=== PATIENT | male | born 1990 | race Caucasian/White ===

== ENCOUNTER 2017-09-29 17:25 | Emergency (ER) | payer OTHER, SELFPAY ==
--- NOTE | 2017-09-29 20:11 | XR_ITS ---
XR chest 2V HISTORY: ITS.REASON: PAIN WITH BREATHING ORDERING PHYSICIAN: Padmini Mcdaniel PATIENT AGE: 27 years COMPARISON: 09/04/2011 FINDINGS: The cardiomediastinal silhouette and pulmonary vascularity are within normal limits. The lungs are clear without infiltrates, suspicious nodules, or pleural effusions. No acute bony abnormalities. IMPRESSION: Negative chest, no acute finding
[2017-09-29 20:19] VITALS: BP 121/83; PULSE 72; RESP 18; TEMP 36.9; O2SAT 99; BMI 31.5
--- NOTE | 2017-09-29 20:31 | HMH.EDUTC ---
[facility] [place] Disposition Clinical Impression: Gastroenteritis, Pain aggravated by breathing Disposition: Home, Self-Care Condition on Discharge: Good Instructions: DI for Viral Gastroenteritis -- Adult Additional Instructions: * Monitor Temp. Seek treatment if fever returns * Seems like symptoms have nearly resolved. the pain aggravated by breathing is likely due to a combination of vomiting so much and leaning over the toilet. Now that you are not doing either, should improve so if no improvement over the next 48 hours or at anytime, worse, be sure to follow up immediately * Continue to Increase fluids. Water, gatorade, powerade, juice OR pedialyte with limited formula/dairy in children. * Now that you are ready to eat, start bland. bananas, rice, applesauce, toast * Contagious until no diarrhea, vomiting, fever x 24 hours without medication * Avoid anti-diarrheals unless told otherwise. Best to let the virus run its course. Referrals: Augustus Abdi MD [Primary Care Provider] - (For new, worsening or persisting symptoms) Forms: Work/School Release Time of Disposition: 21:11 Medical Decision Making Vital Signs: 09/29/17 20:19 Temperature 98.4 F Temperature Source Oral Pulse Rate [Right Radial] 72 Respiratory Rate 18 Blood Pressure [Right Arm] 121/83 Blood Pressure Mean [Right Arm] 95 Blood Pressure Position [Right Arm] Sitting 02 Sat by Pulse Oximetry 99 Oxygen Delivery Method Room Air Orders (Tests/Meds): ORDERS Category Date Time Status Chest XR 2 view (NOT portable) [XR chest 2V] Stat Exams 09/29/17 20:11 Taken - Radiology Data #1 Image(s): Chest Image Reviewed: Yes I have reviewed radiologist's interpretation Preliminary Findings: Normal/NAD vrad - Omari Inquiry Pt receiving controlled substance: No [facility] [place] HPI - General Stated complaint: v&d, Abd Pain Time Seen by Provider: 09/29/17 20:31 Mode of Arrival: Family Vehicle Source of Information: Patient Limitations: No Limitations Description of Symptoms (Recalled from Triage Doc. by RN): PT STATES THAT HE HIS HAVING PAIN WITH BREATHING. PT STATES HE HAD A STOMACH VIRUS WITH VOMITING AND DIARRHEA THE PAST COUPLE DAYS. HEENT Symptoms (Recalled from RN notes): No Resp Symptoms (Recalled from RN notes): No Skin Symptoms (Recalled from RN notes): No MS Symptoms (Recalled from RN notes): Yes (ABDOMINAL CAVITY HURTS WITH BREATHING) Functional Status (Recalled from RN notes): NA - History of Present Illness Provider Complaint: c/o upper abdominal pain or maybe pressure really aggravated by breathing. Noticed today. N/V/D since 4am Thursday morning. Vomited approx 15 times and can't recall how much watery diarrhea. Improving now. Thinks likely viral but wondering if contributing. Last vomiting late yesterday. Stool more loose then watery today and only once. No fever since yesterday. Hx of asthma. Denies SOA or wheezing but just feels harder to take a deep breath. Like my chest is already full and when I take a deep breath, my lungs are pushing into my abdomen . Denies abdominal pain. Hasn't taken or tried anything for these specific symptoms. Uses breo and incruse for asthma and albuterol as needed. Hasn't needed extra albuterol. and children with same symptoms now since he had them. - Related Data Allergies Allergy/AdvReac Type Severity Reaction Status Date / Time amoxicillin Allergy Intermediate I-RASH Verified 09/29/17 19:14 clindamycin Allergy Unknown UNKNOWN Verified 09/29/17 19:14 - Worker's Comp Is this a Worker's Comp case?: No [facility] History I have reviewed the patient's past medical history: Yes Medical History: Reports:: Asthma, Hypertension Denies:: Cancer, Chronic Obstructive Pulmonary Disease (COPD), Diabetes Mellitus Type 1, Diabetes Mellitus Type 2, MRSA Other Surgeries: Yes: No Previous Surgery Amputation: No - *Social History Smoking Status: Never smoker Alcohol Intake: never - Psychiatric History Expre
[2017-09-29 21:14] VITALS: BP 129/88; PULSE 88; RESP 18; TEMP 37.1; O2SAT 99
== END 2017-09-29 21:16 | disposition home or self-care (01) ==
PROVIDERS: Emergency Provider Nurse Practitioner Family; Family Provider Family Medicine; PCP Family Medicine
DX: K52.9 Noninfective gastroenteritis and colitis, unspecified (principal); J45.909 Unspecified asthma, uncomplicated; I10 Essential (primary) hypertension
CPT/HCPCS: 71046; 99202

== ENCOUNTER → 2017-10-23 06:43 | Outpatient (CLI) | payer OTHER, SELFPAY | PROVIDERS: PCP Family Medicine; Visit Provider Family Medicine | DX: R00.2 Palpitations (principal) | CPT/HCPCS: 93225; 93226 ==

== ENCOUNTER 2017-10-28 21:01 | Emergency (ER) | payer OTHER, SELFPAY ==
[2017-10-28 21:18] VITALS: BP 136/66; PULSE 79; RESP 16; TEMP 36.9; O2SAT 96; BMI 30.1
--- NOTE | 2017-10-28 21:45 | HMH.EDARPALP ---
ED Disposition Clinical Impression: Palpitations Disposition: Home, Self-Care Condition on Discharge: Good Additional Instructions: call pcp in am Referrals: Augustus Abdi MD [Primary Care Provider] - - Critical Care Critical Care Time: No Attestation: On 10/28/17, the high probability of a clinically significant, sudden or life threatening deterioration of the following system(s) required my full and direct attention, intervention and personal management. The time I documented below is in addition to time spent performing reported procedures but includes the following listed in this critical care notation. Medical Decision Making - Medical Records Medical records reviewed: Yes: I reviewed the patient's medical records. - Omari Inquiry Pt receiving controlled substance: No Vital Signs: 10/28/17 21:18 Temperature 98.5 F Temperature Source Oral Pulse Rate [Left Radial] 79 Respiratory Rate 16 Blood Pressure [Right Arm] 136/66 Blood Pressure Mean [Right Arm] 89 Blood Pressure Source [Right Arm] Automatic Cuff Blood Pressure Position [Right Arm] Sitting 02 Sat by Pulse Oximetry 96 Oxygen Delivery Method Room Air - Lab Data Lab results reviewed: Yes: I reviewed the patient's lab results. Lab Results 10/28/17 21:52: WBC 5.2, RBC 5.38, Hgb 16.8, Hct 48.2, MCV 89.6, MCH 31.2, MCHC 34.8, RDW 12.5, Plt Count 179, MPV 8.6, Neut % (Auto) 68.9, Lymph % (Auto) 18.5, [place] % (Auto) 6.5, Eos % (Auto) 5.8, Baso % (Auto) 0.3, Neut # (Auto) 3.6, Lymph # (Auto) 1.0, [place] # (Auto) 0.3, Eos # (Auto) 0.3, Baso # (Auto) 0.0 10/28/17 21:52: Sodium 142, Potassium 3.6, Chloride 104, Carbon Dioxide 31, Anion Gap 10.6, BUN 10, Creatinine 1.10, Estimated Creat Clear 135, Estimated GFR 80, Est GFR ( Amer) 96, Glucose 103, Total Creatine Kinase 173, CK-MB (CK-2) 0.9, CK-MB (CK-2) Rel Index 0.5, Troponin I < 0.02, TSH 0.59, Thyroxine (T4) 10.4 Result diagrams: 10/28/17 21:52 10/28/17 21:52 Orders (Tests/Meds): ORDERS Category Date Time Status Drug Screen,Urine Stat Lab 10/28/17 22:38 Received - ECG Data Tracing #1 I reviewed this ECG and interpreted as documented below: Normal Sinus Rhythm: Yes Ischemic changes: non-specific ST-T wave changes Arrhythmia/Palpitations HPI - General Chief Complaint: Arrhythmia/Palpitations Stated Complaint: heart palpatations Time Seen by Provider: 10/28/17 21:45 Mode of Arrival: Ambulatory Source of Information: Patient, Spouse, Medical Record Limitations: No Limitations - History of Present Illness HPI narrative: this wm has episodes of inc hr w/o chest pain or syncope MD complaint: heart racing , palpitations Onset (ago): hour(s) Duration: intermittent Severity: moderate Context: occurred during rest - Related Data Home Medications Medication Instructions Recorded Confirmed Albuterol Sulfate [Albuterol HFA 1 puff IH Q4HP PRN 10/28/17 10/28/17 Inhaler] Fluticasone/Vilanterol [Breo 1 each IH DAILY 10/28/17 10/28/17 Ellipta 200-25 Mcg INH] Lisinopril/Hydrochlorothiazide 1 tab PO DAILY 10/28/17 10/28/17 [Lisinopril-Hctz 20-12.5 mg Tab] Nebivolol HCl [Bystolic] 20 mg PO DAILY 10/28/17 10/28/17 Omeprazole [Omeprazole 20mg 20 mg PO DAILY 10/28/17 10/28/17 Capsule] Umeclidinium [place] [Incruse 62.5 mcg IH DAILY 10/28/17 10/28/17 Ellipta] Allergies Allergy/AdvReac Type Severity Reaction Status Date / Time amoxicillin Allergy Verified 10/28/17 21:28 clindamycin Allergy Verified 10/28/17 21:28 [facility] History I have reviewed the patient's past medical history: Yes Medical History: Denies:: Cancer, Diabetes Mellitus Type 1, Diabetes Mellitus Type 2, MRSA Amputation: No Fractures: No - Social History Smoking Status: Current every day smoker # Packs/Day (cigarettes): 1 Alcohol Intake: current Alcohol Intake Frequency:: a few times a month - Psychiatric History Expresses thoughts of harming self/othe
--- NOTE | 2017-10-28 21:48 | ED_ITS ---
ED Disposition Clinical Impression: Palpitations Disposition: Home, Self-Care Condition on Discharge: Good Additional Instructions: call pcp in am Referrals: Augustus Abdi MD [Primary Care Provider] - - Critical Care Critical Care Time: No Attestation: On 10/28/17, the high probability of a clinically significant, sudden or life threatening deterioration of the following system(s) required my full and direct attention, intervention and personal management. The time I documented below is in addition to time spent performing reported procedures but includes the following listed in this critical care notation. Medical Decision Making - Medical Records Medical records reviewed: Yes: I reviewed the patient's medical records. - Omari Inquiry Pt receiving controlled substance: No Vital Signs: 10/28/17 21:18 Temperature 98.5 F Temperature Source Oral Pulse Rate [Left Radial] 79 Respiratory Rate 16 Blood Pressure [Right Arm] 136/66 Blood Pressure Mean [Right Arm] 89 Blood Pressure Source [Right Arm] Automatic Cuff Blood Pressure Position [Right Arm] Sitting 02 Sat by Pulse Oximetry 96 Oxygen Delivery Method Room Air - Lab Data Lab results reviewed: Yes: I reviewed the patient's lab results. Lab Results 10/28/17 21:52: WBC 5.2, RBC 5.38, Hgb 16.8, Hct 48.2, MCV 89.6, MCH 31.2, MCHC 34.8, RDW 12.5, Plt Count 179, MPV 8.6, Neut % (Auto) 68.9, Lymph % (Auto) 18.5 , [place] % (Auto) 6.5, Eos % (Auto) 5.8, Baso % (Auto) 0.3, Neut # (Auto) 3.6, Lymph # (Auto) 1.0, [place] # (Auto) 0.3, Eos # (Auto) 0.3, Baso # (Auto) 0.0 10/28/17 21:52: Sodium 142, Potassium 3.6, Chloride 104, Carbon Dioxide 31, Anion Gap 10.6, BUN 10, Creatinine 1.10, Estimated Creat Clear 135, Estimated GFR 80, Est GFR ( Amer) 96, Glucose 103, Total Creatine Kinase 173, CK- MB (CK-2) 0.9, CK-MB (CK-2) Rel Index 0.5, Troponin I < 0.02, TSH 0.59, Thyroxine (T4) 10.4 Result diagrams: 10/28/17 21:52 10/28/17 21:52 Orders (Tests/Meds): ORDERS Category Date Time Status Drug Screen,Urine Stat Lab 10/28/17 22:38 Received - ECG Data Tracing #1 I reviewed this ECG and interpreted as documented below: Normal Sinus Rhythm: Yes Ischemic changes: non-specific ST-T wave changes Arrhythmia/Palpitations HPI - General Chief Complaint: Arrhythmia/Palpitations Stated Complaint: heart palpatations Time Seen by Provider: 10/28/17 21:45 Mode of Arrival: Ambulatory Source of Information: Patient, Spouse, Medical Record Limitations: No Limitations - History of Present Illness HPI narrative: this wm has episodes of inc hr w/o chest pain or syncope MD complaint: heart racing , palpitations Onset (ago): hour(s) Duration: intermittent Severity: moderate Context: occurred during rest - Related Data Home Medications Medication Instructions Recorded Confirmed Albuterol Sulfate [Albuterol HFA 1 puff IH Q4HP PRN 10/28/17 10/28/17 Inhaler] Fluticasone/Vilanterol [Breo 1 each IH DAILY 10/28/17 10/28/17 Ellipta 200-25 Mcg INH] Lisinopril/Hydrochlorothiazide 1 tab PO DAILY 10/28/17 10/28/17 [Lisinopril-Hctz 20-12.5 mg Tab] Nebivolol HCl [Bystolic] 20 mg PO DAILY 10/28/17 10/28/17 Omeprazole [Omeprazole 20mg 20 mg PO DAILY 10/28/17 10/28/17 Capsule] Umeclidinium [place] [Incruse 62
[2017-10-28 22:03] LABS: Basophils % 0.3 % (0.1-2.0); Eosinophils # 0.3 K/mm3 (0.0-0.4); Eosinophils % 5.8 % (0.1-12.0); Hematocrit 48.2 % (42.0-52.0); Hemoglobin 16.8 g/dL (14.1-18.0); Lymphocytes % 18.5 K/mm3 (10-50); Mean Corpuscular HGB Conc 34.8 g/dL (31.8-35.4); Mean Corpuscular Hemoglobin 31.2 pg (27.0-31.2); Mean Corpuscular Volume 89.6 fl (80-94); Mean Platelet Volume 8.6 fl (7.4-10.4); Monocytes # 0.3 K/mm3 (0.1-1.0); Monocytes % 6.5 % (1.7-9.3); Neutrophils # 3.6 K/mm3 (1.8-7.8); Neutrophils % 68.9 % (37.0-80.0); Platelet Count 179 K/mm3 (142-424); Red Blood Count 5.38 M/mm3 (4.60-6.20); Red Cell Distribution Width 12.5 % (11.5-17.5); White Blood Count 5.2 K/mm3 (4.8-10.8)
[2017-10-28 22:34] LABS: Anion Gap 10.6 mEq/L (5-15); Blood Urea Nitrogen 10 mg/dL (7-18); CKMB Relative Index 0.5 U/L (0-4.0); Carbon Dioxide 31 mmol/L (21.0-32.0); Chloride 104 mmol/L (98-107); Creatine Kinase 173 U/L (39-308); Creatine Kinase MB 0.9 mg/ml (0.0-3.6); Creatinine Clearance Estimated 135 mL/min (0-300); Estimated Glomerular Filt Rate 80 ml/min (>60); GFR (African American) 96 ML/MIN (>60); Glucose 103 mg/dL (74-106); Potassium 3.6 mmoL/L (3.5-5.1); Sodium 142 mmol/L (136-145); T4 (Thyroxine) 10.4 ug/dl (4.7-13.3); Thyroid Stimulating Hormone 0.59 uIU/ml (0.358-3.740); Troponin I < 0.02 ng/ml (0.00-0.06)
--- NOTE | 2017-10-28 22:39 | PC.NURSE ---
RT paged regarding halter monitor, stated she was getting it together now.
[2017-10-28 22:54] LABS: Amphetamine/Metha Screen,Urine Negative ng/mL (<1000); Barbiturates Screen,Urine Negative ng/mL (<200); Benzodiazepines Screen,Urine Negative ng/mL (200); Cannabinoid Screen,Urine Negative ng/mL (<50); Cocaine Screen,Urine Negative ng/g (<300); Methadone Screen,Urine Negative ng/mL (<300); Opiate Screen,Urine Negative ng/mL (<300); Phencyclidine Screen,Urine Negative ng/mL (<25)
[2017-10-28 23:23] VITALS: BP 156/89; PULSE 78; RESP 16; TEMP 36.6; O2SAT 98
== END 2017-10-28 23:24 | disposition home or self-care (01) ==
PROVIDERS: Emergency Provider Emergency Medicine; PCP Family Medicine
DX: R00.2 Palpitations (principal); I10 Essential (primary) hypertension; F17.210 Nicotine dependence, cigarettes, uncomplicated; Z88.1 Allergy status to other antibiotic agents
CPT/HCPCS: 80048; 80305; 82550; 82553; 84436; 84443; 84484; 85025; 93005; 93041; 99211; 99282; 99283

== ENCOUNTER → 2018-03-15 14:09 | Outpatient (CLI) | payer OTHER, SELFPAY ==
--- NOTE | 2018-03-15 14:14 | XR_ITS ---
XR chest 2V HISTORY: ITS.REASON: SEVERE PERSISTANT ASTHMA WITH EXACERBATION ORDERING PHYSICIAN: Elise Mays MD PATIENT AGE: 28 years COMPARISON: None FINDINGS: The cardiomediastinal silhouette and pulmonary vascularity are within normal limits. The lungs are clear without infiltrates, suspicious nodules, or pleural effusions. No acute bony abnormalities. IMPRESSION: Negative chest, no acute finding
== END ==
PROVIDERS: PCP Family Medicine; Visit Provider Emergency Medicine
DX: J45.51 Severe persistent asthma with (acute) exacerbation (principal)
CPT/HCPCS: 71046

== ENCOUNTER → 2019-05-31 11:04 | Outpatient (CLI) | payer OTHER, SELFPAY | PROVIDERS: PCP Family Medicine; Visit Provider Family Medicine | DX: R00.2 Palpitations (principal) | CPT/HCPCS: 93270 ==

== ENCOUNTER → 2020-01-13 08:47 | Outpatient (CLI) | payer OTHER, SELFPAY ==
--- NOTE | 2020-01-13 08:51 | FL_ITS ---
PROCEDURE: FL UPPER GI W AIR CLINICAL INDICATION: POST PRANDIAL SXS, HIATAL HERNIA COMPARISON: No exams were available for comparison TECHNIQUE: FLUOROSCOPY TIME : 2 minutes 19 seconds FINDINGS: The esophagus, stomach, and duodenum have an unremarkable appearance except for a tiny sliding hiatal hernia. There is no GE reflux seen during the study. A spot film of the cervical esophagus while swallowing shows no abnormal anterior or posterior indentation of the barium column. No ulcer or mass evident. No mucosal abnormalities apparent. There is normal peristalsis. The duodenal C-loop is normal and the proximal small bowel appears radiographically normal.. IMPRESSION: Tiny sliding hiatal hernia otherwise unremarkable study Dictated by: Dr. Martinez Perez MD 01/13/2020 09:[address] Martinez Perez MD in [place] 01/13/2020 09:44
== END ==
PROVIDERS: PCP Family Medicine; Visit Provider Family Medicine
DX: K21.0 Gastro-esophageal reflux disease with esophagitis (principal)
CPT/HCPCS: 74246

== ENCOUNTER → 2020-06-04 07:05 | Outpatient (CLI) | payer OTHER, SELFPAY ==
[2020-06-04 12:08] LABS: Coronavirus 19 IgG Antibody Negative (Negative); Coronavirus 19 IgM Antibody Negative (Negative)
== END ==
PROVIDERS: Visit Provider Surgery
DX: Z01.818 Encounter for other preprocedural examination (principal); Z12.11 Encounter for screening for malignant neoplasm of colon
CPT/HCPCS: 36415; 86328

== ENCOUNTER 2020-06-05 06:14 | Day surgery (SDC) | payer OTHER, SELFPAY ==
[2020-05-30 14:15] VITALS: BMI 34.4
[2020-06-05 06:35] VITALS: BP 133/75; PULSE 107; RESP 18; TEMP 36.9; O2SAT 97
--- NOTE | 2020-06-05 06:48 | HMH.ANESCL ---
[facility] Anesthesia Checklist - Patient Identification Patient Identification: Arm Band, Verbal (Name & ) - Structural Data Admitted From: Home Planned Operative Procedure/s: colon Consent for Planned Operative Procedure(s) Verified: Yes Verified Documents: History and Physical - NPO Status Verified Time NPO: 00:00 - Additional verifications Patient : No Anesthesia Reactions: No Hx Blood Transfusions: No Blood Transfusion Reaction: No Cephalosporin Allergy: No Previous Colonoscopy: Yes - Cardiovascular Assessment Heart Sounds: S1 & S2 Pulse Strength: Baseline Pulse Rhythm: Regular Peripheral Edema: No - Airway Assessment C-Spine Mobility Assessed: Yes TMJ Mobility Assessed: Yes Dentition: Good Dentition - Neurological Assessment Level of Consciousness: Awake, Alert, Appropriate Hx Seizures: No Numbness or tingling in extremities: No - Anesthesia Plan Anesthesia Risk discussed: Yes Anesthesia Plan: Verified ASA Class: II Anesthesia Type: MAC [facility] History I have reviewed the patient's past medical history: Yes Medical History: Reports:: Asthma, Gastroesophageal Reflux Disease(GERD), Hypertension, Palpitations Denies:: Cancer, Chronic Obstructive Pulmonary Disease (COPD), Diabetes Mellitus Type 1, Diabetes Mellitus Type 2, Internal Pacemaker, MRSA, Seizures *Have you ever received a pneumonia vaccine?: No *Have you received a flu vaccine this season?: No Anesthesia experience/problems:: none Other Surgeries: Yes: No Previous Surgery, Colonoscopy, Other. No: Pacemaker Amputation: No Fractures: No - *Social History Last grade of school completed: Advanced degree Smoking Status: Current every day smoker Tobacco Type: cigarettes # Packs/Day (cigarettes): 1 Alcohol Intake: current Alcohol Intake Frequency:: a few times a month Substance Use Type: denies use *Occupational Status:: employed Housing: house Household Members: family *Travel in the last 8 weeks: None Family Hx:: Diabetes, Cancer, Coronary Artery Disease, Hypertension, Heart Attack
[2020-06-05 07:19] VITALS: O2SAT 97
[2020-06-05 07:50] VITALS: BP 92/50; PULSE 98; RESP 16; TEMP 36.9; O2SAT 92
--- NOTE | 2020-06-05 07:50 | P.PCN_ITS ---
- Procedure: Date: 06/05/20 Patient Date of :: 1990 Procedure Performed:: Total colonoscopy to terminal ileum with polypectomy by biopsy forceps Indications:: Patient presents for follow-up colonoscopy. He is a 30-year-old male with history of hypertension on several pressure medications who was referred by Dr. Abdi for follow-up colonoscopy and seen in the office a couple of months ago.. Of note, patient works for [employer]. At that time he was scheduled for colonoscopy but due to his work schedule was unable to proceed at that time. I had seen him about 3 years ago for some rectal bleeding and performed colonoscopy. He was actually found to have at least 2 adenomatous polyps. He does have a family history of colon cancer with his great grandfather being diagnosed with colon cancer at a very young age in his 20s. He was due for a follow-up colonoscopy at 3 years. He does state that recently he had some rectal bleeding. He had discontinued aspirin and the bleeding stopped. Performing Provider:: Benny Gil MD Referring Provider:: Ruben Abdi MD Sedation:: MAC sedation Procedure:: Patient was taken to endoscopy procedure room. He was positioned in a lateral decubitus position. Adequate intravenous sedation was achieved with anesthesia titration of propofol. Digital examination was performed. He did have some prolapsing hemorrhoids. Colonoscope was inserted via the anus. Was advanced to the cecum. Ileocecal valve and appendiceal orifice were clearly identified. Colonoscope was advanced a short distance into the terminal ileum which appeared grossly normal. Colonoscope was slowly withdrawn through the colon with careful surveillance. At the rectosigmoid region about 20 cm from the anal verge there were several likely hyperplastic appearing polyps. These were removed with cold biopsy forceps. Retroflexion within the rectum revealed some minor internal hemorrhoids. Colonoscope was withdrawn. Findings:: Several likely hyperplastic rectosigmoid polyps Hemorrhoids Recommendations:: Repeat colonoscopy 3 to 5 years pending the pathology based on prior history of adenomatous polyps and family history of colon cancer at a young age. Complications:: None immediately apparent Estimated blood obtained (mL): 2
[2020-06-05 08:00] VITALS: BP 106/74; PULSE 94; RESP 16; TEMP 36.9; O2SAT 100
[2020-06-05 08:15] VITALS: BP 140/82; PULSE 84; RESP 18; TEMP 36.9; O2SAT 100
== END 2020-06-05 08:15 | disposition home or self-care (01) ==
LOC: OUTP 06:16
PROVIDERS: PCP Family Medicine; Visit Provider Surgery
PROC: 0DJD8ZZ Inspection of Lower Intestinal Tract, Via Natural or Artificial Opening Endoscopic (ICD-10-PCS; CPT 45380; principal; 2020-06-05 07:30)
DX: Z12.11 Encounter for screening for malignant neoplasm of colon (principal); I10 Essential (primary) hypertension; Z86.010 Personal history of colon polyps; K63.5 Polyp of colon; K64.9 Unspecified hemorrhoids; J45.909 Unspecified asthma, uncomplicated; K21.9 Gastro-esophageal reflux disease without esophagitis; R00.2 Palpitations; Z79.899 Other long term (current) drug therapy; Z72.0 Tobacco use; Z80.9 Family history of malignant neoplasm, unspecified; Z83.3 Family history of diabetes mellitus
CPT/HCPCS: 45380

== ENCOUNTER 2020-07-23 16:39 | Emergency (ER) | payer OTHER, SELFPAY ==
[2020-07-23 17:41] VITALS: BP 129/75; PULSE 71; RESP 18; TEMP 36.6; O2SAT 99; BMI 34.0
[2020-07-23 17:45] VITALS: BP 129/75; PULSE 71; RESP 18; TEMP 36.6; O2SAT 99
--- NOTE | 2020-07-23 17:46 | HMH.EDUTC ---
[facility] [place] Clinical Impression: Sinusitis Qualifiers: Sinusitis location: unspecified location Chronicity: unspecified Qualified Code(s): J32.9 - Chronic sinusitis, unspecified Disposition: Home, Self-Care Condition on Discharge: Good Instructions: Sinusitis, DI for Sinusitis, Preventing the Spread of Coronavirus Discharge Instructions Additional Instructions: *Monitor Temp, Over the counter Motrin or Tylenol as directed/as needed Tylenol every 4 hours and Motrin every 6 hours (as long as your family doctor has told you that you can take it) for fever or pain. and straight to ER if unable to lower temp less than 101.0 after medication given *Warm salt water gargles may help to soothe the throat *Throat Lozenges *Warm fluids like tea with honey may help to soothe the throat *Sleep elevated *Humidifier/Vaporizer *Flonase 2 sprays in each nostril daily but be aware that it may take 2-3 days before you notice improvement Follow up IMMEDIATELY for new or worsening symptoms or no Noticeable improvement over the next 48-72 hours. 911 for difficulty breathing or swallowing You were tested for today for COVID19 your test result should be back in the next 24-48 hours, you may call to the [facility] to see if your test results are back in the next 48 hours [phone] [facility] hours are 9am-9pm You was given a handout with instructions for Self Quarantine and Self isolation for while you wait on test results and what to do if they are positive If you are positive the Health Dept will be contacting you also Prescriptions: Fluticasone Propionate [Flonase Allergy Relief NS] 1 spray NS DAILY #1 bot Transmission Status: Pending to [facility] Azithromycin [Z-Carlos 250mg Tab] 250 mg PO DIRECTED #6 tab Transmission Status: Pending to [id number] Referrals: Augustus Abdi MD [Primary Care Provider] - As needed Forms: Work/School Release Time of Disposition: 18:06 Medical Decision Making - Omari Inquiry Pt receiving controlled substance: No Omari was queried for this patient: No Vital Signs: 07/23/20 17:41 07/23/20 17:45 Temperature 97.8 F 97.8 F Temperature Source Oral Pulse Rate 71 Pulse Rate [Left] 71 Respiratory Rate 18 18 Blood Pressure 129/75 Blood Pressure [Right Arm] 129/75 Blood Pressure Mean [Right Arm] 93 Blood Pressure Source [Right Arm] Automatic Cuff Blood Pressure Position [Right Arm] Sitting 02 Sat by Pulse Oximetry 99 Oxygen Delivery Method Room Air Orders (Tests/Meds): ORDERS Category Date Time Status Covid-19 Nasal PCR Sendout Mark Stat Lab 07/23/20 17:28 Ordered [facility] [place] HPI - General Stated complaint: Cough, weakness, SOB Time Seen by Provider: 07/23/20 17:46 Mode of Arrival: Ambulatory Source of Information: Patient Limitations: No Limitations Description of Symptoms (Recalled from Triage Doc. by RN): Cough, SOB, weakness x 3 weeks Covid test HEENT Symptoms (Recalled from RN notes): No Resp Symptoms (Recalled from RN notes): Yes Skin Symptoms (Recalled from RN notes): No MS Symptoms (Recalled from RN notes): No Functional Status (Recalled from RN notes): wnl - History of Present Illness Provider Complaint: Patient states that he thinks he may have a sinus infection States that he has history of asthma and has been having drainage and pressure in his sinuses State that he is suppose to start new job and wanted to get tested for COVID also Denies SOA state sthat he has just been stopped up - Related Data Home Medications Medication Instructions Recorded Confirmed Lisinopril/Hydrochlorothiazide 1 tab PO DAILY 10/28/17 06/25/20 [Lisinopril-Hctz 20-12.5 mg Tab] omeprazole 20 mg capsule,delayed 20 mg PO ONCE 11/18/17 06/25/20 release albuterol sulfate 90 mcg/actuation 1 puff INHALATION Q6H PRN 03/11/18 06/25/20 aerosol inhaler diltiazem HCl 120 mg 120 mg PO DAILY 03/12/20 06/25/20 capsule,extended release 24 hr metoprolol succinate 100 mg
[2020-07-25 14:15] LABS: Covid-19 Nasal PCR Sendout Lex Not Detected
== END 2020-07-23 18:22 | disposition home or self-care (01) ==
PROVIDERS: Emergency Provider Nurse Practitioner; PCP Family Medicine
DX: Z20.828 Contact with and (suspected) exposure to other viral communicable diseases (principal); J32.9 Chronic sinusitis, unspecified; K21.9 Gastro-esophageal reflux disease without esophagitis; I10 Essential (primary) hypertension; Z88.1 Allergy status to other antibiotic agents
CPT/HCPCS: 99201; U0004

== ENCOUNTER → 2021-08-14 07:46 | Outpatient (CLI) | payer OTHER, SELFPAY ==
--- NOTE | 2021-08-14 07:49 | CA_ITS ---
APPROVED REPORT Legal Transcriptionist: Artemio Xie RCS, RVS Study Quality: Good Indications: HTN from age 15, Cp, Family Hx- HHD Renal Artery Doppler Origin (R) 151.2/ cm/sec Proximal (R) 140.6/ cm/sec Mid (R) 166.6/ cm/sec Distal (R) 163.9/ cm/sec Renal Aorta Ratio (R) 1.31 Segmental A. (R) / cm/sec RI: 0.71 Segmental A. Sup (R) 36.0/10.0 cm/sec Segmental A. Mid (R) 47.0/14.0 cm/sec Segmental A. Inf (R) 41.0/12.0 cm/sec Origin (L) 125.2/ cm/sec Proximal (L) 156.0/ cm/sec Mid (L) 111.7/ cm/sec Distal (L) 133.1/ cm/sec Renal Aorta Ratio (L) 1.22 Segmental A. (L) / cm/sec RI: 0.69 Segmental A. Sup (L) 28.0/9.0 cm/sec Segmental A. Mid (L) 33.0/10.0 cm/sec Segmental A. Inf (L) 25.0/8.0 cm/sec Renal Measurements Kidney Size (R) 10.4x4.1 cm Cortical Thickness (R) 1.2 cm Kidney Size (L) 10.6x4.0 cm Cortical Thickness (L) 1.1 cm Findings An attempt was made to evaluate the abdominal aorta, the right and left renal arteries and kidneys, utilizing duplex ultrasonography and color flow doppler. The proximal abdominal aorta is patent without significant stenoses or dilatations. Based on the renal/aortic ratio there is no evidence of significant stenosis in the bilateral renal arteries. Conclusion An attempt was made to evaluate the abdominal aorta, the right and left renal arteries and kidneys, utilizing duplex ultrasonography and color flow doppler. The proximal abdominal aorta is patent without significant stenoses or dilatations. Based on the renal/aortic ratio there is no evidence of significant stenosis in the bilateral renal arteries. Electronically signed by : Evert Bosch MD 08/15/2021 15:01:31
--- NOTE | 2021-08-14 07:49 | CA_ITS ---
APPROVED REPORT EXAM: Comprehensive 2D, Doppler, and color-flow Echocardiogram Incident Analyst: Prema Gongora CRT Ht: 5 ft 10 in Wt: 260lbs BSA: 2.33 BP: 116/63 mmHg Indications: Chest Pain, Shortness of Breath, Palpitations, Hypertension/HDD, Smoker, GERD 2D Dimensions LVOT 2.14 cm (M/F) 1.5-2.5 LA Volume 21.50 mL LA Volume Index 9.20 mL/m2 (M/F) 16-34 M-Mode Dimensions RVDd 2.40 cm (0.9-2.6) LA Diam 2.98 cm (1.9-4.0) LVDd 4.65 cm (3.5-5.7) Ao Diam 3.61 cm (2.0-3.7) LVDs 2.43 cm (3.5-5.7) IVSd 1.18 cm (0.6-1.1) PWd 0.61 cm (0.6-1.1) EF (Teich) 79.20% FS 47.70% EDV (Teich) 99.80 mL TAPSE 1.51 (<1.7) ESV (Teich) 20.80 mL LV Diastology E Decel Time 180.00 (160-240 msec) E/A Ratio 1.12 MED E' 8.40 (< 7 cm/sec) MED A' 6.60 cm/s E'/MED E' Ratio 9.76 (>14) LAT E' 9.30 (<10 cm/sec) LAT A' 7.00 cm/s E/LAT E' Ratio 8.82 (>14) Aortic Valve AO Peak GR. 3.90 mmHg Mitral Valve MV A Velocity 73.00 (40-130 cm/s) E/A Ratio 1.12 MV Decel. Time 180.00 (160-240 ms) Pulmonary Valve PV Peak Velocity 127.00 (50-150 cm/s) Tricuspid Valve TR P. Velocity 260.00 cm/s RAP Estimate 10.00 mmHg RVSP 37.00 mmHg Left Ventricle Technically difficult study because of the patient factors and poor acoustic windows. Left atrium is normal size, left ventricle is normal size, there is no concentric left ventricular hypertrophy, visually estimated ejection fraction 55% with no regional wall motion abnormality, diastolic parameters are within normal range. Right Ventricle Right atrium and right ventricle are normal size and contractility. Aortic Valve Aortic valve is grossly normal, there is no aortic stenosis or aortic insufficiency. Mitral Valve Mitral valve grossly normal, there is trace mitral regurgitation. Tricuspid Valve Tricuspid valve grossly normal, there is trace tricuspid regurgitation, tricuspid regurgitation jet velocity is inadequate for calculation of the right ventricular systolic pressure. Pulmonic Valve Pulmonic valve is poorly visualized. Great Vessels Aortic root is normal size. Inferior vena cava is normal size with normal inspiratory collapse. Pericardium No significant pericardial effusion noted. Conclusion 1. Normal left ventricular size, preserved left ventricular systolic function, visually estimated ejection fraction 55% with no regional wall motion abnormality, diastolic parameters are within normal range. 2. Trace mitral and tricuspid regurgitation. 3. No significant pericardial effusion noted. 4. Inferior vena cava is normal size with normal inspiratory collapse. Electronically signed by : Raphael Burr MD 08/14/2021 21:19:04
== END ==
PROVIDERS: PCP Family Medicine; Visit Provider Physician Assistant
DX: R06.00 Dyspnea, unspecified (principal); R07.89 Other chest pain; R00.2 Palpitations; I10 Essential (primary) hypertension; N18.32 Chronic kidney disease, stage 3b
CPT/HCPCS: 93306; 93976

== ENCOUNTER → 2021-08-20 16:14 | Outpatient (CLI) | payer OTHER, SELFPAY ==
[2021-08-20 17:27] LABS: Blood Urea Nitrogen 13 mg/dl (9-20); Calcium 9.8 mg/dl (8.4-10.2); Carbon Dioxide 31 mmol/L (22.0-30.0); Chloride 97 mmol/L (98-107); Estimated Glomerular Filt Rate 59 ml/min (>60); GFR (African American) 71 ML/MIN (>60); Glucose 115 mg/dl (74-100); Sodium 136 mmol/L (136-145)
== END ==
PROVIDERS: Visit Provider Nurse Practitioner Family
DX: N28.9 Disorder of kidney and ureter, unspecified (principal)
CPT/HCPCS: 36415; 80048

== ENCOUNTER → 2021-09-13 11:42 | Outpatient (CLI) | payer OTHER, SELFPAY ==
[2021-09-13 12:17] LABS: Basophils # 0.1 K/mm3 (0-0.2); Basophils % 0.8 % (0.1-2.0); Eosinophils # 0.2 K/mm3 (0.0-0.4); Eosinophils % 2.6 % (0.1-12.0); Hematocrit 48.4 % (42.0-52.0); Hemoglobin 16.5 g/dL (14.1-18.0); Lymphocytes # 0.5 K/mm3 (0.7-4.5); Lymphocytes % 7.9 % (10-50); Mean Corpuscular Hemoglobin 33.1 pg (27.0-31.2); Mean Corpuscular Volume 97.6 fl (80-94); Mean Platelet Volume 8.7 fl (7.4-10.4); Monocytes # 0.3 K/mm3 (0.1-1.0); Monocytes % 4.6 % (1.7-9.3); Neutrophils # 5.7 K/mm3 (1.8-7.8); Neutrophils % 84.1 % (37.0-80.0); Platelet Count 198 K/mm3 (142-424); Red Blood Count 4.97 M/mm3 (4.60-6.20); Red Cell Distribution Width 13.8 % (11.5-17.5); White Blood Count 6.8 K/mm3 (4.8-10.8)
[2021-09-13 12:35] LABS: Alanine Aminotransferase 62 U/L (12-78); Albumin Level 4.2 g/dl (3.5-5.0); Albumin/Globulin Ratio 1.9 (1.1-1.8); Alkaline Phosphatase 59 U/L (38-126); Anion Gap 11.8 mEq/L (5-15); Aspartate Amino Transferase 78 U/L (17-59); Bilirubin,Total 0.9 mg/dl (0.2-1.3); Blood Urea Nitrogen 20 mg/dl (9-20); Calcium 8.6 mg/dl (8.4-10.2); Carbon Dioxide 22 mmol/L (22.0-30.0); Chloride 101 mmol/L (98-107); Estimated Glomerular Filt Rate 64 ml/min (>60); GFR (African American) 77 ML/MIN (>60); Globulin 2.2 g/dL (1.3-3.2); Glucose 126 mg/dl (74-100); Potassium 3.8 mmoL/L (3.5-5.1); Sodium 131 mmol/L (136-145); Total Protein,Serum 6.4 g/dl (6.3-8.2)
[2021-09-13 13:05] LABS: Thyroid Stimulating Hormone 2.37 uIU/mL (0.465-4.68)
== END ==
PROVIDERS: PCP Family Medicine; Visit Provider Physician Assistant
DX: H53.8 Other visual disturbances (principal)
CPT/HCPCS: 36415; 80053; 84443; 85025

== ENCOUNTER → 2021-12-24 14:45 | Outpatient (CLI) | payer OTHER, SELFPAY ==
[2021-12-24 16:12] LABS: Anion Gap 11.6 mEq/L (5-15); Blood Urea Nitrogen 15 mg/dl (9-20); Calcium 9.7 mg/dl (8.4-10.2); Carbon Dioxide 30 mmol/L (22.0-30.0); Chloride 99 mmol/L (98-107); Estimated Glomerular Filt Rate 59 ml/min (>60); GFR (African American) 71 ML/MIN (>60); Glucose 117 mg/dl (74-100); Potassium 3.6 mmoL/L (3.5-5.1); Sodium 137 mmol/L (136-145)
== END ==
PROVIDERS: Visit Provider Physician Assistant
DX: I10 Essential (primary) hypertension (principal)
CPT/HCPCS: 36415; 80048

== ENCOUNTER → 2022-07-30 15:18 | Outpatient (CLI) | payer OTHER, SELFPAY ==
[2022-07-30 16:24] LABS: Basophils % 0.7 % (0.1-2.0); Eosinophils # 0.3 K/mm3 (0.0-0.4); Eosinophils % 4.2 % (0.1-12.0); Hematocrit 45.2 % (42.0-52.0); Hemoglobin 15.4 g/dL (14.1-18.0); Lymphocytes # 1.5 K/mm3 (0.7-4.5); Lymphocytes % 21.3 % (10-50); Mean Corpuscular HGB Conc 34.1 g/dL (31.8-35.4); Mean Corpuscular Volume 93.7 fl (80-94); Monocytes # 0.5 K/mm3 (0.1-1.0); Monocytes % 7.3 % (1.7-9.3); Neutrophils # 4.5 K/mm3 (1.8-7.8); Neutrophils % 66.5 % (37.0-80.0); Platelet Count 244 K/mm3 (142-424); Red Blood Count 4.82 M/mm3 (4.60-6.20); Red Cell Distribution Width 12.4 % (11.5-17.5); White Blood Count 6.8 K/mm3 (4.8-10.8)
[2022-07-30 16:30] LABS: Hemoglobin A1C 5.7 % (4.0-6.0)
[2022-07-30 16:45] LABS: Alanine Aminotransferase 60 U/L (12-78); Albumin Level 4.7 g/dl (3.5-5.0); Alkaline Phosphatase 67 U/L (38-126); Anion Gap 13.8 mEq/L (5-15); Aspartate Amino Transferase 37 U/L (17-59); Bilirubin,Indirect 0.3 mg/dL (0.0-0.9); Bilirubin,Total 0.3 mg/dl (0.2-1.3); Bilirubin,Unconjugated 0.3 mg/dL (0.0-1.1); Blood Urea Nitrogen 15 mg/dl (9-20); Calcium 10.2 mg/dl (8.4-10.2); Carbon Dioxide 27 mmol/L (22.0-30.0); Chloride 101 mmol/L (98-107); Chol/HDL Ratio 6.9 (1-3.5); Cholesterol 222 mg/dl (140-200); Estimated Glomerular Filt Rate 70 ml/min (>60); GFR (African American) 84 ML/MIN (>60); Glucose 113 mg/dl (74-100); HDL Cholesterol 32 mg/dl (40-60); Magnesium 1.9 mg/dl (1.6-2.3); Potassium 3.8 mmoL/L (3.5-5.1); Sodium 138 mmol/L (136-145); Total Protein,Serum 6.9 g/dl (6.3-8.2); Triglycerides 308 mg/dl (30-150); VLDL Cholesterol 62 mg/dL (0-40)
[2022-07-30 16:56] LABS: Direct LDL Cholesterol 142.77 mg/dL (100-129)
[2022-07-30 17:02] LABS: Free T4 (Free Thyroxine) 1.03 ng/dl (0.78-2.19)
== END ==
PROVIDERS: PCP Family Medicine; Visit Provider Nurse Practitioner
DX: R00.2 Palpitations (principal); I10 Essential (primary) hypertension; R73.9 Hyperglycemia, unspecified
CPT/HCPCS: 36415; 80048; 80061; 80076; 83036; 83735; 84439; 84443; 85025

== ENCOUNTER 2022-08-25 17:22 | Emergency (ER) | payer OTHER, SELFPAY ==
--- NOTE | 2022-08-25 18:24 | EXP.UTC ---
Discharge Plan Disposition Patient Disposition: Home, Self-Care Condition: Good Prescriptions Prescriptions: New cephalexin 500 mg capsule 500 mg PO QID Qty: 40 0RF No Action albuterol sulfate 90 mcg/actuation HFA aerosol inhaler 1 puff INHALATION Q6H PRN (Reason: allergies) diltiazem HCl 120 mg capsule,extended release 24hr 120 mg PO DAILY lisinopril 20 mg tablet 20 mg PO DAILY Label Comments: TAKE 1 TABLET BY MOUTH ONCE DAILY metolazone 2.5 mg tablet 2.5 mg PO DAILY PRN Label Comments: TAKE 1 TABLET BY MOUTH ONCE DAILY NEEDED meclizine 25 mg tablet 25 mg PO DAILY PRN citalopram 10 mg tablet 10 mg PO DAILY Label Comments: TAKE 1 TABLET BY MOUTH ONCE DAILY atorvastatin 20 mg tablet 20 mg PO DAILY Qty: 90 3RF metoprolol succinate 100 mg tablet extended release 24 hr 100 mg PO BID omeprazole 20 mg capsule,delayed release(DR/EC) 40 mg PO ONCE docusate sodium [Colace] 100 mg capsule 100 mg PO BID Qty: 60 0RF fluticasone propionate 9.9 ML spray,suspension 1 spray NS DAILY Qty: 1 0RF Rx Instructions: each nostril daily aspirin 81 MG tablet,delayed release (DR/EC) 81 mg PO DAILY Referrals Follow up/Referrals: Augustus Abdi MD [Primary Care Provider] - See instructions Activity Restrictions/Add. Instructions Additional Instructions/Restrictions: Keep the wound clean and dry. Keep a dressing on it if you are going to be getting it dirty. Watch the wound for signs of infection, such as redness, swelling, drainage, fever. etc. Take tylenol or ibuprofen for pain. Follow up with your regular doctor. Return in 10 days to have the sutures removed. GO TO THE ER FOR ANY WORSENING SYMPTOMS OR CONCERNS. Clinical Impressions Clinical Impression: Finger laceration Qualifiers: Encounter type: initial encounter Finger: little finger Damage to nail status: without damage Foreign body presence: without foreign body Laterality: left Qualified Code(s): S61.217A - Laceration without foreign body of left little finger without damage to nail, initial encounter Instructions Patient Instructions: DI for Laceration Repair -- Finger Discharge ED Provider: Garrett Villalba [facility] General Stated complaint: ao 08/25, left pinky finger laceration Time Seen by Provider: 08/25/22 18:24 History of Present Illness Provider Complaint: 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 His tetanus immunization is not up to date. Related Data Home Medications Medication Instructions Recorded Confirmed albuterol sulfate 90 mcg/actuation 1 puff inhalation Q6H PRN allergies 03/11/18 07/31/22 aerosol inhaler diltiazem HCl 120 mg 120 mg PO DAILY bp 03/12/20 07/31/22 capsule,extended release 24 hr metoprolol succinate 100 mg 100 mg PO BID High blood pressure 03/12/20 07/31/22 tablet,extended release 24 hr aspirin 81 mg tablet,delayed 81 mg PO DAILY [facility] 06/05/20 07/31/22 release omeprazole 20 mg capsule,delayed 40 mg PO ONCE GERD 08/07/21 02/11/22 release lisinopril 20 mg tablet 20 mg PO DAILY 12/30/21 07/31/22 metolazone 2.5 mg tablet 2.5 mg PO DAILY PRN 12/30/21 07/31/22 citalopram 10 mg tablet 10 mg PO DAILY 07/31/22 07/31/22 meclizine 25 mg tablet 25 mg PO DAILY PRN 07/31/22 07/31/22 Previous Rx's Medication Instructions Recorded fluticasone propionate 50 1 spray intranasal DAILY ##1 07/23/20 mcg/actuation nasal spray,suspension docusate sodium 100 mg capsule 100 mg PO BID #60 caps 07/29/21 (Colace) atorvastatin 20 mg tablet 20 mg PO DAILY #90 tabs 07/31/22 cephalexin 500 mg capsule 500 mg PO QID #40 caps 08/25/22 Allergies Allergy/AdvReac Type Severity Reaction Status Date / Time amoxicillin Allergy Intermediate I-RASH Verified 08/25/22 19:21 clindamycin Allergy Unknown UNKNOWN Verified 08/25/22 19:21 [facility]
[2022-08-25 18:40] VITALS: BP 120/81; PULSE 76; RESP 19; TEMP 37.1; O2SAT 96; BMI 34.7
[2022-08-25 19:30] VITALS: BP 120/81; PULSE 76; RESP 19; TEMP 37.1; O2SAT 96
== END 2022-08-25 19:30 | disposition home or self-care (01) ==
PROVIDERS: Emergency Provider Nurse Practitioner Family; PCP Family Medicine
DX: S61.217A Laceration without foreign body of left little finger without damage to nail, initial encounter (principal)
CPT/HCPCS: 12001; 99213; G0463

== ENCOUNTER → 2022-09-10 14:37 | Outpatient (CLI) | payer OTHER, SELFPAY | LOC: SL 14:38 | PROVIDERS: PCP Family Medicine; Visit Provider Physician Assistant | DX: G47.33 Obstructive sleep apnea (adult) (pediatric) (principal); R06.83 Snoring | CPT/HCPCS: G0399 ==

== ENCOUNTER 2022-09-29 08:01 | Emergency (ER) | payer OTHER, SELFPAY ==
[2022-09-29 08:05] VITALS: BP 131/77; PULSE 87; RESP 18; TEMP 36.5; O2SAT 99; BMI 35.2
--- NOTE | 2022-09-29 08:21 | EXP.UTC ---
Discharge Plan Disposition Patient Disposition: Home, Self-Care Condition: Good Prescriptions Prescriptions: New moxifloxacin 0.5 % drops 1 drp ophthalmic (eye) TID 7 Days Qty: 3 0RF Rx Instructions: bilateral eyes azithromycin [Zithromax Z-Carlos] 250 mg tablet See Rx Instructions .ROUTE .COMPLEX 5 Days Qty: 6 0RF Rx Instructions: For 250 mg dose pack: take 500 mg today (day 1), then 250 mg for 4 days (days 2-5) methylprednisolone [Medrol (Carlos)] 4 mg tablets,dose pack See Rx Instructions .Route .COMPLEX 6 Days Qty: 21 0RF Rx Instructions: taper pack; No Action albuterol sulfate 90 mcg/actuation HFA aerosol inhaler 1 puff INHALATION Q6H PRN (Reason: allergies) diltiazem HCl 120 mg capsule,extended release 24hr 120 mg PO DAILY lisinopril 20 mg tablet 20 mg PO DAILY Label Comments: TAKE 1 TABLET BY MOUTH ONCE DAILY metolazone 2.5 mg tablet 2.5 mg PO DAILY PRN Label Comments: TAKE 1 TABLET BY MOUTH ONCE DAILY NEEDED meclizine 25 mg tablet 25 mg PO DAILY PRN citalopram 10 mg tablet 10 mg PO DAILY Label Comments: TAKE 1 TABLET BY MOUTH ONCE DAILY atorvastatin 20 mg tablet 20 mg PO DAILY Qty: 90 3RF metoprolol succinate 100 mg tablet extended release 24 hr 100 mg PO BID omeprazole 20 mg capsule,delayed release(DR/EC) 40 mg PO ONCE docusate sodium [Colace] 100 mg capsule 100 mg PO BID Qty: 60 0RF fluticasone propionate 9.9 ML spray,suspension 1 spray NS DAILY Qty: 1 0RF Rx Instructions: each nostril daily cephalexin 500 mg capsule 500 mg PO QID Qty: 40 0RF aspirin 81 MG tablet,delayed release (DR/EC) 81 mg PO DAILY Referrals Follow up/Referrals: Augustus Abdi MD [Primary Care Provider] - See instructions Activity Restrictions/Add. Instructions Additional Instructions/Restrictions: Wash hands well before and after applying drops to eyes Use drops as directed Start oral antibiotics as prescribed Follow up with your Family Doctor if no improvement Clinical Impressions Clinical Impression: Sinusitis Stand Alone Forms Stand Alone Forms: Work/School Release Instructions Patient Instructions: Sinusitis, DI for Sinusitis, DI for Conjunctivitis Discharge ED Provider: Verna Dill [facility] [place] HPI General Stated complaint: Cough drainage ear pain Time Seen by Provider: 09/29/22 08:21 History of Present Illness Provider Complaint: Patient states that he thinks he may have a bad sinus infection state that for the last week he has been having sinus pain and pressure pressure in his ears and feels like it has moved to his eyes too States that his sinus pressure has continued to get worse and he is having drainage from his eyes so he came in Related Data Home Medications Medication Instructions Recorded Confirmed albuterol sulfate 90 mcg/actuation 1 puff inhalation Q6H PRN allergies 03/11/18 07/31/22 aerosol inhaler diltiazem HCl 120 mg 120 mg PO DAILY bp 03/12/20 07/31/22 capsule,extended release 24 hr metoprolol succinate 100 mg 100 mg PO BID High blood pressure 03/12/20 07/31/22 tablet,extended release 24 hr aspirin 81 mg tablet,delayed 81 mg PO DAILY [facility] 06/05/20 07/31/22 release omeprazole 20 mg capsule,delayed 40 mg PO ONCE GERD 08/07/21 02/11/22 release lisinopril 20 mg tablet 20 mg PO DAILY 12/30/21 07/31/22 metolazone 2.5 mg tablet 2.5 mg PO DAILY PRN 12/30/21 07/31/22 citalopram 10 mg tablet 10 mg PO DAILY 07/31/22 07/31/22 meclizine 25 mg tablet 25 mg PO DAILY PRN 07/31/22 07/31/22 Previous Rx's Medication Instructions Recorded fluticasone propionate 50 1 spray intranasal DAILY ##1 07/23/20 mcg/actuation nasal spray,suspension docusate sodium 100 mg capsule 100 mg PO BID #60 caps 07/29/21 (Colace) atorvastatin 20 mg tablet 20 mg PO DAILY #90 tabs 07/31/22 cephalexin 500 mg capsule 500 mg PO QID #40 caps 08/25/22 [facility]
[2022-09-29 08:35] VITALS: BP 131/77; PULSE 87; RESP 18; TEMP 36.5; O2SAT 99
== END 2022-09-29 08:39 | disposition home or self-care (01) ==
PROVIDERS: Emergency Provider Nurse Practitioner; PCP Family Medicine
DX: J32.9 Chronic sinusitis, unspecified (principal)
CPT/HCPCS: 99212; 99213; G0463

== ENCOUNTER 2022-12-14 10:29 | Emergency (ER) | payer OTHER, SELFPAY ==
[2022-12-14 10:29] VITALS: BP 149/87; PULSE 81; RESP 21; TEMP 37.1; O2SAT 98; BMI 35.2
--- NOTE | 2022-12-14 10:51 | XR_ITS ---
PROCEDURE INFORMATION: Exam: XR Left Foot Exam date and time: 12/14/2022 10:48 AM Age: 32 years old Clinical indication: Patient HX: Left foot pain and swelling, no injury TECHNIQUE: Imaging protocol: Radiologic exam of the left foot. Views: 3 or more views. COMPARISON: No relevant prior studies available. FINDINGS: Bones/joints: No visible fracture or dislocation. Soft tissues: Normal. IMPRESSION: No visible fracture or dislocation.
--- NOTE | 2022-12-14 11:21 | EXP.UTC ---
Discharge Plan Disposition Patient Disposition: Home, Self-Care Condition: Good Prescriptions Prescriptions: New colchicine 0.6 mg capsule 1.2 mg PO DIRECTED Qty: 3 0RF Rx Instructions: Take 2 (1.2mg) tabs now wait one hour then take 1 (0.6mg) tablet for gout attack No Action metolazone 2.5 mg tablet 2.5 mg PO DAILY PRN (Reason: bp/fluid) Label Comments: TAKE 1 TABLET BY MOUTH ONCE DAILY NEEDED citalopram 10 mg tablet 10 mg PO DAILY Label Comments: TAKE 1 TABLET BY MOUTH ONCE DAILY fluticasone furoate-vilanterol [Breo Ellipta] 200-25 mcg/dose blister with device 1 inh inhalation DAILY metoprolol succinate 100 mg tablet extended release 24 hr 100 mg PO BID omeprazole 20 mg capsule,delayed release(DR/EC) 40 mg PO ONCE albuterol sulfate 90 mcg/actuation HFA aerosol inhaler See Rx Instructions .ROUTE .COMPLEX Rx Instructions: INHALE 2 PUFFS BY MOUTH 4 TIMES DAILY NEEDED FOR WHEEZING Referrals Follow up/Referrals: Augustus Abdi MD [Primary Care Provider] - See instructions Activity Restrictions/Add. Instructions Additional Instructions/Restrictions: Take medication as directed Take 2 of the 0.6mg tablets now wait one hour then take last 0.6mg Tablet Follow up with your Family Doctor if no improvment or any worsening of symptoms Return if needed Straight to ER if any life threatening symptoms Clinical Impressions Clinical Impression: Gout attack Instructions Patient Instructions: DI for Gout, Gout Discharge ED Provider: Verna Dill [facility] [place] HPI General Stated complaint: LT foot pain w/ inflammation no known accident Mode of Arrival: Ambulatory Source of Information: Patient Limitations: No Limitations Time Seen by Provider: 12/14/22 11:21 Description of Symptoms (Recalled from Triage Doc. by RN): left foot hurts and swollen HEENT Symptoms (Recalled from RN notes): No Resp Symptoms (Recalled from RN notes): No Skin Symptoms (Recalled from RN notes): No MS Symptoms (Recalled from RN notes): Yes Functional Status (Recalled from RN notes): n/a History of Present Illness Provider Complaint: Patient states that he has been having pain and swelling in his left great toe area and hurts when he walks Denies known injury but had pain like this before when he had gout Related Data Home Medications Medication Instructions Recorded Confirmed metoprolol succinate 100 mg 100 mg PO BID High blood pressure 03/12/20 12/14/22 tablet,extended release 24 hr omeprazole 20 mg capsule,delayed 40 mg PO ONCE GERD 08/07/21 12/14/22 release metolazone 2.5 mg tablet 2.5 mg PO DAILY PRN bp/fluid 12/30/21 12/14/22 citalopram 10 mg tablet 10 mg PO DAILY Depression 07/31/22 12/14/22 fluticasone furoate 200 1 inh inhalation DAILY 09/30/22 09/30/22 mcg-vilanterol 25 mcg/dose inhalation powder (Breo Ellipta) albuterol sulfate 90 mcg/actuation See Rx Instructions .Route 12/14/22 12/14/22 aerosol inhaler .COMPLEX . Previous Rx's Medication Instructions Recorded colchicine 0.6 mg capsule 1.2 mg PO DIRECTED #3 caps 12/14/22 Allergies Allergy/AdvReac Type Severity Reaction Status Date / Time amoxicillin Allergy Intermediate I-RASH Verified 12/14/22 10:59 clindamycin Allergy Unknown UNKNOWN Verified 12/14/22 10:59 Worker's Comp Is this a Worker's Comp case?: No [facility] Disclaimer: The information contained in this section may have been updated after the patient was seen, as this information can be updated by other users. Medical History (Updated 12/14/22 @ 12:02 by Verna Dill APRN) Anxiety Asthma Chest pain CKD (chronic kidney disease) stage 3, GFR 30-59 ml/min Depression Dyspnea History of gastroesophageal reflux (GERD) HLD (hyperlipidemia) HTN (hypertension) Social History Smoking Status: Current some day smoker tobacco type: e-cigarettes second hand exposure
[2022-12-14 11:29] LABS: Uric Acid 10.1 mg/dl (3.5-8.5)
[2022-12-14 12:10] VITALS: BP 149/87; PULSE 81; RESP 21; TEMP 37.1; O2SAT 98
== END 2022-12-14 12:09 | disposition home or self-care (01) ==
PROVIDERS: Emergency Provider Nurse Practitioner; PCP Family Medicine
DX: M10.072 Idiopathic gout, left ankle and foot (principal); F17.290 Nicotine dependence, other tobacco product, uncomplicated; K21.9 Gastro-esophageal reflux disease without esophagitis; I10 Essential (primary) hypertension; E78.5 Hyperlipidemia, unspecified
CPT/HCPCS: 73630; 84550; 99212; 99214; G0463

== ENCOUNTER 2023-07-07 08:18 | Emergency (ER) | payer OTHER, SELFPAY ==
[2023-07-07 08:30] VITALS: BP 113/86; PULSE 87; RESP 18; TEMP 37.2; O2SAT 98; BMI 35.9
--- NOTE | 2023-07-07 08:51 | EXP.UTC ---
Discharge Plan Disposition Patient Disposition: Home, Self-Care Condition: Good Prescriptions Prescriptions: New dicyclomine 10 mg capsule 10 mg PO TID PRN (Reason: abdominal pain/cramping) Qty: 15 0RF No Action metolazone 2.5 mg tablet 2.5 mg PO DAILY PRN (Reason: bp/fluid) Patient Comments: TAKE 1 TABLET BY MOUTH ONCE DAILY NEEDED fluticasone furoate-vilanterol [Breo Ellipta] 200-25 mcg/dose blister with device 1 inh inhalation DAILY metoprolol succinate 100 mg tablet extended release 24 hr 100 mg PO BID omeprazole 20 mg capsule,delayed release(DR/EC) 40 mg PO ONCE albuterol sulfate 90 mcg/actuation HFA aerosol inhaler See Rx Instructions .ROUTE .COMPLEX Rx Instructions: INHALE 2 PUFFS BY MOUTH 4 TIMES DAILY NEEDED FOR WHEEZING Referrals Follow up/Referrals: Augustus Abdi MD [Primary Care Provider] - See instructions Activity Restrictions/Add. Instructions Additional Instructions/Restrictions: Take meidcation as prescribed Avoid greasy and spicy foods Eat bland and drink plenty of fluids like gatoraid to give your stomach a rest You was given outpatient order for diarrhea panel collect and bring back to out patient lab then follow up with your Family Doctor Return if needed Straight to ER if any life threatening symptoms or worsening of symptoms Clinical Impressions Clinical Impression: Abdominal cramping Stand Alone Forms Stand Alone Forms: Work/School Release Instructions Patient Instructions: Diarrhea, Dicyclomine Discharge ED Provider: Verna Dill [facility] General Stated complaint: abd pain cramping Mode of Arrival: Ambulatory Source of Information: Patient Limitations: No Limitations Time Seen by Provider: 07/07/23 08:58 Description of Symptoms (Recalled from Triage Doc. by RN): PATIENT C/O ABDOMINAL CRAMPS X 4 DAYS HEENT Symptoms (Recalled from RN notes): No Resp Symptoms (Recalled from RN notes): No Skin Symptoms (Recalled from RN notes): No MS Symptoms (Recalled from RN notes): No Functional Status (Recalled from RN notes): WNL History of Present Illness Provider Complaint: Patient states that on Thursday he was having some cramping in his stomach and over the weekend and had diarrhea on and off States that he went to work this morning and has used the bathroom about 4 times since getting up and they sent him home from work States that he isnt having any cramping or pain right now and denies N/V Related Data Home Medications Medication Instructions Recorded Confirmed metoprolol succinate 100 mg 100 mg PO BID High blood pressure 03/12/20 07/07/23 tablet,extended release 24 hr omeprazole 20 mg capsule,delayed 40 mg PO ONCE GERD 08/07/21 07/07/23 release metolazone 2.5 mg tablet 2.5 mg PO DAILY PRN bp/fluid 12/30/21 07/07/23 fluticasone furoate 200 1 inh inhalation DAILY 09/30/22 07/07/23 mcg-vilanterol 25 mcg/dose inhalation powder (Breo Ellipta) albuterol sulfate 90 mcg/actuation See Rx Instructions .Route 12/14/22 07/07/23 aerosol inhaler .COMPLEX . Previous Rx's Medication Instructions Recorded dicyclomine 10 mg capsule 10 mg PO TID PRN abdominal 07/07/23 pain/cramping #15 caps Allergies Allergy/AdvReac Type Severity Reaction Status Date / Time amoxicillin Allergy Intermediate I-RASH Verified 12/14/22 10:59 clindamycin Allergy Unknown UNKNOWN Verified 12/14/22 10:59 Worker's Comp Is this a Worker's Comp case?: No [facility] Disclaimer: The information contained in this section may have been updated after the patient was seen, as this information can be updated by other users. Medical History (Updated 07/07/23 @ 09:10 by Verna Dill APRN) Anxiety Asthma Chest pain CKD (chronic kidney disease) stage 3, GFR 30-59 ml/min Depression Dyspnea History of gastroesophageal reflux (GERD) HLD (hyperlipidemia) HTN (hypertension) Social History (Reviewed 12/14/22 @ 10:59 by Holly Parker
[2023-07-07 08:57] VITALS: BP 113/86; PULSE 87; RESP 18; TEMP 37.2; O2SAT 98
== END 2023-07-07 09:15 | disposition home or self-care (01) ==
PROVIDERS: Emergency Provider Nurse Practitioner; PCP Family Medicine
DX: R10.819 Abdominal tenderness, unspecified site (principal); R19.7 Diarrhea, unspecified; F17.290 Nicotine dependence, other tobacco product, uncomplicated; E78.5 Hyperlipidemia, unspecified; J45.909 Unspecified asthma, uncomplicated; N18.30 Chronic kidney disease, stage 3 unspecified; K21.9 Gastro-esophageal reflux disease without esophagitis; I12.9 Hypertensive chronic kidney disease with stage 1 through stage 4 chronic kidney disease, or unspecified chronic kidney disease
CPT/HCPCS: 99212; 99214; G0463

== ENCOUNTER 2023-09-02 11:50 | Outpatient (CLI) | payer OTHER, SELFPAY ==
--- NOTE | 2023-09-02 11:55 | XR_ITS ---
FINAL REPORT CLINICAL HISTORY: LEFT HIP PAIN FINDINGS: Left hip Three views were obtained. There is no acute fracture or dislocation. The joint spaces appear normal. No soft tissue abnormality is identified. IMPRESSION: No acute process. Reviewed, Interpreted and Dictated by Benny Romero III, MD Transcribed by Shruthi Patton Authenticated and [facility]
== END 2023-09-02 23:59 ==
LOC: RAD 11:51
PROVIDERS: PCP Family Medicine; Visit Provider Physician Assistant
DX: M25.552 Pain in left hip (principal)
CPT/HCPCS: 73502

== ENCOUNTER 2023-09-08 11:55 | Outpatient (CLI) | payer OTHER, SELFPAY ==
--- NOTE | 2023-09-08 12:02 | XR_ITS ---
FINAL REPORT CLINICAL HISTORY: FOOT INJURY smashed foot x 3 days ago FINDINGS: 3 views of the left foot were obtained. There is hammertoe deformity of the second through fourth digits. There is a small accessory navicular. There is no acute fracture or dislocation. The joint spaces are intact. The soft tissues are unremarkable. IMPRESSION: No acute process. Reviewed, Interpreted and Dictated by Osmin Vargas MD Transcribed by Severo Boogie Authenticated and [facility]
== END 2023-09-08 23:59 ==
LOC: RAD 11:56
PROVIDERS: PCP Nurse Practitioner Family; Visit Provider Nurse Practitioner Family
DX: M79.672 Pain in left foot (principal); S99.922A Unspecified injury of left foot, initial encounter
CPT/HCPCS: 73630

== ENCOUNTER 2023-09-15 14:06 | Outpatient (CLI) | payer OTHER, SELFPAY ==
[2023-09-15 14:59] LABS: Anion Gap 14.4 mEq/L (5-15); Blood Urea Nitrogen 16 mg/dl (9-20); Calcium 9.6 mg/dl (8.4-10.2); Carbon Dioxide 30 mmol/L (22.0-30.0); Chloride 95 mmol/L (98-107); Estimated Glomerular Filt Rate 43 ml/min (>60); GFR (African American) 53 ML/MIN (>60); Glucose 163 mg/dl (74-100); Potassium 3.4 mmoL/L (3.5-5.1); Sodium 136 mmol/L (136-145)
== END 2023-09-15 23:59 ==
PROVIDERS: PCP Family Medicine; Visit Provider Nurse Practitioner Family
DX: R06.00 Dyspnea, unspecified (principal); R07.9 Chest pain, unspecified; R00.0 Tachycardia, unspecified; I10 Essential (primary) hypertension; E78.5 Hyperlipidemia, unspecified; N18.30 Chronic kidney disease, stage 3 unspecified
CPT/HCPCS: 36415; 80048

== ENCOUNTER 2023-10-09 15:02 | Outpatient (CLI) | payer OTHER, SELFPAY ==
--- NOTE | 2023-10-09 15:04 | MR_ITS ---
FINAL REPORT CLINICAL HISTORY: Lt Hip Pain. NO INJURY OR TRAUMA COMPARISON: None FINDINGS: Multiplanar and multisequence imaging of the left hip were obtained without contrast. There are changes of avascular necrosis in the left femoral head with prominent bone marrow edema in the head and neck of the left hip. There is no subchondral collapse identified. Large [id number] images also reveal right femoral head avascular necrosis. The joint spaces preserved. The labrum is intact. No convincing labral tear is identified. Signal intensity within the muscular structure is within normal limits. Remaining soft tissues are unremarkable. A small to moderate left joint effusion is noted. 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 No subchondral collapse is identified. Small to moderate left joint effusion. Reviewed, Interpreted and Dictated by Vanessa Pérez MD Transcribed by Shalini Dowling Authenticated and . [facility]
[2023-10-19 09:04] VITALS: BMI 34.7
== END 2023-10-09 23:59 ==
LOC: RAD 15:04
PROVIDERS: PCP Psychiatry & Neurology Sleep Medicine; Visit Provider Orthopaedic Surgery
DX: M25.552 Pain in left hip (principal)
CPT/HCPCS: 73721

== ENCOUNTER 2023-10-19 07:44 | Outpatient (CLI) | payer OTHER, SELFPAY ==
--- NOTE | 2023-10-19 07:45 | CA_ITS ---
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 103.0 (50-130 cm/s) AO Peak GR. 4.20 mmHg AO Mean GR. 2.50 (<5 mmHg) AO VTI 18.5 (18-25 cm) RAFITA (VTI) 3.83 (2.5-4.5 cm2) Mitral Valve MV E Max Yasir. 85.0 (40-130 cm/s) MV A Velocity 66.0 (40-130 cm/s) E/A Ratio 1.29 MV PHT 44.0 ms Pulmonary Valve PV Peak Velocity 82.0 (50-150 cm/s) Left Ventricle The left ventricle is normal size. The left ventricular systolic function is normal. The left ventricular ejection fraction is within the normal range. There is normal left ventricular wall thickness. There is normal LV segmental wall motion. The left ventricular diastolic function is normal. LVEF is 55%. Right Ventricle The right ventricle is normal size. The right ventricular systolic function is normal. Atria The left atrium size is normal. The right atrium size is normal. There is no Doppler evidence of interatrial shunt. Aortic Valve The aortic valve opens well. There is no aortic valvular stenosis. No aortic regurgitation is present. Mitral Valve The mitral valve is normal in structure. No evidence of mitral valve stenosis. There is no mitral valve regurgitation noted. Tricuspid Valve The tricuspid valve leaflets are thin and pliable. Trace tricuspid regurgitation. There is insufficient front to estimate RVSP. Pulmonic Valve The pulmonary valve is normal in structure. Trace pulmonic regurgitation. Great Vessels The aortic root is normal in size. The ascending aorta is normal in size. IVC is normal in size and collapses >50% with inspiration. Pericardium There is no pericardial effusion. Other Information Study Quality: Fair Conclusion Normal biventricular systolic function. No significant valvular stenosis or regurgitation. Electronically signed by : Lydia Cartwright MD 10/21/2023 21:31:18
--- NOTE | 2023-10-19 08:55 | CT_ITS ---
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 A noncontrast coronary calcium scan was performed. A CT attenuation threshold of 130 Hounsfield units (HU) was used for the detection of calcium in contiguous voxels of 1 sq mm in area to be counted as individual lesions. Bolus tracking in the ascending aorta with a threshold of 180 HU was performed. Immediately afterwards, ECG synchronized cardiac CT was then performed from the cardiac base to apex using retrospective gating with ECG tube current modulation. A total of 85 mL of Isovue 370 mg/mL contrast medium was administered at 5 mL/sec followed by a saline flush using a biphasic injection protocol. A tube voltage of 120 KVp was used. The average heart rate at the time of acquisition was 62 bpm and regular. Image Reconstruction Transaxial images were reconstructed at 0.67 mm slide thickness. Data was reviewed interactively on an advanced workstation capable of 2 and 3-dimensional displays in all conventional reconstruction formats, including multiplanar reformations, maximum intensity projections, curved multiplanar reformations, and volume rendered reconstructions. When applicable, selected routine images describing the relevant coronary anatomy and pathology were saved and sent to PACS. Complications None Technical Quality Overall image quality was good. Coronary artery opacification was adequate. Total DLP (Dose-Length Product) is 1645.3 mGy-cm. The reported value represents the total of one or more individual components during the CT acquisition of this date and at this time, and as such, the same value may appear in more than one CT report depending on the interpreting/reporting physicians. COMPARISON None FINDINGS CT Coronary Calcium Scoring LMA (Left Main Artery) = 0 LAD (Left Anterior Descending) = 0 LCX (Left Coronary Circumflex) = 0 RCA (Right Coronary Artery) = 0 Total Calcium Score = 0 using the AJ-130 method. The interpretation of the calcium heart score is based on the following continuum*: 0 = no calcified plaque detected (risk of coronary artery disease is very low ??? less than 5%) 1-10 = calcium detected in extremely minimal levels (risk of coronary diseases is still low ??? less than 10%) 11-100 = mild levels of plaque detected with certainty (mild or minimal narrowing of heart arteries is likely) 101-400 = definite,at least moderate levels of plaque detected (relatively high risk of a heart attack within 3-5 years) >401-999 = extensive levels of plaque detected (high risk of heart attack, high levels of vascular disease are present, high likelihood of at least one significant coronary narrowing) *The calcium heart score quantifies the burden of coronary calcification/plaque in the coronary arteries. The calcium heart score is not able to evaluate the presence or burden of non-calcified (i.e. soft) plaque. There is no identifiable calcification in the aortic valve, mitral annulus or mitral valve, pericardium, or myocardium. Coronary CT Angiography The coronary arterial system is right dominant. Quantitative Stenosis Grading: Left Main (LM): The left main originates normally from the left sinus of Valsalva. The LM trifurcates into the left anterior descending artery, ramus intermedius, and left circumflex artery. The LM is patent with no evidence of atherosclerosis. Left Anterior Descending (LAD) and Diagonal Branches: The LAD gives off 3 diagonal branches. The LAD and its branches are patent with no evidence of atherosclerosis. There is no evidence of LAD-myocardial bridge. Ramus-intermedius (RI): The RI is patent. Left Circumflex (LCX) and Obtuse Marginals (OM): The LCX gives off 3 Obtuse Marginal (OM) branches. The LCX and its branches are patent with no evidence of atherosclerosis. Right Coronary Artery (RCA): The RCA originates normally from the right sinus of Valsalva. The RCA gives off a posterior descending artery (PDA) and posterolateral (PL) branches. The RCA and its branches are patent with no evidence of atherosclerosis. Non-Coronary Cardiac Findings: Analysis of the left ventricular (LV) structure and function was performed after 3-D reconstruction of the LV from axial images, with user-corrected automatic contouring for assessment of LV volumes and user-defined reconstruction from oblique planes for measurement of 3-D cardiac structure and function. -The left ventricle systolic function is normal (LVEF 62%). -There is no left atrial appendage filling defect. Two right pulmonary veins and two left pulmonary veins drain normally into the left atrium. -No pericardial thickening or calcification. -Central and branch pulmonary arteries in the [id number] are unremarkable. -Thoracic aorta within the visualized thoracic aortic-branches in the [id number] is unremarkable. Extracardiac Structures No significant extra-cardiac findings. Note, however, that this study is focused on the cardiac findings. IMPRESSION -No coronary calcification with an Agatston score = 0 using the AJ-130 method. -No evidence of significant flow-limiting atherosclerosis of the coronary arteries. -CAD-RADS 0. Management recommendations per ACC/AHA guidelines*, as clinically appropriate. *Recommendations: CAD RADS 0: Reassurance. Consider non-atherosclerotic causes of chest pain. CAD RADS 1: Consider non-atherosclerotic causes of chest pain. Consider preventive therapy and risk factor modification. CAD RADS 2: Consider non-atherosclerotic causes of chest pain. Consider preventive therapy and risk factor modification, particularly for patients with nonobstructive plaque in multiple segments. CAD RADS 3: Consider further functional testing. Consider symptom-guided anti-ischemic and preventive pharmacotherapy as well as risk factor modification per published guideline statements. CAD RADS 4A: Consider further functional testing or invasive coronary angiography with revascularization per published guideline statements. Consider symptom-guided anti-ischemic and preventive pharmacotherapy as well as risk factor modification per published guideline statements. CAD RADS 4B: Invasive coronary angiography recommended with revascularization per published guideline statements. Consider symptom-guided anti-ischemic and preventive pharmacotherapy as well as risk factor modification per published guideline statements. CAD RADS 5: Consider invasive angiography and/or viability assessment with revascularization per published guideline statements. Consider symptom-guided anti-ischemic and preventive pharmacotherapy as well as risk factor modification per published guideline statements. CRITICAL RESULT None COMMUNICATION Per this written report The coronary and cardiac findings of this CCTA were reviewed, reported, and signed by Adin Cartwright MD (Firepot Operator And Tender) Conclusion Electronically signed by : Lydia Cartwright MD 10/21/2023 15:41:12
[2023-10-19] MEDS: IVABRADINE HCL 7.5MG TABLET *IVABRADINE+METOPROLOL REGIMINE 15 MG PO (09:18)
[2023-10-19] MEDS: METOPROLOL TARTRATE 50MG TABLET *IVABRADINE+METOPROLOL REGIMINE 75 MG PO (09:19)
[2023-10-19 09:29] VITALS: BMI 34.7
[2023-10-19 09:52] LABS: POC Glucose,Bedside 114 (70-110)
[2023-10-19 10:02] LABS: Anion Gap 10.7 mEq/L (5-15); Blood Urea Nitrogen 7 mg/dl (9-20); Calcium 9.1 mg/dl (8.4-10.2); Carbon Dioxide 29 mmol/L (22.0-30.0); Chloride 102 mmol/L (98-107); Creatinine Clearance Estimated 147 mL/min (50-200); Estimated Glomerular Filt Rate 77 ml/min (>60); GFR (African American) 93 ML/MIN (>60); Glucose 116 mg/dl (74-100); Potassium 3.7 mmoL/L (3.5-5.1); Sodium 138 mmol/L (136-145)
[2023-10-19] MEDS: METOPROLOL TARTRATE 25MG TABLET *IVABRADINE+METOPROLOL REGIMINE 25 MG PO (10:15)
[2023-10-19] MEDS: METOPROLOL TARTRATE 50MG TABLET *IVABRADINE+METOPROLOL REGIMINE 50 MG PO (10:16)
[2023-10-19 11:06] VITALS: BP 155/93; PULSE 65; RESP 16; O2SAT 98
[2023-10-19] MEDS: NITROGLYCERIN 0.4MG SL TABLET 0.800000000000000044 MG SL (11:06)
[2023-10-19 11:10] VITALS: BP 134/90; PULSE 69; RESP 16; O2SAT 98
[2023-10-19] MEDS: METOPROLOL TARTRATE 5MG/5ML VIAL *IVABRADINE+METOPROLOL REGIMINE 5 MG IV (11:10)
[2023-10-19 11:14] VITALS: BP 105/73
[2023-10-19 11:17] VITALS: BP 97/51
[2023-10-19 11:27] VITALS: BP 126/71; PULSE 72; RESP 16; O2SAT 99
[2023-10-19 12:07] VITALS: BP 132/77; PULSE 68; RESP 16; O2SAT 99
[2023-10-19] MEDS: 0.9 % SODIUM CHLORIDE 50 ML VIAL IV (12:53)
[2023-10-19] MEDS: IOPAMIDOL-370 (76%);100ML BOTTLE 85 ML IV (12:53)
== END 2023-10-19 12:07 | disposition home or self-care (01) ==
PROVIDERS: PCP Family Medicine; Visit Provider Nurse Practitioner Family
DX: R06.00 Dyspnea, unspecified (principal); R07.9 Chest pain, unspecified; R00.0 Tachycardia, unspecified; I10 Essential (primary) hypertension; E78.5 Hyperlipidemia, unspecified; N18.30 Chronic kidney disease, stage 3 unspecified; Z79.899 Other long term (current) drug therapy
CPT/HCPCS: 75571; 75574; 80048; 82962; 93306; Q9967

== ENCOUNTER 2024-01-26 20:20 | Emergency (ER) | payer OTHER, SELFPAY ==
[2024-01-26 20:22] VITALS: BP 157/87; PULSE 108; RESP 24; TEMP 37.5; O2SAT 97; BMI 34.8
[2024-01-26 20:38] VITALS: BP 139/86; PULSE 118; RESP 20; TEMP 37.6; O2SAT 96
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
[2024-01-26 20:45] LABS: Basophils # 0.1 K/mm3 (0-0.2); Basophils % 0.6 % (0.1-2.0); Eosinophils # 0.1 K/mm3 (0.0-0.4); Hematocrit 37.6 % (42.0-52.0); Hemoglobin 12.8 g/dL (14.1-18.0); Lymphocytes # 0.8 K/mm3 (0.7-4.5); Lymphocytes % 10.4 % (10-50); Mean Corpuscular HGB Conc 34.1 g/dL (31.8-35.4); Mean Corpuscular Hemoglobin 31.1 pg (27.0-31.2); Mean Corpuscular Volume 91.2 fl (80-94); Mean Platelet Volume 9.4 fl (7.4-10.4); Monocytes # 0.6 K/mm3 (0.1-1.0); Monocytes % 7.1 % (1.7-9.3); Neutrophils # 6.3 K/mm3 (1.8-7.8); Neutrophils % 80.8 % (37.0-80.0); Platelet Count 166 K/mm3 (142-424); Red Blood Count 4.12 M/mm3 (4.60-6.20); Red Cell Distribution Width 13.4 % (11.5-17.5); White Blood Count 7.7 K/mm3 (4.8-10.8)
[2024-01-26] MEDS: HYDROMORPHONE 2MG/ML SYRINGE 1 MG IV (20:45)
[2024-01-26] MEDS: KETOROLAC 30MG/ML VIAL 30 MG IV (20:45)
[2024-01-26] MEDS: LACTATED RINGERS 1000ML 1,000 ML 999 ML IV (20:46)
[2024-01-26 20:48] LABS: Chloride 96 mmol/L (98-107); Sodium 133 mmol/L (136-145)
[2024-01-26 20:49] LABS: Potassium 3.2 mmoL/L (3.5-5.1)
[2024-01-26 20:51] LABS: Alanine Aminotransferase 49 U/L (12-78); Albumin Level 3.9 g/dl (3.5-5.0); Albumin/Globulin Ratio 1.8 (1.1-1.8); Alkaline Phosphatase 67 U/L (38-126); Anion Gap 11.2 mEq/L (5-15); Aspartate Amino Transferase 59 U/L (17-59); Bilirubin,Total 0.8 mg/dl (0.2-1.3); Blood Urea Nitrogen 12 mg/dl (9-20); Calcium 8.8 mg/dl (8.4-10.2); Carbon Dioxide 29 mmol/L (22.0-30.0); Creatinine Clearance Estimated 162 mL/min (50-200); Estimated Glomerular Filt Rate 86 ml/min (>60); GFR (African American) 103 ML/MIN (>60); Globulin 2.2 g/dL (1.3-3.2); Glucose 163 mg/dl (74-100); Total Protein,Serum 6.1 g/dl (6.3-8.2)
[2024-01-26 21:16] VITALS: BP 124/78; PULSE 102; RESP 18; TEMP 37.5; O2SAT 96
--- NOTE | 2024-01-26 21:37 | PC.NURSE ---
Pt's temp is now 98.6 (Axillary). Informed MD Crystal
[2024-01-26 21:42] VITALS: BP 127/74; PULSE 106; RESP 20; TEMP 37; O2SAT 96
[2024-01-26] MEDS: POTASSIUM CHLORIDE 20MEQ TAB 40 MEQ PO (21:43)
== END 2024-01-26 21:46 | disposition home or self-care (01) ==
PROVIDERS: Emergency Provider Emergency Medicine; PCP Family Medicine
DX: E87.6 Hypokalemia (principal); R50.9 Fever, unspecified; G89.18 Other acute postprocedural pain; E87.1 Hypo-osmolality and hyponatremia; K21.9 Gastro-esophageal reflux disease without esophagitis; E78.5 Hyperlipidemia, unspecified; I12.9 Hypertensive chronic kidney disease with stage 1 through stage 4 chronic kidney disease, or unspecified chronic kidney disease; N18.30 Chronic kidney disease, stage 3 unspecified; Z96.642 Presence of left artificial hip joint
CPT/HCPCS: 80053; 85025; 87040; 96361; 96374; 96375; 99285; J1170; J1885; J7120

== ENCOUNTER 2024-02-08 18:07 | Emergency (ER) | payer OTHER, SELFPAY ==
[2024-02-08 18:15] VITALS: BP 137/83; PULSE 88; RESP 18; TEMP 36.8; O2SAT 96; BMI 34.8
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
[2024-02-08 18:32] VITALS: BP 137/83; PULSE 88; RESP 18; TEMP 36.8; O2SAT 96
== END 2024-02-08 18:32 | disposition home or self-care (01) ==
PROVIDERS: Emergency Provider Nurse Practitioner Family; PCP Family Medicine
DX: H66.91 Otitis media, unspecified, right ear (principal); R05.9 Cough, unspecified; R09.81 Nasal congestion
CPT/HCPCS: 99212; 99214; G0463

== ENCOUNTER 2024-03-15 12:01 | Outpatient (POV) | payer OTHER, SELFPAY | END 2024-03-15 23:59 | disposition home or self-care (01) | LOC: SC 12:01 | PROVIDERS: PCP Family Medicine; Visit Provider Dermatology | DX: Z00.00 Encounter for general adult medical examination without abnormal findings (principal) ==

== ENCOUNTER 2024-03-18 10:00 | Outpatient (RCR) | payer OTHER, SELFPAY | END 2024-06-22 09:07 | disposition home or self-care (01) | LOC: PT 10:00 | PROVIDERS: Visit Provider Orthopaedic Surgery Adult Reconstructive Orthopaedic Surgery | DX: M16.12 Unilateral primary osteoarthritis, left hip (principal) | CPT/HCPCS: 97010; 97014; 97110; 97163; 97164; 97530; G0283 ==

== ENCOUNTER 2024-05-11 08:51 | Emergency (ER) | payer OTHER, SELFPAY ==
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
[2024-05-11 09:04] VITALS: BP 149/100; PULSE 98; RESP 20; TEMP 36.9; O2SAT 98; BMI 35.9
[2024-05-11 10:00] VITALS: BP 149/100; PULSE 98; RESP 20; TEMP 36.9
== END 2024-05-11 10:00 | disposition home or self-care (01) ==
PROVIDERS: Emergency Provider Nurse Practitioner Family; PCP Family Medicine
DX: R10.9 Unspecified abdominal pain (principal); R19.7 Diarrhea, unspecified; R25.2 Cramp and spasm
CPT/HCPCS: 99212; 99214; G0463

== ENCOUNTER 2024-05-24 14:30 | Outpatient (POV) | payer OTHER, SELFPAY | END 2024-05-24 23:59 | disposition home or self-care (01) | LOC: SC 05-25 06:42 | PROVIDERS: Visit Provider Dermatology | DX: Z00.00 Encounter for general adult medical examination without abnormal findings (principal) ==

== ENCOUNTER 2024-07-02 11:25 | Emergency (ER) | payer OTHER, SELFPAY ==
[2024-07-02 11:26] VITALS: BP 141/87; PULSE 97; RESP 22; TEMP 36.8; O2SAT 95; BMI 35.4
--- NOTE | 2024-07-02 11:38 | XR_ITS ---
PROCEDURE INFORMATION: Exam: XR Chest Exam date and time: 07/02/2024 12:20 PM Age: 34 years old Clinical indication: Shortness of breath TECHNIQUE: Imaging protocol: Radiologic exam of the chest. Views: 2 views. COMPARISON: No relevant prior studies available. FINDINGS: Lungs: Unremarkable. No consolidation. Pleural spaces: Unremarkable. No pleural effusion. No pneumothorax. Heart/Mediastinum: Unremarkable. No cardiomegaly. Bones/joints: Unremarkable. IMPRESSION: No acute findings.
[2024-07-02] MEDS: predniSONE 20MG TAB 50 MG PO (12:03)
[2024-07-02] MEDS: IPRATROPIUM/ALBUTEROL 3 ML NEB 9 ML IH (12:03)
[2024-07-02 12:15] VITALS: BP 125/69; PULSE 94; O2SAT 97
[2024-07-02 13:00] VITALS: BP 129/81; PULSE 90; RESP 18; O2SAT 96
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
[2024-07-02 13:15] VITALS: BP 129/81; PULSE 90; O2SAT 94
[2024-07-02 13:43] VITALS: BP 122/78; PULSE 88; RESP 16; TEMP 36.7; O2SAT 96
== END 2024-07-02 13:43 | disposition home or self-care (01) ==
PROVIDERS: Emergency Provider Student in an Organized Health Care Education/Training Program; PCP Family Medicine
DX: J45.21 Mild intermittent asthma with (acute) exacerbation (principal); R06.02 Shortness of breath; R06.00 Dyspnea, unspecified
CPT/HCPCS: 71046; 99284; J7620

== ENCOUNTER 2024-07-04 10:00 | Outpatient (RCR) | payer OTHER, SELFPAY | END 2024-07-04 23:59 | disposition home or self-care (01) | LOC: PT 10:00 | PROVIDERS: PCP Family Medicine; Visit Provider Nurse Practitioner Family | DX: M16.11 Unilateral primary osteoarthritis, right hip (principal); Z98.890 Other specified postprocedural states | CPT/HCPCS: 97110; 97163 ==

== ENCOUNTER 2024-07-07 13:57 | Outpatient (CLI) | payer OTHER, SELFPAY ==
--- NOTE | 2024-07-07 14:02 | XR_ITS ---
FINAL REPORT TECHNIQUE: Chest PA & Lateral CLINICAL HISTORY: bronchitis COMPARISON: 09/29/2017 FINDINGS: 2 views of the chest were performed. The heart size is normal. The mediastinum is within normal limits. There is no acute cardiopulmonary process. There are no pleural effusions. There is no pneumothorax. The bony thorax appears intact. IMPRESSION: No acute cardiopulmonary process. Reviewed, Interpreted and Dictated by Osmin Vargas MD Transcribed by Niharika Pain[employer] Authenticated and [facility]
[2024-07-07 14:10] LABS: Adenovirus,PCR Not Detected (NotDetected); Bordetella Pertussis Not Detected (NotDetected); Chlamydophila Pneumoniae, PCR Not Detected (NotDetected); Coronavirus 19, PCR Not Detected (NotDetected); Coronavirus 229E Not Detected (NotDetected); Coronavirus NL63 Not Detected (NotDetected); Coronavirus OC43 Not Detected (NotDetected); Coronovirus HKU1,PCR Not Detected (NotDetected); Human Metapneumovirus Not Detected (NotDetected); Influenza A, PCR Not Detected (NotDetected); Influenza AH1, 2009 Not Detected (NotDetected); Influenza AH1, PCR Not Detected (NotDetected); Influenza AH3,PCR Not Detected (NotDetected); Influenza B, PCR Not Detected (NotDetected); Mycoplasma Pneumoniae, PCR Not Detected (NotDetected); Parainfluenza 1, PCR Not Detected (NotDetected); Parainfluenza 2, PCR Not Detected (NotDetected); Parainfluenza 3, PCR Not Detected (NotDetected); Parainfluenza 4, PCR Not Detected (NotDetected); Respiratory Syncytial Virus Not Detected (NotDetected); Rhinovirus/Enterovirus Not Detected (NotDetected)
== END 2024-07-07 23:59 | disposition home or self-care (01) ==
LOC: RAD 13:59
PROVIDERS: PCP Family Medicine; Visit Provider Physician Assistant
DX: J40 Bronchitis, not specified as acute or chronic (principal)
CPT/HCPCS: 71046; 87633

== ENCOUNTER 2025-02-21 23:22 | Emergency (ER) | payer OTHER, SELFPAY ==
--- OUTSIDE RECORDS SUMMARY | 2025-01-26 12:30 | XMS_ITS ---
[facility] [address] [place] [id number] Care Team Providers Care Press Service Reader Name Role Phone Jocelyne Abdi Primary Care Provider Tomasa De Leon Unavailable [phone] Kori Bowers Unavailable [phone] Allergies Allergen (clinical drug ingredient) Drug/Non Drug [...] W/U Status Risk Notes Problem Anxiety depression (900636574) Anxiety with depression (F41.8) Active confirmed Vital Signs Weight 248.4 lbs 01/26/2025 Blood pressure systolic 140 mm Hg 01/27/20 25 Blood pressure diastolic 80 mm Hg 025 Heart Rate 88 /min 01/26/2025 Height 69.50 in 01/26/2025 BMI 36.15 kg/m2 01/26/2025 Encounters Encounter Location Date Provider Diagnosis [facility] [address] [facility] [address], [place] [id number] 01/26/2025 Kori Robinson Anxiety with depress ion [...] Appt Details Follow Up: 3 Weeks, Reason: Provider Name:Jocelyne Quezada er, 02/27/2025 10:45:00 AM, [address], [address], [place], [place], [id number], Progress Notes * SHYANN FINKDOB: [birth year] (34 yo M)Acc No.[id number]:01/26/2025 Progress Notes Patient: SHYANN JOHN Provider: ROSE Lam :1990 A ge:34 Y S ex:Male Date:01/26/2025 Address:[address] [place] [address] [place], [id number] Pcp:Jocelyne Abdi Subjective: * Chief Complaints: * [...] 06/03-, Sinus infection, Bronchitis, Middle Ear Infection- [facility] 09/04/2018, Sinus Infection- [facility] 10/2018, Palpitations- [facility] 04/2019. * Family History: F ather: [...] * Images: Billing Information: * Visit Code: 25316 Office Visit, Est Pt., Level 3. * Procedure Codes: * Electronic signature of ROSE Hare on 02/21/2025 at 11:59 PM EDT Sign off status: Pending * Provider: ROSE Lam Date: 0 01/26/2025 Generated for Ryan zacarias/Gilbert/eTransmitting on: 0 02/21/2025 11:59 PM EDT History and Physical Notes * [...]
--- OUTSIDE RECORDS SUMMARY | 2025-02-03 00:04 | XMS_ITS | Encounter Summary ---
Author Organization [facility] Address [address] [place] [address] Care Team Providers Care Electronic Imager Name Role Phone Moris Abdi MD Primary Care Provider [phone] Reason for Visit * Reason Comments Psychiatric Evaluation Encounter Details Date Type Department Care Team (Latest Contact Info) Description 02/03/2025 12:04 AM EDT - 02/03/2025 4:00 PM EDT Hospital Encounter [facility] [address] [place] [address] Benny Bhakta DO [address] [place] [address] Acute stress reaction (Primary Dx); [...] drink first t annie in the morning (EYE-CLINICAL COUNSELOR) to steady your nerves or to get [...] PM EDT You are being discharge from [facility]. Please return here or nearest emergency room with any worsening of symptoms. May also utilize #[phone]. Avoid mind altering substances. Continue Cymbalta and keep previously scheduled appointment with [facility] [place]. documented in this encounter Medications at Time [...] Moris Abdi MD [address] [facility] / [place] [address] Chief Concern, Brief History of Present Illness, [...] at risk for suicide because of his advent beliefs and his three children. He is [...] they the primary team?: Yes [1] AVS ([place]izen [place] Snapshot) - Printed 02/03/2025 Outpatient Follow-Up No [...] Garcia RN - 02/03/2025 3:33 PM EDT [id number] Anxiety Reaction Anxiety is the feeling we [...] check online or at your local library [employer]. You'll find many books and audiobooks on [...] of suicide or self-harm, call or text 723right away. This is the [facility] Suicide & Crisis Lifeline. You will be connected to a trained counselor you can talk to. There's also an online chat option. You can also call [employer] at 800-273-talk ([phone]). The [employer] is free and available 09/03. When to contact your doctor Contact your doctor right away if: ? You have symptoms that don't improve or get worse. These include feelings of hopelessness or overwhelming sadness. ? You have a severe headache not eased by rest and mild pain medicine. Last Reviewed Date: 2024 00:00:00 ?? [id number] The [employer]. All rights reserved. This information is not [...] night two of his friends who are fire extinguisher repairer came to their home and brought him to [facility] due to his behaviors. Maritza reported that she had booked a flight for Ruthie this morningat 6 a.m. to attend a treatment program in [place]. Maritza reported that they will be speaking to Ruthie's friend Demetrio about next steps for Ruthie and she will call the SAE back. SAE Suarez later spoke with Carter Fink ([phone]). Carter reported that they had spoken to Demetrio and were trying to get Ruthie into a alf treatment program. Carter reported that they will [...] disease Possible not confirmed Depression Diabetes mellitus ([facility]) Hypertension SONAM (obstructive sleep apnea) Osteoarthritis Palpitations [...] old male coming to this facility from [facility]. Patient states that he recently experienced [...] for a legal 72 hour hold in [place]. In order to fully explore the differential [...] psychiatric services, the patient was transferred to [facility] for further psychiatric evaluation and observation. [...] Reactive Non Reactive 02/03/2025 1:28 AM EDT [facility] Comment:Screening for HIV 1 & 2 antibodies, and P24 antigen is NONREACTIVE. No confirmatory testing is required. Blood Venous blood specimen / Unknown Venipuncture / Unknown 02/03/2025 12:37 AM EDT 02/03/2025 12:40 AM EDT [facility] OUTSOLE SPLICER LAB BLOOD ORDERABLES Fin al Result Performing Organization Address City/[facility] Co de Phone Number HEALTHCARE LAB [address] [place] [address] * Hepatitis C Antibody - ED (02/03/2025 12:37 AM EDT) Hepatitis C Antibody Negative Negative 02/03/2025 1:23 AM EDT [facility]ALTH[facility]ARE [facility] Blood Venous blood specimen / Unknown Venipuncture / Unknown 02/03/2025 12:37 AM EDT 02/03/2025 12:40 AM EDT [facility] OUTSOLE SPLICER LAB BLOOD ORDERABLES Fin al Result Performing Organization Address [facility] de Phone Number HEALTHCARE LAB [address] [place] [address] * (ABNORMAL) Ethyl Alcohol Plasma (02/03/2025 12:37 AM EDT) Ethanol Plasma 221(H) <10 mg/dL 02/03/2025 1:02 AM EDT [facility] Blood Venous blood specimen / Unknown Venipuncture / Unknown 02/03/2025 12:37 AM EDT 02/03/2025 12:40 AM EDT Narrative HEALTHCARE LAB - 02/03/2025 1:02 AM EDT Enzymatic Assay: Performed on Dayna Placido. [facility] OUTSOLE SPLICER LAB BLOOD ORDERABLES Fin al Result Performing Organization Address City/[facility] Co de Phone Number HEALTHCARE LAB [address] [place] [address] * Free T4, Plasma (02/03/2025 12:37 AM EDT) Free T4, Plasma 1.2 0.8 - 1.7 ng/dL 02/03/2025 1:08 AM EDT [facility]ALTH[facility]ARE [facility] Blood Venous blood specimen / Unknown Venipuncture / Unknown 02/03/2025 12:37 AM EDT 02/03/2025 12:40 AM EDT [facility] BLOOD ORDERABLES Fin al Result Performing Organization Address [facility] Co de Phone Number [facility] [address] [place] [address] * Thyroid Stimulating Hormone, Plasma (02/03/2025 12:37 AM EDT) Thyroid Stimulating Hormone, Plasma 1.69 0.40 - 4.20 uIU/mL 02/03/2025 1:08 AM EDT [facility] Blood Venous blood specimen / Unknown Venipuncture / Unknown 02/03/2025 12:37 AM EDT 02/03/2025 12:40 AM EDT [facility] BLOOD ORDERABLES Fin al Result Performing Organization Address [facility] Phone Number [facility] [address] [place] [address] * (ABNORMAL) CMP (02/03/2025 12:37 AM EDT) Glucose, Plasma 95 74 - 99 mg/dL 02/03/2025 1:08 AM EDT [facility] BUN, Plasma 6(L) 7 - 21 mg/dL 02/03/2025 1:08 AM EDT [facility] Creatinine, Plasma 0.92 0.70 - 1.20 mg/dL 02/03/2025 1:08 AM EDT [facility] BUN/Creatinine Ratio 7 02/03/2025 1:08 AM EDT HEALTHCARE LAB Sodium, Plasma 142 136 - 145 mmol/L 02/03/2025 1:08 AM EDT [facility] Potassium, Plasma 4.0 3.6 - 4.9 mmol/L 02/03/2025 1:08 AM EDT [facility] Chloride, Plasma 102 97 - 107 mmol/L 02/03/2025 1:08 AM EDT [facility] CO2, Plasma 21(L) 22 - 29 mmol/L 02/03/2025 1:08 AM EDT [facility] Anion Gap 19(H) 6 - 16 mmol/L 02/03/2025 1:08 AM EDT [facility] Total Calcium, Plasma 9.4 8.9 - 10.2 mg/dL 02/03/2025 1:08 AM EDT [facility] Total Protein 7.1 6.3 - 7.9 g/dL 02/03/2025 1:08 AM EDT [facility] Albumin, Plasma 5.0 3.5 - 5.2 g/dL 02/03/2025 1:08 AM EDT [facility] AST, Plasma 34 10 - 50 U/L 02/03/2025 1:08 AM EDT [facility] ALT, Plasma 45 10 - 50 U/L 02/03/2025 1:08 AM EDT [facility] Alkaline Phosphatase, Plasma 87 40 - 115 U/L 02/03/2025 1:08 AM EDT [facility] Total Bilirubin, Plasma 0.3 0.2 - 1.1 mg/dL 02/03/2025 1:08 AM EDT [facility] eGFRcr 111.2 mL/min/1.7 3m*2 02/03/2025 1:08 AM EDT [facility] Comment:Reported eGFRcr in m L/min/1.73m2 is based the CKD-EPI 2020 equation that does not use a race coefficient. Blood Venous blood specimen / Unknown Venipuncture / Unknown 02/03/2025 12:37 AM EDT 02/03/2025 12:40 AM EDT Maribell Maynard APRN LAB BLOOD ORDERABLES Fin al Result [facility] [address] [place] [address] * CBC w/diff (02/03/2025 12:37 AM EDT) WBC Count 5.20 3.70 - 10.30 10*3/uL LAB HEMATOLOGY METHOD 02/03/2025 12:43 AM EDT [facility] RBC Count 5.34 4.60 - 6.10 10*6/uL LAB HEMATOLOGY METHOD 02/03/2025 12:43 AM EDT [facility] HGB 14.9 13.7 - 17.5 g/dL LAB HEMATOLOGY METHOD 02/03/2025 12:43 AM EDT [facility] HCT 42.5 40.0 - 51.0 % LAB HEMATOLOGY METHOD 02/03/2025 12:43 AM EDT [facility] Platelet Count 208 155 - 369 10*3/uL LAB HEMATOLOGY METHOD 02/03/2025 12:43 AM EDT [facility] MCV 80 79 - 98 fL LAB HEMATOLOGY METHOD 02/03/2025 12:43 AM EDT [facility] MCH 27.9 26.0 - 32.0 pg LAB HEMATOLOGY METHOD 02/03/2025 12:43 AM EDT [facility] MCHC 35.1 30.7 - 35.5 g/dL LAB HEMATOLOGY METHOD 02/03/2025 12:43 AM EDT [facility] RDW 14.4 11.5 - 14.5 % LAB HEMATOLOGY METHOD 02/03/2025 12:43 AM EDT [facility] MPV 9.3 8.8 - 12.5 fL LAB HEMATOLOGY METHOD 02/03/2025 12:43 AM EDT [facility] nRBC 0.0 <=0.0 per 100 WBCs LAB HEMATOLOGY METHOD 02/03/2025 12:43 AM EDT [facility] Differential Type Automated LAB HEMATOLOGY METHOD 02/03/2025 12:43 AM EDT [facility] Neutrophils % 61 % LAB HEMATOLOGY METHOD 02/03/2025 12:43 AM EDT [facility] Lymphocytes % 25 % LAB HEMATOLOGY METHOD 02/03/2025 12:43 AM EDT [facility] Monocytes % 8 % LAB HEMATOLOGY METHOD 02/03/2025 12:43 AM EDT HEALTHCARE LAB Eosinophils % 4 % LAB HEMATOLOGY METHOD 02/03/2025 12:43 AM EDT [facility] Basophils % 1 % LAB HEMATOLOGY METHOD 02/03/2025 12:43 AM EDT [facility] Immature Granulocytes % 1 % LAB HEMATOLOGY METHOD 02/03/2025 12:43 AM EDT HEALTHCARE LAB Neutrophils Absolute 3.25 1.60 - 6.10 10*3/uL LAB HEMATOLOGY METHOD 02/03/2025 12:43 AM EDT [facility]ALTH[facility]ARE LAB Lymphocytes Absolute 1.30 1.20 - 3.90 10*3/uL LAB HEMATOLOGY METHOD 02/03/2025 12:43 AM EDT [facility] Monocytes Absolute 0.39 0.30 - 0.90 [...] BLOOD ORDERABLES Fin al Result [facility] [address] [place] [address] documented in this encounter Visit Diagnoses Diagnosis [...] documented as of this encounter Care Teams Electronic Imager Relationship Specialty Start Date End Date Moris Abdi MD [address] [place] [address] PCP - General 12/28/20 documented as of this encounter
--- OUTSIDE RECORDS SUMMARY | 2025-02-09 07:15 | XMS_ITS ---
Author Organization [facility] Address [address] [facility] [address] [place] [id number] Care Team Providers Care Insurance Billing Clerk Name Role Phone Jocelyne Abdi Primary Care Provider Tomasa De Leon Unavailable [phone] Kori Bowers Unavailable [phone] Allergies Allergen (clinical drug ingredient) Drug/Non Drug Allergy documented on EMR Reaction Allergy Type Onset Date Status Amoxicillin Unknown Drug Allergy Activ e clindamycin Clindamycin Unknown Drug Allergy Act naseem REASON FOR VISIT depression Medications Medication SIG (Take, Route, Frequency, Duration) Notes Start Date End Date Status Acetaminophen 325 MG 1 capsule as needed Orally every 6 hrs Not-Taking hydrOXYzine HCl 25 MG 1 tab Orally 4 lon es a day, prn; Duration: 30 days 01/26/2025 Active Aspirin 81 81 MG 1 tablet Orally Once a day; Duration: 30 day(s) Not-Taking Breo Ellipta 100-25 MCG/ACT inhale 1 puff by mouth once daily Inhalation Once a day; Duration: 90 days Active CPAP machine and supplies - as directed 6 to 16 as directed 09/08/2024 Active Esomeprazole Magnesium 40 MG 1 cap(s) orally once a day, OTC Active Lisinopril 20 MG 1 tablet Orally Once a day Active Blood Glucose System Carlos - as directed 11/24/2023 Active dilTIAZem HCl ER Beads 120 MG 1 capsule Orally Once a day Active Carvedilol 25 MG 1 tablet with food Orally Twice a day Active Atorvastatin Calcium 10 MG 1 tablet Oral ly Once a day; Duration: 30 day(s) 09/10/2023 Active PARoxetine HCl 40 MG 1 tablet in the morning Orally Once a day Not-Taking Multivitamin - 1 tab(s) orally once a day prn Active DULoxetine HCl 30 MG 2 cap Orally Once a day 01/26/2025 Active ARIPiprazole 5 MG 1 tablet Orally Once a day; Duration: 30 day(s) Not-Taking metOLazone 2.5 MG TAKE 1 TABLET BY CHRISTY TH ONCE DAILY NEEDED Not-Taking hydrOXYzine HCl 25 MG 1/2 - 1 tab Orally 4 times a day as needed Not-Taking metFORMIN HCl ER 500 MG 1 tablet with ev ening meal Orally Once a day; Duration: 30 day(s) 09/10/2023 Not-Taking Ondansetron HCl 4 MG 1 tablet Orally thr ee times a day as needed 07/28/2024 Not-Taking PARoxetine HCl 40 MG 1 tablet in the morning Orally Once a day; Duration: 30 day(s) 09/08/2024 Not-Taking Gabapentin 300 MG 1 capsule Orally Thr ee times a day Not-Taking traMADol HCl 50 MG 2 tablet as needed Orally every 6 hrs Not-Taking Problems Problem Type SNOMED Code ICD Code Onset Dates Problem Status W/U Status Risk Notes Problem Alcohol abuse (12804900) Alcohol abuse (F10.10) Active confirmed Problem Anxiety (85828648) Anxiety (F41.9) Active confirmed Problem Panic attacks (F41.0) Active confirmed Vital Signs Weight 238.8 lbs 02/09/2025 Blood pressure systolic 160 mm Hg 02/10/20 25 Blood pressure diastolic 92 mm Hg 025 Heart Rate 104 /min 02/09/2025 Height 69.50 in 02/09/2025 BMI 34.76 kg/m2 02/09/2025 Encounters Encounter Location Date Provider Diagnosis [facility] [address] [facility] [address] [place], [place] [phone] 02/09/2025 Kori Bowers Alcohol abuse F10.10 ; Depression with anxiety F41.8 ; Panic attacks F41.0 and Essential (primary) hypertension I10 Assessments Encounter Date Diagnosis (ICD Code) Assessment Notes Treatment Notes Treatment Clinical Notes Section Notes 02/09/2025 Alcohol abuse (ICD-10 - F10.10) Patient is going to check into rehab facilities 02/09/2025 Depression with anxiety (ICD-10 - F41.8) 02/09/2025 Panic attacks (ICD-10 - F41.0) Discussed the case with Dr. Lawson. He is going to send the patient a week's worth of oxazepam and he will f/u with Dr. Abdi next week. 02/09/2025 Essential (primary) hypertension (ICD-10 - I10) Will monitor BP at home. Plan Of Treatment Medication Medication Name Sig Start Date Stop Date Notes DULoxetine HCl 30 MG 2 cap Orally Once a day 01/26/2025 Treatment Notes Assessment Notes Alcohol abuse Patient is going to check into rehab facilities Panic attacks Discussed the case w nikki Lawson. He is going to send the patient a week's worth of oxazepam and he will f/u with Dr. Abdi next week. Essential (primary) hypertension Will mo nitor BP at home. Next Appt Details Follow Up: 1 Week, Reason: Provider Name:Jocelyne Quezada , 02/27/2025 10:45:00 AM, [address] [facility] [address] [facility], [address] , [place], [place], [phone], Progress Notes * SHYANN FINKDOB: 9 (34 yo M)Acc No.[id number]:02/09/2025 Progress Notes Patient: SHYANN JOHN Provider: ROSE Lam :1990 A ge:34 Y S ex:Male Date:02/09/2025 Address:[address] [place] [address] [id number] Pcp:Jocelyne Abdi Subjective: * Chief Complaints: * 1 . Depression. * HPI: P sychology: The patient is here today for a check-up on Depression. Pt states his depression is worse and he is having severe panic attacks. Pt states he was [facility] about [facility]. His left him and he is drinking again and using kratom. He is trying to wean off of the kratom. He is agreeable to go to rehab but has to get some things in order first and would like to have something to take for the withdrawal and anxiety. He denies any suicidal ideation. * ROS: D ERMATOLOGY: no R yury. [...] 06/03-, Sinus infection, Bronchitis, Middle Ear Infection- [facility] 09/04/2018, Sinus Infection- [facility] 10/2018, Palpitations- [facility] 04/2019. * Family History: F ather: [...] directed 6 to 16 as directed , Taking DULoxetine HCl 30 MG Capsule Delayed Release Particles 1 capsule Orally Once a day , Taking hydrOXYzine HCl 25 MG Tablet 1 tab Orally 4 times a day, prn , Not-Taking Acetaminophen 325 MG Capsule 1 [...] moxicillin, Clindamycin. Objective: * Vitals: W t: 238.8, Temp: 98.6, BP: 160/92, HR: 104, Nurse: KARUNA, Ht: 69.50, BMI:34.76. * Examination: G eneral Examination: General Appearance: S haky, sweating. H EENT: u nremarkable. O ral cavity: n o lesions, mucosa moist and WNL, no erythema. N jocelyn: s upple, no lymphadenopathy. C hest: n ormal shape and expansion. H eart: R SR. L ungs: c lear to auscultation. A bdomen: b owel sounds present, soft and nontender. N eurologic Exam: I ntact, gait normal. S kin: n ormal, no rash. P eripheral pulses:?normal (2+) bilaterally. E xtremities: n o leg edema. P sychology: Grooming : a dequate. E ye contact : d ecreased.?Mood : d epressed. Assessment: * Assessment: 1. A lcohol abuse - F10.10 (Primary) 2 . D epression with anxiety - F41.8? 3. P anic attacks - F41.0 4 . E ssential (primary) hypertension - I10 Plan: * Treatment: 2. D epression with anxiety Increase DULoxetine HCl Capsule Delayed Release Particles, 30 MG, 2 cap, Orally, Once a day. ? 3. P anic attacks Notes: Discussed the case with Dr. Lawson. He is going to send the patient a week's worth of oxazepam and he will f/u with Dr. Abdi next week. 4. E ssential (primary) hypertension Notes: Will monitor BP at home. * Follow Up: 1 Week * Images: Billing Information: * Visit Code: 49368 Office Visit, Est Pt., Level 4. * Procedure Codes: * Electronic signature of ROSE Hare on 02/21/2025 at 11:59 PM EDT Sign off status: Pending * Provider: ROSE Lam Date: 0 02/09/2025 Generated for Macrii ng/Gilbert/eTransmitting on: 0 02/21/2025 11:59 PM EDT History and Physical Notes * Examination Category Sub-Category Detail Notes Category Not es General Examination HEENT: unremarkable Heart: RSR Lungs: clear to auscultatio n Abdomen: bowel sounds present , soft and nontender Extremities: no leg edema General Appearance: Shaky, sweating Skin: normal, no rash Neurologic Exam: Intact, gait normal Neck: supple, no lymphaden opathy Oral cavity: no lesions, mucosa m oist and WNL, no erythema Peripheral pulses: normal (2+) bilatera lly Chest: normal shape and exp ansion Psychology Grooming : adequate Eye contact : decreased Mood : depressed
--- OUTSIDE RECORDS SUMMARY | 2025-02-16 11:30 | XMS_ITS ---
Author Organization [facility] Address [address] [facility] 36 [facility] [address] [place] [phone] Care Team Providers Care Faculty Criminal Justice Name Role Phone Jocelyne Abdi Primary Care Provider Tomasa De Leon Unavailable [phone] Kori Boewrs Unavailable [phone] REASON FOR VISIT 3 weeks Encounters Encounter Location Date Provider Diagnosis [facility] [address] [facility] [address] [place] [phone] 02/16/2025 Kori Bowers Plan Of Treatment Next Appt Details Provider Name:Jocelyne Quezada er, 02/27/2025 10:45:00 AM, [address] [facility] [address] [facility], [address], [place], [phone], Progress Notes * SHYANN FINKDOB: [birth year] (34 yo M)Acc No.[id number]:02/16/2025 Progress Notes Patient: SHYANN JOHN Provider: ROSE Lam :1990 A ge:34 Y S ex:Male Date:02/16/2025 Address:[id number] Pcp:Jocelyne Abdi Subjective: * Chief Complaints: * 1 . 3 weeks. * Medical History: Objective: * Vitals: Assessment: Plan: * Treatment: * Images: Billing Information: * Visit Code: * Procedure Codes: * Electronic signature of ROSE Hare on 02/21/2025 at 11:59 PM EDT Sign off status: Pending * Provider: ROSE Lam Date: 0 02/16/2025 Generated for Ryan zacarias/Gilbert/Lara on: 0 02/21/2025 11:59 PM EDT
--- NOTE | 2025-02-21 23:20 | ECG_ITS ---
APPROVED REPORT Exam: Resting ECG HR:106 bpm ECG Measurements Heart Rate 106 AXES AZ 186 P 81 QRSd 104 QRS 40 QT 349 T 64 QTc 411 Conclusion SINUS TACHYCARDIA ABNORMAL RHYTHM ECG No STEMI Electronically signed by : KARTIK ACEVEDO, 02/22/2025 06:27:47
[2025-02-21 23:28] VITALS: BP 161/92; PULSE 94; RESP 12; TEMP 37; O2SAT 94; BMI 34.0
[2025-02-21 23:45] LABS: Hematocrit 45.1 % (42.0-52.0); Hemoglobin 15.5 g/dL (14.1-18.0); Immature Granulocytes % 0.3 %; Mean Corpuscular HGB Conc 34.4 g/dL (31.8-35.4); Mean Corpuscular Hemoglobin 28.3 pg (27.0-31.2); Mean Corpuscular Volume 82.4 fl (80-94); Nucleated Red Blood Cells % 0 %; Platelet Count 125 K/mm3 (142-424); Red Blood Count 5.47 M/mm3 (4.60-6.20); Red Cell Distribution Width-SD 43.8 fL; White Blood Count 3.5 K/mm3 (4.8-10.8)
[2025-02-21] MEDS: LACTATED RINGERS 1000ML 1,000 ML 999 ML IV (23:45)
[2025-02-21] MEDS: ASPIRIN 81MG CHEWABLE TABLET 324 MG PO (23:45)
[2025-02-21] MEDS: MORPHINE 4MG/ML SYRINGE 4 MG IV (23:46)
[2025-02-21] MEDS: BELLADONNA ALKALOIDS 60 ML ML PO (23:46)
[2025-02-21] MEDS: ONDANSETRON 4MG/2ML VIAL 4 MG IV (23:46)
[2025-02-21 23:54] LABS: Alanine Aminotransferase 95 U/L (12-78); Albumin Level 5.4 g/dl (3.5-5.0); Albumin/Globulin Ratio 2.5 (1.1-1.8); Alkaline Phosphatase 87 U/L (38-126); Anion Gap 27.4 mEq/L (5-15); Aspartate Amino Transferase 95 U/L (17-59); Bilirubin,Total 0.8 mg/dl (0.2-1.3); Blood Urea Nitrogen 13 mg/dl (9-20); Calcium 9.5 mg/dl (8.4-10.2); Carbon Dioxide 22 mmol/L (22.0-30.0); Chloride 96 mmol/L (98-107); Creatinine Clearance Estimated 174 mL/min (50-200); Creatinine,Serum 0.90 mg/dl (0.66-1.25); Estimated Glomerular Filt Rate 96 ml/min (>60); GFR (African American) 116 ML/MIN (>60); Globulin 2.2 g/dL (1.3-3.2); Glucose 180 mg/dl (74-100); INR 1.00 (0.9-1.1); Potassium 3.4 mmoL/L (3.5-5.1); Prothrombin Time 11.1 seconds (10.1-12.5); Sodium 142 mmol/L (136-145); Total Protein,Serum 7.6 g/dl (6.3-8.2)
--- OUTSIDE RECORDS SUMMARY | 2025-02-21 23:59 | XMS_ITS | Patient Health Record ---
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 Name Role Phone Jocelyne Abdi Primary Care Provider Tomasa De Leon Unavailable [phone] Won Lawson Unavailable [phone] Gato Persaud Unavailable [phone] Kori Bowers Unavailable [phone] Allergies Allergen (clinical drug ingredient) Drug/Non Drug Allergy documented on EMR Reaction Allergy Type Onset Date Status amoxicillin Amoxicillin Unknown Drug Allergy Act naseem clindamycin Clindamycin Unknown Drug Allergy Act naseem Results Component Value Reference Range Notes CBC Fingerstick (in house) Reviewed date:07/28/2024 10:16:56 AM Interpretation: Performing Lab: Notes/Report: wbc 5.4 3.5 - 10 lym 17.5 15 - 50 mid 4.1 2 - 15 gran 78.4 35 - 80 rbc 4.94 3.5 - 5.5 hgb 14.3 11.5 - 16.5 hct 41.9 35 - 55 mcv 84.7 75 - 100 mch 29.0 25 - 35 mchc 34.2 31 - 38 plat 100 100 - 400 H-COVIDPANEL Reviewed date:07/08/2024 04:26:54 PM Interpretation:Negative Performing Lab: Notes/Report: Is patient a resident in a congregate care setting? No Date of Symptom onset Is patient currently in ICU? No Is patient currently hospitalized? No Is patient an [facility] employee? N Is the patient employed in healthcare? No Does the patient have COVID symptoms? Yes Is this the 1st COVID test for the patient? No No ADENOQIA Not Detected NotDetected CORONAHKU1 Not Detected NotDetected DIAATBEU55 Not Detected NotDetected NYDWI387G Not Detected NotDetected CDTVRMK07 Not Detected NotDetected METAPNEUMO Not Detected NotDetected RHINOENTER Not Detected NotDetected INFLUAPCR Not Detected NotDetected FLUAH1 Not Detected NotDetected [id number] Not Detected NotDetected INFLUAH3 Not Detected NotDetected INFLUB Not Detected NotDetected PARAINFLU1 Not Detected NotDetected PARAINFLU2 Not Detected NotDetected PARAINFLU3 Not Detected NotDetected PARAINFLU 4 Not Detected NotDetected RSVPCR Not Detected NotDetected COVIDHMH Not Detected NotDetected Effective 04/09/21, Positive covid results will no longer be called to the ordering physician. Infection control and the physician?s office will continue to report positive covid results to the local Health Department as required. This assay is for in vitro diagnostic use under FDA Emergency Use Authorization only. Negative results do not preclude infection with SARS CoV 2 virus and should not be the sole basis of a patient treatment/management or public health decision. Follow up testing should be performed according to the current CDC recommendations. BORDPERT Not Detected NotDetected CHLAMYDPNEUM Not Detected NotDetected MYCOPLASM Not Detected NotDetected CXR Reviewed date:07/08/2024 04:26:28 PM Interpretation:nothing acute Performing Lab: Notes/Report: nothing acute CBC Fingerstick (in house) Reviewed date:07/07/2024 03:01:23 PM Interpretation: Performing Lab: Notes/Report: wbc 8.8 3.5 - 10 lym 10.3 15 - 50 mid 2.6 2 - 15 gran 87.1 35 - 80 rbc 4.94 3.5 - 5.5 hgb 14.2 11.5 - 16.5 hct 43.0 35 - 55 mcv 87.0 75 - 100 mch 28.8 25 - 35 mchc 33.1 31 - 38 plat 203 100 - 400 CBC Fingerstick (in house) Reviewed date:09/08/2024 01:29:07 PM Interpretation: Performing Lab: Notes/Report: wbc 5.4 3.5 - 10 lym 18.5 15 - 50 mid 4.7 2 - 15 gran 76.8 35 - 80 rbc 5.00 3.5 - 5.5 hgb 13.9 11.5 - 16.5 hct 41.0 35 - 55 mcv 82.0 75 - 100 mch 27.8 25 - 35 mchc 33.8 31 - 38 plat 162 100 - 400 Glycohemoglobin A1c (in hous e) Reviewed date:09/09/2024 12:08:31 PM Interpretation:5.4% Normal Performing Lab: Notes/Report: 5.4% Normal glycohemoglobin 5.4% 5 - 6.5 % P-Vitamin B12 Reviewed date:09/09/2024 12:08:31 PM Interpretation:Normal Performing Lab: Notes/Report: CLIA: [id number] Tino Fletcher MD, Concept Artist [address] [place] [address] , [address], [place] [address] Test performed by [facility] Vitamin B12 149 497-9185 pg/mL P-Comprehensive Metabolic Pa darryl (CMP) Reviewed date:09/09/2024 12:08:31 PM Interpretation:gluc 120 Performing Lab: Notes/Report: Test performed by [facility] [address] [place] [address] , [address], [place] [address] Tino Fletcher MD, Concept Artist CLIA: [id number] Sodium 142 135-145 mmol/L Potassium 4.3 3.5-5.3 mmol/L Chloride 106 97-108 mmol/L CO2 26 22-32 mmol/L Glucose 120 65-99 mg/dL BUN 7 6-20 mg/dL Creatinine 0.91 0.70-1.30 mg/dL Calcium 9.1 8.6-10.4 mg/dL eGFR by Creatinine 112 >59 mL/min/1.73m2 Protein 6.2 6.0-8.3 g/dL Albumin 4.3 3.5-5.3 g/dL Alkaline Phosphatase 104 40-129 IU/L ALT (SGPT) 19 <5-55 IU/L AST (SGOT) 16 <5-46 IU/L Bilirubin, Total 0.2 <0.2-1.2 mg/dL A/G Ratio 2.3 1.1-2.5 P-TSH reflex to FT4 Reviewed date:09/09/2024 12:08:31 PM Interpretation:Normal Performing Lab: Notes/Report: Test performed by [facility] [address] [place] [address] , [address], [place] [address] Tino Fletcher MD, Concept Artist CLIA: [id number] TSH reflex to FT4 0.81 0.43-5.25 mU/L P-Vitamin D 25-Hydroxy Reviewed date:09/09/2024 12:08:31 PM Interpretation:11.1 Performing Lab: Notes/Report: Test performed by [facility] [address] [place] [address] , [address], [place] [address] Tino Fletcher MD, Concept Artist CLIA: [id number] Vitamin D 25-Hydroxy 11.1 30.0-100.0 ng/mL Interpretation of Vitamin D 25 OH: < 20 ng/mL - Deficiency 20 - 29 ng/mL - Insufficiency 30 - 100 ng/mL - Sufficiency > 100 ng/mL - Super-therapeutic- toxicity may occur above this level. Clinical correlation required. CBC Fingerstick (in house) Reviewed date:06/30/2024 02:41:20 PM Interpretation: Performing Lab: Notes/Report: wbc 4.0 3.5 - 10 lym 12.9 15 - 50 mid 16.2 2 - 15 gran 70.9 35 - 80 rbc 4.35 3.5 - 5.5 hgb 13.0 11.5 - 16.5 hct 38.3 35 - 55 mcv 88.0 75 - 100 mch 29.9 25 - 35 mchc 33.9 31 - 38 plat 196 100 - 400 Medications Medication SIG (Take, Route, Frequency, Duration) Notes Start Date End Date Status Atorvastatin Calcium 10 MG 1 tablet Oral ly Once a day; Duration: 30 day(s) 09/10/2023 Active Acetaminophen 325 MG 1 capsule as needed Orally every 6 hrs Not-Taking hydrOXYzine HCl 25 MG 1 tab Orally 4 lon es a day, prn; Duration: 30 days 01/26/2025 Active PARoxetine HCl 40 MG 1 tablet in the morning Orally Once a day Not-Taking Esomeprazole Magnesium 40 MG 1 cap(s) orally once a day, OTC Active Gabapentin 300 MG 1 capsule Orally Thr ee times a day Not-Taking Multivitamin - 1 tab(s) orally once a day prn Active Aspirin 81 81 MG 1 tablet Orally Once a day; Duration: 30 day(s) Not-Taking DULoxetine HCl 30 MG 2 cap Orally Once a day 01/26/2025 Active Lisinopril 20 MG 1 tablet Orally Once a day Active metOLazone 2.5 MG TAKE 1 TABLET BY CHRISTY TH ONCE DAILY NEEDED Not-Taking Oxazepam 15 MG 1 cap Orally Three times a day 02/09/2025 Active Blood Glucose System Carlos - as directed 11/24/2023 Active traMADol HCl 50 MG 2 tablet as needed Orally every 6 hrs Not-Taking dilTIAZem HCl ER Beads 120 MG 1 capsule Orally Once a day Active hydrOXYzine HCl 25 MG 1/2 - 1 tab Orally 4 times a day as needed Not-Taking Carvedilol 25 MG 1 tablet with food Orally Twice a day Active metFORMIN HCl ER 500 MG 1 tablet with ev ening meal Orally Once a day; Duration: 30 day(s) 09/10/2023 Not-Taking Breo Ellipta 100-25 MCG/ACT inhale 1 puff by mouth once daily Inhalation Once a day; Duration: 90 days Active Ondansetron HCl 4 MG 1 tablet Orally thr ee times a day as needed 07/28/2024 Not-Taking ARIPiprazole 5 MG 1 tablet Orally Once a day; Duration: 30 day(s) Not-Taking CPAP machine and supplies - as directed 6 to 16 as directed 09/08/2024 Active PARoxetine HCl 40 MG 1 tablet in the morning Orally Once a day; Duration: 30 day(s) 09/08/2024 Not-Taking Immunizations Vaccine Route Administration Date Status Comme nts xGardasil IM Intramuscular 08/31/2012 Administered xGardasil IM Intramuscular 11/03/2012 Administered xGardasil IM Intramuscular 07/26/2013 Administered xFluzone (6mos and older)-trivalent Unknown 06/02/2021 Administered Tetanus Tdap-Adacel (over 7yrs) IM Intramuscular 05/07/2011 Administered Tetanus Tdap-Adacel (over 7yrs) IM Intramuscular 08/29/2022 Administered Menactra IM Intramuscular 10/31/2010 Administered HEPB VACC PED/ADOL DOSE IM Unknown 10/19/2000 Administe red HEPB VACC PED/ADOL DOSE IM Unknown 11/19/2000 Administe red HEPB VACC PED/ADOL DOSE IM Unknown 03/17/2001 Administe red HEPB VACC PED/ADOL DOSE IM Unknown 03/17/2001 Administe red Fluzone Quad (6months&older) IM Intramuscular 10/22/2019 Administered Fluzone PF Quad (6-35 months) Unknown 06/24/2022 Administered DT, 7 YEARS OR OLDER Unknown 10/19/2000 Administered COVID 19 Moderna Unknown 08/13/2020 Administered COVID 19 Moderna Unknown 08/17/2020 Administered COVID 19 Moderna Unknown 09/14/2020 Administered COVID 19 Moderna Unknown 09/17/2020 Administered COVID 19 Moderna Unknown 06/22/2021 Administered Problems Problem Type SNOMED Code ICD Code Onset Dates Problem Status W/U Status Risk Notes Problem Essential hypertension (07339126) Essential (primary) hypertension (I10) Active confirmed Problem Tachycardia (9757800) Tachycardia (R00.0) Active confirmed Problem Hypertension (50595914) HTN (hypertension) (I10) Active confirmed Problem Vitamin D deficiency (50735326) Vitamin D deficiency (E55.9) Active confirmed Problem Anxiety (85868764) Anxiety (F41.9) Active confi rmed Problem Hyperlipidaemia (51189901) Hyperlipemia (E78.5) Active confirmed Problem Obstructive sleep apnea (50945579) Obstructive sleep apnea (G47.33) Active confirmed Problem Hiatal hernia (52006772) Hiatal hernia (K44.9) Active confirmed Problem Mixed anxiety and depressive disorder (950602049) Depression with anxiety (F41.8) Active confirmed Problem Rectal bleeding (04227575) Rectal bleeding (K62.5) Active confirmed Problem Exacerbation of asthma (781706136) Asthma exacerbation (J45.901) Active confirmed Problem Alcohol abuse (93973282) Alcohol abuse (F10.10) Active confirmed Problem Mixed hyperlipidemia (093717069) Mixed hyperlipidemia (E78.2) Active confirmed Problem Dysthymia (81955220) Dysthymic disorder (F34.1) Active confirmed Problem Anxiety disorder (764771559) Anxiety disorder, unspecified (F41.9) Active confirmed Problem Acute severe exacerbation of moderate persistent asthma (disorder) (456606980) Moderate persistent asthma with status asthmaticus (J45.42) Active confirmed Problem Second degree hemorrhoids (466978775) Second degree hemorrhoids (K64.1) Active confirmed Problem Genital warts (176329312) Genital warts (A63.0) Active confirmed Problem Uncomplicated moderate persistent asthma (908302597) Moderate persistent asthma without complication (J45.40) Active confirmed Problem Gastroesophageal reflux disease with esophagitis (681086782) Gastroesophageal reflux disease with esophagitis (K21.0) Active confirmed Problem Panic disorder (859680651) Panic attacks (F41.0) Active confirmed Problem Obese class II (064401750273031) BMI 36.0-36.9,adult (Z68.36) Active confirmed Problem Exacerbation of moderate persistent asthma (disorder) (475364505) Moderate persistent asthma with acute exacerbation (J45.41) Active confirmed Problem Anogenital warts (182836891) Condyloma acuminata (A63.0) Active confirmed Problem Avascular necrosis (16844363) Avascular necrosis (M87.00) Active confirmed Problem Alcoholism (9495252) Alcoholism (F10.20) Active confirmed Problem Hypersomnia (80118925) Hypersomnia (G47.10) Active confirmed Problem Tobacco user (153478799) Cigarette nicotine dependence without complication (F17.210) Active confirmed Problem Excessive daytime sleepiness - normal night sleep (123420881) Daytime sleepiness (R40.0) Active confirmed Problem Panic attack (452366494) Panic attack (F41.0) Active confirmed Problem Anxiety depression (843228867) Anxiety with depression (F41.8) Active confirmed Problem Allergic rhinitis (44434943) Chronic non-seasonal allergic rhinitis, unspecified trigger (J30.89) Active confirmed Problem Exacerbation of asthma (510551741) Exacerbation of asthma, unspecified asthma severity, unspecified whether persistent (J45.901) Active confirmed Problem Exacerbation of moderate persistent asthma (disorder) (721947387) Moderate persistent asthma with exacerbation (J45.41) Active confirmed Problem Allergic rhinitis (87576180) Non-seasonal allergic rhinitis, unspecified trigger (J30.89) Active confirmed Problem Asthma without status asthmaticus (10268574) Moderate asthma, unspecified whether complicated, unspecified whether persistent (J45.909) Active confirmed Problem Thromboangiitis obliterans (72867254) Buergers disease (I73.1) Active confirmed Problem Severe major depression, single episode, without psychotic features (66334798) Current severe episode of major depressive disorder without psychotic features, unspecified whether recurrent (F32.2) Active confirmed Problem Depressed bipolar I disorder (10623651) Bipolar affective disorder, current episode depressed, current episode severity unspecified (F31.30) Active confirmed Vital Signs Heart Rate 104 /min 02/09/2025 Blood pressure diastolic 92 mm Hg 02/09/2025 Height 69.50 in 02/09/2025 Blood pressure systolic 160 mm Hg 02/09/2025 Weight 238.8 lbs 02/09/2025 BMI 34.76 kg/m2 02/09/2025 Encounters Encounter Location Date Provider Diagnosis [facility] [address] [facility] [address] [place] [id number] 06/30/2024 R Dean Lawson Acute bronchitis J20 .9 and Moderate persistent asthma without complication J45.40 [facility] [address] [place] [id number] 07/07/2024 Koriav Bowers Exacerbation of asth ma, unspecified asthma severity, unspecified whether persistent J45.901 and Bronchitis J40 [facility] [address] [place] [id number] 07/21/2024 R Dean Lawson Essential (primary) hypertension I10 [facility] [address] [place], [place] [id number] 07/28/2024 Gato [place] Nausea and vomiting, unspecified vomiting type R11.2 [facility] [address] [place], [place] [id number] 09/08/2024 Kori Robinson Essential (primary) hypertension I10 ; Obstructive sleep apnea G47.33 ; Moderate persistent asthma without complication J45.40 ; Gastroesophageal reflux disease with esophagitis K21.0 ; Impaired fasting glucose R73.01 ; Depression with anxiety F41.8 and Other fatigue R53.83 [facility] [address] [place], [place] [id number] 01/26/2025 Koriav Bowers Anxiety with depress ion F41.8 [facility] [address] [place], [place] [id number] 02/09/2025 Kori Bowers Alcohol abuse F10.10 ; Depression with anxiety F41.8 ; Panic attacks F41.0 and Essential (primary) hypertension I10 [facility] [address] [place], [place] [id number] 02/15/2025 Kori Bowers [facility] [address] [place], [place] [id number] 07/15/2024 Jocelyne Abdi [facility] [address] [place], [place] [id number] 08/26/2024 Jocelyne Abdi Moderate persistent asthma without complication J45.40 [facility] [address] [place], [place] [id number] 09/09/2024 Kori Bowers [facility] [address] [place], [place] [id number] 02/09/2025 Won Lawson [facility] [address] [facility] [address] [place], [place] [id number] 02/21/2025 Jocelyne Abdi Moderate persistent asthma without complication J45.40 Assessments Encounter Date Diagnosis (ICD Code) Assessment Notes Treatment Notes Treatment Clinical Notes Section Notes 06/30/2024 Acute bronchitis (ICD-10 - J20.9) 06/30/2024 Moderate persistent asthma without complication (ICD-10 - J45.40) 07/07/2024 Bronchitis (ICD-10 - J40) Has had 2 rounds of antibiotics with no improvement. Will get a CXR and respiratory panel. 07/07/2024 Exacerbation of asthma, unspecified asthma severity, unspecified whether persistent (ICD-10 - J45.901) Will hold his Breo and start a sample of trelegy. Will start on a prednisone taper. Will continue nebs at home. 07/21/2024 Essential (primary) hypertension (ICD-10 - I10) Continue to monitor blood pressure at home. If he has consistently elevated readings, may need to adjust his medication dosage. 07/28/2024 Nausea and vomiting, unspecified vomiting type (ICD-10 - R11.2) clear liquids and advance as tolerated 08/26/2024 Moderate persistent asthma without complication (ICD-10 - J45.40) 02/09/2025 Depression with anxiety (ICD-10 - F41.8) 02/09/2025 Alcohol abuse (ICD-10 - F10.10) Patient is going to check into rehab facilities 02/21/2025 Moderate persistent asthma without complication (ICD-10 - J45.40) 01/26/2025 Anxiety with depression (ICD-10 - F41.8) He states he never tried duloxetine. Will start on this. He is currently seeing a psychologist and is going to call to see if he can see a psychiatrist as well and possibly get genetic testing. 09/08/2024 Essential (primary) hypertension (ICD-10 - I10) 09/08/2024 Obstructive sleep apnea (ICD-10 - G47.33) Patient had a sleep study in 2022 indicating moderate sleep apnea. He is not sleeping well and needs a CPAP machine and supplies. Will fax order and note to [facility]. 09/08/2024 Moderate persistent asthma without complication (ICD-10 - J45.40) 02/09/2025 Panic attacks (ICD-10 - F41.0) Discussed the case with Dr. Lawson. He is going to send the patient a week's worth of oxazepam and he will f/u with Dr. Abdi next week. 02/09/2025 Essential (primary) hypertension (ICD-10 - I10) Will monitor BP at home. 09/08/2024 Gastroesophageal reflux disease with esophagitis (ICD-10 - K21.0) 09/08/2024 Impaired fasting glucose (ICD-10 - R73.01) 09/08/2024 Depression with anxiety (ICD-10 - F41.8) 09/08/2024 Other fatigue (ICD-10 - R53.83) Plan Of Treatment Next Appt Details Provider Name:Jocelyne beckford, 02/27/2025 10:45:00 AM, [address], [place], [place], [id number], Insurance Providers Payer Name Payer Address Payer Phone Subscriber Number Group Number Insured Name Patient Relationship to Insured Coverage Start Date Coverage End Date [facility] [address] [address] [place] [address] [id number] SHYANN FINK Self - patient is the insured Medications Administered Medication Instructions Date of Administration Dosage Notes Dexamethasone 09/29/2023 1 mL Medical (General) History Medical History History ICD Code Hypertension Asthma Anxiety Surgical History Surgery Date(Month/Year) bilateral hip replacements Hospitalization History Reason Date(Month/Year) Palpitations- [facility] 04/2019 Sinus Infection- [facility] 10/2018 Sinus infection, Bronchitis, Middle Ear Infection- [facility] 09/04/2018 Pneumonia 06/03- Asthma 1997
--- OUTSIDE RECORDS SUMMARY | 2025-02-22 | XMS_ITS | Clinical Summary ---
Author Organization [facility] Address [address] [place] [address] Phone [email or web address] Care Team Providers Care Accountant Manager Name Role Phone Bakari Abdi MD Primary Care Provider [phone] Allergies Active Allergy Reactions Criticality Noted Date Comments Amoxicillin Rash,Hives High 06/05/2021 Happened as a child Clindamycin Shortness of breath High 06/05/2021 Fruit Extracts Anaphylaxis High 01/15/2024 Any uncooked fruit or vegetable cause angioedema; can eat if cooked Vegetable Extract Anaphylaxis High 01/15/2024 Any uncooked fruit or vegetables causes angioedema; can eat if cooked Medications albuterol HFA 108 (90 Base) MCG/ACT inhaler 05/16/2021 Act naseem dilTIAZem CD (CARDIZEM CD) 120 MG 24 hr capsule 05/25/2021 Active lisinopril (ZESTRIL) 10 MG tablet Take 1 tablet (10 mg total) by mouth 1 (one) time each day. 90 tablet 06/05/2021 Active ARIPiprazole (ABILIFY) 5 MG tablet 5 mg 1 (one) time each day. Active atorvastatin (LIPITOR) 10 MG tablet Take 10 mg by mouth 1 (one) time each day. Active carvedilol (COREG) 25 MG tablet Take 25 mg by mouth in the morning and 25 mg in the evening. Take with meals. Active Dilt-XR 120 MG 24 hr capsule Take 120 mg by mouth 1 (one) time each day. Active Breo Ellipta 100-25 MCG/ACT aerosol powder INHALE 1 PUFF BY MOUTH EVERY DAY Active omeprazole (PriLOSEC) [address] capsule Take 40 mg by mouth once daily as needed. Active PARoxetine (PAXIL) 40 MG tablet Take 40 mg by mouth 1 (one) time each day in the morning. 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 02/09/2024 Tachycardia 02/09/2024 Arthritis of left hip 01/25/2024 Avascular necrosis of bones of both hips 024 Primary hypertension 06/05/2021 Immunizations Immunization Administration Dates Next Due Influenza, (Afluria Fluarix Flulaval Fluzone) quad, PF (CVX-150) 06/24/2022 Family History Medical History Relation Name Comments Coronary artery disease Father Diabetes Father Hypertension Father Hypertension Mother Relation Name Status Comments Father Mother Social History Tobacco Use Types Packs/Day Years Used Date Smoking Tobacco: Former Cigarettes Q uit: 08/17/2018 Smokeless Tobacco: Never Alcohol Use Standard Drinks/Week Comments Yes 18 (1 standard drink = 0.6 oz pu re alcohol) Intimate Partner Violence Answer Date R ecorded Insults You Not on file 05/05/2021 Threatens You Not on file 05/05/2021 Screams at You Not on file 05/05/2021 Physically Hurt Not on file 05/05/2021 Intimate Partner Violence Score Not on file 05/05/2021 Alcohol Use Answer Date Recorded Alcohol Use Status Yes 10/12/2024 Depression Answer Date Recorded PHQ Total Score 15 10/12/2024 Stress Answer Date Recorded Stress in your Life Not on file 06/22/2024 Dealing with Stress 3 06/22/2024 Sex and Gender Information Value Date Recorded Sex Assigned at Not on file Legal Sex Male 2:43 PM CDT Gender Identity Not on file Sexual Orientation Not on file Last Filed Vital Signs Vital Sign Reading Time Taken Comments Blood Pressure 118/68 10/12/2024 11:27 AM EST Pulse 83 10/12/2024 11:27 AM EST Temperature 36.7 C (98.1 F) 10/12/2024 11:27 AM EST Respiratory Rate 16 06/18/2021 1:02 PM EDT Oxygen Saturation 96% 10/12/2024 11:27 AM EST Inhaled Oxygen Concentration - - Weight 116 kg (256 lb 9.6 oz) 10/12/2024 11:27 A M EST Height 177.8 cm (5' 10 ) 10/12/2024 11:27 AM EST Body Mass Index 36.82 10/12/2024 11:27 AM EST Plan of Treatment Health Maintenance Due Date Last Done Comments Dental Cleaning/Exam 1989 HIV Screening 1989 Hepatitis C Screening 1989 Diabetic Comprehensive Foot Exam 1999 Diabetic Kidney Health Eval (eGFR & Alb/CR ratio urine) 1999 Diabetic Retinal Eye Exam 1999 Tetanus Diphtheria and Pertussis Immunization (2 - Tdap) 10/20/2000 10/19/2000 Annual Preventive Exam 2007 Hep B Infection Screening - Triple Screen 2007 Pneumococcal: Ped (0 to 5 Yr s) and At-Risk Member (6 to 64 Yrs) (1 of 2 - PCV) 2008 Covid-19 Immunization ( season) 2024 06/22/2021, 09/14/2020, 08/13/2020 Hemoglobin A1C Testing 01/09/2025 , 06/06/2024, 06/05/2021 Influenza Immunization (#1) 2025 11/0 03/2022, 06/02/2021 Hepatitis B Immunization Completed 001, 11/19/2000, 10/19/2000 HIB Immunization Aged Out No longer e ligible based on patient's age to complete this topic HPV Immunization Aged Out No longer e ligible based on patient's age to complete this topic Hepatitis A Immunization Aged Out No longer eligible based on patient's age to complete this topic Polio Immunization Aged Out No longer eligible based on patient's age to complete this topic Varicella Immunization Aged Out No lo nger eligible based on patient's age to complete this topic Procedures Procedure Name Priority Date/Time Associated Diagnosis Comments HEMOGLOBIN A1C Routine 10/12/2024 11:49 AM EST Other fatigue Excessive daytime sleepiness from Last 3 Months or Most Recently Relevant to Health Maintenance Results * (ABNORMAL) Hgb A1C Hemoglobin Glycosylated (79183) (10/12/2024 11:49 AM EST) Hemoglobin A1C 5.9(H) 4.8 - 5.6 % 01 Comment: Prediabetes: 5.7 - 6.4 Diabetes: >6.4 Glycemic control for adults with diabetes: <7.0 Blood (Blood, Venous) 10/12/2024 11:49 AM EST 10/12/2024 1:00 AM EST Comment:Blood, Venou Narrative [facility] - 10/13/2024 8:07 AM EST Performed at: 01 - [facility] [address] [id number] Police Magistrate: Vitor Nevarez PhD, Phone: [phone] us Cody Rodriguez MD LAB BLOOD ORDERABLES Final Resul t [facility] - [address] [place] [address] from Last 3 Months or Most Recently Relevant to Health Maintenance Insurance [employer] NO [employer] NB Care Teams Accountant Manager Relationship Specialty [place] [address] [place] [address] [address] [place] [address] PCP - General 10/12/24
--- OUTSIDE RECORDS SUMMARY | 2025-02-22 | XMS_ITS | Encounter Summary ---
Author Organization [facility] Address [address] [place] [address] Care Team Providers Care Pari Mutuel Clerk Name Role Phone Moris Abdi MD Primary Care Provider [phone] Reason for Visit * Reason Comments Med Refill Encounter Details Date Type Department Care Team ([facility] st Contact Info) Description 12/17/2023 Refill Medical Office Building [facility] [address], [address] [place] [address] Yadira Schulte PA [address] [place] [address] Avascular necrosis of bones of both hips (CMS/HCC); Chronic hip pain, bilateral Social History Tobacco Use Types Packs/Day Years Used Date Smoking Tobacco: Never Smokeless Tobacco: Never Alcohol Use Standard Drinks/Week Comments Yes 0 (1 standard drink = 0.6 oz pur e alcohol) 6-10 beers daily Sex and Gender Information Value Date Recorded Sex Assigned at Male 02/02/2025 11:48 PM EDT Legal Sex Male 8:17 PM EDT Gender Identity Not on file Sexual Orientation Not on file documented as of this encounter Miscellaneous Notes * Telephone Encounter - Marilyn Mercer RN - 12/17/2023 8:36 AM EDT Not appropriate. Patient was prescribed meloxicam so he should not be taking diclofenac documented in this encounter Plan of Treatment Not on file documented as of this encounter Visit Diagnoses Diagnosis Avascular necrosis of bones of both hips (CMS/HCC) Chronic hip pain, bilateral documented in this encounter Additional Health Concerns Assessment Noted Time A fall risk assessment has been complete d for the patient 12/10/2023 8:11 AM EDT A Body Mass Index follow-up plan has been documented for the patient 12/10/2023 8:39 AM EDT documented as of this encounter Care Teams Pari Mutuel Clerk Relationship Specialty Start Date End Date Moris Abdi MD [address] [place] [address] PCP - General 12/28/20 documented as of this encounter
--- OUTSIDE RECORDS SUMMARY | 2025-02-22 | XMS_ITS | Clinical Summary ---
Author Organization [facility] Address [address] [place] [address] Care Team Providers Care Esol Instructor Name Role Phone Moris Abdi MD Primary Care Provider [phone] Allergies Active Allergy Reactions Criticality Noted Date Comments Amoxicillin Hives,Rash High 06/05/2021 Happened as a child Clindamycin Shortness of breath High 06/05/2021 Fruit Extracts Anaphylaxis High 01/15/2024 Any uncooked fruit or vegetable cause angioedema; can eat if cooked Vegetable Extract Anaphylaxis High 01/15/2024 Any uncooked fruit or vegetables causes angioedema; can eat if cooked Medications ARIPiprazole (Abilify) 5 MG tablet Take 1 tablet (5 mg) by mouth every night. Active albuterol (2.5 MG/3ML) 0.083% nebulizer solution Take 3 mL (2.5 mg) by nebulization if needed for shortness of breath. 07/29/20 23 Active albuterol 108 (90 Base) MCG/ACT inhaler Inhale 2 puffs if needed for shortness of breath. 08/22/19 24 Active atorvastatin (Lipitor) 10 MG tablet Take 1 tablet (10 mg) by mouth 1 (one) time each day. Active carvedilol (Coreg) 25 MG tablet Take 1 tablet (25 mg) by mouth 2 (two) times a day with meals. 10/28/19 24 Active Dilt-XR 120 MG 24 hr capsule Take 1 capsule (120 mg) by mouth 1 (one) time each day. 10/26/19 24 Active Breo Ellipta 100-25 MCG/ACT aerosol powder Inhale 1 puff 1 (one) time each day. 10/22/19 24 Active metOLazone (Zaroxolyn) 2.5 MG tablet Take 1 tablet (2.5 mg) by mouth 1 (one) time each day if needed. 05/15/20 23 Active lisinopril 20 MG tablet Take 1 tablet (20 mg) by mouth 1 (one) time each day. 11/23/19 24 Active omeprazole (PriLOSEC) [address] capsule Take 1 capsule (40 mg) by mouth 1 (one) time each day. Do not crush or chew. Active gabapentin (Neurontin) 100 MG capsule Take 1 capsule (100 mg) by mouth 3 (three) times a day. If this medication makes you drowsy you may take it only at bedtime 30 capsule 06/13/20 24 Active Additional Information Patient not taking.Reported on 06/28/2024 acetaminophen (Tylenol Extra Strength) 500 MG tablet Take 2 tablets (1,000 mg) by mouth every 8 (eight) hours. 100 tablet 06/13/20 Active Additional Information Patient not taking.Reported on 06/28/2024 methocarbamol (Robaxin) 500 MG tablet Take 1 tablet (500 mg) by mouth 3 (three) times a day if needed for muscle spasms. 30 tablet 06/13/20 24 Active gabapentin (Neurontin) 300 MG capsule Take 1 capsule (300 mg) by mouth 3 (three) times a day. 42 capsule 06/17/20 24 Active traMADol (Ultram) 50 MG tablet Take 1 tablet (50 mg) by mouth every 8 (eight) hours if needed for moderate pain. 30 tablet 06/20/20 24 Active Additional Information Patient not taking.Reported on 06/28/2024 oxyCODONE (Roxicodone) 5 MG immediate release tablet Take 1 tablet (5 mg) by mouth every 8 (eight) hours if needed for severe pain. 20 tablet 06/20/20 24 Active Additional Information Patient not taking.Reported on 06/28/2024 PARoxetine (Paxil) 40 MG tablet Take 1 tablet (40 mg) by mouth 1 (one) time each day in the morning. 025 Discontinu ed(Per Patient Report) Active Problems Problem Noted Date Diagnosed Date Acute stress reaction 02/03/2025 Alcoholic intoxication without complication 01/16 Substance abuse 02/03/2025 Arthritis of right hip 06/13/2024 Abdominal cramping 02/09/2024 Acute hypokalemia 02/09/2024 Gout attack 02/09/2024 Acute right otitis media 02/09/2024 Allergic eye reaction 02/09/2024 Avascular necrosis of bone 02/09/2024 Avascular necrosis of left femoral head 02/09/20 Bronchitis 02/09/2024 Chest pain 02/09/2024 CKD (chronic kidney disease) stage 3, GFR 30-59 ml/min 02/09/2024 Diabetes 02/09/2024 Hyperglycemia 02/09/2024 Gastroenteritis 02/09/2024 Dyspnea 02/09/2024 Finger laceration 02/09/2024 High cholesterol 02/09/2024 HLD (hyperlipidemia) 02/09/2024 Kidney function abnormal 02/09/2024 Pain aggravated by breathing 02/09/2024 Otitis media 02/09/2024 Left hip impingement syndrome 02/09/2024 Nightmares associated with c hronic post-traumatic stress disorder 02/09/2024 Palpitations 02/09/2024 Post-operative pain 02/09/2024 Posttraumatic stress disorder 02/09/2024 High blood pressure 02/09/2024 Sinusitis 02/09/2024 Maxillary sinusitis 02/09/2024 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 [address] [place] [address] Benny Bhakta DO Acute stress reaction (Primary Dx); Dissociative stupor; Other depression; Alcoholic intoxication without complication (CMS/HCC); Elevated blood pressure reading with diagnosis of hypertension; Substance abuse Discharge Disposition: Home or Self Care 02/03/2025 Travel 11/29/2024 12:40 PM EDT Office Visit Medical [facility] [address], [address] [place] [address] King Qureshi MD S/P total right hip arthroplasty (Primary Dx); S/P total left hip arthroplasty 11/29/2024 12:00 PM EDT - 11/29/2024 11:59 PM EDT Hospital Encounter Medical Office Building Rad[facility] [place] [address] S/P total right hip arthroplasty; S/P total left hip arthroplasty Discharge Disposition: Home or Self Care 11/29/2024 Travel 11/28/2024 Travel from Last 3 Months Family History Medical History Relation Name Comments Cancer Father Elijah Diabetes Father Elijah Anesthesia problems Neg Hx Malig Hyperthermia Neg Hx Relation Name Status Comments Father Elijah Social History Tobacco Use Types Packs/Day Years Used Date Smoking Tobacco: Every Day Cigarettes 1 16.4 Started: 2007; Last attempted to quit: 01/16/2024 Smokeless Tobacco: Never Tobacco Cessation:Ready to Q uit: Not Asked Alcohol Use Standard Drinks/Week Comments Yes 30 [...] drink first t annie in the morning (EYE-COMPLIANCE REPRESENTATIVE) to steady your nerves or to get [...] Mass Index 35.15 02/03/2025 4:01 AM EDT Plan of Treatment Health Maintenance Due Date Last Done Comments [facility]-Infant/Child/Adol SDOH Screenings 1989 Diabetes: Dental Exam 1999 [facility]-Varicella Vaccines (1 of 2 - 13+ 2-dose series) 2002 [facility]- SDOH Screenings 2007 [facility]-Adult SDOH Screenings 2007 [facility]-Pneumococcal Vaccine: Pediatrics (0 to 5 Years) and At-Risk Patients (6 to 49 Years) (1 of 2 - PCV) 2008 [id number] Vaccine ( season) 2024 06/22/2021, 09/14/2020, 08/13/2020 [facility]-Diabetes: Hemoglobin A1C 04/11/2025 10/12/2024, 06/06/2024, 01/15/2024 [facility]-Influenza Vaccine (#1) 2025 06/24/2022, [facility]-Depression Screening 02/03/2026 02/03/2025, 01/16 [facility]-DTaP,Tdap,and Td Vaccines (4 - Td or Tdap) 08/29/2032 08/29/2022, 05/07/2011, 10/19/2000 [facility]-Zoster Vaccines (1 of 2) 2039 [facility]-Hepatitis B Vaccines Completed 001, 11/19/2000, 10/19/2000 HPV Vaccines Completed 07/26/2013, 10/16, 08/31/2012 [facility]-Obesity Intervention Completed 025, 06/28/2024, 03/10/2024, Additional history exists [facility]-HIV Screening Completed 02/03/2025 [facility]-Hepatitis C Screening Completed 02/03/2025 [facility]-HIB Vaccines Aged Out No longer e ligible based on patient's age to complete this topic [facility]-Hepatitis A Vaccines Aged Out No longer eligible based on patient's age to complete this topic [facility]IPV Vaccines Aged Out No longer e ligible based on patient's age to complete this topic [facility]-Rotavirus Vaccines Aged Out No lo nger eligible based on patient's age to complete this topic Goals Goal Patient Goal Type Associated Problems Recent Progress Patient-Stated? Author Autogenera purvis Goal Care Plan Autogenerated Problem No King Qureshi MD Automarianna purvis Goal Care Plan Autogenerated Problem No [employer]ih[employer] Implanted Type Area Belt Sander Device Identifier Shelf Expiration Date Model / Serial / Lot Chg Shell R3 3 Hole Acet 52mm - [id number] Implanted:Qty: 1 on 06/13/2024 by King Qureshi MD at [facility] Hip Right: Hip [employer]-[id number] 01/22/2034 [id number] / / [id number] Chg Head Oxinium Fem 07/30 28m - [id number] Implanted:Qty: 1 on 06/13/2024 by King Qureshi MD at [facility] Hip Right: Hip [employer]-[id number] 09/03/2030 [id number] / / [id number] Liner Or3o Dual Mbility 40 52 - [id number] Implanted:Qty: 1 on 06/13/2024 by King Qureshi MD at [facility] Liner Right: Hip [employer]-[id number] 12/25/2033 [id number] / / [id number] Liner Or3o Dual Mbility Xlpe 40 - [id number] Implanted:Qty: 1 on 06/13/2024 by King Qureshi MD at [facility] Liner Right: Hip [employer]-[id number] 03/14/2034 [id number] / / [id number] Chg Screw Ref Spher Head 25mm - [id number] Implanted:Qty: 1 on 06/13/2024 by King Qureshi MD at [facility] Screw Right: Hip [employer]-[id number] 01/04/2034 [id number] / / [id number] Chg Screw Ref Spher Head 35mm - [id number] Implanted:Qty: 1 on 06/13/2024 by King Qureshi MD at [facility] Screw Right: Hip [employer]-[id number] 01/22/2034 [id number] / / [id number] Polarstem Cementless Lat Tiha - [id number] Implanted:Qty: 1 on 06/13/2024 by King Qureshi MD at [facility] Stem Right: Hip [employer]-[id number] 07/02/2029 [id number] / / [id number] Chg Shell R3 3 Hole Acet 52mm - [id number] Implanted:Qty: 1 on 01/25/2024 by King Qureshi MD at [facility] Left: Hip [employer]-[id number] 09/16/2033 [id number] / / [id number] Chg Screw Ref Spher Head 25mm - [id number] Implanted:Qty: 1 on 01/25/2024 by King Qureshi MD at [facility] Left: Hip [employer]-[id number] 10/27/2033 [id number] / / [id number] Liner Or3o Dual Mbility 40 52 - [id number] Implanted:Qty: 1 on 01/25/2024 by King Qureshi MD at [facility] Left: Hip [employer]-[id number] 09/21/2033 [id number] / / [id number] Chg Screw Ref Spher Head 35mm - [id number] Implanted:Qty: 1 on 01/25/2024 by King Qureshi MD at [facility] Left: Hip [employer]-[id number] 09/28/2033 [id number] / / [id number] Liner Or3o Dual Mbility Xlpe 28/40 - [id number] Implanted:Qty: 1 on 01/25/2024 by King Qureshi MD at [facility] Left: Hip [employer]-[id number] 10/19/2033 [id number] / / [id number] Polarstem Cementless Tiha 2 - [id number] Implanted:Qty: 1 on 01/25/2024 by King Qureshi MD at [facility] Left: Hip [employer]-[id number] 01/06/2030 [id number] / / [id number] Chg Head Oxinium Fem 07/30 28m - [id number] Implanted:Qty: 1 on 01/25/2024 by King Qureshi MD at [facility] Left: Hip [employer]-[id number] 09/19/2033 [id number] / / [id number] Procedures Procedure Name Priority Date/Time Associated Diagnosis Comments ED HIV 1/2 ANTIBODY/ANTIGEN SCREEN WITH REFLEX TO HIV I/II DIFFERENTIATION STAT 02/03/2025 12:37 AM EDT ED PROTOCOL HIV 1/2 ANTIBODY/ANTIGEN SCREEN W/REFLEX TO HIV 1/2 ANTIBODY DIFFERENTIATION STAT 02/03/2025 12:37 AM EDT HEPATITIS C ANTIBODY - ED W/REFLEX TO HCV QUANT PCR STAT 02/03/2025 12:37 AM EDT ETHYL ALCOHOL PLASMA STAT 02/03/2025 12:37 AM EDT FREE T4, PLASMA STAT 02/03/2025 12:37 AM EDT TSH STAT 02/03/2025 12:37 AM EDT COMPREHENSIVE METABOLIC PANEL, PLASMA STAT 02/03/2025 12:37 AM EDT CBC WITH AUTO DIFFERENTIAL STAT 02/03/2025 12:37 AM EDT XR HIPS BILATERAL 2 VIEWS Routine 11/29/2024 12:17 PM EDT S/P total right hip arthroplasty S/P total left hip arthroplasty HEMOGLOBIN A1C Routine 06/06/2024 10:13 AM EDT Avascular necrosis of bone (CMS/HCC) Hip pain, right from Last 3 Months or Most Recently Relevant to Health Maintenance Results * ED HIV 1/2 Antibody/Antigen Screen w/Reflex to HIV 1/2 Differentiation (02/03/2025 12:37 AM EDT) Pathologist [facility] HIV 1 & 2 Antibody/Antigen Screen Non Reactive Non Reactive 02/03/2025 1:28 AM EDT [facility] Comment:Screening for HIV 1 & 2 antibodies, and P24 antigen is NONREACTIVE. No confirmatory testing is required. Blood Venous blood specimen / Unknown Venipuncture / Unknown 02/03/2025 12:37 AM EDT 02/03/2025 12:40 AM EDT [facility] BLOOD ORDERABLES Fin al Result Performing Organization Address City/[facility] de Phone Number HEALTHCARE LAB [address] [place] [address] * (ABNORMAL) Ethyl Alcohol Plasma (02/03/2025 12:37 AM EDT) [facility] [address] Ethanol Plasma 221(H) <10 mg/dL 02/03/2025 1:02 AM EDT [facility]ARE [facility] Blood Venous blood specimen / Unknown Venipuncture / Unknown 02/03/2025 12:37 AM EDT 02/03/2025 12:40 AM EDT Narrative HEALTHCARE LAB - 02/03/2025 1:02 AM EDT Enzymatic Assay: Performed on Dayna Placido. [facility] BLOOD ORDERABLES Fin al Result Performing Organization Address City/[facility] Co de Phone Number [facility] [address] [place] [address] * Hepatitis C Antibody - ED (02/03/2025 12:37 AM EDT) [facility] [address] Hepatitis C Antibody Negative Negative 02/03/2025 1:23 AM EDT [facility] Blood Venous blood specimen / Unknown Venipuncture / Unknown 02/03/2025 12:37 AM EDT 02/03/2025 12:40 AM EDT Rico Morales IT PROFESSIONAL LAB BLOOD ORDERABLES Fin al Result [facility] [address] [place] [address] * CBC w/diff (02/03/2025 12:37 AM EDT) [facility] [address] WBC Count 5.20 3.70 - 10.30 10*3/uL LAB HEMATOLOGY METHOD 02/03/2025 12:43 AM EDT [facility] RBC Count 5.34 4.60 - 6.10 10*6/uL LAB HEMATOLOGY METHOD 02/03/2025 12:43 AM EDT [facility] HGB 14.9 13.7 - 17.5 g/dL LAB HEMATOLOGY METHOD 02/03/2025 12:43 AM EDT [facility] HCT 42.5 40.0 - 51.0 % LAB HEMATOLOGY METHOD 02/03/2025 12:43 AM EDT [facility] Platelet Count 208 155 - 369 10*3/uL LAB HEMATOLOGY METHOD 02/03/2025 12:43 AM EDT [facility] MCV 80 79 - 98 fL LAB HEMATOLOGY METHOD 02/03/2025 12:43 AM EDT [facility] MCH 27.9 26.0 - 32.0 pg LAB HEMATOLOGY METHOD 02/03/2025 12:43 AM EDT [facility] MCHC 35.1 30.7 - 35.5 g/dL LAB HEMATOLOGY METHOD 02/03/2025 12:43 AM EDT [facility] RDW 14.4 11.5 - 14.5 % LAB HEMATOLOGY METHOD 02/03/2025 12:43 AM EDT [facility] MPV 9.3 8.8 - 12.5 fL LAB HEMATOLOGY METHOD 02/03/2025 12:43 AM EDT [facility] nRBC 0.0 <=0.0 per 100 WBCs LAB HEMATOLOGY METHOD 02/03/2025 12:43 AM EDT [facility] Differential Type Automated LAB HEMATOLOGY METHOD 02/03/2025 12:43 AM EDT [facility] Neutrophils % 61 % LAB HEMATOLOGY METHOD 02/03/2025 12:43 AM EDT [facility] Lymphocytes % 25 % LAB HEMATOLOGY METHOD 02/03/2025 12:43 AM EDT [facility] Monocytes % 8 % LAB HEMATOLOGY METHOD 02/03/2025 12:43 AM EDT [facility] Eosinophils % 4 % LAB HEMATOLOGY METHOD 02/03/2025 12:43 AM EDT [facility] Basophils % 1 % LAB HEMATOLOGY METHOD 02/03/2025 12:43 AM EDT [facility] Immature Granulocytes % 1 % LAB HEMATOLOGY METHOD 02/03/2025 12:43 AM EDT [facility] Neutrophils Absolute 3.25 1.60 - 6.10 10*3/uL LAB HEMATOLOGY METHOD 02/03/2025 12:43 AM EDT [facility] Lymphocytes Absolute 1.30 1.20 - 3.90 10*3/uL LAB HEMATOLOGY METHOD 02/03/2025 12:43 AM EDT [facility] Monocytes Absolute 0.39 0.30 - 0.90 10*3/uL LAB HEMATOLOGY METHOD 02/03/2025 12:43 AM EDT [facility] Eosinophils Absolute 0.20 0.00 - 0.50 10*3/uL LAB HEMATOLOGY METHOD 02/03/2025 12:43 AM EDT [facility]ALTH[facility]ARE [facility] Basophils Absolute 0.03 0.00 - 0.10 10*3/uL LAB HEMATOLOGY METHOD 02/03/2025 12:43 AM EDT [facility] Immature Granulocytes Absolute 0.03 0.00 - 0.06 10*3/uL LAB HEMATOLOGY METHOD 02/03/2025 12:43 AM EDT [facility] Blood Venous blood specimen / Unknown Venipuncture / Unknown 02/03/2025 12:37 AM EDT 02/03/2025 12:40 AM EDT Narrative [facility] - 02/03/2025 12:43 AM EDT Therapeutic decision making should be based on absolute values, rather than percentages. us Rico Morales IT PROFESSIONAL LAB BLOOD ORDERABLES Fin al Result [facility] [address] [place] [address] * Thyroid Stimulating Hormone, Plasma (02/03/2025 12:37 AM EDT) Thyroid Stimulating Hormone, Plasma 1.69 0.40 - 4.20 uIU/mL 02/03/2025 1:08 AM EDT [facility] Blood Venous blood specimen / Unknown Venipuncture / Unknown 02/03/2025 12:37 AM EDT 02/03/2025 12:40 AM EDT [facility] Fin al Result Performing Organization Address City/[facility] de Phone Number [facility] [address] [place] [address] * Free T4, Plasma (02/03/2025 12:37 AM EDT) Pathologist [facility] Free T4, Plasma 1.2 0.8 - 1.7 ng/dL 02/03/2025 1:08 AM EDT [facility] Blood Venous blood specimen / Unknown Venipuncture / Unknown 02/03/2025 12:37 AM EDT 02/03/2025 12:40 AM EDT [facility] LAB BLOOD ORDERABLES Fin al Result Performing Organization Address City/[facility] de Phone Number [facility] [address] [place] [address] * (ABNORMAL) CMP (02/03/2025 12:37 AM EDT) Glucose, Plasma 95 74 - 99 mg/dL 02/03/2025 1:08 AM EDT [facility] BUN, Plasma 6(L) 7 - 21 mg/dL 02/03/2025 1:08 AM EDT [facility] Creatinine, Plasma 0.92 0.70 - 1.20 mg/dL 02/03/2025 1:08 AM EDT [facility] BUN/Creatinine Ratio 7 02/03/2025 1:08 AM EDT [facility] Sodium, Plasma 142 136 - 145 mmol/L 02/03/2025 1:08 AM EDT [facility] Potassium, Plasma 4.0 3.6 - 4.9 mmol/L 02/03/2025 1:08 AM EDT [facility] Chloride, Plasma 102 97 - 107 mmol/L 02/03/2025 1:08 AM EDT [facility] CO2, Plasma 21(L) 22 - 29 mmol/L 02/03/2025 1:08 AM EDT [facility] Anion Gap 19(H) 6 - 16 mmol/L 02/03/2025 1:08 AM EDT [facility] Total Calcium, Plasma 9.4 8.9 - 10.2 mg/dL 02/03/2025 1:08 AM EDT [facility] Total Protein 7.1 6.3 - 7.9 g/dL 02/03/2025 1:08 AM EDT [facility] Albumin, Plasma 5.0 3.5 - 5.2 g/dL 02/03/2025 1:08 AM EDT [facility] AST, Plasma 34 10 - 50 U/L 02/03/2025 1:08 AM EDT [facility] ALT, Plasma 45 10 - 50 U/L 02/03/2025 1:08 AM EDT [facility] Alkaline Phosphatase, Plasma 87 40 - 115 U/L 02/03/2025 1:08 AM EDT [facility] Total Bilirubin, Plasma 0.3 0.2 - 1.1 mg/dL 02/03/2025 1:08 AM EDT [facility] eGFRcr 111.2 mL/min/1.7 3m*2 02/03/2025 1:08 AM EDT [facility] Comment:Reported eGFRcr in m L/min/1.73m2 is based the CKD-EPI 2020 equation that does not use a race coefficient. Blood Venous blood specimen / Unknown Venipuncture / Unknown 02/03/2025 12:37 AM EDT 02/03/2025 12:40 AM EDT Rico Morales IT PROFESSIONAL LAB BLOOD ORDERABLES Fin al Result [facility] [address] [place] [address] * New Patient with Hx of Hip Arthroplasty: XR Hip (AP Pelvis Standing with Ger Marker / Cross-Table Lateral Supine) (11/29/2024 12:17 PM EDT) Anatomical Region Laterality Modality Hip, Pelvis Bilateral Digital Radiogra phy Impressions 11/29/2024 1:01 PM EDT Bilateral noncemented total hip arthroplasty without complication. CRITICAL RESULT: No. COMMUNICATION: Per this written report. Drafted by Cl St MD on 11/29/2024 12:56 PM Final report signed by Cl St MD on 11/29/2024 1:01 PM Narrative 11/29/2024 1:01 PM EDT CLINICAL INDICATION: hip pain TECHNIQUE: XR HIPS BILATERAL 2 VIEWS COMPARISON: June 13, 2024 FINDINGS: 3 views of the hips including AP view of the pelvis show bilateral noncemented total hip arthroplasty without complication. Pubic symphysis and sacroiliac joints are normal. Procedure Note Cl St MD - 11/29/2024 CLINICAL INDICATION: hip pain TECHNIQUE: XR HIPS BILATERAL 2 VIEWS COMPARISON: June 13, 2024 FINDINGS: 3 views of the hips including AP view of the pelvis show bilateralnoncemented total hip arthroplasty without complication. Pubic symphysisand sacroiliac joints are normal. IMPRESSION: Bilateral noncemented total hip arthroplasty without complication. CRITICAL RESULT: No. COMMUNICATION: Per this written report. Drafted by Cl St MD on 11/29/2024 12:56 PM Final report signed by Cl St MD on 11/29/2024 1:01 PM King Qureshi MD IMG XR PROCEDURES Final Resu lt * (ABNORMAL) Hemoglobin A1c (06/06/2024 10:13 AM EDT) Hemoglobin A1c 6.6(H) <5.7 % 06/06/2024 1:54 PM EDT [facility] Blood Venous blood specimen / Unknown Venipuncture / Unknown 06/06/2024 10:13 AM EDT 06/06/2024 10:13 AM EDT Narrative [facility] - 06/06/2024 1:54 PM EDT HA1C Interpretive Data: Diagnosis of Diabetes: Diabetic > or = 6.5% Pre-diabetic 5.7 to 6.4% Non-diabetic < or = 5.6% Glycemic Targets for Type I and Type II Diabetics: Non- Adults <7.0% Adults <6.0% Children and Adolescents <7.5% Source: [place] [employer]. Standards of medical care in diabetes,2017. Diabetes Care.2017:40 (suppl 1):S1-S135. HbA1c assay performed by an ion-exchange chromatography method that is certified traceable to the DCCT. us King Qureshi MD LAB BLOOD ORDERABLES Final R esult [facility] [address] [place] [address] from Last 3 Months or Most Recently Relevant to Health Maintenance Additional Health Concerns Active Problems Noted Date Diagnosed Date Autogenerated Problem 11/17/2024 Autogenerated Problem 12/30/2024 Insurance [facility] Advance Directives * Full Code (Latest Code Status on File) Date Activated Date Inactivated Comments 06/13/2024 9:17 AM 06/13/2024 8:18 PM Question Answer Comments Patient has decision-making capacity? Yes * Full Code Date Activated Date Inactivated Comments 01/25/2024 8:43 AM 01/25/2024 7:29 PM Question Answer Comments Patient has decision-making capacity? Yes Care Teams Esol Instructor Relationship Specialty Start Date End Date Moris Abdi MD [address] [place] [address] PCP - General 12/28/20
--- OUTSIDE RECORDS SUMMARY | 2025-02-22 | XMS_ITS | Encounter Summary ---
Author Organization Healthcare Address [address] [place] [address] Care Team Providers Care Admissions Evaluator Name Role Phone Moris Abdi MD Primary Care Provider [phone] Encounter Details Date Type Department Care Team (Latest Contact Info) Description 02/03/2025 Travel Social History Tobacco Use Types Packs/Day Years [...] drink first t annie in the morning (EYE-ENROLLMENT COORDINATOR) to steady your nerves or to get rid of a hangover? 0 02/03/2025 CAGE Questionnaire Score 0 025 Sex and Gender Information Value Date Recorded Sex Assigned at Male 02/02/2025 11:48 PM EDT Legal Sex Male 8:17 PM EDT Gender Identity Not on file Sexual Orientation Not on file documented as of this encounter Functional Status * Over the past 2 weeks, how often have you been bothered by any of the following problems? Question Answer Date of Assessment Author Patient Health Questionnaire -2 Score 6 02/03/2025 4:02 AM Jacques Hanson RN * Calculated C-SSRS Risk Score (Lifetime/Recent) Answer Date of Assessment Author No Risk Indicated 02/03/2025 12:24 AM Kaia Lema RN * If you checked off any problems on this questionnaire, Question Answer Date of Assessment Author How difficult have these problems made it for you to do your work, take care of things at home, or get along with other people? Extremely difficult 02/03/2025 4:02 AM Ignacio Hanson RN * Over the past 2 weeks, [...] usual. Not at all 02/03/2025 4:02 AM EDT Ignacio Vasquez RN Thoughts that you would be better off or hurting yourself in some way Not at all 02/03/2025 4:02 AM EDT Ignacio Vasquez RN Patient Health Questionnaire-9 Score 17 02/03/2025 4:02 AM EDT Ignacio Vasquez RN * Question Answer Date of Assessment Author 1. Wish to be (Past 1 Month) No 025 12:24 AM EDT Kaia Griffin RN 2. Non-Specific Active Suici pradip Thoughts (Past 1 Month) No 02/03/2025 12:24 AM GLENNT Isabela Griffin RN 6. Suicidal Behavior (Lifetime) No 12:24 AM EDT Kaia Griffin RN documented as of this encounter Plan of Treatment Not on file documented as of this encounter Goals Goal Patient Goal Type Associated Problems Recent Progress Patient-Stated? Author Autogenera purvis Goal Care Plan Autogenerated Problem No King Qureshi MD Autogenera yaniv Goal Care Plan Autogenerated Problem No Niharika Landry documented as of this encounter Visit Diagnoses Not on filedocumented in this encounter Additional Health Concerns Active [...] documented as of this encounter Care Teams Admissions Evaluator Relationship Specialty Start Date End Date Moris Abdi MD [address] [place] [id number] PCP - General 12/28/20 documented as of this encounter
[2025-02-22 00:06] LABS: NT Pro Brain Natriuretic Pep. < 20 pg/mL (0-125); Troponin I < 0.01 ng/ml (0.00-0.034)
[2025-02-22 00:17] VITALS: BP 146/95; PULSE 100; RESP 16; TEMP 37; O2SAT 94
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
[2025-02-22 00:55] LABS: Hepatitis C Ab Qual. W/ RFX NEGATIVE (Negative)
== END 2025-02-22 00:24 | disposition left against medical advice (07) ==
PROVIDERS: Emergency Provider Emergency Medicine
DX: R07.9 Chest pain, unspecified (principal); R06.02 Shortness of breath; R00.0 Tachycardia, unspecified; I10 Essential (primary) hypertension; F17.290 Nicotine dependence, other tobacco product, uncomplicated
CPT/HCPCS: 80053; 83880; 84484; 85025; 85610; 86803; 87389; 93005; 96361; 96374; 96375; 99285; J2270; J2405; J7120

== ENCOUNTER 2025-02-22 21:24 | Inpatient (IN) | payer OTHER, SELFPAY ==
--- OUTSIDE RECORDS SUMMARY | 2025-01-26 12:30 | XMS_ITS ---
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 Name Role Phone Jocelyne Abdi Primary Care Provider Tomasa De Leon Unavailable [phone] Kori Bowers Unavailable [phone] Allergies Allergen (clinical drug ingredient) Drug/Non Drug Allergy documented on EMR Reaction Allergy Type Onset Date Status amoxicillin Amoxicillin Unknown Drug Allergy Act naseem clindamycin Clindamycin Unknown Drug Allergy Act naseem REASON FOR VISIT anxiety Medications Medication SIG (Take, Route, Frequency, Duration) Notes Start Date End Date Status PARoxetine HCl 40 MG 1 tablet in the morning Orally Once a day Not-Taking Breo Ellipta 100-25 MCG/ACT inhale 1 puff by mouth once daily Inhalation Once a day; Duration: 90 days Active ARIPiprazole 5 MG 1 tablet Orally Once a day; Duration: 30 day(s) Not-Taking CPAP machine and supplies - as directed 6 to 16 as directed 09/08/2024 Active PARoxetine HCl 40 MG 1 tablet in the morning Orally Once a day; Duration: 30 day(s) 09/08/2024 Not-Taking Blood Glucose System Carlos - as directed 11/24/2023 Active Lisinopril 20 MG 1 tablet Orally Once a day Active Ondansetron HCl 4 MG 1 tablet Orally thr ee times a day as needed 07/28/2024 Not-Taking Carvedilol 25 MG 1 tablet with food Orally Twice a day Active dilTIAZem HCl ER Beads 120 MG 1 capsule Orally Once a day Active hydrOXYzine HCl 25 MG 1/2 - 1 tab Orally 4 times a day as needed Not-Taking Multivitamin - 1 tab(s) orally once a day prn Active Esomeprazole Magnesium 40 MG 1 cap(s) orally once a day, OTC Active metFORMIN HCl ER 500 MG 1 tablet with ev ening meal Orally Once a day; Duration: 30 day(s) 09/10/2023 Not-Taking Atorvastatin Calcium 10 MG 1 tablet Oral ly Once a day; Duration: 30 day(s) 09/10/2023 Active Acetaminophen 325 MG 1 capsule as needed Orally every 6 hrs Not-Taking traMADol HCl 50 MG 2 tablet as needed Orally every 6 hrs Not-Taking metOLazone 2.5 MG TAKE 1 TABLET BY CHRISTY TH ONCE DAILY NEEDED Not-Taking Aspirin 81 81 MG 1 tablet Orally Once a day; Duration: 30 day(s) Not-Taking Gabapentin 300 MG 1 capsule Orally Thr ee times a day Not-Taking DULoxetine HCl 30 MG 1 capsule Orally On ce a day; Duration: 30 days 01/26/2025 Active hydrOXYzine HCl 25 MG 1 tab Orally 4 lon es a day, prn; Duration: 30 days 01/26/2025 Active Problems Problem Type SNOMED Code ICD Code Onset Dates Problem Status W/U Status Risk Notes Problem Anxiety depression ([id number]) Anxiety with depression (F41.8) Active confirmed Vital Signs Blood pressure systolic 140 mm Hg 01/27/20 25 Blood pressure diastolic 80 mm Hg 025 Heart Rate 88 /min 01/26/2025 Height 69.50 in 01/26/2025 Weight 248.4 lbs 01/26/2025 BMI 36.15 kg/m2 01/26/2025 Encounters Encounter Location Date Provider Diagnosis [facility] [address] [facility] [address], [place] [id number] 01/26/2025 Kori Robinson Anxiety with depress ion F41.8 Assessments Encounter Date Diagnosis (ICD Code) Assessment Notes Treatment Notes Treatment Clinical Notes Section Notes 01/26/2025 Anxiety with depression (ICD-10 - F41.8) He states he never tried duloxetine. Will start on this. He is currently seeing a psychologist and is going to call to see if he can see a psychiatrist as well and possibly get genetic testing. Plan Of Treatment Medication Medication Name Sig Start Date Stop Date Notes DULoxetine HCl 30 MG 1 capsule Orally On ce a day; Duration: 30 days 01/26/2025 hydrOXYzine HCl 25 MG 1 tab Orally 4 lon es a day, prn; Duration: 30 days 01/26/2025 Treatment Notes Assessment Notes Anxiety with depression He states he nev er tried duloxetine. Will start on this. He is currently seeing a psychologist and is going to call to see if he can see a psychiatrist as well and possibly get genetic testing. Next Appt Details Follow Up: 3 Weeks, Reason: Progress Notes * SHYANN FINKDOB: 9 (34 yo M)Acc No.[id number]:01/26/2025 Progress Notes Patient: SHYANN JOHN Provider: ROSE Lam :1990 A ge:34 Y S ex:Male Date:01/26/2025 Address:[address] [place] [address], [id number] Pcp:Jocelyne Abdi Subjective: * Chief Complaints: * 1 . Anxiety. * HPI: P sychology: 34 year old male presents with c/o Anxiety P t presents today to discuss starting medication for depression and anxiety. Pt sts that his anxiety has gotten really bad. He feels depressed and feels that he may have some PTSD as well. Pt c/o having feelings of paranoia as well. He stopped all of his medication because it was not working.. * ROS: D ERMATOLOGY: no R yury. n o H karina. G ASTROENTEROLOGY: no N ausea. n o V omiting. n o D iarrhea.? U ROLOGY: no D ifficulty urinating. n o B lood in urine. * Medical History: H ypertension, Asthma, Anxiety. * Surgical History: b ilateral hip replacements . * Hospitalization/Major Diagno stic Procedure: A sthma 1996, Pneumonia 06/03-, Sinus infection, Bronchitis, Middle Ear Infection- [facility] 09/04/2018, Sinus Infection- [facility] 10/2018, Palpitations- [facility] 04/2019. * Family History: F ather: alive 65 yrs, DM. M other: alive 68 yrs. P aternal Grand Father: , black lung. P aternal Grand Mother: , DM. M aternal Grand Father: alive. M aternal Grand Mother: alive. * Social History: C URRENT TOBACCO USE S moking Status: Patient does smoke, packs per day: 1, number of cigarettes per day: 20, Since age of: 18, Smoking preference: cigarettes. C affeine: yes, frequency:daily. Exercise: yes. Home smoke detector use: yes. Marital Status: Single. New since last visit: none. Past smoking status: no, Smoking status: Does not smoke. Occup. exposure: none. Recreational drug use: no. Alcohol: no. Travel ouside [place]: no. * Medications: T aking Atorvastatin Calcium 10 MG Tablet 1 tablet Orally Once a day , Taking Multivitamin - Tablet 1 tab(s) orally once a day prn , Taking Esomeprazole Magnesium 40 MG Capsule Delayed Release 1 cap(s) orally once a day, OTC , Taking Blood Glucose System Carlos - Kit as directed , Taking Lisinopril 20 MG Tablet 1 tablet Orally Once a day , Taking Carvedilol 25 MG Tablet 1 tablet with food Orally Twice a day , Taking dilTIAZem HCl ER Beads 120 MG Capsule Extended Release 24 Hour 1 capsule Orally Once a day , Taking Breo Ellipta 100-25 MCG/ACT Aerosol Powder Breath Activated inhale 1 puff by mouth once daily Inhalation Once a day , Taking CPAP machine and supplies - - as directed 6 to 16 as directed , Not-Taking Acetaminophen 325 MG Capsule 1 capsule as needed Orally every 6 hrs , Not-Taking Aspirin 81 81 MG Tablet Delayed Release 1 tablet Orally Once a day , Not-Taking Gabapentin 300 MG Capsule 1 capsule Orally Three times a day , Not-Taking traMADol HCl 50 MG Tablet 2 tablet as needed Orally every 6 hrs , Not-Taking metOLazone 2.5 MG Tablet TAKE 1 TABLET BY MOUTH ONCE DAILY NEEDED , Not-Taking metFORMIN HCl ER 500 MG Tablet Extended Release 24 Hour 1 tablet with evening meal Orally Once a day , Not-Taking hydrOXYzine HCl 25 MG Tablet 1/2 - 1 tab Orally 4 times a day as needed , Not-Taking Ondansetron HCl 4 MG Tablet 1 tablet Orally three times a day as needed , Not-Taking PARoxetine HCl 40 MG Tablet 1 tablet in the morning Orally Once a day , Not-Taking ARIPiprazole 5 MG Tablet 1 tablet Orally Once a day , Not-Taking PARoxetine HCl 40 MG Tablet 1 tablet in the morning Orally Once a day , Medication List reviewed and reconciled with the patient * Allergies: A moxicillin, Clindamycin. Objective: * Vitals: W t: 248.4, Temp: 98.4, BP: 140/80, HR: 88, Nurse: MARIA GUADALUPE, Ht: 69.50, BMI:36.15. * Examination: P sychology: General Appearance: N AD. G rooming : a dequate.?Eye contact : n ormal. M ood : p leasant. H eart: R SR. L ungs: c lear to auscultation. N eurologic Exam: I ntact, gait normal. Assessment: * Assessment: 1. A nxiety with depression - F41.8 (Primary) Plan: * Treatment: * Follow Up: 3 Weeks * Images: Billing Information: * Visit Code: 45279 Office Visit, Est Pt., Level 3. * Procedure Codes: * Electronic signature of ROSE Hare on 02/23/2025 at 12:33 PM EDT Sign off status: Pending * Provider: ROSE Lam Date: 0 01/26/2025 Generated for Ryan zacarias/Gilbert/Lara on: 0 02/23/2025 12:33 PM EDT History and Physical Notes * HPI (History of Present Illness) Category Sub-Category Detail Notes Category Not es Psychology Anxiety Pt presents toda y to discuss starting medication for depression and anxiety. Pt sts that his anxiety has gotten really bad. He feels depressed and feels that he may have some PTSD as well. Pt c/o having feelings of paranoia as well. He stopped all of his medication because it was not working. Examination Category Sub-Category Detail Notes Category Not es Psychology Heart: RSR Lungs: clear to auscultatio n General Appearance: NAD Neurologic Exam: Intact, gait normal Grooming : adequate Eye contact : normal Mood : pleasant
--- OUTSIDE RECORDS SUMMARY | 2025-01-26 12:30 | XMS_ITS ---
Author Organization [facility] Address [address] [place] [phone] Care Team Providers Care Framing Mill Supervisor Name Role Phone Jocelyne Abdi Primary Care Provider Tomasa De Leon Unavailable [phone] Kori Bowers Unavailable [phone] Allergies Allergen (clinical drug ingredient) Drug/Non Drug [...] Status W/U Status Risk Notes Problem Anxiety with depression (F41.8) Active confirmed Vital Signs Weight 248.4 lbs 01/26/2025 Blood pressure systolic 140 mm Hg 01/27/20 25 Blood pressure diastolic 80 mm Hg 025 Heart Rate 88 /min 01/26/2025 Height 69.50 in 01/26/2025 BMI 36.15 kg/m2 01/26/2025 Encounters Encounter Location Date Provider Diagnosis [facility] [address], [place] [id number] 01/26/2025 Kori Robinson Anxiety with depress ion [...] * SHYANN FINKDOB: [birth year] (34 yo M)Acc No.[id number]:01/26/2025 Progress Notes Patient: SHYANN JOHN Provider: ROSE Lam :1990 A ge:34 Y S ex:Male Date:01/26/2025 Address:[facility] [place], [id number] Pcp:Jocelyne Abdi Subjective: * Chief Complaints: * [...] 06/03-, Sinus infection, Bronchitis, Middle Ear Infection- [facility] 09/04/2018, Sinus Infection- [facility] 10/2018, Palpitations- [facility] 04/2019. * Family History: F ather: alive [...] * Images: Billing Information: * Visit Code: 05368 Office Visit, Est Pt., Level 3. * Procedure Codes: * Electronic signature of ROSE Hare on 02/22/2025 at 09:33 PM EDT Sign off status: Pending * Provider: ROSE Lam Date: 0 01/26/2025 Generated for Ryan zacarias/[place]/eTransmitting on: 0 02/22/2025 09:33 PM EDT History and Physical Notes * [...]
--- OUTSIDE RECORDS SUMMARY | 2025-02-03 00:04 | XMS_ITS | Encounter Summary ---
Author Organization [facility] Address [address] [place] [address] Care Team Providers Care [employer] Name Role Phone Moris Abdi MD Primary Care Provider [phone] Reason for Visit * Reason Comments Psychiatric Evaluation Encounter Details Date Type Department Care Team (Latest Contact Info) Description 02/03/2025 12:04 AM EDT - 02/03/2025 4:00 PM EDT Hospital Encounter [facility] [address] [place] [address] Benny Bhakta DO [address] [place] [address] Acute stress reaction (Primary Dx); Dissociative stupor; Other depression; Alcoholic intoxication without complication (CMS/HCC); Elevated blood pressure reading with diagnosis of hypertension; Substance abuse Discharge Disposition: Home or Self Care Social History Tobacco Use Types Packs/Day Years Used Date Smoking Tobacco: Every Day Cigarettes 1 16.4 Started: 2007; Last attempted to quit: 01/16/2024 Smokeless Tobacco: Never Alcohol Use Standard Drinks/Week Comments Yes 30 (1 standard drink = 0.6 oz pu re alcohol) PHQ-2 Answer Date Recorded Patient Health Questionnaire-2 Score 6 02/03/2025 PHQ-9 Answer Date Recorded Patient Health Questionnaire-9 Score 17 02/03/2025 CAGE ASSESSMENT Answer Date Recorded Cage unable to access Not on file 02/03/2025 Maximum number of drinks you had on a given occasion in the last month? 1 drink 02/03/2025 How many alcoholic Beverages do you typically drink in a week? 0 - 7 per week 02/03/2025 Have you ever felt you should CUT down on your d rinking? 0 02/03/2025 Have you been ANNOYED by peo ple criticizing your drinking? 0 02/03/2025 Have you felt GUILTY about your drinking? 0 02/03/2025 Have you had a drink first t annie in the morning ([employer]) to steady your nerves or to get rid of a hangover? 0 02/03/2025 CAGE Questionnaire Score 0 025 Sex and Gender Information Value Date Recorded Sex Assigned at Male 02/02/2025 11:48 PM EDT Legal Sex Male 8:17 PM EDT Gender Identity Not on file Sexual Orientation Not on file documented as of this encounter Last Filed Vital Signs Vital Sign Reading Time Taken Comments Blood Pressure 142/87 02/03/2025 3:59 AM EDT Pulse 85 02/03/2025 3:59 AM EDT Temperature 36.8 C (98.3 F) 02/03/2025 3:59 AM EDT Respiratory Rate 16 02/03/2025 12:01 AM EDT Oxygen Saturation 94% 02/03/2025 3:59 AM EDT Inhaled Oxygen Concentration - - Weight 111 kg (245 lb) 02/03/2025 4:01 AM EDT Height 177.8 cm (5' 10 ) 02/03/2025 4:01 AM EDT Body Mass Index 35.15 02/03/2025 4:01 AM EDT documented in this encounter Functional Status * Over the past 2 weeks, how often have you been bothered by any of the following problems? Question Answer Date of Assessment Author Patient Health Questionnaire -2 Score 6 02/03/2025 4:02 AM EDT Jacques Vasquez RN * Calculated C-SSRS Risk Score (Lifetime/Recent) Answer Date of Assessment Author No Risk Indicated 02/03/2025 12:24 AM EDT Kaia Griffin RN * If you checked off any problems on this questionnaire, Question Answer Date of Assessment Author How difficult have these problems made it for you to do your work, take care of things at home, or get along with other people? Extremely difficult 02/03/2025 4:02 AM EDT Ignacio Vasquez RN * Over the past 2 weeks, how often have you been bothered by any of the following problems? Question Answer Date of Assessment Author Little interest or pleasure in doing things Nearly every day 02/03/2025 4:02 AM Ignacio Hanson RN Feeling down, depressed, or hopeless Nearly every day 02/03/2025 4:02 AM Ignacio Hanson RN Trouble falling or staying asleep, or sleeping too much Not at all 02/03/2025 4:02 AM Ignacio Hanson RN Feeling tired or having little energy Nearly every day 02/03/2025 4:02 AM Ignacio Hanson RN Poor appetite or overeating Nearly every day 02/03/2025 4:02 AM Ignacio Hanson RN Feeling bad about yourself - or that you are a failure or have let yourself or your family down Nearly every day 02/03/2025 4:02 AM Ignacio Hanson RN Trouble concentrating on things, such as reading the newspaper or watching television More than half the days 02/03/2025 4:02 AM Ignacio Hanson RN Moving or speaking so slowly that other people could have noticed? Or the opposite - being so fidgety or restless that you have been moving around a lot more than usual. Not at all 02/03/2025 4:02 AM Ignacio Hanson RN Thoughts that you would be better off or hurting yourself in some way Not at all 02/03/2025 4:02 AM Ignacio Hanson RN Patient Health Questionnaire-9 Score 17 02/03/2025 4:02 AM Ignacio Hanson RN * Question Answer Date of Assessment Author 1. Wish to be (Past 1 Month) No 12:24 AM Kaia Lema RN 2. Non-Specific Active Suici pradip Thoughts (Past 1 Month) No 02/03/2025 12:24 AM Isabela Lema RN 6. Suicidal Behavior (Lifetime) No 12:24 AM Kaia Lema RN documented as of this encounter Discharge Instructions * Discharge Instructions* Melinda Briceno APRN - 02/03/2025 3:32 PM EDT You are being discharge from [facility]. Please return here or nearest emergency room with any worsening of symptoms. May also utilize #[phone]. Avoid mind altering substances. Continue Cymbalta and keep previously scheduled appointment with [facility]. documented in this encounter Medications at Time of Discharge acetaminophen (Tylenol Extra Strength) 500 MG tablet Take 2 tablets (1,000 mg) by mouth every 8 (eight) hours. 100 tablet 06/13/2024 albuterol (2.5 MG/3ML) 0.083% nebulizer solution Take 3 mL (2.5 mg) by nebulization if needed for shortness of breath. 07/29/2023 albuterol 108 (90 Base) MCG/ACT inhaler Inhale 2 puffs if needed for shortness of breath. 08/22/2023 ARIPiprazole (Abilify) 5 MG tablet Take 1 tablet (5 mg) by mouth every night. atorvastatin (Lipitor) 10 MG tablet Take 1 tablet (10 mg) by mouth 1 (one) time each day. Breo Ellipta 100-25 MCG/ACT aerosol powder Inhale 1 puff 1 (one) time each day. 10/22/2023 carvedilol (Coreg) 25 MG tablet Take 1 tablet (25 mg) by mouth 2 (two) times a day with meals. 10/28/2023 Dilt-XR 120 MG 24 hr capsule Take 1 capsule (120 mg) by mouth 1 (one) time each day. 10/26/2023 gabapentin (Neurontin) 100 MG capsule Take 1 capsule (100 mg) by mouth 3 (three) times a day. If this medication makes you drowsy you may take it only at bedtime 30 capsule 06/13/2024 gabapentin (Neurontin) 300 MG capsule Take 1 capsule (300 mg) by mouth 3 (three) times a day. 42 capsule 06/17/2024 lisinopril 20 MG tablet Take 1 tablet (20 mg) by mouth 1 (one) time each day. 11/23/2023 methocarbamol (Robaxin) 500 MG tablet Take 1 tablet (500 mg) by mouth 3 (three) times a day if needed for muscle spasms. 30 tablet 06/13/2024 metOLazone (Zaroxolyn) 2.5 MG tablet Take 1 tablet (2.5 mg) by mouth 1 (one) time each day if needed. 05/15/2023 omeprazole (PriLOSEC) [address] capsule Take 1 capsule (40 mg) by mouth 1 (one) time each day. Do not crush or chew. oxyCODONE (Roxicodone) 5 MG immediate release tablet Take 1 tablet (5 mg) by mouth every 8 (eight) hours if needed for severe pain. 20 tablet 06/20/2024 traMADol (Ultram) 50 MG tablet Take 1 tablet (50 mg) by mouth every 8 (eight) hours if needed for moderate pain. 30 tablet 06/20/2024 documented as of this encounter Miscellaneous Notes * Discharge Summary - Melinda Briceno APRN - 02/03/2025 4:00 PM EDT Images from the original note were not included. [facility] Psych Discharge Summary Hospitalization Admit Date/Time: 02/03/2025 12:04 AM Admitting Attending: Discharge Date: 02/03/25 Discharge Attending Physician: Benny Bhakta DO PCP name and Address: Moris Abdi MD [address] [facility] / [place] [address] Chief Concern, Brief History of Present Illness, and Hospital Course Ruthie Fink is a 34 y.o. male presenting from the emergency department with depression. Patient states his just asked for a divorce and it totally blind sided him. He states it was out of theblue and he did not expect it. He denies SI/HI/AVH, self harm attempts, and previous suicide attempts. He says just big sad is all. He does endorse kratom use for a couple of months now and states it was the worst thing he ever started taking but it is so easy to get since you just get it from the gas station. He does endorse drinking alcohol since his kicked him out 3 days ago. He probably had his last drink of beer around 10p before his friends brought him in to the ED. He does feel like he has been sleeping more recently and his appetite has decreased significantly in the last few days. Slept well overnight. Upon waking was asking to be discharged. Spoke with family who had hoped he would be willing to go to inpatient rehab for alcohol use and kratom use. He stated he does not want to go to inpatient and that he is absolutely not at risk for suicide because of his pentecostalism beliefs and his three children. He is established with [facility] and states he plans on keeping his previously scheduled appointment. Does not need refill of cymbalta. Parents agree to pick him up. Spoke with Dr. Bhakta who is in agreement with discharge plan. Discharge Diagnosis Final diagnoses: [F44.2] Dissociative stupor [F32.89] Other depression [F10.920] Alcoholic intoxication without complication (CMS/HCC) [I10] Elevated blood pressure reading with diagnosis of hypertension [F43.0] Acute stress reaction [F19.10] Substance abuse Discharge Instructions You are being discharge from [facility]. Please return here or nearest emergency room with any worsening of symptoms. May also utilize #[phone]. Avoid mind altering substances. Continue Cymbalta and keep previously scheduled appointment with [facility]. Disposition Discharge Provider Care Team: BRANDAN Odonnell [[id number]] Are they the primary team?: Yes [1] AVS (Bulgarian Snapshot) - Printed 02/03/2025 Outpatient Follow-Up No future appointments. Test Results At Discharge Pending: none Recent Results (from the past 24 hours) CBC w/diff Collection Time: 02/03/25 12:37 AM Result Value Ref Range WBC Count 5.20 3.70 - 10.30 10*3/uL RBC Count 5.34 4.60 - 6.10 10*6/uL HGB 14.9 13.7 - 17.5 g/dL HCT 42.5 40.0 - 51.0 % Platelet Count 208 155 - 369 10*3/uL MCV 80 79 - 98 fL MCH 27.9 26.0 - 32.0 pg MCHC 35.1 30.7 - 35.5 g/dL RDW 14.4 11.5 - 14.5 % MPV 9.3 8.8 - 12.5 fL nRBC 0.0 <=0.0 per 100 WBCs Differential Type Automated Neutrophils % 61 % Lymphocytes % 25 % Monocytes % 8 % Eosinophils % 4 % Basophils % 1 % Immature Granulocytes % 1 % Neutrophils Absolute 3.25 1.60 - 6.10 10*3/uL Lymphocytes Absolute 1.30 1.20 - 3.90 10*3/uL Monocytes Absolute 0.39 0.30 - 0.90 10*3/uL Eosinophils Absolute 0.20 0.00 - 0.50 10*3/uL Basophils Absolute 0.03 0.00 - 0.10 10*3/uL Immature Granulocytes Absolute 0.03 0.00 - 0.06 10*3/uL CMP Collection Time: 02/03/25 12:37 AM Result Value Ref Range Glucose, Plasma 95 74 - 99 mg/dL BUN, Plasma 6 (L) 7 - 21 mg/dL Creatinine, Plasma 0.92 0.70 - 1.20 mg/dL BUN/Creatinine Ratio 7 Sodium, Plasma 142 136 - 145 mmol/L Potassium, Plasma 4.0 3.6 - 4.9 mmol/L Chloride, Plasma 102 97 - 107 mmol/L CO2, Plasma 21 (L) 22 - 29 mmol/L Anion Gap 19 (H) 6 - 16 mmol/L Total Calcium, Plasma 9.4 8.9 - 10.2 mg/dL Total Protein 7.1 6.3 - 7.9 g/dL Albumin, Plasma 5.0 3.5 - 5.2 g/dL AST, Plasma 34 10 - 50 U/L ALT, Plasma 45 10 - 50 U/L Alkaline Phosphatase, Plasma 87 40 - 115 U/L Total Bilirubin, Plasma 0.3 0.2 - 1.1 mg/dL eGFRcr 111.2 mL/min/1.73m*2 Thyroid Stimulating Hormone, Plasma Collection Time: 02/03/25 12:37 AM Result Value Ref Range Thyroid Stimulating Hormone, Plasma 1.69 0.40 - 4.20 uIU/mL Free T4, Plasma Collection Time: 02/03/25 12:37 AM Result Value Ref Range Free T4, Plasma 1.2 0.8 - 1.7 ng/dL Ethyl Alcohol Plasma Collection Time: 02/03/25 12:37 AM Result Value Ref Range Ethanol Plasma 221 (H) <10 mg/dL Hepatitis C Antibody - ED Collection Time: 02/03/25 12:37 AM Result Value Ref Range Hepatitis C Antibody Negative Negative ED HIV 1/2 Antibody/Antigen Screen w/Reflex to HIV 1/2 Differentiation Collection Time: 02/03/25 12:37 AM Result Value Ref Range HIV 1 & 2 Antibody/Antigen Screen Non Reactive Non Reactive Pertinent Mental Status At Time of Discharge: A & O x 4. Linear and goal directed. Denies SI/HI. Calculated C-SSRS Risk Score (Lifetime/Recent): No Risk Indicated Discharge Disposition/Condition Disposition: Home Condition: Stable (s/sx potential problems absent or manageable) I spent >30 minutes of patient care and instruction time in preparation for this discharge. Cosigned by Benny Bhakta DO at 02/03/2025 6:15 PM EDT Associated attestation - Benny Bhakta DO - 02/03/2025 6:15 PM EDT The patient was seen only by Advanced Practice Provider (TANI), and care was reviewed with me. * Lyle Garcia RN - 02/03/2025 3:33 PM EDT [id number] Anxiety Reaction Anxiety is the feeling we all get when we think something bad might happen. It is a normal responseto stress. It most often causes only a mild reaction. But it can interfere with daily life when anxiety is more severe. In some cases, you may not know what you?re anxious about. Anxiety seems to have both mental and physical triggers. You may have stress from home and family. Or work and social relationships. Anxiety tends to run in families. This may mean it?s linked to genes. During an anxiety reaction, you may feel: ? Helpless. ? Nervous. ? Depressed. ? Grouchy. Your body may show signs of anxiety in many ways. You may have: ? Dry mouth. ? Shakiness. ? Dizziness. ? Weakness. ? Trouble breathing. ? Fast breathing. ? Chest pressure. ? Sweating. ? Headache. ? Nausea. ? Diarrhea. ? Tiredness. ? Inability to sleep. ? Sexual problems. Home care Try to find those things that set off anxiety in your life. They may not be obvious. They may include: ? Daily hassles of life. This can include traffic jams, missed appointments, or car troubles. ? Major life changes. This means both good changes. This includes a new baby or job promotion. Thiscan also mean tough life changes, such as loss of a job or loss of a loved one. ? Overload. This means feeling that you have too many responsibilities and you can't take care of all of them. ? Feeling helpless. You may feel you don?t have any control or choices. You may feel that your problems can't be solved. Notice how your body reacts to stress. This will help you take action before the stress sets off anxiety. Make changes to reduce the sources of your stress when you can. But stress in life often can't be prevented. It is important to learn how to manage stress to reduce anxiety. There are many proven methods that will reduce your anxiety. These include: ? Exercise. ? Good nutrition. ? Getting enough sleep. ? Relaxation methods. ? Breathing exercises. ? Visualization. ? Biofeedback. ? Meditation. ? Counseling. ? Medicine. For more information about this, talk with your doctor. Or check online or at your local library [employer]. You'll find many books and audiobooks on this subject. Follow-up care Call your doctor if you feel your anxiety is not getting better with self-help. Or make an appointment with a counselor. You may need short-term counseling or medicine to help you manage anxiety. Call 911 Call 911 if: ? You have trouble breathing. ? You feel confused. ? You feel drowsy or have trouble waking up. ? You faint. ? You have a rapid heart rate. ? You have a seizure. ? You have new chest pain that becomes more severe, lasts longer, or spreads into your shoulder, arm, neck, jaw, or back. If you are in a crisis or have thoughts of suicide or self-harm, call or text 044right away. This is the Replaced by [facility] Suicide & Crisis Lifeline. You will be connected to a trained counselor you can talk to. There's also an online chat option. You can also call [employer] at 800-273-talk ([phone]). The [employer] is free and available 09/03. When to contact your doctor Contact your doctor right away if: ? You have symptoms that don't improve or get worse. These include feelings of hopelessness or overwhelming sadness. ? You have a severe headache not eased by rest and mild pain medicine. Last Reviewed Date: 2024 00:00:00 ?? 3589-4248 [employer]. All rights reserved. This information is not intended as a substitute for professional medical care. Always follow your healthcare professional's instructions. * Clinician Note - Daniela Siri Won - 02/03/2025 2:49 PM EDT SAE Suarez spoke with Maritza Fink, Ruthie's mother. Maritza reported that Ruthie suffers from depression and PTSD, and that he sees a psychologist in [facility], [place]. Maritza reported that Ruthie is an alcoholic and was sober for ten months but recently relapsed. Maritza reported that Ruthie has been using kratom for 2-3 months. Maritza reported that Ruthie's left him on Thursday and since then he has been living in their basement drinking alcohol and doing kratom. Maritza reported that Ruthie has been saying that nothing matters and that he doesn't just want his kids he wants his whole family.Maritza reported that last night two of his friends who are cabinet abrasive sandblaster came to their home and brought him to [facility] due to his behaviors. Maritza reported that she had booked a flight for Ruthie this morningat 6 a.m. to attend a treatment program in [place]. Maritza reported that they will be speaking to Ruthie's friend Demetrio about next steps for Ruthie and she will call the SAE back. SEA Suarez later spoke with Carter Fink ([phone]). Carter reported that they had spoken to Demetrio and were trying to get Ruthie into a [facility] treatment program. Carter reported that they will be picking him up and he will be living at their home for the moment. Carter reported that there are weapons in the home (guns) and that Ruthie has a gun but that it has been taken away and they are all locked in a safe. Carter reported that he would be picking Ruthie up upon discharge. * ED Provider Notes - Mirlande Medina PA - 02/03/2025 4:31 AM EDT [facility] Psych Initial Eval Chief Concern & History Of Present Illness Ruthie Fink is a 34 y.o. male presenting from the emergency department with depression. Patient states his just asked for a divorce and it totally blind sided him. He states it was out of theblue and he did not expect it. He denies SI/HI/AVH, self harm attempts, and previous suicide attempts. He says just big sad is all. He does endorse kratom use for a couple of months now and states it was the worst thing he ever started taking but it is so easy to get since you just get it from the gas station. He does endorse drinking alcohol since his kicked him out 3 days ago. He probably had his last drink of beer around 10p before his friends brought him in to the ED. He does feel like he has been sleeping more recently and his appetite has decreased significantly in the last few days. DASA Score:: 1 Calculated C-SSRS Risk Score (Lifetime/Recent): No Risk Indicated Past Medical and Surgical History not significant other than Past Medical History[1] Allergies Amoxicillin, Clindamycin, Fruit extracts, and Vegetable extract Medications Current Medications[2] Review of Systems Constitutional: Negative for chills and fever. HENT: Negative for ear pain and sore throat. Eyes: Negative for pain and visual disturbance. Respiratory: Negative for cough and shortness of breath. Cardiovascular: Negative for chest pain and palpitations. Gastrointestinal: Negative for abdominal pain and vomiting. Genitourinary: Negative for dysuria and hematuria. Musculoskeletal: Negative for arthralgias and back pain. Skin: Negative for color change and rash. Neurological: Negative for seizures and syncope. All other systems reviewed and are negative. Psych Review of Symptoms: ADHD: Patient denied any symptoms. Anxiety: Patient denied any symptoms. Developmental and Sensory Concerns: Patient denied any symptoms. Depressive Symptoms: Depressed mood, feelings of worthlessness, withdrawal/isolation, hopelessness and low self esteem. Disruptive and Conduct Symptoms: Patient denied any symptoms. Eating / Feeding Concerns: Patient denied any symptoms. Elimination Symptoms: Patient denied any symptoms. Manic Symptoms: Patient denied any symptoms. Obsessive-Compulsive Symptoms: Patient denied any symptoms. Psychotic Symptoms: Patient denied any symptoms. Trauma Related Symptoms: Patient denied any symptoms. Sleep Concerns: Patient denied any symptoms. Pertinent Physical Exam findings: Physical Exam Vitals and nursing note reviewed. Constitutional: General: He is not in acute distress. Appearance: He is well-developed. HENT: Head: Normocephalic and atraumatic. Eyes: Conjunctiva/sclera: Conjunctivae normal. Cardiovascular: Rate and Rhythm: Normal rate and regular rhythm. Heart sounds: No murmur heard. Pulmonary: Effort: Pulmonary effort is normal. No respiratory distress. Breath sounds: Normal breath sounds. Abdominal: Palpations: Abdomen is soft. Tenderness: There is no abdominal tenderness. Musculoskeletal: General: No swelling. Cervical back: Neck supple. Skin: General: Skin is warm and dry. Capillary Refill: Capillary refill takes less than 2 seconds. Neurological: Mental Status: He is alert and oriented to person, place, and time. Psychiatric: Attention and Perception: Attention normal. He does not perceive auditory or visual hallucinations. Mood and Affect: Mood is depressed. Speech: Speech normal. Behavior: Behavior normal. Behavior is cooperative. Thought Content: Thought content normal. Thought content is not paranoid or delusional. Thought content does not include homicidal or suicidal ideation. Thought content does not include suicidal plan. Cognition and Memory: Cognition and memory normal. Judgment: Judgment normal. First Recorded Vitals ED Triage Vitals [02/03/25 0001] Temp Heart Rate Resp BP 36.8 ??C (98.3 ??F) 80 16 (!) 147/92 SpO2 Temp src Heart Rate Source Patient Position 93 % -- -- -- BP Location FiO2 (%) -- -- Labs Recent Results (from the past 24 hours) CBC w/diff Collection Time: 02/03/25 12:37 AM Result Value Ref Range WBC Count 5.20 3.70 - 10.30 10*3/uL RBC Count 5.34 4.60 - 6.10 10*6/uL HGB 14.9 13.7 - 17.5 g/dL HCT 42.5 40.0 - 51.0 % Platelet Count 208 155 - 369 10*3/uL MCV 80 79 - 98 fL MCH 27.9 26.0 - 32.0 pg MCHC 35.1 30.7 - 35.5 g/dL RDW 14.4 11.5 - 14.5 % MPV 9.3 8.8 - 12.5 fL nRBC 0.0 <=0.0 per 100 WBCs Differential Type Automated Neutrophils % 61 % Lymphocytes % 25 % Monocytes % 8 % Eosinophils % 4 % Basophils % 1 % Immature Granulocytes % 1 % Neutrophils Absolute 3.25 1.60 - 6.10 10*3/uL Lymphocytes Absolute 1.30 1.20 - 3.90 10*3/uL Monocytes Absolute 0.39 0.30 - 0.90 10*3/uL Eosinophils Absolute 0.20 0.00 - 0.50 10*3/uL Basophils Absolute 0.03 0.00 - 0.10 10*3/uL Immature Granulocytes Absolute 0.03 0.00 - 0.06 10*3/uL CMP Collection Time: 02/03/25 12:37 AM Result Value Ref Range Glucose, Plasma 95 74 - 99 mg/dL BUN, Plasma 6 (L) 7 - 21 mg/dL Creatinine, Plasma 0.92 0.70 - 1.20 mg/dL BUN/Creatinine Ratio 7 Sodium, Plasma 142 136 - 145 mmol/L Potassium, Plasma 4.0 3.6 - 4.9 mmol/L Chloride, Plasma 102 97 - 107 mmol/L CO2, Plasma 21 (L) 22 - 29 mmol/L Anion Gap 19 (H) 6 - 16 mmol/L Total Calcium, Plasma 9.4 8.9 - 10.2 mg/dL Total Protein 7.1 6.3 - 7.9 g/dL Albumin, Plasma 5.0 3.5 - 5.2 g/dL AST, Plasma 34 10 - 50 U/L ALT, Plasma 45 10 - 50 U/L Alkaline Phosphatase, Plasma 87 40 - 115 U/L Total Bilirubin, Plasma 0.3 0.2 - 1.1 mg/dL eGFRcr 111.2 mL/min/1.73m*2 Thyroid Stimulating Hormone, Plasma Collection Time: 02/03/25 12:37 AM Result Value Ref Range Thyroid Stimulating Hormone, Plasma 1.69 0.40 - 4.20 uIU/mL Free T4, Plasma Collection Time: 02/03/25 12:37 AM Result Value Ref Range Free T4, Plasma 1.2 0.8 - 1.7 ng/dL Ethyl Alcohol Plasma Collection Time: 02/03/25 12:37 AM Result Value Ref Range Ethanol Plasma 221 (H) <10 mg/dL Hepatitis C Antibody - ED Collection Time: 02/03/25 12:37 AM Result Value Ref Range Hepatitis C Antibody Negative Negative ED HIV 1/2 Antibody/Antigen Screen w/Reflex to HIV 1/2 Differentiation Collection Time: 02/03/25 12:37 AM Result Value Ref Range HIV 1 & 2 Antibody/Antigen Screen Non Reactive Non Reactive PSYCH Hx: Diagnoses: Depression Trauma hx: No Physical: No Sexual: No Emotional: No MENTAL STATUS EXAM: Mental Status Evaluation: Appearance: age appropriate Behavior: normal Speech: normal pitch and normal volume Mood: depressed and sad Affect: mood-congruent Thought Process: normal Thought Content: Delusions: No Hallucinations: No Homicidal: No Obsessions: No Suicidal: No Plan/Implementation related to SI: NA Sensorium: person, place, and time/date Cognition: grossly intact Insight: age appropriate Judgment: age appropriate Problem based Plan and Disposition: Admit to [facility] and observe in a safe and supportive environment. Place on suicide precautions due to patient endorsing suicidal thoughts earlier in the evening. Lab work collected in ED and patient was medically cleared before presenting to [facility]. Restart home medications including Duloxetine. Patient was given Lisinopril and carvedilol in ED prior to presenting to [facility]. Initiate Vistaril PRN. Refer to for collateral and safe disposition. Patient gives permission to speak to his parents and their numbers are in his phone. Patient states he sees a therapist with his most recent therapy appointment being earlier today. The next appointment is next week. Most likely diagnosis at this time is acute stress reaction. #Acute stress reaction -Continue Duloxetine 30mg PO daily -Patient was recently started on duloxetine a few days ago and is unable to tell if it is helping or not. Will continue while on the milieu. Patient encouraged to continue working with PCP for medication management. #Alcohol intoxication -Placed on CIWA protocol #Substance abuse -Placed on COWS protocol due to Kratom use. -Recommend abstinence from all substances with the potential for addiction. Counseled patient on the negative impact that these substances may have on mood. Recommend revaluation within 8 hours. [1] Past Medical History: Diagnosis Date Anxiety Asthma Chronic kidney disease Possible not confirmed Depression Diabetes mellitus ([facility]) Hypertension SONAM (obstructive sleep apnea) Osteoarthritis Palpitations Seasonal allergies [2] Current Facility-Administered Medications Medication Dose Route Frequency Provider Last Rate Last Admin hydrOXYzine pamoate (Vistaril) capsule 50 mg 50 mg Oral Once Mirlande Medina PA Current Outpatient Medications Medication Sig Dispense Refill acetaminophen (Tylenol Extra Strength) 500 MG tablet Take 2 tablets (1,000 mg) by mouth every 8 (eight) hours. (Patient not taking: Reported on 06/28/2024) 100 tablet 0 albuterol (2.5 MG/3ML) 0.083% nebulizer solution Take 3 mL (2.5 mg) by nebulization if needed for shortness of breath. albuterol 108 (90 Base) MCG/ACT inhaler Inhale 2 puffs if needed for shortness of breath. ARIPiprazole (Abilify) 5 MG tablet Take 1 tablet (5 mg) by mouth every night. atorvastatin (Lipitor) 10 MG tablet Take 1 tablet (10 mg) by mouth 1 (one) time each day. Breo Ellipta 100-25 MCG/ACT aerosol powder Inhale 1 puff 1 (one) time each day. carvedilol (Coreg) 25 MG tablet Take 1 tablet (25 mg) by mouth 2 (two) times a day with meals. Dilt-XR 120 MG 24 hr capsule Take 1 capsule (120 mg) by mouth 1 (one) time each day. gabapentin (Neurontin) 100 MG capsule Take 1 capsule (100 mg) by mouth 3 (three) times a day. If this medication makes you drowsy you may take it only at bedtime (Patient not taking: Reported on 06/28/2024) 30 capsule 0 gabapentin (Neurontin) 300 MG capsule Take 1 capsule (300 mg) by mouth 3 (three) times a day. 42 capsule 0 lisinopril 20 MG tablet Take 1 tablet (20 mg) by mouth 1 (one) time each day. methocarbamol (Robaxin) 500 MG tablet Take 1 tablet (500 mg) by mouth 3 (three) times a day if needed for muscle spasms. 30 tablet 0 metOLazone (Zaroxolyn) 2.5 MG tablet Take 1 tablet (2.5 mg) by mouth 1 (one) time each day if needed. omeprazole (PriLOSEC) [address] capsule Take 1 capsule (40 mg) by mouth 1 (one) time each day. Do not crush or chew. oxyCODONE (Roxicodone) 5 MG immediate release tablet Take 1 tablet (5 mg) by mouth every 8 (eight) hours if needed for severe pain. (Patient not taking: Reported on 06/28/2024) 20 tablet 0 PARoxetine (Paxil) 40 MG tablet Take 1 tablet (40 mg) by mouth 1 (one) time each day in the morning. traMADol (Ultram) 50 MG tablet Take 1 tablet (50 mg) by mouth every 8 (eight) hours if needed for moderate pain. (Patient not taking: Reported on 06/28/2024) 30 tablet 0 Mirlande Medina PA 02/03/25 0631 * ED Notes - Jina Garay RN - 02/03/2025 4:27 AM EDT Patient refused all lab orders. Education was provided. Jina Garay RN 02/03/25 0428 * ED Notes - Ignacio Vasquez RN - 02/03/2025 4:05 AM EDT Patient is a 34 year old male coming to this facility from [facility]. Patient states that he recently experienced his leaving him. Since then he has been feeling depressed and hopeless about life. Patient reports that he endorsed suicidal ideation earlier bu not currently. No homicidal ideations were reported. He will be admitted to the unit for further evaluation. Ignacio Vasquez RN 02/03/25 0430 * ED Provider Notes - Maribell Maynard APRN - 02/02/2025 11:44 PM EDT Images from the original note were not included. - HPI Chief Complaint Patient presents with Psychiatric Evaluation This is a 34-year-old obese male patient, with known medical history as documented below,presenting to this emergency department by way of his friends for evaluation. The patient indicatesthat he and his are currently , and that he was notified today that she would like toget a divorce. Over the past couple of weeks he has been self-medicating with alcohol. He denies any recreational drug use. After the realization that his wants a divorce, he reports becoming detached and feels like heis not present. He further indicates that he feels as if he does not want to be here anymore but adamantly denies any suicidal ideations or plans for such. He reports that 2 of his friends, who are(off-duty) local law enforcement officers, brought him in as they were worried about his mental state. Patient History Past Medical History[1] Surgical History[2] Family History[3] Social History[4] Allergies: Allergies[5] Physical Exam ED Triage Vitals [02/03/25 0001] Temp Heart Rate Resp BP 36.8 ??C (98.3 ??F) 80 16 (!) 147/92 SpO2 Temp src Heart Rate Source Patient Position 93 % -- -- -- BP Location FiO2 (%) -- -- Physical Exam Vitals and nursing note reviewed. Constitutional: Appearance: Normal appearance. He is obese. He is not ill-appearing or toxic-appearing. HENT: Head: Normocephalic and atraumatic. Right Ear: External ear normal. Left Ear: External ear normal. Nose: Nose normal. Mouth/Throat: Mouth: Mucous membranes are moist. Pharynx: Oropharynx is clear. Eyes: Extraocular Movements: Extraocular movements intact. Cardiovascular: Rate and Rhythm: Normal rate and regular rhythm. Pulses: Normal pulses. Radial pulses are 2+ on the right side and 2+ on the left side. Heart sounds: Normal heart sounds. Pulmonary: Effort: Pulmonary effort is normal. Breath sounds: Normal breath sounds. Abdominal: Palpations: Abdomen is soft. Musculoskeletal: General: Normal range of motion. Skin: General: Skin is warm and dry. Neurological: General: No focal deficit present. Mental Status: He is alert and oriented to person, place, and time. GCS: GCS eye subscore is 4. GCS verbal subscore is 5. GCS motor subscore is 6. Sensory: Sensation is intact. Motor: Motor function is intact. Coordination: Coordination is intact. Psychiatric: Attention and Perception: He is inattentive. Mood and Affect: Affect is flat and tearful. Speech: Speech is delayed. Behavior: Behavior is slowed. Thought Content: Thought content is not paranoid. Thought content does not include homicidal or suicidal ideation. Cognition and Memory: Cognition normal. Judgment: Judgment normal. No data recorded ED Course & MDM This patient was seen and evaluated in this ED in conjunction with Dr. Casas. - Differential Diagnosis: Can include, but is not limited to organic psychosis, alcohol induced psychosis/depression, exacerbation of depression, anxiety reaction, thyroid disorder. The patient's overall exam is benign for physical issues. He does have a flat affect and reports a generalized this associated state. He appears to have some insight until all of this. He denies having any overt suicidal thoughts or plans. He is not homicidal and is not experiencing any hallucinations at present. He does not currently meet criteria for a legal 72 hour hold in [place]. In order to fully explore the differential diagnosis the following treatments and tests were ordered: Complete laboratory workup as above was ordered reviewed by me. No urgent or actionable items were noted. His alcohol level was noted to be elevated at 221. UA and UDS were pending at the time of this dictation. As his blood pressure was noted to be mildly elevated, we did medicate him with his known home medications. Given the patient's recent exacerbation of his depressive symptoms, we did recommend evaluation at the [facility] unit. The patient was amenable to this. I had an interactive discussion with the staff at the [facility] unit. We discussed all the above information. They were amenable to seeing the patient. We will arrange ground transfer for this patient. 34 y.o. male presents to ED with complaint of increased depressive symptoms. It should be noted that the chronic conditions includes depression and AUD, which currently is not at goal therapy. This complicates the clinical picture because it Comorbidities: may be exacerbating symptoms, increases the amount and complexity of data to be reviewed, complicates the clinical workup, and increases the risk for morbidity All Other Orders Ordered Status Ordering Provider 02/03/25 0027 CBC w/diff STAT Final result MARIBELL MAYNARD 02/03/25 0027 CMP STAT Final result MARIBELL MAYNARD 02/03/25 002 Thyroid Stimulating Hormone, Plasma STAT Final result MARIBELL MAYNARD P 02/03/25 0027 Free T4, Plasma STAT Final result MARIBELL MAYNARD P 02/03/25 002 Ethyl Alcohol Plasma STAT Final result MARIBELL MAYNARD P 02/03/25 002 Urinalysis with reflex microscopic AND reflex culture (IF UTI SUSPECTED) STAT Acknowledged MARIBELL MAYNARD P 02/03/25 002 Drug abuse screen STAT Acknowledged MARIBELL MAYNARD P 02/03/25 002 Hepatitis C Antibody - ED Once Final result MARIBELL MAYNARD P 02/03/25 002 ED Protocol - HIV 1/2 Antibody/Antigen Screen Once Final result MARIBELL MAYNARD P 02/03/25 002 Urinalysis with reflex microscopic (Culture NOT Included) PROCEDURE ONCE Ordered MARIBELL MAYNARD P 02/03/25 002 Urine Norton Panel PROCEDURE ONCE Ordered SCARLET MAYNARDREY P 02/03/2526 ED HIV 1/2 Antibody/Antigen Screen w/Reflex to HIV 1/2 Differentiation PROCEDURE ONCE Final result MARIBELL MAYNARD P Assessment: Clinical Impressions as of 02/03/25 0309 Dissociative stupor Other depression Alcoholic intoxication without complication (CMS/HCC) Elevated blood pressure reading with diagnosis of hypertension Social Determinates of Health Risks (including Economic Stability, Education and level of understanding, Healthcare access and quality and concerning social factors): Acute or chronic drug and alcohol use, Social factors impacting patient's psychosocial well-being, and Poor social support Ultimately, this patient was transported to the [facility] unit for further care. ([facility]) The primary encounter diagnosis was Dissociative stupor. Diagnoses of Other depression, Alcoholic intoxication without complication (CMS/HCC), and Elevated blood pressure reading with diagnosis of hypertension were also pertinent to this visit.. ) Due to the diagnoses listed and the need for psychiatric services, the patient was transferred to [facility] for further psychiatric evaluation and observation. ED Prescriptions None Disposition Observation Provider Care Team: BRANDAN Odonnell [[id number]] Are they the primary team?: Yes [1] - [1] Past Medical History: Diagnosis Date Anxiety Asthma Chronic kidney disease Possible not confirmed Depression Diabetes mellitus (CMS/HCC) Hypertension SONAM (obstructive sleep apnea) Osteoarthritis Palpitations Seasonal allergies [2] Past Surgical History: Procedure Laterality Date HIP ARTHROPLASTY Left WISDOM TOOTH EXTRACTION [3] Family History Problem Relation Name Age of Onset Cancer Father Elijah Diabetes Father Elijah Anesthesia problems Neg Hx Malig Hyperthermia Neg Hx [4] Tobacco Use Smoking status: Every Day Current packs/day: 0.00 Average packs/day: 1 pack/day for 16.4 years (16.4 ttl pk-yrs) Types: Cigarettes Start date: 2007 Last attempt to quit: 01/16/2024 Years since quittin.0 Smokeless tobacco: Never Vaping Use Vaping status: Every Day Substances: Flavoring Devices: Refillable tank Substance Use Topics Alcohol use: Yes Alcohol/week: 30.0 standard drinks of alcohol Types: 30 Cans of beer per week Drug use: Never [5] Allergies Allergen Reactions Amoxicillin Hives and Rash Happened as a child Clindamycin Shortness of breath Fruit Extracts Anaphylaxis Any uncooked fruit or vegetable cause angioedema; can eat if cooked Vegetable Extract Anaphylaxis Any uncooked fruit or vegetables causes angioedema; can eat if cooked Maribell Maynard APRN 02/03/25 0309 Cosigned by Aureliano Casas MD at 02/03/2025 3:36 AM EDT Associated attestation - Aureliano Casas MD - 02/03/2025 3:36 AM EDT The patient was seen only by Advanced Practice Provider (TANI), and care was reviewed with me. * ED Triage Notes - Kaia Griffin RN - 02/02/2025 11:44 PM EDT Reports that his left him and has nothing left . When asked about SI pt states I don't know . Reports having 12 beers tonight. Pt is asked again about SI and states I'm not going to kill myself . documented in this encounter Plan of Treatment Not on file documented as of this encounter Goals Goal Patient Goal Type Associated Problems Recent Progress Patient-Stated? Author Autogenera purvis Goal Care Plan Autogenerated Problem No King Qureshi MD Automarianna purvis Goal Care Plan Autogenerated Problem No Niharika Landry documented as of this encounter Procedures Procedure Name Priority Date/Time Associated Diagnosis Comments ED HIV 1/2 ANTIBODY/ANTIGEN SCREEN WITH REFLEX TO HIV I/II DIFFERENTIATION STAT 02/03/2025 12:37 AM EDT ED PROTOCOL HIV 1/2 ANTIBODY/ANTIGEN SCREEN W/REFLEX TO HIV 1/2 ANTIBODY DIFFERENTIATION STAT 02/03/2025 12:37 AM EDT ETHYL ALCOHOL PLASMA STAT 02/03/2025 12:37 AM EDT HEPATITIS C ANTIBODY - ED W/REFLEX TO HCV QUANT PCR STAT 02/03/2025 12:37 AM EDT CBC WITH AUTO DIFFERENTIAL STAT 02/03/2025 12:37 AM EDT TSH STAT 02/03/2025 12:37 AM EDT FREE T4, PLASMA STAT 02/03/2025 12:37 AM EDT COMPREHENSIVE METABOLIC PANEL, PLASMA STAT 02/03/2025 12:37 AM EDT documented in this encounter Results * ED HIV 1/2 Antibody/Antigen Screen w/Reflex to HIV 1/2 Differentiation (02/03/2025 12:37 AM EDT) HIV 1 & 2 Antibody/Antigen Screen Non Reactive Non Reactive 02/03/2025 1:28 AM EDT [facility] Comment:Screening for HIV 1 & 2 antibodies, and P24 antigen is NONREACTIVE. No confirmatory testing is required. Blood Venous blood specimen / Unknown Venipuncture / Unknown 02/03/2025 12:37 AM EDT 02/03/2025 12:40 AM EDT [facility] BLOOD ORDERABLES Fin al Result Performing Organization Address City/[facility] Co de Phone Number [facility]ARE [facility] [address] [place] [address] * Hepatitis C Antibody - ED (02/03/2025 12:37 AM EDT) Hepatitis C Antibody Negative Negative 02/03/2025 1:23 AM EDT [facility] Blood Venous blood specimen / Unknown Venipuncture / Unknown 02/03/2025 12:37 AM EDT 02/03/2025 12:40 AM EDT [facility] BLOOD ORDERABLES Fin al Result Performing Organization Address [facility] de Phone Number [facility]ARE [facility] [address] [place] [address] * (ABNORMAL) Ethyl Alcohol Plasma (02/03/2025 12:37 AM EDT) Ethanol Plasma 221(H) <10 mg/dL 02/03/2025 1:02 AM EDT [facility] Blood Venous blood specimen / Unknown Venipuncture / Unknown 02/03/2025 12:37 AM EDT 02/03/2025 12:40 AM EDT Narrative HEALTHCARE LAB - 02/03/2025 1:02 AM EDT Enzymatic Assay: Performed on [employer]. [facility] BLOOD ORDERABLES Fin al Result Performing Organization Address City/[facility] Co de Phone Number [facility] [address] [place] [address] * Free T4, Plasma (02/03/2025 12:37 AM EDT) Free T4, Plasma 1.2 0.8 - 1.7 ng/dL 02/03/2025 1:08 AM EDT [facility] Blood Venous blood specimen / Unknown Venipuncture / Unknown 02/03/2025 12:37 AM EDT 02/03/2025 12:40 AM EDT [facility] B[facility] Fin al Result Performing Organization Address [facility] Co de Phone Number [facility] [address] [place] [address] * Thyroid Stimulating Hormone, Plasma (02/03/2025 12:37 AM EDT) Thyroid Stimulating Hormone, Plasma 1.69 0.40 - 4.20 uIU/mL 02/03/2025 1:08 AM EDT [facility] Blood Venous blood specimen / Unknown Venipuncture / Unknown 02/03/2025 12:37 AM EDT 02/03/2025 12:40 [facility] Fin al Result Performing Organization Address [facility] Phone Number [facility] [address] [place] [address] * (ABNORMAL) CMP (02/03/2025 12:37 AM EDT) Glucose, Plasma 95 74 - 99 mg/dL 02/03/2025 1:08 AM EDT [facility] BUN, Plasma 6(L) 7 - 21 mg/dL 02/03/2025 1:08 AM EDT [facility] Creatinine, Plasma 0.92 0.70 - 1.20 mg/dL 02/03/2025 1:08 AM EDT [facility] BUN/Creatinine Ratio 7 02/03/2025 1:08 AM EDT [facility] Sodium, Plasma 142 136 - 145 mmol/L 02/03/2025 1:08 AM EDT [facility] Potassium, Plasma 4.0 3.6 - 4.9 mmol/L 02/03/2025 1:08 AM EDT [facility] Chloride, Plasma 102 97 - 107 mmol/L 02/03/2025 1:08 AM EDT [facility] CO2, Plasma 21(L) 22 - 29 mmol/L 02/03/2025 1:08 AM EDT [facility] Anion Gap 19(H) 6 - 16 mmol/L 02/03/2025 1:08 AM EDT [facility] Total Calcium, Plasma 9.4 8.9 - 10.2 mg/dL 02/03/2025 1:08 AM EDT [facility] Total Protein 7.1 6.3 - 7.9 g/dL 02/03/2025 1:08 AM EDT [facility] Albumin, Plasma 5.0 3.5 - 5.2 g/dL 02/03/2025 1:08 AM EDT [facility] AST, Plasma 34 10 - 50 U/L 02/03/2025 1:08 AM EDT [facility] ALT, Plasma 45 10 - 50 U/L 02/03/2025 1:08 AM EDT [facility] Alkaline Phosphatase, Plasma 87 40 - 115 U/L 02/03/2025 1:08 AM EDT [facility] Total Bilirubin, Plasma 0.3 0.2 - 1.1 mg/dL 02/03/2025 1:08 AM EDT [facility] eGFRcr 111.2 mL/min/1.7 3m*2 02/03/2025 1:08 AM EDT [facility] Comment:Reported eGFRcr in m L/min/1.73m2 is based the CKD-EPI 2020 equation that does not use a race coefficient. Blood Venous blood specimen / Unknown Venipuncture / Unknown 02/03/2025 12:37 AM EDT 02/03/2025 12:40 AM EDT Maribell Maynard APRN LAB BLOOD ORDERABLES Fin al Result [facility] [address] [place] [address] * CBC w/diff (02/03/2025 12:37 AM EDT) WBC Count 5.20 3.70 - 10.30 10*3/uL LAB HEMATOLOGY METHOD 02/03/2025 12:43 AM EDT [facility] RBC Count 5.34 4.60 - 6.10 10*6/uL LAB HEMATOLOGY METHOD 02/03/2025 12:43 AM EDT [facility] HGB 14.9 13.7 - 17.5 g/dL LAB HEMATOLOGY METHOD 02/03/2025 12:43 AM EDT [facility] HCT 42.5 40.0 - 51.0 % LAB HEMATOLOGY METHOD 02/03/2025 12:43 AM EDT [facility] Platelet Count 208 155 - 369 10*3/uL LAB HEMATOLOGY METHOD 02/03/2025 12:43 AM EDT [facility] MCV 80 79 - 98 fL LAB HEMATOLOGY METHOD 02/03/2025 12:43 AM EDT [facility] MCH 27.9 26.0 - 32.0 pg LAB HEMATOLOGY METHOD 02/03/2025 12:43 AM EDT [facility] MCHC 35.1 30.7 - 35.5 g/dL LAB HEMATOLOGY METHOD 02/03/2025 12:43 AM EDT [facility] RDW 14.4 11.5 - 14.5 % LAB HEMATOLOGY METHOD 02/03/2025 12:43 AM EDT [facility] MPV 9.3 8.8 - 12.5 fL LAB HEMATOLOGY METHOD 02/03/2025 12:43 AM EDT [facility] nRBC 0.0 <=0.0 per 100 WBCs LAB HEMATOLOGY METHOD 02/03/2025 12:43 AM EDT [facility] Differential Type Automated LAB HEMATOLOGY METHOD 02/03/2025 12:43 AM EDT [facility] Neutrophils % 61 % LAB HEMATOLOGY METHOD 02/03/2025 12:43 AM EDT [facility] Lymphocytes % 25 % LAB HEMATOLOGY METHOD 02/03/2025 12:43 AM EDT [facility] Monocytes % 8 % LAB HEMATOLOGY METHOD 02/03/2025 12:43 AM EDT [facility] Eosinophils % 4 % LAB HEMATOLOGY METHOD 02/03/2025 12:43 AM EDT [facility] Basophils % 1 % LAB HEMATOLOGY METHOD 02/03/2025 12:43 AM EDT [facility] Immature Granulocytes % 1 % LAB HEMATOLOGY METHOD 02/03/2025 12:43 AM EDT [facility] Neutrophils Absolute 3.25 1.60 - 6.10 10*3/uL LAB HEMATOLOGY METHOD 02/03/2025 12:43 AM EDT [facility] Lymphocytes Absolute 1.30 1.20 - 3.90 10*3/uL LAB HEMATOLOGY METHOD 02/03/2025 12:43 AM EDT [facility] Monocytes Absolute 0.39 0.30 - 0.90 10*3/uL LAB HEMATOLOGY METHOD 02/03/2025 12:43 AM EDT [facility] Eosinophils Absolute 0.20 0.00 - 0.50 10*3/uL LAB HEMATOLOGY METHOD 02/03/2025 12:43 AM EDT [facility] Basophils Absolute 0.03 0.00 - 0.10 10*3/uL LAB HEMATOLOGY METHOD 02/03/2025 12:43 AM EDT [facility] Immature Granulocytes Absolute 0.03 0.00 - 0.06 10*3/uL LAB HEMATOLOGY METHOD 02/03/2025 12:43 AM EDT [facility] Blood Venous blood specimen / Unknown Venipuncture / Unknown 02/03/2025 12:37 AM EDT 02/03/2025 12:40 AM EDT Narrative [facility]ALTH[facility]ARE [facility] - 02/03/2025 12:43 AM EDT Therapeutic decision making should be based on absolute values, rather than percentages. Maribell Maynard APRN LAB BLOOD ORDERABLES Fin al Result [facility] [address] [place] [address] documented in this encounter Visit Diagnoses Diagnosis Acute stress reaction- Primary Unspecified acute reaction to stress Dissociative stupor Dissociative disorder or reaction, unspecified Other depression Alcoholic intoxication without complication (CMS/HCC) Elevated blood pressure reading with diagnosis of hypertension Acute stress reaction Unspecified acute reaction to stress Substance abuse Other, mixed, or unspecified nondependent drug abuse, unspecified Alcoholic intoxication without complication (CMS/HCC) Substance abuse Other, mixed, or unspecified nondependent drug abuse, unspecified documented in this encounter Administered Medications Inactive Administered Medications - up to 3 most recent administrations Medication Order MAR Action Action Date Dose Rate Site carvedilol (Coreg) tablet 25 mg 25 mg, Oral, Once, 1 dose, On Thu02/03/25 at 0240, STAT Given 02/03/2025 2:46 AM EDT 25 mg DULoxetine (Cymbalta) DR capsule 30 mg 30 mg, Oral, Daily, First dose on Thu02/03/25 at 0900, Until Discontinued, Routine Given 02/03/2025 8:14 AM EDT 30 mg hydrOXYzine pamoate (Vistaril) capsule 50 mg 50 mg, Oral, Once, 1 dose, On Thu02/03/25 at 0430, STAT Given 02/03/2025 4:39 AM EDT 50 mg hydrOXYzine pamoate (Vistaril) capsule 50 mg 50 mg, Oral, Once, 1 dose, On Thu02/03/25 at 1430, STAT Given 02/03/2025 2:21 PM EDT 50 mg lisinopril tablet 20 mg 20 mg, Oral, Once, 1 dose, On Thu02/03/25 at 0240, STAT Given 02/03/2025 2:46 AM EDT 20 mg nicotine (Nicoderm CQ) 21 MG/24HR patch 1 patch 1 patch, Transdermal, Daily, First dose on Thu02/03/25 at 1400, Until Discontinued, Routine documented in this encounter Active and Recently Administered Medications Times are shown in EDT. Scheduled Medication Order 02/01/2025 02/02/2025 02/03/2025 carvedilol (Coreg) tablet 25 mg (COMPLETED) 25 mg, Oral, Once, 1 dose, On Thu02/03/25 at 0240, STAT 0246 (Given - Provid er: Kaia Griffin RN) DULoxetine (Cymbalta) DR capsule 30 mg 30 mg, Oral, Daily, First dose on Thu02/03/25 at 0900, Until Discontinued, Routine 0814 (Given - Provid er: Lyle Merritt RN) hydrOXYzine pamoate (Vistaril) capsule 50 mg (COMPLETED) 50 mg, Oral, Once, 1 dose, On Thu02/03/25 at 0430, STAT 0439 (Given - Provid er: Bijal Page RN) hydrOXYzine pamoate (Vistaril) capsule 50 mg (COMPLETED) 50 mg, Oral, Once, 1 dose, On Thu02/03/25 at 1430, STAT 1421 (Given - Provid er: Krystyna Hill RN) lisinopril tablet 20 mg (COMPLETED) 20 mg, Oral, Once, 1 dose, On Thu02/03/25 at 0240, STAT 0246 (Given - Provid er: Kaia Griffin RN) nicotine (Nicoderm CQ) 21 MG/24HR patch 1 patch 1 patch, Transdermal, Daily, First dose on Thu02/03/25 at 1400, Until Discontinued, Routine 1400 (Canceled Entry - Provider: Automatic Discharge Provider - Comment: Automatically canceled at discontinue of medication order) documented in this encounter Additional Health Concerns Active Problems Noted Date Diagnosed Date Autogenerated Problem 11/17/2024 Autogenerated Problem 12/30/2024 Assessment Noted Time PHQ-9 Depression Total Score: 17 025 4:02 AM EDT A fall risk assessment has been complete d for the patient 11/29/2024 12:42 PM EDT A Body Mass Index follow-up plan has been documented for the patient 11/29/2024 1:02 PM EDT documented as of this encounter Care Teams Motorcycle Police Relationship Specialty Start Date End Date Moris Abdi MD [address] [place] [id number] PCP - General 12/28/20 documented as of this encounter
--- OUTSIDE RECORDS SUMMARY | 2025-02-03 00:04 | XMS_ITS | Encounter Summary ---
Author Organization [facility] Address [address] 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 Please return here or nearest emergency room with any worsening of symptoms. May also utilize #[phone]. Avoid mind altering substances. Continue Cymbalta and keep previously scheduled appointment with [facility] [place] [facility]. documented in this encounter Medications at Time [...] Moris Abdi MD [address] [facility] / [place] [address] Chief Concern, Brief History of Present Illness, [...] at risk for suicide because of his denominational beliefs and his three children. He is [...] they the primary team?: Yes [1] AVS (Bhutanese Snapshot) - Printed 02/03/2025 Outpatient Follow-Up No [...] Garcia RN - 02/03/2025 3:33 PM EDT [id number] Anxiety Reaction Anxiety is the feeling we [...] check online or at your local library [place]. You'll find many books and audiobooks on [...] of suicide or self-harm, call or text 982right away. This is the [facility] Crisis Lifeline. You will be connected to a trained counselor you can talk to. There's also an online chat option. You can also call [employer] at 800-273-talk ([phone]). The [employer] is free and available 09/03. When to contact your doctor Contact your doctor right away if: ? You have symptoms that don't improve or get worse. These include feelings of hopelessness or overwhelming sadness. ? You have a severe headache not eased by rest and mild pain medicine. Last Reviewed Date: 2024 00:00:00 ?? [id number] The Alerts. All rights reserved. This information is not intended as a substitute for professional medical care. Always follow your healthcare professional's instructions. * Clinician Note - Daniela Siri Won - 02/03/2025 2:49 PM EDT SAE Suarez spoke with Maritza Fink, Ruthie's mother. Maritza reported that Ruthie suffers from depression and PTSD, and that he sees a psychologist in [facility]. Maritza reported that Ruthie is an alcoholic [...] night two of his friends who are customer engagement specialist came to their home and brought him to [facility] due to his behaviors. Maritza reported that she had booked a flight for Ruthie this morningat 6 a.m. to attend a treatment program in [place]. Maritza reported that they will be speaking to Ruthie's friend Demetrio about next steps for Ruthie and she will call the SAE back. SAE Suarez later spoke with Carter Fink ([phone]). Carter reported that they had spoken to Demetrio and were trying to get Ruthie into a halfway treatment program. Carter reported that they will [...] disease Possible not confirmed Depression Diabetes mellitus ([facility]) Hypertension SONAM (obstructive sleep apnea) Osteoarthritis Palpitations [...] old male coming to this facility from [facility]. Patient states that he recently experienced his [...] for a legal 72 hour hold in [place]. In order to fully explore the differential [...] psychiatric services, the patient was transferred to [facility] for further psychiatric evaluation and observation. ED [...] Reactive Non Reactive 02/03/2025 1:28 AM EDT [facility] Comment:Screening for HIV 1 & 2 antibodies, and P24 antigen is NONREACTIVE. No confirmatory testing is required. Blood Venous blood specimen / Unknown Venipuncture / Unknown 02/03/2025 12:37 AM EDT 02/03/2025 12:40 AM EDT [facility] DATA WAREHOUSE MANAGER LAB BLOOD ORDERABLES Fin al Result Performing Organization Address City/[facility] Co de Phone Number [facility] [address] [place] [address] * Hepatitis C Antibody - ED (02/03/2025 12:37 AM EDT) Hepatitis C Antibody Negative Negative 02/03/2025 1:23 AM EDT [facility] Blood Venous blood specimen / Unknown Venipuncture / Unknown 02/03/2025 12:37 AM EDT 02/03/2025 12:40 AM EDT [facility]nard DATA WAREHOUSE MANAGER LAB BLOOD ORDERABLES Fin al Result Performing Organization Address [facility] de Phone Number [facility]ARE [facility] [address] [place] [address] * (ABNORMAL) Ethyl Alcohol Plasma (02/03/2025 12:37 AM EDT) Ethanol Plasma 221(H) <10 mg/dL 02/03/2025 1:02 AM EDT [facility] Blood Venous blood specimen / Unknown Venipuncture / Unknown 02/03/2025 12:37 AM EDT 02/03/2025 12:40 AM EDT Narrative [facility]ARE [facility] - 02/03/2025 1:02 AM EDT Enzymatic Assay: Performed on Dayna Placido. [facility]nard DATA WAREHOUSE MANAGER LAB BLOOD ORDERABLES Fin al Result Performing Organization Address City/[facility] Co de Phone Number [facility] [address] [place] [address] * Free T4, Plasma (02/03/2025 12:37 AM EDT) Free T4, Plasma 1.2 0.8 - 1.7 ng/dL 02/03/2025 1:08 AM EDT [facility] Blood Venous blood specimen / Unknown Venipuncture / Unknown 02/03/2025 12:37 AM EDT 02/03/2025 12:40 AM EDT [facility]LOOD ORDERABLES Fin al Result Performing Organization Address [facility] Co de Phone Number [facility] [address] [place] [address] * Thyroid Stimulating Hormone, Plasma (02/03/2025 12:37 AM EDT) Thyroid Stimulating Hormone, Plasma 1.69 0.40 - 4.20 uIU/mL 02/03/2025 1:08 AM EDT [facility] Blood Venous blood specimen / Unknown Venipuncture / Unknown 02/03/2025 12:37 AM EDT 02/03/2025 12:40 [facility] Fin al Result Performing Organization Address [facility] Phone Number [facility] [address] [place] [address] * (ABNORMAL) CMP (02/03/2025 12:37 AM EDT) Glucose, Plasma 95 74 - 99 mg/dL 02/03/2025 1:08 AM EDT [facility] BUN, Plasma 6(L) 7 - 21 mg/dL 02/03/2025 1:08 AM EDT [facility] Creatinine, Plasma 0.92 0.70 - 1.20 mg/dL 02/03/2025 1:08 AM EDT [facility] BUN/Creatinine Ratio 7 02/03/2025 1:08 AM EDT [facility] Sodium, Plasma 142 136 - 145 mmol/L 02/03/2025 1:08 AM EDT [facility] Potassium, Plasma 4.0 3.6 - 4.9 mmol/L 02/03/2025 1:08 AM EDT [facility] Chloride, Plasma 102 97 - 107 mmol/L 02/03/2025 1:08 AM EDT [facility] CO2, Plasma 21(L) 22 - 29 mmol/L 02/03/2025 1:08 AM EDT [facility] Anion Gap 19(H) 6 - 16 mmol/L 02/03/2025 1:08 AM EDT [facility] Total Calcium, Plasma 9.4 8.9 - 10.2 mg/dL 02/03/2025 1:08 AM EDT [facility] Total Protein 7.1 6.3 - 7.9 g/dL 02/03/2025 1:08 AM EDT [facility] Albumin, Plasma 5.0 3.5 - 5.2 g/dL 02/03/2025 1:08 AM EDT [facility] AST, Plasma 34 10 - 50 U/L 02/03/2025 1:08 AM EDT [facility] ALT, Plasma 45 10 - 50 U/L 02/03/2025 1:08 AM EDT [facility] Alkaline Phosphatase, Plasma 87 40 - 115 U/L 02/03/2025 1:08 AM EDT [facility] Total Bilirubin, Plasma 0.3 0.2 - 1.1 mg/dL 02/03/2025 1:08 AM EDT [facility] eGFRcr 111.2 mL/min/1.7 3m*2 02/03/2025 1:08 AM EDT [facility] Comment:Reported eGFRcr in m L/min/1.73m2 is based the CKD-EPI 2020 equation that does not use a race coefficient. Blood Venous blood specimen / Unknown Venipuncture / Unknown 02/03/2025 12:37 AM EDT 02/03/2025 12:40 AM EDT Maribell Maynard APRN LAB BLOOD ORDERABLES Fin al Result [facility] [address] [place] [address] * CBC w/diff (02/03/2025 12:37 AM EDT) WBC Count 5.20 3.70 - 10.30 10*3/uL LAB HEMATOLOGY METHOD 02/03/2025 12:43 AM EDT [facility] RBC Count 5.34 4.60 - 6.10 10*6/uL LAB HEMATOLOGY METHOD 02/03/2025 12:43 AM EDT [facility] HGB 14.9 13.7 - 17.5 g/dL LAB HEMATOLOGY METHOD 02/03/2025 12:43 AM EDT [facility] HCT 42.5 40.0 - 51.0 % LAB HEMATOLOGY METHOD 02/03/2025 12:43 AM EDT [facility] Platelet Count 208 155 - 369 10*3/uL LAB HEMATOLOGY METHOD 02/03/2025 12:43 AM EDT [facility] MCV 80 79 - 98 fL LAB HEMATOLOGY METHOD 02/03/2025 12:43 AM EDT [facility] MCH 27.9 26.0 - 32.0 pg LAB HEMATOLOGY METHOD 02/03/2025 12:43 AM EDT [facility] MCHC 35.1 30.7 - 35.5 g/dL LAB HEMATOLOGY METHOD 02/03/2025 12:43 AM EDT [facility] RDW 14.4 11.5 - 14.5 % LAB HEMATOLOGY METHOD 02/03/2025 12:43 AM EDT [facility] MPV 9.3 8.8 - 12.5 fL LAB HEMATOLOGY METHOD 02/03/2025 12:43 AM EDT [facility] nRBC 0.0 <=0.0 per 100 WBCs LAB HEMATOLOGY METHOD 02/03/2025 12:43 AM EDT [facility] Differential Type Automated LAB HEMATOLOGY METHOD 02/03/2025 12:43 AM EDT [facility] Neutrophils % 61 % LAB HEMATOLOGY METHOD 02/03/2025 12:43 AM EDT [facility] Lymphocytes % 25 % LAB HEMATOLOGY METHOD 02/03/2025 12:43 AM EDT [facility] Monocytes % 8 % LAB HEMATOLOGY METHOD 02/03/2025 12:43 AM EDT [facility] Eosinophils % 4 % LAB HEMATOLOGY METHOD 02/03/2025 12:43 AM EDT [facility] Basophils % 1 % LAB HEMATOLOGY METHOD 02/03/2025 12:43 AM EDT [facility] Immature Granulocytes % 1 % LAB HEMATOLOGY METHOD 02/03/2025 12:43 AM EDT [facility] Neutrophils Absolute 3.25 1.60 - 6.10 10*3/uL LAB HEMATOLOGY METHOD 02/03/2025 12:43 AM EDT [facility] Lymphocytes Absolute 1.30 1.20 - 3.90 10*3/uL LAB HEMATOLOGY METHOD 02/03/2025 12:43 AM EDT [facility] Monocytes Absolute 0.39 0.30 - 0.90 [...] BLOOD ORDERABLES Fin al Result [facility] [address] [place] [address] documented in this encounter Visit Diagnoses Diagnosis [...] documented as of this encounter Care Teams Project Manager Relationship Specialty Start Date End Date Moris Abdi MD [address] [place] [phone] PCP - General 12/28/20 documented as of this encounter
--- OUTSIDE RECORDS SUMMARY | 2025-02-09 07:15 | XMS_ITS ---
Author Organization [facility] Address [address] [place] [id number] Care Team Providers Care Weed Science Research Technician Name Role Phone Jocelyne Abdi Primary Care Provider Tomasa De Leon Unavailable [phone] Kori Bowers Unavailable [phone] Allergies Allergen (clinical drug ingredient) Drug/Non Drug [...] W/U Status Risk Notes Problem Alcohol abuse (23231959) Alcohol abuse (F10.10) Active confirmed Problem Anxiety (84859231) Anxiety (F41.9) Active confirmed Problem Panic disorder (930936363) Panic attacks (F41.0) Active confirmed Vital Signs Blood pressure systolic 160 mm Hg 02/10/20 25 Blood pressure diastolic 92 mm Hg 025 Heart Rate 104 /min 02/09/2025 Height 69.50 in 02/09/2025 Weight 238.8 lbs 02/09/2025 BMI 34.76 kg/m2 02/09/2025 Encounters Encounter Location Date Provider Diagnosis [facility] [address] [facility] [address] [place], [place] [id number] 02/09/2025 Kori Bowers Alcohol abuse F10.10 ; [...] facilities Panic attacks Discussed the case w ith Dr. Lawson. He is going to send the patient a week's worth of oxazepam and he will f/u with Dr. Abdi next week. Essential (primary) hypertension Will mo nitor BP at home. Next Appt Details Follow Up: 1 Week, Reason: Progress Notes * SHYANN FINKDOB: [birth year] (34 yo M)Acc No.[id number]:02/09/2025 Progress Notes Patient: SHYANN JOHN Provider: ROSE Lam :1990 A ge:34 Y S ex:Male Date:02/09/2025 Address:[address] [place] [address] [place], [id number] Pcp:Jocelyne Abdi Subjective: * Chief Complaints: * [...] 06/03-, Sinus infection, [facility], Sinus Infection- [facility] 10/2018, Palpitations- [facility] 04/2019. * Family History: F ather: [...] * Images: Billing Information: * Visit Code: 03106 Office Visit, Est Pt., Level 4. * Procedure Codes: * Electronic signature of ROSE Hare on 02/23/2025 at 12:33 PM EDT Sign off status: Pending * Provider: ROSE Lam Date: 0 02/09/2025 Generated for Marcii ng/Faxing/eTransmitting on: 0 02/23/2025 12:33 PM EDT History [...]
--- OUTSIDE RECORDS SUMMARY | 2025-02-09 07:15 | XMS_ITS ---
Author Organization [facility] Address [address] [place] [phone] Care Team Providers Care Collar Feller Name Role Phone Jocelyne Abdi Primary Care Provider Tomasa De Leon Unavailable [phone] Kori Bowers Unavailable [phone] Allergies Allergen (clinical drug ingredient) Drug/Non Drug [...] W/U Status Risk Notes Problem Alcohol abuse (04600874) Alcohol abuse (F10.10) Active confirmed Problem Anxiety (13274683) Anxiety (F41.9) Active confirmed Problem Panic disorder (336341173) Panic attacks (F41.0) Active confirmed Vital Signs Weight 238.8 lbs 02/09/2025 Blood pressure systolic 160 mm Hg 02/10/20 25 Blood pressure diastolic 92 mm Hg 025 Heart Rate 104 /min 02/09/2025 Height 69.50 in 02/09/2025 BMI 34.76 kg/m2 02/09/2025 Encounters Encounter Location Date Provider Diagnosis [facility] [address] [facility] [address] [place], [place] [phone] 02/09/2025 Kori Bowers Alcohol abuse F10.10 ; [...] * SHYANN FINKDOB: [birth year] (34 yo M)Acc No.[id number]:02/09/2025 Progress Notes Patient: SHYANN JOHN Provider: ROSE Lam :1990 A ge:34 Y S ex:Male Date:02/09/2025 Address:[address] [place] [address] [place], [id number] Pcp:Jocelyne Abdi Subjective: * Chief Complaints: * [...] Ear Infection- [facility] 09/04/2018, Sinus Infection- [facility] 10/2018, Palpitations- [facility] 04/2019. * Family History: F ather: [...] * Images: Billing Information: * Visit Code: 92329 Office Visit, Est Pt., Level 4. * Procedure Codes: * Electronic signature of ROSE Hare on 02/22/2025 at 09:33 PM EDT Sign off status: Pending * Provider: ROSE Lam Date: 0 02/09/2025 Generated for Marcii ng/Fakelseyg/eTransmitting on: 0 02/22/2025 09:33 PM EDT History [...]
--- OUTSIDE RECORDS SUMMARY | 2025-02-16 11:30 | XMS_ITS ---
Author Organization [facility] Address [address] [facility] 36 [facility] [address] [place] [phone] Care Team Providers Care Delivery Recruiter Name Role Phone Jocelyne Abdi Primary Care Provider [phone] Tomasa De Leon Unavailable [phone] Kori Bowers Unavailable [phone] REASON FOR VISIT 3 weeks Encounters Encounter Location Date Provider Diagnosis [facility] [address] [facility] [address] [place] [phone] 02/16/2025 Kori Bowers Plan Of Treatment No Information Progress Notes * SHYANN FINKDOB: [birth year] (34 yo M)Acc No.[id number]:02/16/2025 Progress Notes Patient: SHYANN JOHN Provider: ROSE Lam :1990 A ge:34 Y S ex:Male Date:02/16/2025 Address:[id number] Pcp:Jocelyne Abdi Subjective: * Chief Complaints: * 1 . 3 weeks. * Medical History: Objective: * Vitals: Assessment: Plan: * Treatment: * Images: Billing Information: * Visit Code: * Procedure Codes: * Electronic signature of ROSE Hare on 02/23/2025 at 12:34 PM EDT Sign off status: Pending * Provider: ROSE Lam Date: 0 02/16/2025 Generated for Printi ng/Faxing/eTransmitting on: 0 02/23/2025 12:34 PM EDT
--- OUTSIDE RECORDS SUMMARY | 2025-02-16 11:30 | XMS_ITS ---
Author Organization [facility] Address [address] [facility] [address] [place] [id number] Care Team Providers Care Wall Crane Operator Name Role Phone Jocelyne Abdi Primary Care Provider [phone] Tomasa De Leon Unavailable [phone] Kori Bowers Unavailable [phone] REASON FOR VISIT 3 weeks Encounters Encounter Location Date Provider Diagnosis [facility] [address] [facility] [address] [place] [phone] 02/16/2025 Kori Bowers Plan Of Treatment No Information Progress Notes * SHYANN FINKDOB: [birth year] (34 yo M)Acc No.[id number]:02/16/2025 Progress Notes Patient: SHYANN JOHN Provider: ROSE [...] 02/16/2025 Generated for Printi ng/Faxing/eTransmitting on: 0 02/22/2025 09:33 PM EDT
[2025-02-22] VITALS (7 sets, daily range): BP systolic 153–185; BP diastolic 89–106; PULSE 72–87; RESP 12–21; TEMP 36.4; O2SAT 92–100; BMI 34.0
--- NOTE | 2025-02-22 21:23 | ECG_ITS ---
APPROVED REPORT Exam: Resting ECG HR:84 bpm ECG Measurements Heart Rate 84 AXES OR 181 P 57 QRSd 92 QRS 11 QT 372 T 53 QTc 413 Conclusion SINUS RHYTHM NORMAL ECG UNCONFIRMED REPORT Normal sinus rhythm. No ST elevations or depressions Electronically signed by : ELA KUMAR, 02/22/2025 22:45:59
--- NOTE | 2025-02-22 21:25 | XR_ITS ---
PROCEDURE INFORMATION: Exam: XR Chest Exam date and time: 02/22/2025 9:33 PM Age: 34 years old Clinical indication: Pain; On breathing; Additional info: Chest pain TECHNIQUE: Imaging protocol: Radiologic exam of the chest. Views: 1 view. COMPARISON: CR XR CHEST 2V 07/07/2024 2:03 PM FINDINGS: Lungs: Unremarkable. No consolidation. Pleural spaces: Unremarkable. No pleural effusion. No pneumothorax. Heart/Mediastinum: Unremarkable. No cardiomegaly. Bones/joints: Unremarkable. IMPRESSION: No acute findings.
--- OUTSIDE RECORDS SUMMARY | 2025-02-22 21:33 | XMS_ITS | Patient Health Record ---
Author Organization [facility] Address [address] [facility] [address] [place] [id number] Care Team Providers Care Electric Organ Assembler Name Role Phone Jocelyne Abdi Primary Care Provider [phone] Tomasa De Leon Unavailable [phone] Won Lawson Unavailable [phone] Gato Persaud Unavailable [phone] Kori Bowers Unavailable [phone] Allergies Allergen (clinical drug ingredient) Drug/Non Drug Allergy documented on EMR Reaction Allergy Type Onset Date Status amoxicillin Amoxicillin Unknown Drug Allergy Act naseem clindamycin Clindamycin Unknown Drug Allergy Act naseem Results Component Value Reference Range Notes CBC Fingerstick (in house) Reviewed date:09/08/2024 01:29:07 [...] - 38 plat 162 100 - 400 CXR Reviewed date:07/08/2024 04:26:28 PM Interpretation:nothing acute [...] - 38 plat 203 100 - 400 Glycohemoglobin A1c (in hous e) Reviewed date:09/09/2024 12:08:31 PM Interpretation:5.4% Normal Performing Lab: Notes/Report: 5.4% Normal glycohemoglobin 5.4% 5 - 6.5 % P-Vitamin B12 Reviewed date:09/09/2024 12:08:31 PM Interpretation:Normal Performing Lab: Notes/Report: Test performed by [facility] [address] [place] [address] , [address], [place] [address] Tino Fletcher MD, Parts Department Manager CLIA: [id number] Vitamin B12 100 219-6487 pg/mL P-Comprehensive Metabolic Pa darryl (CMP) Reviewed date:09/09/2024 12:08:31 PM Interpretation:gluc 120 Performing Lab: Notes/Report: Test performed by [facility] [address] [place] [address] , [address], [place] [address] Tino Fletcher MD, Parts Department Manager CLIA: [id number] Sodium 142 135-145 mmol/L Potassium 4.3 3.5-5.3 [...] Interpretation:Normal Performing Lab: Notes/Report: Test performed by [facility] [address] [place] [address] , [address], [place] [address] Tino Fletcher MD, Parts Department Manager CLIA: [id number] TSH reflex to FT4 0.81 0.43-5.25 mU/L P-Vitamin D 25-Hydroxy Reviewed date:09/09/2024 12:08:31 PM Interpretation:11.1 Performing Lab: Notes/Report: Test performed by [facility] [address] [place] [address] , [address], [place] [address] Tino Fletcher MD, Parts Department Manager CLIA: [id number] Vitamin D 25-Hydroxy 11.1 30.0-100.0 ng/mL Interpretation of Vitamin D 25 [place]: < 20 ng/mL - Deficiency 20 - 29 ng/mL - Insufficiency 30 - 100 ng/mL - Sufficiency > 100 ng/mL - Super-therapeutic- toxicity may occur above this level. Clinical correlation required. H-COVIDPANEL Reviewed date:07/08/2024 04:26:54 PM Interpretation:Negative Performing Lab: Notes/Report: No Is this the 1st COVID test for the patient? No Does the patient have COVID symptoms? Yes Is the patient employed in healthcare? No Is patient an [facility] employee? N Is patient currently hospitalized? No Is patient currently in ICU? No Date of Symptom onset Is patient a resident in a congregate care setting? No ADENOQIA Not Detected NotDetected CORONAHKU1 Not Detected NotDetected [id number] Not Detected NotDetected [id number] Not Detected NotDetected AQSDRKY14 Not Detected NotDetected METAPNEUMO Not Detected NotDetected RHINOENTER Not Detected NotDetected INFLUAPCR Not Detected NotDetected FLUAH1 Not Detected NotDetected [id number] Not Detected NotDetected INFLUAH3 Not Detected NotDetected [...] Not Detected NotDetected MYCOPLASM Not Detected NotDetected CBC Fingerstick (in house) Reviewed date:06/30/2024 02:41:20 [...] - 38 plat 196 100 - 400 CBC Fingerstick (in house) Reviewed date:07/28/2024 10:16:56 [...] - 38 plat 100 100 - 400 Medications Medication SIG (Take, [...] Vaccine Route Administration Date Status Comme nts COVID 19 Moderna Unknown 08/13/2020 Administered COVID 19 Moderna Unknown 08/17/2020 Administered COVID 19 Moderna Unknown 09/14/2020 Administered COVID 19 Moderna Unknown 09/17/2020 Administered COVID 19 Moderna Unknown 06/22/2021 Administered DT, 7 YEARS OR OLDER Unknown 10/19/2000 Administered Fluzone PF Quad (6-35 months) Unknown 06/24/2022 Administered Fluzone Quad (6months&older) IM Intramuscular 10/22/2019 Administered HEPB VACC PED/ADOL DOSE IM Unknown 10/19/2000 Administe red HEPB VACC PED/ADOL DOSE IM Unknown 11/19/2000 Administe red HEPB VACC PED/ADOL DOSE IM Unknown 03/17/2001 Administe red HEPB VACC PED/ADOL DOSE IM Unknown 03/17/2001 Administe red Menactra IM Intramuscular 10/31/2010 Administered Tetanus Tdap-Adacel (over 7yrs) IM Intramuscular 05/07/2011 Administered Tetanus Tdap-Adacel (over 7yrs) IM Intramuscular 08/29/2022 Administered xFluzone (6mos and older)-trivalent Unknown 06/02/2021 Administered xGardasil IM Intramuscular 08/31/2012 Administered xGardasil IM Intramuscular 11/03/2012 Administered xGardasil IM Intramuscular 07/26/2013 Administered Problems Problem Type SNOMED Code ICD Code Onset Dates Problem Status W/U Status Risk Notes Problem Essential hypertension (57518470) Essential (primary) hypertension (I10) Active confirmed Problem Tachycardia (6660104) Tachycardia (R00.0) Active confirmed Problem Hypertension (52919633) HTN (hypertension) (I10) Active confirmed Problem Vitamin D deficiency (29260686) Vitamin D deficiency (E55.9) Active confirmed Problem Anxiety (69565635) Anxiety (F41.9) Active confi rmed Problem Hyperlipidaemia (71218884) Hyperlipemia (E78.5) Active confirmed Problem Obstructive sleep apnea (32406968) Obstructive sleep apnea (G47.33) Active confirmed Problem Hiatal hernia (73968028) Hiatal hernia (K44.9) Active confirmed Problem Mixed anxiety and depressive disorder (331680653) Depression with anxiety (F41.8) Active confirmed Problem Rectal bleeding (23040140) Rectal bleeding (K62.5) Active confirmed Problem Exacerbation of asthma (298156103) Asthma exacerbation (J45.901) Active confirmed Problem Alcohol abuse (60979614) Alcohol abuse (F10.10) Active confirmed Problem Mixed hyperlipidemia (642264378) Mixed hyperlipidemia (E78.2) Active confirmed Problem Dysthymia (49330754) Dysthymic disorder (F34.1) Active confirmed Problem Anxiety disorder (097784988) Anxiety disorder, unspecified (F41.9) Active confirmed Problem Acute severe exacerbation of moderate persistent asthma (disorder) (059704506) Moderate persistent asthma with status asthmaticus (J45.42) Active confirmed Problem Second degree hemorrhoids (605614912) Second degree hemorrhoids (K64.1) Active confirmed Problem Genital warts (653537799) Genital warts (A63.0) Active confirmed Problem Uncomplicated moderate persistent asthma (694389721) Moderate persistent asthma without complication (J45.40) Active confirmed Problem Gastroesophageal reflux disease with esophagitis (691475264) Gastroesophageal reflux disease with esophagitis (K21.0) Active confirmed Problem Panic disorder (107816259) Panic attacks (F41.0) Active confirmed Problem Obese class II (361386872991000) BMI 36.0-36.9,adult (Z68.36) Active confirmed Problem Exacerbation of moderate persistent asthma (disorder) (840263562) Moderate persistent asthma with acute exacerbation (J45.41) Active confirmed Problem Anogenital warts (963842789) Condyloma acuminata (A63.0) Active confirmed Problem Avascular necrosis (21919373) Avascular necrosis (M87.00) Active confirmed Problem Alcoholism (9048293) Alcoholism (F10.20) Active confirmed Problem Hypersomnia (84847082) Hypersomnia (G47.10) Active confirmed Problem Tobacco user (509361536) Cigarette nicotine dependence without complication (F17.210) Active confirmed Problem Excessive daytime sleepiness - normal night sleep (759921788) Daytime sleepiness (R40.0) Active confirmed Problem Panic attack (015607251) Panic attack (F41.0) Active confirmed Problem Anxiety depression (416572325) Anxiety with depression (F41.8) Active confirmed Problem Allergic rhinitis (67736480) Chronic non-seasonal allergic rhinitis, unspecified trigger (J30.89) Active confirmed Problem Exacerbation of asthma (424699831) Exacerbation of asthma, unspecified asthma severity, unspecified whether persistent (J45.901) Active confirmed Problem Exacerbation of moderate persistent asthma (disorder) (798569896) Moderate persistent asthma with exacerbation (J45.41) Active confirmed Problem Allergic rhinitis (23288999) Non-seasonal allergic rhinitis, unspecified trigger (J30.89) Active confirmed Problem Asthma without status asthmaticus (42306302) Moderate asthma, unspecified whether complicated, unspecified whether persistent (J45.909) Active confirmed Problem 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) Buergers disease (I73.1) Active confirmed Problem Severe major depression, single episode, without psychotic features (98042067) Current severe episode of major depressive disorder without psychotic features, unspecified whether recurrent (F32.2) Active confirmed Problem Depressed bipolar I disorder (30145353) Bipolar affective disorder, current episode depressed, current episode severity unspecified (F31.30) Active confirmed Vital Signs Heart Rate 104 /min 02/09/2025 Blood pressure diastolic 92 mm Hg 02/09/2025 Height 69.50 in 02/09/2025 Blood pressure systolic 160 mm Hg 02/09/2025 Weight 238.8 lbs 02/09/2025 BMI 34.76 kg/m2 02/09/2025 Encounters Encounter Location Date Provider Diagnosis [facility] [address] [facility] [address] [place] [id number] 06/30/2024 R Dean Lawson Acute bronchitis J20 .9 and Moderate persistent asthma without complication J45.40 [facility] [address] [place] [id number] 07/07/2024 Koriav Bowers Exacerbation of asth ma, unspecified asthma severity, unspecified whether persistent J45.901 and Bronchitis J40 [facility] [address] [place] [id number] 07/21/2024 R Dean Lawson Essential (primary) hypertension I10 [facility] [address] [place], [place] [id number] 07/28/2024 [place] Nausea and vomiting, unspecified vomiting type R11.2 [facility] [address] [place], [place] [id number] 09/08/2024 Kori Robinson Essential (primary) hypertension I10 ; Obstructive sleep apnea G47.33 ; Moderate persistent asthma without complication J45.40 ; Gastroesophageal reflux disease with esophagitis K21.0 ; Impaired fasting glucose R73.01 ; Depression with anxiety F41.8 and Other fatigue R53.83 [facility] [address] [place], [place] [id number] 01/26/2025 Koriav Bowers Anxiety with depress ion F41.8 [facility] [address] [place], [place] [id number] 02/09/2025 Kori Bowers Alcohol abuse F10.10 ; Depression with anxiety F41.8 ; Panic attacks F41.0 and Essential (primary) hypertension I10 [facility] [address] [place], [place] [id number] 02/15/2025 Kori Bowers [facility] [address] [place], [place] [id number] 07/15/2024 Jocelyne Abdi [facility] [address] [place], [place] [id number] 08/26/2024 Jocelyne Abdi Moderate persistent asthma without complication J45.40 [facility] [address] [place], [place] [id number] 09/09/2024 Kori Bowers [facility] [address] [place], [place] [id number] 02/09/2025 Won Lawson [facility] [address] [facility] [address] [place], [place] [id number] 02/21/2025 Jocelyne Abdi Moderate persistent asthma without complication J45.40 [facility] [address] [facility] [address] [place], [place] [id number] 02/22/2025 Jocelyne Abdi Assessments Encounter Date Diagnosis (ICD Code) Assessment [...] R11.2) clear liquids and advance as tolerated 09/08/2024 Essential (primary) hypertension (ICD-10 - I10) 09/08/2024 Obstructive sleep apnea (ICD-10 - G47.33) Patient had a sleep study in 2022 indicating moderate sleep apnea. He is not sleeping well and needs a CPAP machine and supplies. Will fax order and note to [facility]. 01/26/2025 Anxiety with depression (ICD-10 - F41.8) He states he never tried duloxetine. Will start on this. He is currently seeing a psychologist and is going to call to see if he can see a psychiatrist as well and possibly get genetic testing. 02/21/2025 Moderate persistent asthma without complication (ICD-10 - J45.40) 02/09/2025 Depression with anxiety (ICD-10 - F41.8) 02/09/2025 Alcohol abuse (ICD-10 - F10.10) Patient is going to check into rehab facilities 08/26/2024 Moderate persistent asthma without complication (ICD-10 - J45.40) 02/09/2025 Panic attacks (ICD-10 - F41.0) Discussed the case with Dr. Lawson. He is going to send the patient a week's worth of oxazepam and he will f/u with Dr. Abdi next week. 09/08/2024 Moderate persistent asthma without complication (ICD-10 - J45.40) 09/08/2024 Gastroesophageal reflux disease with esophagitis (ICD-10 - K21.0) 02/09/2025 Essential (primary) hypertension (ICD-10 - I10) Will monitor BP at home. 09/08/2024 Impaired fasting glucose (ICD-10 - R73.01) 09/08/2024 Depression with anxiety (ICD-10 - F41.8) 09/08/2024 Other fatigue (ICD-10 - R53.83) Plan Of Treatment No Information Insurance Providers Payer Name Payer Address Payer Phone Subscriber Number Group Number Insured Name Patient Relationship to Insured Coverage Start Date Coverage End Date [facility] [address] [address] [place] [phone] [id number] SHYANN FINK Self - patient is the insured Medications Administered Medication Instructions Date of Administration Dosage Notes Dexamethasone 09/29/2023 1 mL Medical (General) History Medical History History ICD Code Hypertension Asthma Anxiety Surgical History Surgery Date(Month/Year) bilateral hip replacements Hospitalization History Reason Date(Month/Year) Palpitations- [facility] 04/2019 Sinus Infection- [facility] 10/2018 Sinus infection, Bronchitis, Middle Ear Infection- [facility] 09/04/2018 Pneumonia 06/03- Asthma 1997
--- OUTSIDE RECORDS SUMMARY | 2025-02-22 21:34 | XMS_ITS | Encounter Summary ---
Author Organization [facility] Address [address] [place] [address] Care Team Providers Care Hybrid Corn Breeder Name Role Phone Moris Abdi MD Primary Care Provider [phone] Reason for Visit * Reason Comments Med Refill Encounter Details Date Type Department Care Team ([facility] st Contact Info) Description 12/17/2023 Refill Medical Office Building [facility] [address] [facility], [address] [place] [address] Yadira Schulte PA [address] [place] [address] Avascular necrosis of bones of [...] documented as of this encounter Care Teams Hybrid Corn Breeder Relationship Specialty Start Date End Date Moris Abdi MD [address] [place] [id number] PCP - General 12/28/20 documented as of this encounter
--- OUTSIDE RECORDS SUMMARY | 2025-02-22 21:34 | XMS_ITS | Clinical Summary ---
Author Organization [facility] Address [address] [place] [address] Phone [email or web address] Care Team Providers Care Skein Washer Name Role Phone Bakari Abdi MD Primary Care Provider [phone] Allergies Active Allergy Reactions Criticality Noted Date [...] Results * (ABNORMAL) Hgb A1C Hemoglobin Glycosylated (91888) (10/12/2024 11:49 AM EST) Hemoglobin A1C 5.9(H) 4.8 - 5.6 % 01 Comment: Prediabetes: 5.7 - 6.4 Diabetes: >6.4 Glycemic control for adults with diabetes: <7.0 Blood (Blood, Venous) 10/12/2024 11:49 AM EST 10/12/2024 1:00 AM EST Comment:Blood, Venou Narrative [facility] - 10/13/2024 8:07 AM EST Performed at: 01 - [facility] [address] [id number] Flexo Folder Gluer Operator: Vitor Nevarez PhD, Phone: [phone] us Cody Rodriguez MD LAB BLOOD ORDERABLES Final Resul t [facility] - [address] [place] [address] from Last 3 Months or Most Recently Relevant to Health Maintenance Insurance [employer] NO COPAY NB Care Teams Skein Washer Relationship Specialty [place] [address] [place] [address] [address] [place] [address] PCP - General 10/12/24
--- OUTSIDE RECORDS SUMMARY | 2025-02-22 21:34 | XMS_ITS | Encounter Summary ---
Author Organization [facility] Address [address] [place] [address] Care Team Providers Care Middle School Art Teacher Name Role Phone Moris Abdi MD Primary Care Provider [phone] Encounter Details Date Type Department Care Team [...] drink first t annie in the morning (EYE-COMPLAINT EVALUATION OFFICER) to steady your nerves or to get [...] at all 02/03/2025 4:02 AM EDT Ignacio Vasqeuz RN Thoughts that you would be better [...] documented as of this encounter Care Teams Middle School Art Teacher Relationship Specialty Start Date End Date Moris Abdi MD [address] [place] [id number] PCP - General 12/28/20 documented as of this encounter
--- OUTSIDE RECORDS SUMMARY | 2025-02-22 21:34 | XMS_ITS | Clinical Summary ---
Author Organization [facility] Address [address] [place] [address] Care Team Providers Care Position Clerk Name Role Phone Moris Abdi MD Primary Care Provider [phone] Allergies Active Allergy Reactions Criticality Noted Date [...] - 02/03/2025 4:00 PM EDT Hospital Encounter [facility] [address] [place] [address] Benny Bhakta DO Acute stress reaction (Primary Dx); Dissociative stupor; Other depression; Alcoholic intoxication without complication (CMS/HCC); Elevated blood pressure reading with diagnosis of hypertension; Substance abuse Discharge Disposition: Home or Self Care 02/03/2025 Travel 11/29/2024 12:40 PM EDT Office Visit Medical Office Building [facility] [address], [address] [place] [address] King Qureshi MD S/P total right hip arthroplasty (Primary Dx); S/P total left hip arthroplasty 11/29/2024 12:00 PM EDT - 11/29/2024 11:59 PM EDT Hospital Encounter Medical Office Building Radiology [facility] [place] [address] S/P total right hip arthroplasty; [...] drink first 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 Hip Right: Hip [employer]-[id number] 01/22/2034 [id number] / / [id number] Chg Head Oxinium Fem 07/30 28m - [id number] Implanted:Qty: 1 on 06/13/2024 by King Qureshi MD at [facility] Hip Right: Hip [employer]-[id number] 09/03/2030 [id number] / / [id number] Liner Or3o Dual Mbility 40 52 - [id number] Implanted:Qty: 1 on 06/13/2024 by King Qureshi MD at [facility] Liner Right: Hip [employer]-[id number] 12/25/2033 [id number] / / [id number] Liner Or3o Dual Mbility Xlpe 40 - [id number] Implanted:Qty: 1 on 06/13/2024 by King Qureshi MD at [facility] Liner Right: Hip [employer]-[id number] 03/14/2034 [id number] / / [id number] Chg Screw Ref Spher Head 25mm - [id number] Implanted:Qty: 1 on 06/13/2024 by King Qureshi MD at [facility] Screw Right: Hip [employer]-[id number] 01/04/2034 [id number] / / [id number] Chg Screw Ref Spher Head 35mm - [id number] Implanted:Qty: 1 on 06/13/2024 by King Qureshi MD at [facility] Screw Right: Hip [employer]-[id number] 01/22/2034 [id number] / / [id number] Polarstem Cementless Lat Tiha - [id number] Implanted:Qty: 1 on 06/13/2024 by King Qureshi MD at [facility] Stem Right: Hip [employer]-[id number] 07/02/2029 [id number] / / [id number] Chg Shell R3 3 Hole Acet 52mm - [id number] Implanted:Qty: 1 on 01/25/2024 by King Qureshi MD at [facility] Left: Hip [employer]-[id number] 09/16/2033 [id number] / / [id number] Chg Screw Ref Spher Head 25mm - [id number] Implanted:Qty: 1 on 01/25/2024 by King Qureshi MD at [facility] Left: Hip [employer]-[id number] 10/27/2033 [id number] / / [id number] Liner Or3o Dual Mbility 40 52 - [id number] Implanted:Qty: 1 on 01/25/2024 by King Quresih MD at [facility] Left: Hip [employer]-[id number] 09/21/2033 [id number] / / [id number] Chg Screw Ref Spher Head 35mm - [id number] Implanted:Qty: 1 on 01/25/2024 by King Qureshi MD at [facility] Left: Hip [employer]-[id number] 09/28/2033 [id number] / / [id number] Liner Or3o Dual Mbility Xlpe 28/40 - [id number] Implanted:Qty: 1 on 01/25/2024 by King Qureshi MD at [facility] Left: Hip [employer]-[id number] 10/19/2033 [id number] / / [id number] Polarstem Cementless Tiha 2 - [id number] Implanted:Qty: 1 on 01/25/2024 by King Qureshi MD at [facility] Left: Hip [employer]-[id number] 01/06/2030 [id number] / / [id number] Chg Head Oxinium Fem 07/30 28m - [id number] Implanted:Qty: 1 on 01/25/2024 by King Qureshi MD at [facility] Left: Hip [employer]-[id number] 09/19/2033 [id number] / / [id number] Procedures Procedure Name Priority Date/Time Associated Diagnosis [...] 1/2 Differentiation (02/03/2025 12:37 AM EDT) Pathologist [facility] HIV 1 & 2 Antibody/Antigen Screen Non Reactive Non Reactive 02/03/2025 1:28 AM EDT [facility] Comment:Screening for HIV 1 & 2 antibodies, and P24 antigen is NONREACTIVE. No confirmatory testing is required. Blood Venous blood specimen / Unknown Venipuncture / Unknown 02/03/2025 12:37 AM EDT 02/03/2025 12:[address] [facility] BLOOD ORDERABLES Fin al Result Performing Organization Address City/[facility] de Phone Number HEALTHCARE LAB [address] [place] [address] * (ABNORMAL) Ethyl Alcohol Plasma (02/03/2025 12:37 AM EDT) [facility] Ethanol Plasma 221(H) <10 mg/dL 02/03/2025 1:02 AM EDT [facility] Blood Venous blood specimen / Unknown Venipuncture / Unknown 02/03/2025 12:37 AM EDT 02/03/2025 12:40 AM EDT Narrative HEALTHCARE LAB - 02/03/2025 1:02 AM EDT Enzymatic Assay: Performed on Dayna Placido. [facility] BLOOD ORDERABLES Fin al Result Performing Organization Address City/[facility] Co de Phone Number [facility] [address] [place] [address] * Hepatitis C Antibody - ED (02/03/2025 12:37 AM EDT) [facility] Hepatitis C Antibody Negative Negative 02/03/2025 1:23 AM EDT [facility] Blood Venous blood specimen / Unknown Venipuncture / Unknown 02/03/2025 12:37 AM EDT 02/03/2025 12:40 AM EDT Rico Morales MOLDED PARTS INSPECTOR LAB BLOOD ORDERABLES Fin al Result [facility] [address] [place] [address] * CBC w/diff (02/03/2025 12:37 AM EDT) [facility] WBC Count 5.20 3.70 - 10.30 10*3/uL LAB HEMATOLOGY METHOD 02/03/2025 12:43 AM EDT [facility] RBC Count 5.34 4.60 - 6.10 10*6/uL LAB HEMATOLOGY METHOD 02/03/2025 12:43 AM EDT [facility] HGB 14.9 13.7 - 17.5 g/dL LAB HEMATOLOGY METHOD 02/03/2025 12:43 AM EDT [facility] HCT 42.5 40.0 - 51.0 % LAB HEMATOLOGY METHOD 02/03/2025 12:43 AM EDT [facility] Platelet Count 208 155 - 369 10*3/uL LAB HEMATOLOGY METHOD 02/03/2025 12:43 AM EDT [facility] MCV 80 79 - 98 fL LAB HEMATOLOGY METHOD 02/03/2025 12:43 AM EDT [facility] MCH 27.9 26.0 - 32.0 pg LAB HEMATOLOGY METHOD 02/03/2025 12:43 AM EDT [facility] MCHC 35.1 30.7 - 35.5 g/dL LAB HEMATOLOGY METHOD 02/03/2025 12:43 AM EDT [facility] RDW 14.4 11.5 - 14.5 % LAB HEMATOLOGY METHOD 02/03/2025 12:43 AM EDT [facility] MPV 9.3 8.8 - 12.5 fL LAB HEMATOLOGY METHOD 02/03/2025 12:43 AM EDT [facility] nRBC 0.0 <=0.0 per 100 WBCs LAB HEMATOLOGY METHOD 02/03/2025 12:43 AM EDT [facility] Differential Type Automated LAB [...] LAB HEMATOLOGY METHOD 02/03/2025 12:43 AM EDT [facility] Immature Granulocytes % 1 % LAB HEMATOLOGY METHOD 02/03/2025 12:43 AM EDT [facility] Neutrophils Absolute 3.25 1.60 - 6.10 10*3/uL LAB HEMATOLOGY METHOD 02/03/2025 12:43 AM EDT [facility] Lymphocytes Absolute 1.30 1.20 - 3.90 10*3/uL LAB HEMATOLOGY METHOD 02/03/2025 12:43 AM EDT [facility] Monocytes Absolute 0.39 0.30 - 0.90 10*3/uL LAB HEMATOLOGY METHOD 02/03/2025 12:43 AM EDT [facility] Eosinophils Absolute 0.20 0.00 - 0.50 10*3/uL LAB HEMATOLOGY METHOD 02/03/2025 12:43 AM EDT [facility] Basophils Absolute 0.03 0.00 - 0.10 10*3/uL LAB HEMATOLOGY METHOD 02/03/2025 12:43 AM EDT [facility] Immature Granulocytes Absolute 0.03 0.00 - 0.06 10*3/uL LAB HEMATOLOGY METHOD 02/03/2025 12:43 AM EDT [facility] Blood Venous blood specimen / Unknown Venipuncture / Unknown 02/03/2025 12:37 AM EDT 02/03/2025 12:40 AM EDT Narrative [facility] - 02/03/2025 12:43 AM EDT Therapeutic decision making should be based on absolute values, rather than percentages. us Rico Morales MOLDED PARTS INSPECTOR LAB BLOOD ORDERABLES Fin al Result [facility] [address] [place] [address] * Thyroid Stimulating Hormone, Plasma (02/03/2025 12:37 AM EDT) Thyroid Stimulating Hormone, Plasma 1.69 0.40 - 4.20 uIU/mL 02/03/2025 1:08 AM EDT [facility] Blood Venous blood specimen / Unknown Venipuncture / Unknown 02/03/2025 12:37 AM EDT 02/03/2025 12:[facility] Fin al Result Performing Organization Address City/[facility] de Phone Number [facility] [address] [place] [address] * Free T4, Plasma (02/03/2025 12:37 AM EDT) Pathologist [facility] Free T4, Plasma 1.2 0.8 - 1.7 ng/dL 02/03/2025 1:08 AM EDT [facility] Blood Venous blood specimen / Unknown Venipuncture / Unknown 02/03/2025 12:37 AM EDT 02/03/2025 12:40 AM EDT [facility] LAB BLOOD ORDERABLES Fin al Result Performing Organization Address City/[facility] de Phone Number [facility] [address] [place] [address] * (ABNORMAL) CMP (02/03/2025 12:37 AM EDT) Glucose, Plasma 95 74 - 99 mg/dL 02/03/2025 1:08 AM EDT [facility] BUN, Plasma 6(L) 7 - 21 mg/dL 02/03/2025 1:08 AM EDT [facility] Creatinine, Plasma 0.92 0.70 - 1.20 mg/dL 02/03/2025 1:08 AM EDT [facility] BUN/Creatinine Ratio 7 02/03/2025 1:08 AM EDT [facility] Sodium, Plasma 142 136 - 145 mmol/L 02/03/2025 1:08 AM EDT [facility] Potassium, Plasma 4.0 3.6 - 4.9 mmol/L 02/03/2025 1:08 AM EDT [facility] Chloride, Plasma 102 97 - 107 mmol/L 02/03/2025 1:08 AM EDT [facility] CO2, Plasma 21(L) 22 - 29 mmol/L 02/03/2025 1:08 AM EDT [facility] Anion Gap 19(H) 6 - 16 mmol/L 02/03/2025 1:08 AM EDT [facility] Total Calcium, Plasma 9.4 8.9 - 10.2 mg/dL 02/03/2025 1:08 AM EDT [facility] Total Protein 7.1 6.3 - 7.9 g/dL 02/03/2025 1:08 AM EDT [facility] Albumin, Plasma 5.0 3.5 - 5.2 g/dL 02/03/2025 1:08 AM EDT [facility] AST, Plasma 34 10 - 50 U/L 02/03/2025 1:08 AM EDT [facility] ALT, Plasma 45 10 - 50 U/L 02/03/2025 1:08 AM EDT [facility] Alkaline Phosphatase, Plasma 87 40 - 115 U/L 02/03/2025 1:08 AM EDT [facility] Total Bilirubin, Plasma 0.3 0.2 - 1.1 mg/dL 02/03/2025 1:08 AM EDT [facility] eGFRcr 111.2 mL/min/1.7 3m*2 02/03/2025 1:08 AM EDT [facility] Comment:Reported eGFRcr in m L/min/1.73m2 is based the CKD-EPI 2020 equation that does not use a race coefficient. Blood Venous blood specimen / Unknown Venipuncture / Unknown 02/03/2025 12:37 AM EDT 02/03/2025 12:40 AM EDT Rico Morales MOLDED PARTS INSPECTOR LAB BLOOD ORDERABLES Fin al Result [facility] [address] [place] [address] * New Patient with Hx of Hip [...] 6.6(H) <5.7 % 06/06/2024 1:[address] [facility] Blood Venous blood specimen / Unknown Venipuncture / Unknown 06/06/2024 10:13 AM EDT 06/06/2024 10:[address] [facility] - 06/06/2024 1:54 PM EDT HA1C Interpretive Data: Diagnosis of Diabetes: Diabetic > or = 6.5% Pre-diabetic 5.7 to 6.4% Non-diabetic < or = 5.6% Glycemic Targets for Type I and Type II Diabetics: Non- Adults <7.0% Adults <6.0% Children and Adolescents <7.5% Source: [place] [employer]. Standards of medical care in diabetes,2017. Diabetes Care.2017:40 (suppl 1):S1-S135. HbA1c assay performed by an ion-exchange chromatography method that is certified traceable to the DCCT. us King Qureshi MD LAB BLOOD ORDERABLES Final R esult [facility] [address] [place] [address] from Last 3 Months or Most Recently Relevant to Health Maintenance Additional Health Concerns Active Problems Noted Date Diagnosed Date Autogenerated Problem 11/17/2024 Autogenerated Problem 12/30/2024 Insurance [facility] Advance Directives * Full Code (Latest Code Status on File) Date Activated Date Inactivated Comments 06/13/2024 9:17 AM 06/13/2024 8:18 PM Question Answer Comments Patient has decision-making capacity? Yes * Full Code Date Activated Date Inactivated Comments 01/25/2024 8:43 AM 01/25/2024 7:29 PM Question Answer Comments Patient has decision-making capacity? Yes Care Teams Position Clerk Relationship Specialty Start Date End Date Moris Abdi MD [address] [place]ier[place] [address] PCP - General 12/28/20
[2025-02-22] MEDS: LACTATED RINGERS 1000ML 1,000 ML 999 ML IV (21:36)
[2025-02-22] MEDS: ONDANSETRON 4MG/2ML VIAL 4 MG IV (21:36)
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
[2025-02-22] MEDS: BELLADONNA ALKALOIDS 60 ML ML PO (21:43)
[2025-02-22 21:44] LABS: Hematocrit 44.0 % (42.0-52.0); Hemoglobin 15.7 g/dL (14.1-18.0); Immature Granulocytes % 0.2 %; Mean Corpuscular HGB Conc 35.7 g/dL (31.8-35.4); Mean Corpuscular Hemoglobin 29.2 pg (27.0-31.2); Mean Corpuscular Volume 81.8 fl (80-94); Nucleated Red Blood Cells % 0 %; Platelet Count 130 K/mm3 (142-424); Red Blood Count 5.38 M/mm3 (4.60-6.20); Red Cell Distribution Width-SD 42.6 fL; White Blood Count 4.9 K/mm3 (4.8-10.8)
[2025-02-22 22:04] LABS: Lipase 290 U/L (23-300)
[2025-02-22 22:06] LABS: Alanine Aminotransferase 102 U/L (12-78); Albumin Level 5.3 g/dl (3.5-5.0); Albumin/Globulin Ratio 2.0 (1.1-1.8); Alkaline Phosphatase 87 U/L (38-126); Anion Gap 20.7 mEq/L (5-15); Aspartate Amino Transferase 90 U/L (17-59); Bilirubin,Total 1.1 mg/dl (0.2-1.3); Blood Urea Nitrogen 10 mg/dl (9-20); Calcium 10.1 mg/dl (8.4-10.2); Carbon Dioxide 30 mmol/L (22.0-30.0); Chloride 92 mmol/L (98-107); Creatinine Clearance Estimated 174 mL/min (50-200); Creatinine,Serum 0.90 mg/dl (0.66-1.25); Estimated Glomerular Filt Rate 96 ml/min (>60); GFR (African American) 116 ML/MIN (>60); Globulin 2.6 g/dL (1.3-3.2); Glucose 157 mg/dl (74-100); Magnesium 1.9 mg/dl (1.6-2.3); Potassium 3.7 mmoL/L (3.5-5.1); Sodium 139 mmol/L (136-145); Total Protein,Serum 7.9 g/dl (6.3-8.2)
[2025-02-22 22:07] LABS: Total Cells Counted 100
[2025-02-22 22:11] LABS: RBC Morphology Normal
[2025-02-22 22:17] LABS: NT Pro Brain Natriuretic Pep. 93.8 pg/mL (0-125)
[2025-02-22 22:19] LABS: Troponin I < 0.01 ng/ml (0.00-0.034)
[2025-02-22 23:11] LABS: VBG HCO3 26.9 mmol/L (23-30); VBG PCO2 45.9 mmol/L (35-51); VBG PH 7.39 mmol/L (7.31-7.41); VBG PO2 42.5 mmol/L (28-40)
[2025-02-22 23:13] LABS: Lactate Venous 2.1 mmol/L (0.4-2.0)
[2025-02-22 23:20] LABS: Acetone, Serum (Rapid) None Detected (None Detect)
[2025-02-22] MEDS: ASPIRIN 81MG CHEWABLE TABLET 324 MG PO (23:46)
[2025-02-22] MEDS: NITROGLYCERIN 0.4MG SL TABLET 0.4 MG SL (23:47)
[2025-02-22 23:48] LABS: Microscopic, Urine URINE MICROSCOPIC (MICROSCOPIC)
[2025-02-22 23:49] LABS: Color,Urine YELLOW (Yellow); Glucose,Urine (UA) Negative (Negative); Ketones,Urine 1+ (Negative); Leukocyte Esterase,Urine Negative (Negative); PH,Urine 7.5 (5.0-8.5); Protein,Urine 1+ (Negative); Specific Gravity, Urine 1.020 (1.005-1.030); Urobilinogen,Urine 1.0 EU/dl (0.2)
[2025-02-22 23:58] LABS: Bilirubin,Urine Negative (Negative)
[2025-02-23] VITALS (11 sets, daily range): BP systolic 139–157; BP diastolic 84–100; PULSE 61–80; RESP 12–17; TEMP 36.6–37; O2SAT 92–97; BMI 33.9; BMI 34.2
[2025-02-23 00:05] LABS: Amorphous Sediment,Urine 4+ /lpf; Bacteria,Urine 1+ /lpf; Squamous Epithelial Cell,Urine Occasional #/hpf (0-5); WBC,Urine Occasional #/hpf (0-3)
[2025-02-23 00:35] LABS: Troponin I < 0.01 ng/ml (0.00-0.034)
--- NOTE | 2025-02-23 01:03 | PC.NURSE ---
Report called to JOVON Reeves
--- NOTE | 2025-02-23 01:35 | PC.NURSE ---
pt arrived to floor from ED via wheelchair at 0128.
[2025-02-23] MEDS: LACTATED RINGERS 1000ML 1,000 ML 10 ML IV (01:43)
--- NOTE | 2025-02-23 02:40 | PC.NURSE ---
Addendum entered by Lala Jose RN 02/23/25 05:10: Since the administration of Ativan, the patient remains resting in bed with eyes closed, respirations are even and unlabored, and no apparent distress is noted. Call light within reach. Original Note: At around 02:30, the patient complained of feeling very anxious, stating that he feels as though perspiration and muscle tremor symptoms are starting to begin. Patient stated that prior to this hospitalization, these findings have been happening to him at home. A standing order for a one time dose of Ativan 1 mg PO was present in the OCT. Ativan was given to the patient at 02:35 for onset of anxiety and concern for early withdrawal findings. Patient remains alert and oriented x4. Hallucinations, headaches, irritability, and nausea symptoms were all denied at this time.
[2025-02-23 03:12] LABS: Reflex Lactic Add Lactic Reflex
[2025-02-23 03:45] LABS: Lactic Acid Follow Up (RFLX 1) 1.2 mmol/L (0.7-2.1)
[2025-02-23 03:59] LABS: Troponin I < 0.01 ng/ml (0.00-0.034)
--- NOTE | 2025-02-23 04:55 | PC.NURSE ---
Ice water passed, trash and linens emptied, bedside table cleaned.
--- NOTE | 2025-02-23 08:07 | HMH.PHAINT1 ---
Pharmacy Intervention Comments: HOME MEDICATION LIST VERIFIED USING LIST FROM OUTPATIENT PHARMACY AND PT INTERVIEW
[2025-02-23 08:13] LABS: Troponin I < 0.01 ng/ml (0.00-0.034)
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
[2025-02-23 09:40] LABS: Hematocrit 41.4 % (42.0-52.0); Hemoglobin 14.5 g/dL (14.1-18.0); Immature Granulocytes % 0 %; Mean Corpuscular HGB Conc 35.0 g/dL (31.8-35.4); Mean Corpuscular Hemoglobin 29.2 pg (27.0-31.2); Mean Corpuscular Volume 83.5 fl (80-94); Nucleated Red Blood Cells % 0 %; Platelet Count 89 K/mm3 (142-424); Red Blood Count 4.96 M/mm3 (4.60-6.20); Red Cell Distribution Width-SD 44.0 fL; White Blood Count 2.9 K/mm3 (4.8-10.8)
[2025-02-23 09:57] LABS: Activated Partial Thrombo Time 27.6 seconds (22.8-30.6); Alanine Aminotransferase 81 U/L (12-78); Albumin Level 4.2 g/dl (3.5-5.0); Albumin/Globulin Ratio 2.3 (1.1-1.8); Alkaline Phosphatase 67 U/L (38-126); Anion Gap 13.3 mEq/L (5-15); Aspartate Amino Transferase 74 U/L (17-59); Bilirubin,Total 1.0 mg/dl (0.2-1.3); Blood Urea Nitrogen 10 mg/dl (9-20); Calcium 9.3 mg/dl (8.4-10.2); Carbon Dioxide 34 mmol/L (22.0-30.0); Chloride 92 mmol/L (98-107); Creatinine Clearance Estimated 176 mL/min (50-200); Creatinine,Serum 0.90 mg/dl (0.66-1.25); Estimated Glomerular Filt Rate 96 ml/min (>60); GFR (African American) 116 ML/MIN (>60); Globulin 1.8 g/dL (1.3-3.2); Glucose 95 mg/dl (74-100); INR 1.09 (0.9-1.1); Magnesium 1.9 mg/dl (1.6-2.3); Phosphorous 3.9 mg/dl (2.5-4.5); Potassium 3.3 mmoL/L (3.5-5.1); Prothrombin Time 12.0 seconds (10.1-12.5); Sodium 136 mmol/L (136-145); Total Protein,Serum 6.0 g/dl (6.3-8.2)
[2025-02-23] MEDS: CARVEDILOL 25MG TABLET 25 MG PO ×2 (10:06→20:37)
[2025-02-23] MEDS: OXAZEPAM 15 MG CAPSULE PO ×2 (10:06→15:03)
[2025-02-23] MEDS: dilTIAZem ER 120MG CAPSULE 120 MG PO (10:06)
[2025-02-23] MEDS: MVI, ADULT NO.1 WITH VIT K 10 ML, THIAMINE HCL 100 MG, MAGNESIUM SULFATE 2 GM in LACTAT... 125 ML IV (10:07)
[2025-02-23] MEDS: THIAMINE 100MG TABLET 100 MG PO (10:07)
[2025-02-23] MEDS: FOLIC ACID 1MG TABLET 1 MG PO (10:07)
[2025-02-23 10:09] LABS: RBC Morphology Normal; Total Cells Counted 100
[2025-02-23 10:10] LABS: Troponin I < 0.01 ng/ml (0.00-0.034)
[2025-02-23 11:03] LABS: Vitamin B12 585 pg/mL (239-931)
[2025-02-23 11:54] LABS: Hemoglobin A1C 6.3 % (4.0-6.0)
--- OUTSIDE RECORDS SUMMARY | 2025-02-23 12:33 | XMS_ITS | Patient Health Record ---
[facility] [address] [facility] [address] [place] [id number] Care Team Providers Care Shoe Cobbler Name Role Phone Jocelyne Abdi Primary Care Provider [phone] Tomasa De Leon Unavailable [phone] Won Lawson Unavailable [phone] Gato Persaud Unavailable [phone] Kori Bowers Unavailable [phone] Allergies Allergen (clinical drug ingredient) Drug/Non Drug Allergy documented on EMR Reaction Allergy Type Onset Date Status amoxicillin Amoxicillin Unknown Drug Allergy Act naseem clindamycin Clindamycin Unknown Drug Allergy Act naseem Results Component Value Reference Range Notes CBC Fingerstick (in house) Reviewed date:07/07/2024 03:01:23 [...] - 38 plat 203 100 - 400 H-COVIDPANEL Reviewed date:07/08/2024 04:26:54 PM Interpretation:Negative Performing Lab: Notes/Report: No Is this the 1st COVID test for the patient? No Does the patient have COVID symptoms? Yes Is the patient employed in healthcare? No Is patient an [employer] employee? N Is patient currently hospitalized? No Is patient currently in ICU? No Date of Symptom onset Is patient a resident in a congregate care setting? No ADENOQIA Not Detected NotDetected CORONAHKU1 Not Detected NotDetected WFOOLQUY21 Not Detected NotDetected [id number] Not Detected NotDetected CISJFKT06 Not Detected NotDetected METAPNEUMO Not Detected NotDetected RHINOENTER Not Detected NotDetected INFLUAPCR Not Detected NotDetected FLUAH1 Not Detected NotDetected [id number] Not Detected NotDetected INFLUAH3 Not Detected NotDetected [...] nothing acute CBC Fingerstick (in house) Reviewed date:07/28/2024 10:16:56 [...] - 38 plat 100 100 - 400 CBC Fingerstick (in house) [...] - 38 plat 162 100 - 400 CBC Fingerstick (in house) Reviewed date:06/30/2024 02:41:20 [...] - 38 plat 196 100 - 400 Glycohemoglobin A1c (in hous e) Reviewed date:09/09/2024 12:08:31 PM Interpretation:5.4% Normal Performing Lab: Notes/Report: 5.4% Normal glycohemoglobin 5.4% 5 - 6.5 % P-Vitamin B12 Reviewed date:09/09/2024 12:08:31 PM Interpretation:Normal Performing Lab: Notes/Report: Test performed by [facility] [address] [place] [address] , [address], [place] [id number] Tino Fletcher MD, Continuous Mining Machine Operator CLIA: [id number] Vitamin B12 308 220-0539 pg/mL P-Comprehensive Metabolic Pa darryl (CMP) Reviewed date:09/09/2024 12:08:31 PM Interpretation:gluc 120 Performing Lab: Notes/Report: Test performed by [facility] [address] [place] [address] , [address], [place] [address] Tino Fletcher MD, Continuous Mining Machine Operator CLIA: [id number] Sodium 142 135-145 mmol/L Potassium 4.3 3.5-5.3 [...] Interpretation:Normal Performing Lab: Notes/Report: Test performed by [facility] [address] [place] [address] , [facility] [place] [address] Tino Fletcher MD, Continuous Mining Machine Operator CLIA: [id number] TSH reflex to FT4 0.81 0.43-5.25 mU/L P-Vitamin D 25-Hydroxy Reviewed date:09/09/2024 12:08:31 PM Interpretation:11.1 Performing Lab: Notes/Report: Test performed by [facility] [address] [place] [address] , [place] [address] Tino Fletcher MD, Continuous Mining Machine Operator CLIA: [id number] Vitamin D 25-Hydroxy 11.1 30.0-100.0 ng/mL Interpretation of Vitamin D 25 OH: < 20 ng/mL - Deficiency 20 - 29 ng/mL - Insufficiency 30 - 100 ng/mL - Sufficiency > 100 ng/mL - Super-therapeutic- toxicity may occur above this level. Clinical correlation required. Medications Medication SIG (Take, Route, Frequency, Duration) [...] W/U Status Risk Notes Problem Essential hypertension (62542741) Essential (primary) hypertension (I10) Active confirmed Problem Tachycardia (8902542) Tachycardia (R00.0) Active confirmed Problem Hypertension (49056239) HTN (hypertension) (I10) Active confirmed Problem Vitamin D deficiency (63222076) Vitamin D deficiency (E55.9) Active confirmed Problem Anxiety (46638498) Anxiety (F41.9) Active confi rmed Problem Hyperlipidaemia (64345048) Hyperlipemia (E78.5) Active confirmed Problem Obstructive sleep apnea (52279620) Obstructive sleep apnea (G47.33) Active confirmed Problem Hiatal hernia (49063566) Hiatal hernia (K44.9) Active confirmed Problem Mixed anxiety and depressive disorder (330665343) Depression with anxiety (F41.8) Active confirmed Problem Rectal bleeding (67125134) Rectal bleeding (K62.5) Active confirmed Problem Exacerbation of asthma (905978512) Asthma exacerbation (J45.901) Active confirmed Problem Alcohol abuse (99123158) Alcohol abuse (F10.10) Active confirmed Problem Mixed hyperlipidemia (606198246) Mixed hyperlipidemia (E78.2) Active confirmed Problem Dysthymia (04605569) Dysthymic disorder (F34.1) Active confirmed Problem Anxiety disorder (134338850) Anxiety disorder, unspecified (F41.9) Active confirmed Problem Acute severe exacerbation of moderate persistent asthma (disorder) (609351064) Moderate persistent asthma with status asthmaticus (J45.42) Active confirmed Problem Second degree hemorrhoids (869552842) Second degree hemorrhoids (K64.1) Active confirmed Problem Genital warts (219431153) Genital warts (A63.0) Active confirmed Problem Uncomplicated moderate persistent asthma (999718696) Moderate persistent asthma without complication (J45.40) Active confirmed Problem Gastroesophageal reflux disease with esophagitis (143001588) Gastroesophageal reflux disease with esophagitis (K21.0) Active confirmed Problem Panic disorder (560486807) Panic attacks (F41.0) Active confirmed Problem Obese class II (945550829980681) BMI 36.0-36.9,adult (Z68.36) Active confirmed Problem Exacerbation of moderate persistent asthma (disorder) (084144974) Moderate persistent asthma with acute exacerbation (J45.41) Active confirmed Problem Anogenital warts (824835753) Condyloma acuminata (A63.0) Active confirmed Problem Avascular necrosis (45509059) Avascular necrosis (M87.00) Active confirmed Problem Alcoholism (6381923) Alcoholism (F10.20) Active confirmed Problem Hypersomnia (83822291) Hypersomnia (G47.10) Active confirmed Problem Tobacco user (828360446) Cigarette nicotine dependence without complication (F17.210) Active confirmed Problem Excessive daytime sleepiness - normal night sleep (991301507) Daytime sleepiness (R40.0) Active confirmed Problem Panic attack (744651955) Panic attack (F41.0) Active confirmed Problem Anxiety depression (325651631) Anxiety with depression (F41.8) Active confirmed Problem Allergic rhinitis (03783888) Chronic non-seasonal allergic rhinitis, unspecified trigger (J30.89) Active confirmed Problem Exacerbation of asthma (520979198) Exacerbation of asthma, unspecified asthma severity, unspecified whether persistent (J45.901) Active confirmed Problem Exacerbation of moderate persistent asthma (disorder) (963386072) Moderate persistent asthma with exacerbation (J45.41) Active confirmed Problem Allergic rhinitis (68066318) Non-seasonal allergic rhinitis, unspecified trigger (J30.89) Active confirmed Problem Asthma without status asthmaticus (46940846) Moderate asthma, unspecified whether complicated, unspecified whether persistent (J45.909) Active confirmed Problem Thromboangiitis obliterans (47916832) Buergers disease (I73.1) Active confirmed Problem Severe major depression, single episode, without psychotic features (43208610) Current severe episode of major depressive disorder without psychotic features, unspecified whether recurrent (F32.2) Active confirmed Problem Depressed bipolar I disorder (00991740) Bipolar affective disorder, current episode depressed, current episode severity unspecified (F31.30) Active confirmed Vital Signs Heart Rate 104 /min 02/09/2025 Blood pressure diastolic 92 mm Hg 02/09/2025 Height 69.50 in 02/09/2025 Blood pressure systolic 160 mm Hg 02/09/2025 Weight 238.8 lbs 02/09/2025 BMI 34.76 kg/m2 02/09/2025 Encounters Encounter Location Date Provider Diagnosis [facility] [address] [facility] [address] [place] [id number] 06/30/2024 R Dean Lawson Acute bronchitis J20 .9 and Moderate persistent asthma without complication J45.40 [facility] [address] [place] [id number] 07/07/2024 Koriav Bowers Exacerbation of asth ma, unspecified asthma severity, unspecified whether persistent J45.901 and Bronchitis J40 [facility] [address] [place] [id number] 07/21/2024 R Dean Lawson Essential (primary) hypertension I10 [facility] [address] [place], [place] [id number] 07/28/2024 Gato Shannon Nausea and vomiting, unspecified vomiting type R11.2 [facility] [address] [place], [place] [id number] 09/08/2024 Kori Robinson Essential (primary) hypertension I10 ; Obstructive sleep apnea G47.33 ; Moderate persistent asthma without complication J45.40 ; Gastroesophageal reflux disease with esophagitis K21.0 ; Impaired fasting glucose R73.01 ; Depression with anxiety F41.8 and Other fatigue R53.83 [facility] [address] [place], [place] [id number] 01/26/2025 Koriav Bowers Anxiety with depress ion F41.8 [facility] [address] [place], [place] [id number] 02/09/2025 Kori Bowers Alcohol abuse F10.10 ; Depression with anxiety F41.8 ; Panic attacks F41.0 and Essential (primary) hypertension I10 [facility] [address] [place], [place] [id number] 02/15/2025 Kori Bowers [facility] [address] [place], [place] [id number] 07/15/2024 Jocelyne Abdi [facility] [address] [place], [place] [id number] 08/26/2024 Jocelyne Abdi Moderate persistent asthma without complication J45.40 [facility] [address] [place], [place] [id number] 09/09/2024 Kori Bowers [facility] [address] [place], [place] [id number] 02/09/2025 Won Lawson [facility] [address] [facility] [address] [place], [place] [id number] 02/21/2025 Jocelyne Abdi Moderate persistent asthma without complication J45.40 [facility] [address] [facility] [address] [place], [place] [id number] 02/22/2025 Jocelyne Abdi Assessments Encounter Date Diagnosis [...] asthma without complication (ICD-10 - J45.40) 09/08/2024 Essential (primary) hypertension (ICD-10 - I10) [...] as well and possibly get genetic testing. 02/09/2025 Depression with anxiety (ICD-10 - F41.8) [...] Insured Coverage Start Date Coverage End Date [facility] [address] [address] [place] [phone] [id number] SHYANN FINK Self - patient is the insured Medications Administered Medication Instructions Date of Administration Dosage Notes Dexamethasone 09/29/2023 1 mL Medical (General) History Medical History History ICD Code Hypertension Asthma Anxiety Surgical History Surgery Date(Month/Year) bilateral hip replacements Hospitalization History Reason Date(Month/Year) Palpitations- [facility] 04/2019 Sinus Infection- [facility] 10/2018 Sinus infection, Bronchitis, Middle Ear Infection- [facility] 09/04/2018 Pneumonia 06/03- Asthma 1997
--- OUTSIDE RECORDS SUMMARY | 2025-02-23 12:34 | XMS_ITS | Encounter Summary ---
Author Organization Healthcare Address [address] [place] [address] Care Team Providers Care All Terrain Vehicle Racer Name Role Phone Moris Abdi MD Primary Care Provider [phone] Encounter Details Date Type Department Care Team [...] drink first t annie in the morning (EYE-EXPERIMENTAL ROCKETSLED MECHANIC) to steady your nerves or to get [...] documented as of this encounter Care Teams All Terrain Vehicle Racer Relationship Specialty Start Date End Date Moris Abdi MD [address] [place] [id number] PCP - General 12/28/20 documented as of this encounter
--- OUTSIDE RECORDS SUMMARY | 2025-02-23 12:34 | XMS_ITS | Encounter Summary ---
Author Organization [facility] Address [address] [place] [address] Care Team Providers Care Tour Sales Representative Name Role Phone Moris Abdi MD Primary Care Provider [phone] Reason for Visit * Reason Comments Med Refill Encounter Details Date Type Department Care Team ([facility] st Contact Info) Description 12/17/2023 Refill Medical Office Building Surgery [facility] [address], [address] [place] [address] Yadira Schulte PA [address] [place] [address] Avascular necrosis of bones of [...] documented as of this encounter Care Teams Tour Sales Representative Relationship Specialty Start Date End Date Moris Abdi MD [address] [place] [address] PCP - General 12/28/20 documented as of this encounter
--- OUTSIDE RECORDS SUMMARY | 2025-02-23 12:34 | XMS_ITS | Clinical Summary ---
Author Organization [facility] Address [address] [place] [address] Care Team Providers Care Referral Specialist Name Role Phone Moris Abdi MD Primary Care Provider [phone] Allergies Active Allergy Reactions Criticality Noted Date [...] - 02/03/2025 4:00 PM EDT Hospital Encounter [facility] [address] [place] [address] Benny Bhakta DO Acute stress reaction (Primary Dx); Dissociative stupor; Other depression; Alcoholic intoxication without complication (CMS/HCC); Elevated blood pressure reading with diagnosis of hypertension; Substance abuse Discharge Disposition: Home or Self Care 02/03/2025 Travel 11/29/2024 12:40 PM EDT Office Visit Medical Office Building Surgery [facility] [address], [address] [place] [address] King Qureshi MD S/P total right hip arthroplasty (Primary Dx); S/P total left hip arthroplasty 11/29/2024 12:00 PM EDT - 11/29/2024 11:59 PM EDT Hospital Encounter Medical Office Building Radiology [facility] [place] [address] S/P total right hip arthroplasty; [...] drink first t annie in the morning (EYE-ARBORIST CLIMBER) to steady your nerves or to get [...] Years) (1 of 2 - PCV) 2008 CLV-UAWDS-55 Vaccine ( season) 2024 06/22/2021, 09/14/2020, 08/13/2020 [...] [employer] Implanted Type Area Jet Ski Mechanic Device Identifier Shelf Expiration Date Model / Serial / Lot Chg Shell R3 3 Hole Acet 52mm - [id number] Implanted:Qty: 1 on 06/13/2024 by King Qureshi MD at [facility] Hip Right: Hip [employer]-[id number] 01/22/2034 [id number] / / [id number] Chg Head Oxinium Fem 07/30 28m - [id number] Implanted:Qty: 1 on 06/13/2024 by King Qureshi MD at [facility] Hip Right: Hip [employer]-[id number] 09/03/2030 [id number] / / [id number] Liner Or3o Dual Mbility 40 52 - [id number] Implanted:Qty: 1 on 06/13/2024 by King Qureshi MD at [facility] Liner Right: Hip [employer]-[id number] 12/25/2033 [id number] / / [id number] Liner Or3o Dual Mbility Xlpe 40 - [id number] Implanted:Qty: 1 on 06/13/2024 by King Qureshi MD at [facility] Liner Right: Hip [employer]-[id number] 03/14/2034 [id number] / / [id number] Chg Screw Ref Spher Head 25mm - [id number] Implanted:Qty: 1 on 06/13/2024 by King Qureshi MD at [facility] Screw Right: Hip [employer]-[id number] 01/04/2034 [id number] / / [id number] Chg Screw Ref Spher Head 35mm - [id number] Implanted:Qty: 1 on 06/13/2024 by King Qureshi MD at [facility] Screw Right: Hip [employer]-[id number] 01/22/2034 [id number] / / [id number] Polarstem Cementless Lat Tiha - [id number] Implanted:Qty: 1 on 06/13/2024 by King Qureshi MD at [facility] Stem Right: Hip [employer]-[id number] 07/02/2029 [id number] / / [id number] Chg Shell R3 3 Hole Acet 52mm - [id number] Implanted:Qty: 1 on 01/25/2024 by King Qureshi MD at [facility] Left: Hip [employer]-[id number] 09/16/2033 [id number] / / [id number] Chg Screw Ref Spher Head 25mm - [id number] Implanted:Qty: 1 on 01/25/2024 by King Qureshi MD at [facility] Left: Hip [employer]-[id number] 10/27/2033 [id number] / / [id number] Liner Or3o Dual Mbility 40 52 - [id number] Implanted:Qty: 1 on 01/25/2024 by King Qureshi MD at [facility] Left: Hip [employer]-[id number] 09/21/2033 [id number] / / [id number] Chg Screw Ref Spher Head 35mm - [id number] Implanted:Qty: 1 on 01/25/2024 by King Qureshi MD at [facility] Left: Hip [employer]-[id number] 09/28/2033 [id number] / / [id number] Liner Or3o Dual Mbility Xlpe 28/40 - [id number] Implanted:Qty: 1 on 01/25/2024 by King Qureshi MD at [facility] Left: Hip [employer]-[id number] 10/19/2033 [id number] / / [id number] Polarstem Cementless Tiha 2 - [id number] Implanted:Qty: 1 on 01/25/2024 by King Qureshi MD at [facility] Left: Hip [employer]-[id number] 01/06/2030 [id number] / / [id number] Chg Head Oxinium Fem 07/30 28m - [id number] Implanted:Qty: 1 on 01/25/2024 by King Qureshi MD at [facility] Left: Hip [employer]-[id number] 09/19/2033 [id number] / / [id number] Procedures Procedure Name Priority Date/Time Associated Diagnosis [...] 1/2 Differentiation (02/03/2025 12:37 AM EDT) Pathologist [facility] [place] HIV 1 & 2 Antibody/Antigen Screen Non Reactive Non Reactive 02/03/2025 1:28 AM EDT [facility] Comment:Screening for HIV 1 & 2 antibodies, and P24 antigen is NONREACTIVE. No confirmatory testing is required. Blood Venous blood specimen / Unknown Venipuncture / Unknown 02/03/2025 12:37 AM EDT 02/03/2025 12:40 AM EDT [facility] BLOOD ORDERABLES Fin al Result Performing Organization Address City/[facility] de Phone Number HEALTHCARE LAB [address] [place] [address] * (ABNORMAL) Ethyl Alcohol Plasma (02/03/2025 12:37 AM EDT) [facility] Ethanol Plasma 221(H) <10 mg/dL 02/03/2025 1:02 AM EDT [facility]ALTHCARE LAB Blood Venous blood specimen / Unknown Venipuncture / Unknown 02/03/2025 12:37 AM EDT 02/03/2025 12:40 AM EDT Narrative HEALTHCARE LAB - 02/03/2025 1:02 AM EDT Enzymatic Assay: Performed on Dayna Placido. [facility] BLOOD ORDERABLES Fin al Result Performing Organization Address City/[facility] Co de Phone Number [facility] [address] [place] [address] * Hepatitis C Antibody - ED (02/03/2025 12:37 AM EDT) [facility] Hepatitis C Antibody Negative Negative 02/03/2025 1:23 AM EDT [facility] Blood Venous blood specimen / Unknown Venipuncture / Unknown 02/03/2025 12:37 AM EDT 02/03/2025 12:40 AM EDT Rico Morales PASSEMENTERIE WORKER LAB BLOOD ORDERABLES Fin al Result [facility] [address] [place] [address] * CBC w/diff (02/03/2025 12:37 AM EDT) [facility] WBC Count 5.20 3.70 - 10.30 10*3/uL LAB HEMATOLOGY METHOD 02/03/2025 12:43 AM EDT [facility] RBC Count 5.34 4.60 - 6.10 10*6/uL LAB HEMATOLOGY METHOD 02/03/2025 12:43 AM EDT [facility] HGB 14.9 13.7 - 17.5 g/dL LAB HEMATOLOGY METHOD 02/03/2025 12:43 AM EDT [facility] HCT 42.5 40.0 - 51.0 % LAB HEMATOLOGY METHOD 02/03/2025 12:43 AM EDT [facility] Platelet Count 208 155 - 369 10*3/uL LAB HEMATOLOGY METHOD 02/03/2025 12:43 AM EDT [facility] MCV 80 79 - 98 fL LAB HEMATOLOGY METHOD 02/03/2025 12:43 AM EDT [facility] MCH 27.9 26.0 - 32.0 pg LAB HEMATOLOGY METHOD 02/03/2025 12:43 AM EDT [facility] MCHC 35.1 30.7 - 35.5 g/dL LAB HEMATOLOGY METHOD 02/03/2025 12:43 AM EDT [facility] RDW 14.4 11.5 - 14.5 % LAB HEMATOLOGY METHOD 02/03/2025 12:43 AM EDT [facility] MPV 9.3 8.8 - 12.5 fL LAB HEMATOLOGY METHOD 02/03/2025 12:43 AM EDT [facility] nRBC 0.0 <=0.0 per 100 WBCs LAB HEMATOLOGY METHOD 02/03/2025 12:43 AM EDT [facility] Differential Type Automated LAB HEMATOLOGY [...] LAB HEMATOLOGY METHOD 02/03/2025 12:43 AM EDT [facility] Immature Granulocytes % 1 % LAB HEMATOLOGY METHOD 02/03/2025 12:43 AM EDT [facility] Neutrophils Absolute 3.25 1.60 - 6.10 10*3/uL LAB HEMATOLOGY METHOD 02/03/2025 12:43 AM EDT [facility] Lymphocytes Absolute 1.30 1.20 - 3.90 10*3/uL LAB HEMATOLOGY METHOD 02/03/2025 12:43 AM EDT [facility] Monocytes Absolute 0.39 0.30 - 0.90 10*3/uL LAB HEMATOLOGY METHOD 02/03/2025 12:43 AM EDT [facility] Eosinophils Absolute 0.20 0.00 - 0.50 10*3/uL LAB HEMATOLOGY METHOD 02/03/2025 12:43 AM EDT [facility] Basophils Absolute 0.03 0.00 - 0.10 10*3/uL LAB HEMATOLOGY METHOD 02/03/2025 12:43 AM EDT [facility] Immature Granulocytes Absolute 0.03 0.00 - 0.06 10*3/uL LAB HEMATOLOGY METHOD 02/03/2025 12:43 AM EDT [facility] Blood Venous blood specimen / Unknown Venipuncture / Unknown 02/03/2025 12:37 AM EDT 02/03/2025 12:40 AM EDT Narrative [facility] - 02/03/2025 12:43 AM EDT Therapeutic decision making should be based on absolute values, rather than percentages. us Rico Morales PASSEMENTERIE WORKER LAB BLOOD ORDERABLES Fin al Result [facility] [address] [place] [address] * Thyroid Stimulating Hormone, Plasma (02/03/2025 12:37 AM EDT) Thyroid Stimulating Hormone, Plasma 1.69 0.40 - 4.20 uIU/mL 02/03/2025 1:08 AM EDT [facility] Blood Venous blood specimen / Unknown Venipuncture / Unknown 02/03/2025 12:37 AM EDT 02/03/2025 12:40 AM EDT [facility] Fin al Result Performing Organization Address City/[facility] de Phone Number [facility] [address] [place] [address] * Free T4, Plasma (02/03/2025 12:37 AM EDT) Pathologist [facility] [place] Free T4, Plasma 1.2 0.8 - 1.7 ng/dL 02/03/2025 1:08 AM EDT [facility] Blood Venous blood specimen / Unknown Venipuncture / Unknown 02/03/2025 12:37 AM EDT 02/03/2025 12:40 AM EDT [facility] BLOOD ORDERABLES Fin al Result Performing Organization Address City/[facility] de Phone Number [facility] [address] [place] [address] * (ABNORMAL) CMP (02/03/2025 12:37 AM EDT) Glucose, Plasma 95 74 - 99 mg/dL 02/03/2025 1:08 AM EDT [facility] BUN, Plasma 6(L) 7 - 21 mg/dL 02/03/2025 1:08 AM EDT [facility] Creatinine, Plasma 0.92 0.70 - 1.20 mg/dL 02/03/2025 1:08 AM EDT [facility] BUN/Creatinine Ratio 7 02/03/2025 1:08 AM EDT [facility] Sodium, Plasma 142 136 - 145 mmol/L 02/03/2025 1:08 AM EDT [facility] Potassium, Plasma 4.0 3.6 - 4.9 mmol/L 02/03/2025 1:08 AM EDT [facility] Chloride, Plasma 102 97 - 107 mmol/L 02/03/2025 1:08 AM EDT [facility] CO2, Plasma 21(L) 22 - 29 mmol/L 02/03/2025 1:08 AM EDT [facility] Anion Gap 19(H) 6 - 16 mmol/L 02/03/2025 1:08 AM EDT [facility] Total Calcium, Plasma 9.4 8.9 - 10.2 mg/dL 02/03/2025 1:08 AM EDT [facility] Total Protein 7.1 6.3 - 7.9 g/dL 02/03/2025 1:08 AM EDT [facility] Albumin, Plasma 5.0 3.5 - 5.2 g/dL 02/03/2025 1:08 AM EDT [facility] AST, Plasma 34 10 - 50 U/L 02/03/2025 1:08 AM EDT [facility] ALT, Plasma 45 10 - 50 U/L 02/03/2025 1:08 AM EDT [facility] Alkaline Phosphatase, Plasma 87 40 - 115 U/L 02/03/2025 1:08 AM EDT [facility] Total Bilirubin, Plasma 0.3 0.2 - 1.1 mg/dL 02/03/2025 1:08 AM EDT [facility] eGFRcr 111.2 mL/min/1.7 3m*2 02/03/2025 1:08 AM EDT [facility] Comment:Reported eGFRcr in m L/min/1.73m2 is based the CKD-EPI 2020 equation that does not use a race coefficient. Blood Venous blood specimen / Unknown Venipuncture / Unknown 02/03/2025 12:37 AM EDT 02/03/2025 12:40 AM EDT Rico Morales PASSEMENTERIE WORKER LAB BLOOD ORDERABLES Fin al Result [facility] [address] [place] [address] * New Patient with Hx of Hip [...] 6.6(H) <5.7 % 06/06/2024 1:54 PM EDT [facility] Blood Venous blood specimen / Unknown Venipuncture / Unknown 06/06/2024 10:13 AM EDT 06/06/2024 10:13 AM EDT Narrative [facility] - 06/06/2024 1:54 PM EDT HA1C Interpretive Data: Diagnosis of Diabetes: Diabetic > or = 6.5% Pre-diabetic 5.7 to 6.4% Non-diabetic < or = 5.6% Glycemic Targets for Type I and Type II Diabetics: Non- Adults <7.0% Adults <6.0% Children and Adolescents <7.5% Source: [place] [employer]. Standards of medical care in diabetes,2017. Diabetes Care.2017:40 (suppl 1):S1-S135. HbA1c assay performed by an ion-exchange chromatography method that is certified traceable to the DCCT. us King Qureshi MD LAB BLOOD ORDERABLES Final R esult [facility] [address] [place] [address] from Last 3 Months or Most Recently Relevant to Health Maintenance Additional Health Concerns Active Problems Noted Date Diagnosed Date Autogenerated Problem 11/17/2024 Autogenerated Problem 12/30/2024 Insurance [facility] Advance Directives * Full Code (Latest Code Status on File) Date Activated Date Inactivated Comments 06/13/2024 9:17 AM 06/13/2024 8:18 PM Question Answer Comments Patient has decision-making capacity? Yes * Full Code Date Activated Date Inactivated Comments 01/25/2024 8:43 AM 01/25/2024 7:29 PM Question Answer Comments Patient has decision-making capacity? Yes Care Teams Referral Specialist Relationship Specialty Start Date End Date Moris Abdi MD [address] [place] [address] PCP - General 12/28/20
--- OUTSIDE RECORDS SUMMARY | 2025-02-23 12:34 | XMS_ITS | Clinical Summary ---
Author Organization [facility] Address [address] [place] [address] Phone [email or web address] Care Team Providers Care Welding Pantograph Machine Operator Name Role Phone Bakari Abdi MD Primary Care Provider [phone] Allergies Active Allergy Reactions Criticality Noted Date [...] Results * (ABNORMAL) Hgb A1C Hemoglobin Glycosylated (63743) (10/12/2024 11:49 AM EST) Hemoglobin A1C 5.9(H) 4.8 - 5.6 % 01 Comment: Prediabetes: 5.7 - 6.4 Diabetes: >6.4 Glycemic control for adults with diabetes: <7.0 Blood (Blood, Venous) 10/12/2024 11:49 AM EST 10/12/2024 1:00 AM EST Comment:Blood, Venou Narrative [facility] - 10/13/2024 8:07 AM EST Performed at: 01 - [facility] [address] [id number] Mortgage Advisor: Vitor Nevarez PhD, Phone: [phone] us Cody Rodriguez MD LAB BLOOD ORDERABLES Final Resul t [facility] - [address] [place] [address] from Last 3 Months or Most Recently Relevant to Health Maintenance Insurance [employer] NB Care Teams Welding Pantograph Machine Operator Relationship Specialty [place] [address] [place] [address] [address] [place] [address] PCP - General 10/12/24
--- NOTE | 2025-02-23 14:45 | PC.NURSE ---
contacted Dr. Abdi in regards to pt increase in withdrawal symptoms including perfuse sweating, increased anxiety, tremors with arms extended and intense body aches. it is noted in the history and physical that we Will start on scheduled oxazepam and alcohol withdrawal protocol . no orders for CIWA scoring routinely or CIWA score based medications in place. this rn inquired about the possibility of getting an order for medication to treat pt current withdrawal orders. MD verbalized to give 1700 dose of oxazepam now and to do CIWA score once per shift. this rn repeated orders back to MD to give 1700 dose of oxazepam now and do CIWA score once per shift. MD confirmed. pt scored 17 on the CIWA scale @1500.
[2025-02-23 15:01] LABS: Folate 9.15 ng/mL
--- NOTE | 2025-02-23 17:06 | PEERSUPPORT ---
Peer Support Note Patient Information Patient Information: DOS: 02/23/2025 ? Drug(s) of Choice: Kratom, alcohol ? Last Use: 02/22/2025 ? Use Hx: alcohol only then six months ago was offered Kratom, that progressed to daily use of up to 8 tablets of 50 mg Kratom. He tried to taper his self-down only taking two per day that was unsuccessful.? ? ? Desire for Treatment: Pt is interested in in-patient treatment, he is considering [facility] in [place], [place]. He says that is the only one he knew of. ? Previous Treatment: None ? Support System: Father Mother ? Legal Issues: None ? Potential Barriers: -Withdrawals from alcohol/opiate withdrawal symptoms from Kratom -Lack of connection to recovery ? Harm reduction: -Safe Withdrawal Management -Connection to Bridge Peer Support -Treatment referrals/resources? -Education on alcohol use disorder/ Substance use disorder ? Motivation for Change: ? Pt says he wants to go to inpatient for treatment of his alcohol/kratom use. He is not able to do it on his own. Ps shared personal experience to importance of treatment for substance use then maintaining through recovery actions and efforts. Pt it aware of the AA 12 steps process, ps provided print out. ? Ps encouraged pt to focus on remaining in hospital for safety of detox and plan to discuss transfer to inpatient treatment tomorrow. ? Pt is receptive to ps. ? Plan of Action: -Ps to follow up on 02/24/2025 to discuss further plans for inpatient treatment.
[2025-02-23] MEDS: MULTIVITAMIN TABLET 1 EACH PO (17:13)
--- NOTE | 2025-02-23 18:27 | PC.NURSE ---
pt supine in bed, a&ox4. CIWA Score 10@ 0848 and 17 @ 1500. no orders placed for ativan or regularly scheduled CIWA scoring per provider. see previous note. pt very diaphoretic, flushed and anxious. pt offered a shower and/ or walk on the unit to decompress, but pt refused. medications given per mar. no complaints of n/v. peer support consulted this shift with resources provided. family updated on POC. no needs at this time. call light within reach.
--- NOTE | 2025-02-23 20:36 | PC.NURSE ---
This SRNA and SUDEEP Keenan notified JOVON Andrews of blood pressure reading 155/100 at this time.
[2025-02-23] MEDS: OXAZEPAM 15 MG CAPSULE 30 MG PO (21:42)
[2025-02-24] MEDS: diazePAM 10MG/2ML SYRINGE 5 MG IV (00:21)
--- NOTE | 2025-02-24 03:02 | PC.NURSE ---
Pt AOx4. Has been continually anxious throughout the shift. Following CIWA protocol per provider's orders. 18 RAC. Currently resting in bed with eyes open. Respirations even and unlabored. Bed is low, locked, and call light is in reach.
[2025-02-24 04:00] VITALS: BP 160/89; PULSE 79; RESP 16; TEMP 36.5; O2SAT 97; BMI 33.3
[2025-02-24 08:00] VITALS: BP 135/105; PULSE 81; RESP 16; TEMP 36.6; O2SAT 98
--- NOTE | 2025-02-24 08:06 | EXP.ACUTE.PN ---
Subjective *Date: 02/24/25 *Time: 08:06 Interval history: Patient states he is anxious to get home. He is planning to go to [place] for inpatient rehab today and would like to get home and sleep before he has to leave. He was unable to sleep at all last night. He denies any nausea, vomiting, headache, or pain. Medical Exam Vital signs and Labs for Last 24 Hours: Vital Signs Temp Pulse Resp BP Pulse Ox O2 Del Method 02/24/25 06:35 Room Air 02/24/25 05:00 Room Air 02/24/25 04:00 97.7 F 79 16 160/89 H 97 Room Air 02/24/25 03:00 Room Air 02/24/25 01:00 Room Air 02/23/25 23:00 Room Air 02/23/25 21:00 Room Air 02/23/25 20:00 Room Air 02/23/25 20:00 97.9 F 71 17 155/100 H 97 Room Air 02/23/25 18:43 Room Air 02/23/25 17:00 Room Air 02/23/25 16:00 80 16 144/97 H 95 Room Air 02/23/25 15:00 Room Air 02/23/25 13:00 Room Air 02/23/25 11:00 Room Air 02/23/25 09:00 Room Air Intake and Output 02/23/25 02/24/25 02/24/25 19:59 03:59 11:59 Intake Total 990 / 990 Output Total 900 / 1750 850 / 1750 0 / 1750 Balance 90 / -760 -850 / -760 0 / -760 Intake: Intake, Oral Amount 990 / 990 Output: Output, Urine Amount 900 / 1750 850 / 1750 0 / 1750 Other: Number of Unmeasured Voids 0 0 0 Weight 232 lb 9 oz Patient Weight 02/24/25 11:59 Weight 232 lb 9 oz Laboratory Results - last 24 hr 02/23/25 07:10: Troponin I < 0.01 02/23/25 09:30: WBC 2.9 L D, RBC 4.96, Hgb 14.5, Hct 41.4 L, MCV 83.5, MCH 29.2, MCHC 35.0, RDW 14.5, Plt Count 89 L D, MPV 8.9, Neut % (Auto) 64.2, Lymph % (Auto) 16.7, [place] % (Auto) 16.4 H, Eos % (Auto) 2.4, Baso % (Auto) 0.3, Neut # (Auto) 1.8, Lymph # (Auto) 0.5 L, [place] # (Auto) 0.5, Eos # (Auto) 0.1, Baso # (Auto) 0.0, Total Counted 100, Neutrophils % (Manual) 67, Lymphocytes % (Manual) 17, Monocytes % (Manual) 15 H, Basophils % (Manual) 1.0, Platelet Estimate Moderate decrease, RBC Morphology Normal, PT 12.0, INR 1.09, APTT 27.6, Sodium 136, Potassium 3.3 L, Chloride 92 L, Carbon Dioxide 34 H, Anion Gap 13.3, BUN 10, Creatinine 0.90, Estimated Creat Clear 176, Estimated GFR 96, Est GFR ( Amer) 116, Glucose 95 D, Hemoglobin A1c 6.3 H, Calcium 9.3, Phosphorus 3.9, Magnesium 1.9, Total Bilirubin 1.0, AST 74 H, ALT 81 H, Alkaline Phosphatase 67, Troponin I < 0.01, Total Protein 6.0 L, Albumin 4.2 D, Globulin 1.8, Albumin/Globulin Ratio 2.3 H, Vitamin B12 585, Folate 9.15 I & O for Labs for Last 24 Hours: Intake & Output 02/21/25 02/22/25 02/23/25 02/24/25 11:59 11:59 11:59 11:59 Intake Total 240 / 240 990 / 990 Output Total 300 / 300 1750 / 1750 Balance -60 / -60 -760 / -760 Weight 239 lb 9 oz 232 lb 9 oz Constitutional: Present no acute distress Respiratory: Present CTA bilaterally Cardiac: Present Reg Rate and Rhythm GI: Present soft; Absent distention or tenderness Extremities: Absent edema Skin: Present intact Neuro: Present awake and oriented x 3 Assessment and Plan *Assessment and plan (1) Chest pain: Status: Acute Category: Medical Code(s): R07.9 - Chest pain, unspecified (2) Polysubstance abuse: Status: Acute Category: Medical Code(s): F19.10 - Other psychoactive substance abuse, uncomplicated (3) Anxiety: Status: Acute Category: Medical Code(s): F41.9 - Anxiety disorder, unspecified (4) Posttraumatic stress disorder: Status: Acute Category: Medical Code(s): F43.10 - Post-traumatic stress disorder, unspecified (5) Recurrent major depression resistant to treatment: Status: Acute Category: Medical Code(s): F33.9 - Major depressive disorder, recurrent, unspecified (6) Palpitations: Status: Acute Category: Medical Code(s): R00.2 - Palpitations (7) HLD (hyperlipidemia): Status: Chronic Qualifiers: Hyperlipidemia type: mixed hyperlipidemia Qualified Code(s): E78.2 - Mixed hyperlipidemia Category: Medical Code(s): E78.5 - Hyperlipidemia, unspecified (8) HTN (hypertension): Status: Chronic Qualifiers: Hypertension type: unspecified Qualified Code(s): I10 - Essential (primary) hypertension Category: Medical Code(s): I10 - Essential (primary) hypertension Plan May be able to discharge for inpatient rehab. Will get labs this am and discuss with Dr. Abdi. He does not need VTE as he can ambulate in the hallway.
[2025-02-24 08:47] LABS: Hematocrit 38.1 % (42.0-52.0); Hemoglobin 13.6 g/dL (14.1-18.0); Immature Granulocytes % 0.7 %; Mean Corpuscular HGB Conc 35.7 g/dL (31.8-35.4); Mean Corpuscular Hemoglobin 29.2 pg (27.0-31.2); Mean Corpuscular Volume 81.8 fl (80-94); Nucleated Red Blood Cells % 0 %; Platelet Count 79 K/mm3 (142-424); Red Blood Count 4.66 M/mm3 (4.60-6.20); Red Cell Distribution Width-SD 41.1 fL; White Blood Count 3.0 K/mm3 (4.8-10.8)
[2025-02-24 08:51] LABS: Alanine Aminotransferase 71 U/L (12-78); Albumin Level 4.2 g/dl (3.5-5.0); Albumin/Globulin Ratio 2.3 (1.1-1.8); Alkaline Phosphatase 63 U/L (38-126); Anion Gap 12.0 mEq/L (5-15); Aspartate Amino Transferase 54 U/L (17-59); Bilirubin,Total 0.8 mg/dl (0.2-1.3); Blood Urea Nitrogen 7 mg/dl (9-20); Calcium 9.2 mg/dl (8.4-10.2); Carbon Dioxide 32 mmol/L (22.0-30.0); Chloride 96 mmol/L (98-107); Creatinine Clearance Estimated 171 mL/min (50-200); Creatinine,Serum 0.90 mg/dl (0.66-1.25); Estimated Glomerular Filt Rate 96 ml/min (>60); GFR (African American) 116 ML/MIN (>60); Globulin 1.8 g/dL (1.3-3.2); Glucose 124 mg/dl (74-100); Sodium 137 mmol/L (136-145); Total Protein,Serum 6.0 g/dl (6.3-8.2)
[2025-02-24 09:05] LABS: Potassium 3.0 mmoL/L (3.5-5.1)
--- NOTE | 2025-02-24 09:05 | PC.NURSE ---
paged dr ugalde to report critical
[2025-02-24] MEDS: FOLIC ACID 1MG TABLET 1 MG PO (09:07)
[2025-02-24] MEDS: THIAMINE 100MG TABLET 100 MG PO (09:07)
[2025-02-24] MEDS: CARVEDILOL 25MG TABLET 25 MG PO (09:07)
[2025-02-24] MEDS: dilTIAZem ER 120MG CAPSULE 120 MG PO (09:07)
[2025-02-24] MEDS: MVI, ADULT NO.1 WITH VIT K 10 ML, THIAMINE HCL 100 MG, MAGNESIUM SULFATE 2 GM in LACTAT... 125 ML IV (09:10)
[2025-02-24 09:15] LABS: Total Cells Counted 100
[2025-02-24 09:16] LABS: RBC Morphology Normal
[2025-02-24] MEDS: OXAZEPAM 15 MG CAPSULE 30 MG PO (09:18)
[2025-02-24] MEDS: POTASSIUM CHLORIDE 20MEQ TAB 20 MEQ PO ×2 (10:13→11:31)
[2025-02-24 11:22] LABS: Transferrin 230 mg/dL (177-329)
--- NOTE | 2025-02-24 13:18 | EXP.DC.SUM ---
General Admission date:: 02/23/25 Discharge date: 02/24/25 HPI HPI HPI: Ruthie Fink is a 34y male who presents to the emergency department for complaints of chest pain. Patient reports a history of tachycardia and hypertension and takes carvedilol, Cardizem and lisinopril. He presented to the emergency department yesterday for similar complaints however left AGAINST MEDICAL ADVICE. Patient reports today that he developed midsternal chest pain approximately 45 minutes prior to arrival. He does note that he smoked kratom and marijuana prior to arrival and had 4 drinks of alcohol. He notes that he has been drinking a case of beer daily since his left him and has had increased anxiety from that situation. He denies any cardiac history other than the hypertension and fast heart rate. He reports that he has been vomiting today. Patient reports that his blood pressure has been elevated today (170s systolic) so he took an extra dose of his blood pressure medication. (above as per ER physician) Patient has a history of polysubstance abuse and has been seen in the office multiple times. He has wanted to try to wean himself off of everything on his own but has been discussing rehab the past few visits. He is agreeable to go to an inpatient rehab facility in [place] upon discharge. Hospital Course Hospital Course Hospital Course: The patient was admitted and started on scheduled oxazepam and alcohol withdrawal protocol. By 02/24/2025, his blood pressure improved and he was feeling better. He was anxious to go home. A bed was found for him for inpatient rehab at the [facility]. He will be discharged from this facility and will be taken to the [facility] for inpatient rehab. Exam Data for Last 24 hours Vital signs and Labs for Last 24 Hours: Temp Pulse Resp BP Pulse Ox O2 Del Method 98 F 81 16 135/105 H 98 Room Air 02/24/25 08:00 02/24/25 08:00 02/24/25 08:00 02/24/25 08:00 02/24/25 08:00 02/24/25 12:50 Laboratory Results - last 24 hr 02/23/25 09:30: Transferrin 230, Folate 9.15 02/24/25 08:21: WBC 3.0 L, RBC 4.66, Hgb 13.6 L, Hct 38.1 L, MCV 81.8, MCH 29.2, MCHC 35.7 H, RDW 14.0, Plt Count 79 L, MPV 9.6, Neut % (Auto) 72.9, Lymph % (Auto) 14.8, [place] % (Auto) 8.6, Eos % (Auto) 2.3, Baso % (Auto) 0.7, Neut # (Auto) 2.2, Lymph # (Auto) 0.5 L, [place] # (Auto) 0.3, Eos # (Auto) 0.1, Baso # (Auto) 0.0, Total Counted 100, Neutrophils % (Manual) 69, Lymphocytes % (Manual) 22, Monocytes % (Manual) 6, Eosinophils % (Manual) 2, Basophils % (Manual) 1.0, Platelet Estimate Moderate decrease, RBC Morphology Normal, Sodium 137, Potassium 3.0 L, Chloride 96 L, Carbon Dioxide 32 H, Anion Gap 12.0, BUN 7 L D, Creatinine 0.90, Estimated Creat Clear 171, Estimated GFR 96, Est GFR ( Amer) 116, Glucose 124 H D, Calcium 9.2, Total Bilirubin 0.8, AST 54 D, ALT 71, Alkaline Phosphatase 63, Total Protein 6.0 L, Albumin 4.2, Globulin 1.8, Albumin/Globulin Ratio 2.3 H I & O for Last 24 hours: Intake & Output 02/22/25 02/23/25 02/24/25 02/25/25 11:59 11:59 11:59 11:59 Intake Total 240 / 240 1290 / 1290 Output Total 300 / 300 1750 / 1750 Balance -60 / -60 -460 / -460 Weight 239 lb 9 oz 232 lb 9 oz Narrative: Constitutional Constitutional: mild distress and diaphoretic *Routine HEENT Exam Head: Present normocephalic and atraumatic Eye: Present EOMI and PERRL ENT: Present mucous membranes moist *Routine Neck Exam Neck: Present supple and full ROM *Routine Respiratory Exam Respiratory: Present CTA bilaterally *Routine Cardiovascular Exam Cardiovascular: Present RRR *Routine Abdominal Exam Abdominal: Present soft and normoactive bowel sounds; Absent tenderness *Routine Rectal Exam Rectal:: deferred *Routine Genitalia Exam Genitalia:: deferred *Routine Extremities Exam Extremities: Absent cyanosis, clubbing or edema *Routine Skin Exam Skin: Present intact; Absent erythema *Routine Neurological Exam Neurological: Present alert and oriented X3 Results Data Completed and Pending Labs on day of discharge: Labs from last 24 hours 02/24/25 02/23/25 08:21 09:30 WBC 3.0 L RBC 4.66 Hgb 13.6 L Hct 38.1 L MCV 81.8 MCH 29.2 MCHC 35.7 H RDW 14.0 Plt Count 79 L MPV 9.6 Neut % (Auto) 72.9 Lymph % (Auto) 14.8 [place] % (Auto) 8.6 Eos % (Auto) 2.3 Baso % (Auto) 0.7 Neut # (Auto) 2.2 Lymph # (Auto) 0.5 L [place] # (Auto) 0.3 Eos # (Auto) 0.1 Baso # (Auto) 0.0 Total Counted 100 Neutrophils % (Manual) 69 Lymphocytes % (Manual) 22 Monocytes % (Manual) 6 Eosinophils % (Manual) 2 Basophils % (Manual) 1.0 Platelet Estimate Moderate decrease RBC Morphology Normal Sodium 137 Potassium 3.0 L Chloride 96 L Carbon Dioxide 32 H Anion Gap 12.0 BUN 7 L D Creatinine 0.90 Estimated Creat Clear 171 Estimated GFR 96 Est GFR ( Amer) 116 Glucose 124 H D Calcium 9.2 Transferrin 230 Total Bilirubin 0.8 AST 54 D ALT 71 Alkaline Phosphatase 63 Total Protein 6.0 L Albumin 4.2 Globulin 1.8 Albumin/Globulin Ratio 2.3 H Folate 9.15 DS: Diagnosis Discharge Diagnosis (1) Chest pain: Status: Acute Code(s): R07.9 - Chest pain, unspecified (2) Polysubstance abuse: Status: Acute Code(s): F19.10 - Other psychoactive substance abuse, uncomplicated (3) Anxiety: Status: Acute Code(s): F41.9 - Anxiety disorder, unspecified (4) Posttraumatic stress disorder: Status: Acute Code(s): F43.10 - Post-traumatic stress disorder, unspecified (5) Recurrent major depression resistant to treatment: Status: Acute Code(s): F33.9 - Major depressive disorder, recurrent, unspecified (6) Palpitations: Status: Acute Code(s): R00.2 - Palpitations (7) HLD (hyperlipidemia): Status: Chronic Code(s): E78.5 - Hyperlipidemia, unspecified Qualifiers: Hyperlipidemia type: mixed hyperlipidemia Qualified Code(s): E78.2 - Mixed hyperlipidemia (8) HTN (hypertension): Status: Chronic Code(s): I10 - Essential (primary) hypertension Qualifiers: Hypertension type: unspecified Qualified Code(s): I10 - Essential (primary) hypertension Meds Home Medications and Allergies Home Medications ?Medication ?Instructions ?Recorded ?Confirmed ?Type omeprazole 20 mg capsule,delayed 40 mg PO DAILY 08/07/21 02/23/25 History release albuterol sulfate 90 mcg/actuation 2 puff inhalation Q6H PRN 12/14/22 02/23/25 History aerosol inhaler Shortness Of Breath lisinopril 20 mg tablet 20 mg PO DAILY #30 tabs 12/28/23 02/23/25 Rx fluticasone furoate 100 1 inh inhalation DAILY 02/08/24 02/23/25 History mcg-vilanterol 25 mcg/dose inhalation powder (Breo Ellipta) carvedilol 25 mg tablet (Coreg) 25 mg PO BID #60 tabs 07/27/24 02/23/25 Rx diltiazem HCl 120 mg 120 mg PO DAILY #30 caps 01/03/25 02/23/25 Rx capsule,extended release 24 hr, controlled (DILT-XR) duloxetine 60 mg capsule,delayed 60 mg PO DAILY #30 caps 02/24/25 Rx release folic acid 1 mg tablet 1 mg PO DAILY #90 tabs 02/24/25 Rx oxazepam 15 mg capsule 15 mg PO Q6 #30 caps 02/24/25 Rx thiamine mononitrate (vit B1) 100 100 mg PO DAILY #90 tabs 02/24/25 Rx mg tablet New Prescriptions to Start Prescriptions: duloxetine Augustus Abdi folic acid Augustus Abdi oxazepam Augustus Abdi thiamine mononitrate (vit B1) Augustus Abdi Allergies Allergy/AdvReac Type Severity Reaction Status Date / Time amoxicillin Allergy Intermediate I-RASH Verified 01/30/25 10:19 clindamycin Allergy Unknown UNKNOWN Verified 01/30/25 10:19 pollen extracts Allergy Hives Verified 02/23/25 09:22 Discharge Plan Disposition Patient Disposition: Xfer Other Condition: Fair Discharge Order Discharge Orders: Discharge Order (Routine); Ordered 02/24/25 Ordered By: Augustus Abdi Follow up Plan Follow up with: Augustus Abdi MD [Primary Care Provider, Medical] - 04/13/25 2:30 pm Prescriptions/Medication Reconciliation: New oxazepam 15 mg Capsule 15 mg PO Q6 Qty: 30 0RF folic acid 1 mg Tablet 1 mg PO DAILY Qty: 90 1RF thiamine mononitrate (vit B1) 100 mg Tablet 100 mg PO DAILY Qty: 90 1RF duloxetine 60 mg capsule,delayed release(DR/EC) 60 mg PO DAILY Qty: 30 1RF Continued omeprazole 20 mg capsule,delayed release(DR/EC) 40 mg PO DAILY lisinopril 20 mg tablet 20 mg PO DAILY Qty: 30 11RF carvedilol [Coreg] 25 mg tablet 25 mg PO BID Qty: 60 5RF Rx Instructions: must administer with a meal/food diltiazem HCl [DILT-XR] 120 mg capsule,ext.rel 24h degradable 120 mg PO DAILY Qty: 30 11RF albuterol sulfate 90 mcg/actuation HFA aerosol inhaler 2 puff inhalation Q6H PRN (Reason: Shortness Of Breath) Rx Instructions: INHALE 2 PUFFS BY MOUTH 4 TIMES DAILY NEEDED FOR WHEEZING fluticasone furoate-vilanterol [Breo Ellipta] 100-25 mcg/dose blister with device 1 inh inhalation DAILY Patient Comments: INHALE 1 PUFF BY MOUTH EVERY DAY Rx Instructions: INHALE 1 PUFF BY MOUTH EVERY DAY Discontinued duloxetine 30 mg capsule,delayed release(DR/EC) 30 mg PO DAILY Patient Comments: TAKE ONE CAPSULE BY MOUTH EVERY DAY Problem Reconciliation Problems Reviewed?: Yes Patient Discharge Instructions ACTIVITY: Ambulate as tolerated DIET: regular diet Patient Instructions: DI for Angina, DI for Alcohol Use Disorder Print Language: Northern Irish Providers Primary Care Provider: Augustus Abdi Admit Provider: Gato Persaud Attending Provider: Augustus Abdi
--- NOTE | 2025-02-24 14:35 | PC.NURSE ---
Patient educated and advised to seek help [facility]. Patient stated he was going to go straight to [facility] after discharge
--- NOTE | 2025-02-24 17:11 | PEERSUPPORT ---
Peer Support Note Patient Information Patient Information: DOS:02/24/2025 ? Building Rapport: Pt stated he was not able to sleep any last night, his withdrawals are horrible with little relief from chills, fever, body aches, anxiety and mind fog. He is motivated to go to [facility] to get well as he cannot do this alone. ? Pts only concern is if he is allowed to have a vape while at the [facility]. ? Ps contacted [facility]: Vape products are not allowed, only unopened cigarettes, or nicotine patches will be determined by medical provider at [facility]. ? Pt is accepting of this understanding the risk associated with vape products. ? Ps informs pt EMS transfer is not an option, informing Brenda IBARRA is willing to provide transportation upon approval and discharge of pt. ? Pt refused transportation with Brenda IBARRA, Pt father agreed to transport patient to [facility]. ? Janine SIGALA, informed patient of [facility] request to facilitate a zoom meeting to be approved for admission. Discussed risk with returning to use of kratom as well as importance to saying no if it was offered or brought to him. ? -Ps discuss options of inpatient treatment. ? Pts parents contacted facility in [place], agreeing to accept pt, requested records be forwarded. [facility] [address] [place] [address] ? Pt and parents agree to [facility] attempt as well. -[facility]- not in network with insurance. ? [facility] financial department to contact pt to discuss further options. ? Pt decides to leave, Janine SIGALA provides discharge to pt. ? Ps refers pt to [facility], as a walk in when he leaves the hospital. ? Pt is receptive, but highly stressed with situation and circumstances. ? Plan of action: -Ps will follow up with pt. -Refrain from drinking and/or using any substances/chemicals. -Contact insurance member service line on back of card to check in-network facilities, as sobriety is priority. ?
== END 2025-02-24 14:36 | disposition short-term general hospital (02) | DRG 880 ==
LOC: ER 21:41 → 2ND 02-23 00:55
PROVIDERS: Emergency Medicine; Physician Assistant; Admitting Provider Family Medicine; Emergency Provider Student in an Organized Health Care Education/Training Program; PCP Family Medicine; Visit Provider Family Medicine
DX: F41.9 Anxiety disorder, unspecified (principal); F33.9 Major depressive disorder, recurrent, unspecified; F19.10 Other psychoactive substance abuse, uncomplicated; F43.10 Post-traumatic stress disorder, unspecified; I10 Essential (primary) hypertension; R00.2 Palpitations; E78.2 Mixed hyperlipidemia; F17.290 Nicotine dependence, other tobacco product, uncomplicated; Z88.1 Allergy status to other antibiotic agents; Z79.899 Other long term (current) drug therapy
CPT/HCPCS: 36415; 71045; 80053; 80320; 81001; 82009; 82607; 82746; 82803; 83036; 83605; 83690; 83735; 83880; 84100; 84425; 84466; 84484; 85007; 85025; 85610; 85730; 93005; J2405; J3360; J3410; J3411; J3475; J7120

== ENCOUNTER 2025-03-20 20:23 | Emergency (ER) | payer OTHER, SELFPAY ==
--- OUTSIDE RECORDS SUMMARY | 2025-02-03 00:04 | XMS_ITS | Encounter Summary ---
Author Organization [facility] Address [address] 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 Please return here or nearest emergency room with any worsening of symptoms. May also utilize #[phone]. Avoid mind altering substances. Continue Cymbalta and keep previously scheduled appointment with [facility] [place]. documented in this encounter Medications at Time [...] Moris Abdi MD [address] [facility] / [place] [address] Chief Concern, Brief History of Present Illness, [...] at risk for suicide because of his protestant beliefs and his three children. He is [...] they the primary team?: Yes [1] AVS (Yi Snapshot) - Printed 02/03/2025 Outpatient Follow-Up No [...] Garcia RN - 02/03/2025 3:33 PM EDT [id number] Anxiety Reaction Anxiety is the feeling we [...] check online or at your local library [email or web address]. You'll find many books and audiobooks on [...] of suicide or self-harm, call or text 817right away. This is the [facility] Suicide & Crisis Lifeline. You will be connected to a trained counselor you can talk to. There's also an online chat option. You can also call [employer] at 800-273-talk ([phone]). The [employer] is free and available 09/03. When to contact your doctor Contact your doctor right away if: ? You have symptoms that don't improve or get worse. These include feelings of hopelessness or overwhelming sadness. ? You have a severe headache not eased by rest and mild pain medicine. Last Reviewed Date: 2024 00:00:00 ?? [id number] The [employer]. All rights reserved. This information is not intended as a substitute for professional medical care. Always follow your healthcare professional's instructions. * Clinician Note - Daniela Siri Won - 02/03/2025 2:49 PM EDT SAE Suarez spoke with Maritza Fink, Ruthie's mother. Maritza reported that Ruthie suffers from depression and PTSD, and that he sees a psychologist in [facility]. Maritza reported that Ruthie is an alcoholic [...] night two of his friends who are doctor of optometry came to their home and brought him to [facility] due to his behaviors. Maritza reported that she had booked a flight for Ruthie this morningat 6 a.m. to attend a treatment program in [place]. Maritza reported that they will be speaking to Ruthie's friend Demetrio about next steps for Ruthie and she will call the SAE back. SAE Suarez later spoke with Carter Fink ([phone]). 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 Carter reported that they will [...] disease Possible not confirmed Depression Diabetes mellitus ([facility]) Hypertension SONAM (obstructive sleep apnea) [...] old male coming to this facility from [facility]. Patient states that he recently experienced his [...] for a legal 72 hour hold in [place]. In order to fully explore the differential [...] psychiatric services, the patient was transferred to [facility] for further psychiatric evaluation and observation. [...] Reactive Non Reactive 02/03/2025 1:28 AM EDT [facility] Comment:Screening for HIV 1 & 2 antibodies, and P24 antigen is NONREACTIVE. No confirmatory testing is required. Blood Venous blood specimen / Unknown Venipuncture / Unknown 02/03/2025 12:37 AM EDT 02/03/2025 12:40 AM EDT [facility] INCLUSION MANAGER LAB BLOOD ORDERABLES Fin al Result Performing Organization Address City/[facility] Co de Phone Number HEALTHCARE LAB [address] [place] [address] * Hepatitis C Antibody - ED (02/03/2025 12:37 AM EDT) Hepatitis C Antibody Negative Negative 02/03/2025 1:23 AM EDT [facility]ALTH[facility]ARE [facility] Blood Venous blood specimen / Unknown Venipuncture / Unknown 02/03/2025 12:37 AM EDT 02/03/2025 12:40 AM EDT [facility] INCLUSION MANAGER LAB BLOOD ORDERABLES Fin al Result Performing Organization Address [facility] de Phone Number HEALTHCARE LAB [address] [place] [address] * (ABNORMAL) Ethyl Alcohol Plasma (02/03/2025 12:37 AM EDT) Ethanol Plasma 221(H) <10 mg/dL 02/03/2025 1:02 AM EDT [facility] Blood Venous blood specimen / Unknown Venipuncture / Unknown 02/03/2025 12:37 AM EDT 02/03/2025 12:40 AM EDT Narrative HEALTHCARE LAB - 02/03/2025 1:02 AM EDT Enzymatic Assay: Performed on Dayna Placido. [facility] INCLUSION MANAGER LAB BLOOD ORDERABLES Fin al Result Performing Organization Address City/[facility] Co de Phone Number HEALTHCARE LAB [address] [place] [address] * Free T4, Plasma (02/03/2025 12:37 AM EDT) Free T4, Plasma 1.2 0.8 - 1.7 ng/dL 02/03/2025 1:08 AM EDT [facility]ALTH[facility]ARE LAB Blood Venous blood specimen / Unknown Venipuncture / Unknown 02/03/2025 12:37 AM EDT 02/03/2025 12:40 AM EDT [facility] BLOOD ORDERABLES Fin al Result Performing Organization Address [facility] Co de Phone Number [facility] [address] [place] [address] * Thyroid Stimulating Hormone, Plasma (02/03/2025 12:37 AM EDT) Thyroid Stimulating Hormone, Plasma 1.69 0.40 - 4.20 uIU/mL 02/03/2025 1:08 AM EDT [facility] Blood Venous blood specimen / Unknown Venipuncture / Unknown 02/03/2025 12:37 AM EDT 02/03/2025 12:40 AM EDT [facility] Fin al Result Performing Organization Address [facility] Phone Number [facility] [address] [place] [address] * (ABNORMAL) CMP (02/03/2025 12:37 AM EDT) Glucose, Plasma 95 74 - 99 mg/dL 02/03/2025 1:08 AM EDT [facility] BUN, Plasma 6(L) 7 - 21 mg/dL 02/03/2025 1:08 AM EDT [facility] Creatinine, Plasma 0.92 0.70 - 1.20 mg/dL 02/03/2025 1:08 AM EDT [facility] BUN/Creatinine Ratio 7 02/03/2025 1:08 AM EDT HEALTHCARE LAB Sodium, Plasma 142 136 - 145 mmol/L 02/03/2025 1:08 AM EDT [facility] Potassium, Plasma 4.0 3.6 - 4.9 mmol/L 02/03/2025 1:08 AM EDT [facility] Chloride, Plasma 102 97 - 107 mmol/L 02/03/2025 1:08 AM EDT [facility] CO2, Plasma 21(L) 22 - 29 mmol/L 02/03/2025 1:08 AM EDT [facility] Anion Gap 19(H) 6 - 16 mmol/L 02/03/2025 1:08 AM EDT [facility] Total Calcium, Plasma 9.4 8.9 - 10.2 mg/dL 02/03/2025 1:08 AM EDT [facility] Total Protein 7.1 6.3 - 7.9 g/dL 02/03/2025 1:08 AM EDT [facility] Albumin, Plasma 5.0 3.5 - 5.2 g/dL 02/03/2025 1:08 AM EDT [facility] AST, Plasma 34 10 - 50 U/L 02/03/2025 1:08 AM EDT [facility] ALT, Plasma 45 10 - 50 U/L 02/03/2025 1:08 AM EDT [facility] Alkaline Phosphatase, Plasma 87 40 - 115 U/L 02/03/2025 1:08 AM EDT [facility] Total Bilirubin, Plasma 0.3 0.2 - 1.1 mg/dL 02/03/2025 1:08 AM EDT [facility] eGFRcr 111.2 mL/min/1.7 3m*2 02/03/2025 1:08 AM EDT [facility] Comment:Reported eGFRcr in m L/min/1.73m2 is based the CKD-EPI 2020 equation that does not use a race coefficient. Blood Venous blood specimen / Unknown Venipuncture / Unknown 02/03/2025 12:37 AM EDT 02/03/2025 12:40 AM EDT Maribell Maynard APRN LAB BLOOD ORDERABLES Fin al Result [facility] [address] [place] [address] * CBC w/diff (02/03/2025 12:37 AM EDT) WBC Count 5.20 3.70 - 10.30 10*3/uL LAB HEMATOLOGY METHOD 02/03/2025 12:43 AM EDT [facility] RBC Count 5.34 4.60 - 6.10 10*6/uL LAB HEMATOLOGY METHOD 02/03/2025 12:43 AM EDT [facility] HGB 14.9 13.7 - 17.5 g/dL LAB HEMATOLOGY METHOD 02/03/2025 12:43 AM EDT [facility] HCT 42.5 40.0 - 51.0 % LAB HEMATOLOGY METHOD 02/03/2025 12:43 AM EDT [facility] Platelet Count 208 155 - 369 10*3/uL LAB HEMATOLOGY METHOD 02/03/2025 12:43 AM EDT [facility] MCV 80 79 - 98 fL LAB HEMATOLOGY METHOD 02/03/2025 12:43 AM EDT [facility] MCH 27.9 26.0 - 32.0 pg LAB HEMATOLOGY METHOD 02/03/2025 12:43 AM EDT [facility] MCHC 35.1 30.7 - 35.5 g/dL LAB HEMATOLOGY METHOD 02/03/2025 12:43 AM EDT [facility] RDW 14.4 11.5 - 14.5 % LAB HEMATOLOGY METHOD 02/03/2025 12:43 AM EDT [facility] MPV 9.3 8.8 - 12.5 fL LAB HEMATOLOGY METHOD 02/03/2025 12:43 AM EDT [facility] nRBC 0.0 <=0.0 per 100 WBCs LAB HEMATOLOGY METHOD 02/03/2025 12:43 AM EDT [facility] Differential Type Automated LAB HEMATOLOGY METHOD 02/03/2025 12:43 AM EDT [facility] Neutrophils % 61 % LAB HEMATOLOGY METHOD 02/03/2025 12:43 AM EDT [facility] Lymphocytes % 25 % LAB HEMATOLOGY METHOD 02/03/2025 12:43 AM EDT [facility] Monocytes % 8 % LAB HEMATOLOGY METHOD 02/03/2025 12:43 AM EDT HEALTHCARE LAB Eosinophils % 4 % LAB HEMATOLOGY METHOD 02/03/2025 12:43 AM EDT [facility] Basophils % 1 % LAB HEMATOLOGY METHOD 02/03/2025 12:43 AM EDT [facility] Immature Granulocytes % 1 % LAB HEMATOLOGY METHOD 02/03/2025 12:43 AM EDT HEALTHCARE LAB Neutrophils Absolute 3.25 1.60 - 6.10 10*3/uL LAB HEMATOLOGY METHOD 02/03/2025 12:43 AM EDT [facility]ALTH[facility]ARE LAB Lymphocytes Absolute 1.30 1.20 - 3.90 10*3/uL LAB HEMATOLOGY METHOD 02/03/2025 12:43 AM EDT [facility] Monocytes Absolute 0.39 0.30 - 0.90 [...] BLOOD ORDERABLES Fin al Result [facility]ARE [facility] [address] [place] [address] documented in this encounter Visit Diagnoses Diagnosis [...] 0240, STAT 0246 (Given - Provid er: Kaai Griffin RN) nicotine (Nicoderm CQ) 21 MG/24HR [...] documented as of this encounter Care Teams Care Coordination Manager Relationship Specialty Start Date End Date Moris Abdi MD [address] [place] [address] PCP - General 12/28/20 documented as of this encounter
--- OUTSIDE RECORDS SUMMARY | 2025-02-16 11:30 | XMS_ITS ---
Author Organization [facility] Address [address] [facility] 36 [facility] [address] [place] [phone] Care Team Providers Care Review Manager Name Role Phone Jocelyne Abdi Primary Care Provider Tomasa De Leon Unavailable [phone] Kori Bowers Unavailable [phone] REASON FOR VISIT 3 weeks Encounters Encounter Location Date Provider Diagnosis [facility] [address] [facility] [address] [place] [phone] 02/16/2025 Kori Bowers Plan Of Treatment No Information Progress Notes * SHYANN PAULSONDOB: 9 (35 yo M)Acc No.[id number]:02/16/2025 Progress Notes Patient: SHYANN JOHN Provider: ROSE Lam :1990 A ge:34 Y S ex:Male Date:02/16/2025 Address:[id number] Pcp:Jocelyne Abdi Subjective: * Chief Complaints: * 1 . 3 weeks. * Medical History: Objective: * Vitals: Assessment: Plan: * Treatment: * Images: Billing Information: * Visit Code: * Procedure Codes: * Electronic signature of ROSE Hare on 03/20/2025 at 08:36 PM EDT Sign off status: Pending * Provider: ROSE Lam Date: 0 02/16/2025 Generated for Printi ng/Faxing/eTransmitting on: 0 03/20/2025 08:36 PM EDT
--- OUTSIDE RECORDS SUMMARY | 2025-02-27 06:45 | XMS_ITS ---
Author Organization [facility] Address [address] [facility] [address] [place] [id number] Care Team Providers Care Refractory Technician Name Role Phone Jocelyne Abdi Primary Care Provider [phone] Tomasa De Leon [phone] Allergies Allergen (clinical drug ingredient) Drug/Non Drug Allergy documented on EMR Reaction Allergy Type Onset Date Status amoxicillin Amoxicillin Unknown Drug Allergy Act naseem clindamycin Clindamycin Unknown Drug Allergy Act naseem REASON FOR VISIT med refill Encounters Encounter Location Date Provider Diagnosis [facility] [address] [place] [id number] 02/27/2025 Jocelyne Abdi Plan Of Treatment No Information Progress Notes * SHYANN PAULSONDOB: 9 (35 yo M)Acc No.[id number]:02/27/2025 Progress Notes Patient: SHYANN JOHN Provider: Jocelyne Abdi M.D. :1990 A ge:34 Y S ex:Male Date:02/27/2025 Address:[id number] Subjective: * Chief Complaints: * 1 . Med refill. * ROS: D ERMATOLOGY: no R yury. [...] 06/03-, Sinus infection, Bronchitis, Middle Ear Infection- [facility] 09/04/2018, Sinus Infection- [facility] 10/2018, Palpitations- [facility] 04/2019. * Family History: F ather: alive [...] Alcohol: no. Travel ouside [place]: no. * Allergies: A moxicillin, Clindamycin. Objective: * Vitals: Assessment: Plan: * Treatment: * Images: Billing Information: * Visit Code: * Procedure Codes: * Electronic signature of Jocelyne Adbi MD on 03/20/2025 at 08:36 PM EDT Sign off status: Pending * Provider: Jocelyne Abdi M.D. Date: 0 02/27/2025 Generated for Ryan zacarias/Gilbert/Lara on: 0 03/20/2025 08:36 PM EDT
--- OUTSIDE RECORDS SUMMARY | 2025-03-13 10:30 | XMS_ITS ---
Author Organization [facility] Address [address] [facility] [address] [place] [phone] Care Team Providers Care Nail Professional Name Role Phone Jocelyne Abdi Primary Care Provider [phone] Tomasa De Leon [phone] Allergies Allergen (clinical drug ingredient) Drug/Non Drug Allergy documented on EMR Reaction Allergy Type Onset Date Status amoxicillin Amoxicillin Unknown Drug Allergy Act naseem clindamycin Clindamycin Unknown Drug Allergy Act naseem REASON FOR VISIT medsurg f/u Encounters Encounter Location Date Provider Diagnosis [facility] [address] [place] [phone] 03/13/2025 Jocelyne Abdi Plan Of Treatment No Information Progress Notes * LORENE SHYANNDOB: [birth year] (35 yo M)Acc No.[id number]:03/13/2025 Progress Notes Patient: SHYANN JOHN Provider: Jocelyne Abdi M.D. :1990 A ge:34 Y S ex:Male Date:03/13/2025 Address:[id number] Subjective: * Chief Complaints: * 1 . Medsurg f/u. * ROS: D ERMATOLOGY: no R yury. [...] 06/03-, Sinus infection, Bronchitis, Middle Ear Infection- [facility] 09/04/2018, Sinus Infection- [facility] 10/2018, Palpitations- [facility] 04/2019. * Family History: F ather: alive [...] Procedure Codes: * Electronic signature of Jocelyne Abdi MD on 03/20/2025 at 08:35 PM EDT Sign off status: Pending * Provider: Jocelyne Abdi M.D. Date: 03/13/2025 Generated for Ryan zacarias/Gilbert/Zabrinaitting on: 0 03/20/2025 08:35 PM EDT
[2025-03-20 20:23] VITALS: BP 140/76; PULSE 108; RESP 22; TEMP 36.6; O2SAT 98; BMI 30.7
--- NOTE | 2025-03-20 20:27 | ECG_ITS ---
APPROVED REPORT Exam: Resting ECG HR:107 bpm ECG Measurements Heart Rate 107 AXES AR 190 P 84 QRSd 112 QRS 62 QT 321 T 79 QTc 384 Conclusion SINUS TACHYCARDIA MODERATE INTRAVENTRICULAR CONDUCTION DELAY [110+ ms QRS DURATION] ABNORMAL RHYTHM ECG UNCONFIRMED REPORT Electronically signed by : Garrett Rojas, 03/20/2025 23:21:51
[2025-03-20 20:28] VITALS: PULSE 108
--- NOTE | 2025-03-20 20:30 | XR_ITS ---
PROCEDURE INFORMATION: Exam: XR Chest Exam date and time: 03/20/2025 9:25 PM Age: 35 years old Clinical indication: Shortness of breath; Additional info: Short of breath TECHNIQUE: Imaging protocol: Radiologic exam of the chest. Views: 1 view. COMPARISON: CR XR CHEST PORTABLE 02/22/2025 9:33 PM FINDINGS: Lungs: Unremarkable. No consolidation. Pleural spaces: Unremarkable. No pleural effusion. No pneumothorax. Heart/Mediastinum: Unremarkable. No cardiomegaly. Bones/joints: Unremarkable. IMPRESSION: No acute findings.
--- OUTSIDE RECORDS SUMMARY | 2025-03-20 20:35 | XMS_ITS | Patient Health Record ---
Author Organization [facility] Address [address] [place] [id number] Care Team Providers Care Cementer Machine Name Role Phone Jocelyne Abdi Primary Care Provider [phone] Tomasa De Leon Unavailable [phone] Won Lawson Unavailable [phone] Gato Persaud Unavailable [phone] Kori Bowers Unavailable [phone] Allergies Allergen (clinical drug ingredient) Drug/Non Drug [...] - 400 CBC Fingerstick (in house) Reviewed date:07/07/2024 03:01:23 [...] employed in healthcare? No Is patient an [employer] employee? N Is patient currently hospitalized? No Is patient currently in ICU? No Date of Symptom onset Is patient a resident in a congregate care setting? No ADENOQIA Not Detected NotDetected CORONAHKU1 Not Detected NotDetected DRUZEFLO36 Not Detected NotDetected DPLYI127P Not Detected NotDetected IUQXBKG76 Not Detected NotDetected METAPNEUMO Not Detected NotDetected RHINOENTER Not Detected NotDetected INFLUAPCR Not Detected NotDetected FLUAH1 Not Detected NotDetected [id number] Not Detected NotDetected INFLUAH3 Not Detected NotDetected [...] nothing acute CBC Fingerstick (in house) Reviewed date:09/08/2024 01:29:07 [...] Interpretation:Normal Performing Lab: Notes/Report: Test performed by [employer] [address] [place], [place] [address] [address] , [address], [place] [address] Tino Fletcher MD, Net Solutions [employer] CLIA: [id number] Vitamin B12 592 250-8706 pg/mL P-Comprehensive Metabolic Pa darryl (CMP) Reviewed date:09/09/2024 12:08:31 PM Interpretation:gluc 120 Performing Lab: Notes/Report: Test performed by [facility] [address], [place] [address] Tino Fletcher MD, [employer] Solutions Architect CLIA: [id number] Sodium 142 135-145 mmol/L Potassium 4.3 3.5-5.3 [...] Interpretation:Normal Performing Lab: Notes/Report: Test performed by [facility] [address] [place] [address] , [place] [address] Tino Fletcher MD, [employer] CLIA: [id number] TSH reflex to FT4 0.81 0.43-5.25 mU/L P-Vitamin D 25-Hydroxy Reviewed date:09/09/2024 12:08:31 PM Interpretation:11.1 Performing Lab: Notes/Report: Test performed by [facility] [address] [place] [address] , [place] [address] Tino Fletcher MD, [employer] Solutions Architect CLIA: [id number] Vitamin D 25-Hydroxy 11.1 30.0-100.0 ng/mL Interpretation of Vitamin D 25 OH: < 20 ng/mL - Deficiency 20 - 29 ng/mL - Insufficiency 30 - 100 ng/mL - Sufficiency > 100 ng/mL - Super-therapeutic- toxicity may occur above this level. Clinical correlation required. H-CBC Reviewed date:03/07/2025 11:50:23 AM Interpretation: Performing Lab: Notes/Report: WBC 2.9 4.8-10.8 K/mm3 Delta: 4.9 on 02/22/25-2131 RBC 4.96 4.60-6.20 M/mm3 HGB 14.5 14.1-18.0 g/dL HCT 41.4 42.0-52.0 % MCV 83.5 80-94 fl MCH 29.2 27.0-31.2 pg MCHC 35.0 31.8-35.4 g/dL RDW-SD 44.0 RDW 14.5 11.5-17.5 % PLT 89 142-424 K/mm3 Delta: 130 on 02/22/25 MPV 8.9 7.4-10.4 fl NE% 64.2 37.0-80.0 % LY% 16.7 10-50 % MO% 16.4 1.7-9.3 % EO% 2.4 0.1-12.0 % BA% 0.3 0.1-2.0 % NRBC% 0 IG% 0 NE# 1.8 1.8-7.8 K/mm3 LY# 0.5 0.7-4.5 K/mm3 MO# 0.5 0.1-1.0 K/mm3 EO# 0.1 0.0-0.4 Kmm3 BA# 0.0 0-0.2 K/mm3 NRBC# 0 IG# 0 H-DIFF Reviewed date:03/07/2025 11:50:23 AM Interpretation: Performing Lab: Notes/Report: BRANDON MANUAL DIFFERENTIAL MANUAL DIFF TCC 100 NEUT%M 67 42-76 % LYMPH%M 17 10-50 % MONO%M 15 2-9 % BASO%M 1.0 0-1 PLTE Moderate Decrease RM Normal H-PTT Reviewed date:03/07/2025 11:50:23 AM Interpretation: Performing Lab: Notes/Report: Patient on anticoagulants? N PTT 27.6 22.8-30.6 seconds H-CMP Reviewed date:03/07/2025 11:50:23 AM Interpretation: Performing Lab: Notes/Report: NA 136 136-145 mmol/L K 3.3 3.5-5.1 mmoL/L CL 92 98-107 mmol/L CO2 34 22.0-30.0 mmol/L GAP 13.3 5-15 mEq/L BUN 10 9-20 mg/dl CREATT 0.90 0.66-1.25 mg/dl CRCLE 176 50-200 mL/min GFRAA 116 >60 ML/MIN EGFR 96 >60 ml/min GLU 95 74-100 mg/dl Delta: 157 on 02/22/25 CA 9.3 8.4-10.2 mg/dl BILIT 1.0 0.2-1.3 mg/dl AST 74 17-59 U/L ALT 81 12-78 U/L TP 6.0 6.3-8.2 g/dl ALB 4.2 3.5-5.0 g/dl Delta: 5.3 on 02/22/25-2131 GLOB 1.8 1.3-3.2 g/dL AGRATIO 2.3 1.1-1.8 ALP 67 38-126 U/L H-PHOS Reviewed date:03/07/2025 11:50:23 AM Interpretation: Performing Lab: Notes/Report: PHOS 3.9 2.5-4.5 mg/dl H-Magnesium Reviewed date:03/07/2025 11:50:24 AM Interpretation: Performing Lab: Notes/Report: MG 1.9 1.6-2.3 mg/dl H-PT/INR Reviewed date:03/07/2025 11:50:24 AM Interpretation: Performing Lab: Notes/Report: Patient on anticoagulants? N PT 12.0 10.1-12.5 seconds INR 1.09 0.9-1.1 INDICATION INR RANGE Therapy for DVT, PE, Atrial Fib, 2.0-3.0 Prophylaxis for VTE. Therapy for Mechanical Heart Valve, 2.5-3.5 Prevention of Sytemic Emolism secondary to AMI. H-Folate Reviewed date:03/07/2025 11:50:24 AM Interpretation: Performing Lab: Notes/Report: FOL 9.15 Normal Adult: 2.76->20 ng/mL Folate Deficent: 1.04-2.79ng/mL H-VITAMIN B12 Reviewed date:03/07/2025 11:50:24 AM Interpretation: Performing Lab: Notes/Report: VITB12 585 239-931 pg/mL H-Transferrin Reviewed date:03/07/2025 11:50:24 AM Interpretation: Performing Lab: Notes/Report: TRANS 230 177-329 mg/dL Performed at: [address] [id number] [employer] Bever[employer] Associate: Vitor Nevarez PhD, Phone: [phone] H-Vitamin B1 Reviewed date:03/07/2025 11:50:24 AM Interpretation: Performing Lab: Notes/Report: Test(s) 624492-Hiw. B1, Whole Blood was developed and its performance characteristics determined by [facility]. It has not been cleared or approved by the Food and Drug Administration. VITB1 110.1 66.5-200.0 nmol/L Performed at: [facility] [id number] [employer] And Bever[employer] Associate: Carlos Esteban MD, Phone: [phone] H-Glycohemoglobin A1C Reviewed date:03/07/2025 11:50:24 AM Interpretation: Performing Lab: Notes/Report: HGBA1C 6.3 4.0-6.0 % < 6% Non-Diabetic Level < 7% Controlled Diabetic Level > 8% Poorly Controlled Diabetic Level H-CBC Reviewed date:03/07/2025 11:50:23 AM Interpretation: Performing Lab: Notes/Report: WBC 3.0 4.8-10.8 K/mm3 RBC 4.66 4.60-6.20 M/mm3 HGB 13.6 14.1-18.0 g/dL HCT 38.1 42.0-52.0 % MCV 81.8 80-94 fl MCH 29.2 27.0-31.2 pg MCHC 35.7 31.8-35.4 g/dL RDW-SD 41.1 RDW 14.0 11.5-17.5 % PLT 79 142-424 K/mm3 MPV 9.6 7.4-10.4 fl NE% 72.9 37.0-80.0 % LY% 14.8 10-50 % MO% 8.6 1.7-9.3 % EO% 2.3 0.1-12.0 % BA% 0.7 0.1-2.0 % NRBC% 0 IG% 0.7 NE# 2.2 1.8-7.8 K/mm3 LY# 0.5 0.7-4.5 K/mm3 MO# 0.3 0.1-1.0 K/mm3 EO# 0.1 0.0-0.4 Kmm3 BA# 0.0 0-0.2 K/mm3 NRBC# 0 IG# 0.02 H-DIFF Reviewed date:03/07/2025 11:50:23 AM Interpretation: Performing Lab: Notes/Report: BRANDON MANUAL DIFFERENTIAL MANUAL DIFF TCC 100 NEUT%M 69 42-76 % LYMPH%M 22 10-50 % MONO%M 6 2-9 % EOS%M 2 0-3 % BASO%M 1.0 0-1 PLTE Moderate Decrease RM Normal H-CMP Reviewed date:03/07/2025 11:50:23 AM Interpretation: Performing Lab: Notes/Report: NA 137 136-145 mmol/L K 3.0 3.5-5.1 mmoL/L CRITICAL RESULT Results called and read back/verified to: [Yusuf GUERRA] on 02/24/25 at 0901 By Alexey Ramirez MLT CL 96 98-107 mmol/L CO2 32 22.0-30.0 mmol/L GAP 12.0 5-15 mEq/L BUN 7 9-20 mg/dl Delta: 10 on 02/23/25 CREATT 0.90 0.66-1.25 mg/dl CRCLE 171 50-200 mL/min GFRAA 116 >60 ML/MIN EGFR 96 >60 ml/min GLU 124 74-100 mg/dl Delta: 95 on 02/23/25 CA 9.2 8.4-10.2 mg/dl BILIT 0.8 0.2-1.3 mg/dl AST 54 17-59 U/L Delta: 74 on 02/23/25 ALT 71 12-78 U/L TP 6.0 6.3-8.2 g/dl ALB 4.2 3.5-5.0 g/dl GLOB 1.8 1.3-3.2 g/dL AGRATIO 2.3 1.1-1.8 ALP 63 38-126 U/L Medications Medication SIG (Take, Route, Frequency, Duration) [...] W/U Status Risk Notes Problem Essential hypertension (01266130) Essential (primary) hypertension (I10) Active confirmed Problem Tachycardia (3231995) Tachycardia (R00.0) Active confirmed Problem Hypertension (87262538) HTN (hypertension) (I10) Active confirmed Problem Vitamin D deficiency (54078413) Vitamin D deficiency (E55.9) Active confirmed Problem Anxiety (83816162) Anxiety (F41.9) Active confi rmed Problem Hyperlipidaemia (59964024) Hyperlipemia (E78.5) Active confirmed Problem Obstructive sleep apnea (64572423) Obstructive sleep apnea (G47.33) Active confirmed Problem Hiatal hernia (67006972) Hiatal hernia (K44.9) Active confirmed Problem Mixed anxiety and depressive disorder (780566447) Depression with anxiety (F41.8) Active confirmed Problem Rectal bleeding (18482469) Rectal bleeding (K62.5) Active confirmed Problem Exacerbation of asthma (536153790) Asthma exacerbation (J45.901) Active confirmed Problem Alcohol abuse (91234994) Alcohol abuse (F10.10) Active confirmed Problem Mixed hyperlipidemia (851534491) Mixed hyperlipidemia (E78.2) Active confirmed Problem Dysthymia (63542134) Dysthymic disorder (F34.1) Active confirmed Problem Anxiety disorder (494208423) Anxiety disorder, unspecified (F41.9) Active confirmed Problem Post-traumatic stress disorder (54206254) Post-traumatic stress disorder, unspecified (F43.10) Active confirmed Problem Acute severe exacerbation of moderate persistent asthma (disorder) (068994943) Moderate persistent asthma with status asthmaticus (J45.42) Active confirmed Problem Second degree hemorrhoids (768728267) Second degree hemorrhoids (K64.1) Active confirmed Problem Genital warts (222195613) Genital warts (A63.0) Active confirmed Problem Uncomplicated moderate persistent asthma (617599437) Moderate persistent asthma without complication (J45.40) Active confirmed Problem Gastroesophageal reflux disease with esophagitis (900222628) Gastroesophageal reflux disease with esophagitis (K21.0) Active confirmed Problem Panic disorder (713539407) Panic attacks (F41.0) Active confirmed Problem Obese class II (825502338053677) BMI 36.0-36.9,adult (Z68.36) Active confirmed Problem Exacerbation of moderate persistent asthma (disorder) (054227488) Moderate persistent asthma with acute exacerbation (J45.41) Active confirmed Problem Anogenital warts (536610003) Condyloma acuminata (A63.0) Active confirmed Problem Avascular necrosis (31477347) Avascular necrosis (M87.00) Active confirmed Problem Alcoholism (5377644) Alcoholism (F10.20) Active confirmed Problem Polysubstance abuse (906271415) Polysubstance abuse (F19.10) Active confirmed Problem Hypersomnia (94143212) Hypersomnia (G47.10) Active confirmed Problem Tobacco user (440581306) Cigarette nicotine dependence without complication (F17.210) Active confirmed Problem Excessive daytime sleepiness - normal night sleep (075540620) Daytime sleepiness (R40.0) Active confirmed Problem Panic attack (128532847) Panic attack (F41.0) Active confirmed Problem Anxiety depression (019450401) Anxiety with depression (F41.8) Active confirmed Problem Allergic rhinitis (34208705) Chronic non-seasonal allergic rhinitis, unspecified trigger (J30.89) Active confirmed Problem Exacerbation of asthma (849071451) Exacerbation of asthma, unspecified asthma severity, unspecified whether persistent (J45.901) Active confirmed Problem Exacerbation of moderate persistent asthma (disorder) (304138496) Moderate persistent asthma with exacerbation (J45.41) Active confirmed Problem Allergic rhinitis (63393058) Non-seasonal allergic rhinitis, unspecified trigger (J30.89) Active confirmed Problem Asthma without status asthmaticus (87410076) Moderate asthma, unspecified whether complicated, unspecified whether persistent (J45.909) Active confirmed Problem Thromboangiitis obliterans (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) Buergers disease (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) Active confirmed Problem Severe major depression, single episode, without psychotic features (87309226) Current severe episode of major depressive disorder without psychotic features, unspecified whether recurrent (F32.2) Active confirmed Problem Depressed bipolar I disorder (85502992) Bipolar affective disorder, current episode depressed, current episode severity unspecified (F31.30) Active confirmed Vital Signs Heart Rate 104 /min 02/09/2025 Blood pressure diastolic 92 mm Hg 02/09/2025 Height 69.50 in 02/09/2025 Blood pressure systolic 160 mm Hg 02/09/2025 Weight 238.8 lbs 02/09/2025 BMI 34.76 kg/m2 02/09/2025 Encounters Encounter Location Date Provider Diagnosis [facility] [address] [place] [id number] 06/30/2024 R Dean Lawson Acute bronchitis J20 .9 and Moderate persistent asthma without complication J45.40 [facility] [address] [place], [place] [id number] 07/07/2024 Kori Hussaindy Exacerbation of asth ma, unspecified asthma severity, unspecified whether persistent J45.901 and Bronchitis J40 [facility] [address] [place], [place] [id number] 07/21/2024 R Dean Lawson Essential (primary) hypertension I10 [facility] [address] [place], [place] [id number] 07/28/2024 Gato Likely Nausea and vomiting, unspecified vomiting type R11.2 [facility] [address] [place], [place] [id number] 09/08/2024 Kori Crowdy Essential (primary) hypertension I10 ; Obstructive sleep apnea G47.33 ; Moderate persistent asthma without complication J45.40 ; Gastroesophageal reflux disease with esophagitis K21.0 ; Impaired fasting glucose R73.01 ; Depression with anxiety F41.8 and Other fatigue R53.83 [facility] [address] [place], [place] [id number] 01/26/2025 Koriav Bowers Anxiety with depress ion F41.8 [facility] [address] [place], [place] [id number] 02/09/2025 Kori Bowers Alcohol abuse F10.10 ; Depression with anxiety F41.8 ; Panic attacks F41.0 and Essential (primary) hypertension I10 [facility] [address] [place], [place] [id number] 07/15/2024 Jocelyne Abdi [facility] [address] [place], [place] [id number] 08/26/2024 Jocelyne Abdi Moderate persistent asthma without complication J45.40 [facility] [address] [place], [place] [id number] 09/09/2024 Kori Bowers [facility] [address] [place], [place] [id number] 02/09/2025 Won Lawson [facility] [address] [place] [id number] 02/15/2025 Koriav Bowers [facility] [address] [place], [place] [id number] 02/21/2025 Jocelyne Abdi Moderate persistent asthma without complication J45.40 [facility] [address] [place], [place] [id number] 02/22/2025 Jocelyne Abdi Assessments Encounter Date Diagnosis [...] prednisone taper. Will continue nebs at home. 07/28/2024 Nausea and vomiting, unspecified vomiting type (ICD-10 - R11.2) clear liquids and advance as tolerated 01/26/2025 Anxiety with depression (ICD-10 - F41.8) He states he never tried duloxetine. Will start on this. He is currently seeing a psychologist and is going to call to see if he can see a psychiatrist as well and possibly get genetic testing. 02/21/2025 Moderate persistent asthma without complication (ICD-10 - J45.40) 08/26/2024 Moderate persistent asthma without complication (ICD-10 - J45.40) 07/21/2024 Essential (primary) hypertension (ICD-10 - I10) Continue to monitor blood pressure at home. If he has consistently elevated readings, may need to adjust his medication dosage. 02/09/2025 Depression with anxiety (ICD-10 - F41.8) 02/09/2025 Alcohol abuse (ICD-10 - F10.10) Patient is going to check into rehab facilities 09/08/2024 Essential (primary) hypertension (ICD-10 - I10) [...] Date [facility] [address] [address] [place] [address] [phone] [id number] SHYANN FINK Self - patient is the insured Medications Administered Medication Instructions Date of Administration Dosage Notes Dexamethasone 09/29/2023 1 mL Medical (General) History Medical History History ICD Code Hypertension Asthma Anxiety Surgical History Surgery Date(Month/Year) bilateral hip replacements Hospitalization History Reason Date(Month/Year) Pneumonia 06/03- Asthma 1997 Palpitations- [facility] 04/2019 Sinus Infection- [facility] 10/2018 Sinus infection, Bronchitis, Middle Ear Infection- [facility] 09/04/2018
--- OUTSIDE RECORDS SUMMARY | 2025-03-20 20:36 | XMS_ITS | Encounter Summary ---
Author Organization Healthcare Address [address] 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
--- OUTSIDE RECORDS SUMMARY | 2025-03-20 20:36 | XMS_ITS | Encounter Summary ---
Author Organization [facility] Address [address] [place] [address] Care Team Providers Care Group Reservations Coordinator Name Role Phone Moris Abdi MD Primary Care Provider [phone] Reason for Visit * Reason Comments Med Refill Encounter Details Date Type Department Care Team ([facility] st Contact Info) Description 12/17/2023 Refill Medical Office Building [facility] [address] [facility], [address] [place] [address] Yadira Schulte PA [address] [place] [address] Avascular necrosis of bones of [...] documented as of this encounter Care Teams Group Reservations Coordinator Relationship Specialty Start Date End Date Moris Abdi MD [address] [place] [id number] PCP - General 12/28/20 documented as of this encounter
--- OUTSIDE RECORDS SUMMARY | 2025-03-20 20:36 | XMS_ITS | Clinical Summary ---
Author Organization [facility] Address [address] [place] [address] Care Team Providers Care Chlorine Operator Name Role Phone Moris Abdi MD Primary Care Provider [phone] Allergies Active Allergy Reactions Criticality Noted Date [...] nebulization if needed for shortness of breath. 3 Active albuterol 108 (90 Base) MCG/ACT inhaler Inhale 2 puffs if needed for shortness of breath. 4 Active atorvastatin (Lipitor) 10 MG tablet Take 1 tablet (10 mg) by mouth 1 (one) time each day. Active carvedilol (Coreg) 25 MG tablet Take 1 tablet (25 mg) by mouth 2 (two) times a day with meals. 4 Active Dilt-XR 120 MG 24 hr capsule Take 1 capsule (120 mg) by mouth 1 (one) time each day. 4 Active Breo Ellipta 100-25 MCG/ACT aerosol powder Inhale 1 puff 1 (one) time each day. 4 Active metOLazone (Zaroxolyn) 2.5 MG tablet Take 1 tablet (2.5 mg) by mouth 1 (one) time each day if needed. 3 Active lisinopril 20 MG tablet Take 1 tablet (20 mg) by mouth 1 (one) time each day. 4 Active omeprazole (PriLOSEC) [address] capsule Take 1 capsule (40 mg) by mouth 1 (one) time each day. Do not crush or chew. Active gabapentin (Neurontin) 100 MG capsule Take 1 capsule (100 mg) by mouth 3 (three) times a day. If this medication makes you drowsy you may take it only at bedtime 30 capsule 4 Active Additional Information Patient not taking.Reported on 06/28/2024 acetaminophen (Tylenol Extra Strength) 500 MG tablet Take 2 tablets (1,000 mg) by mouth every 8 (eight) hours. 100 tablet Active Additional Information Patient not taking.Reported on 06/28/2024 methocarbamol (Robaxin) 500 MG tablet Take 1 tablet (500 mg) by mouth 3 (three) times a day if needed for muscle spasms. 30 tablet 4 Active gabapentin (Neurontin) 300 MG capsule Take 1 capsule (300 mg) by mouth 3 (three) times a day. 42 capsule 4 Active traMADol (Ultram) 50 MG tablet Take 1 tablet (50 mg) by mouth every 8 (eight) hours if needed for moderate pain. 30 tablet 4 Active Additional Information Patient not taking.Reported on 06/28/2024 oxyCODONE (Roxicodone) 5 MG immediate release tablet Take 1 tablet (5 mg) by mouth every 8 (eight) hours if needed for severe pain. 20 tablet 4 Active Additional Information Patient not taking.Reported on 06/28/2024 Active Problems Problem Noted Date Diagnosed Date [...] - 02/03/2025 4:00 PM EDT Hospital Encounter [facility] [address] [place] [address] Benny Bhakta DO Acute stress reaction (Primary Dx); Dissociative stupor; Other depression; Alcoholic intoxication without complication (CMS/HCC); Elevated blood pressure reading with diagnosis of hypertension; Substance abuse Discharge Disposition: Home or Self Care 02/03/2025 Travel from Last 3 Months Family History [...] drink first t annie in the morning ([employer]) to steady your nerves or to get [...] Health Maintenance Due Date Last Done Comments [facility]-/Child/Adol SDOH Screenings 1989 Diabetes: Dental Exam 1999 [facility]-Varicella Vaccines (1 of 2 - 13+ 2-dose series) 2002 [facility]- SDOH Screenings 2007 [facility]-Adult SDOH Screenings 2007 [facility]-Pneumococcal Vaccine: Pediatrics (0 to 5 Years) and At-Risk Patients (6 to 49 Years) (1 of 2 - PCV) 2008 [facility]-WNCPM-24 Vaccine (4 - season) 2024 06/22/2021, 09/14/2020, 08/13/2020 [facility]-Diabetes: Hemoglobin [...] Type Associated Problems Recent Progress Patient-Stated? Author Ashlee purvis Goal Care Plan Autogenerated Problem No King Qureshi MD Autogenera ted Goal Care Plan Autogenerated Problem No [employer]ih[employer] Implanted Type Area Supervisor Plate Pasting Device Identifier Shelf Expiration Date Model / Serial / Lot Chg Shell R3 3 Hole Acet 52mm - [id number] Implanted:Qty: 1 on 06/13/2024 by King Qureshi MD at [facility] Hip Right: Hip [employer]-[id number] 01/22/2034 [id number] / / [id number] Chg Head Oxinium Fem 07/30 28m - [id number] Implanted:Qty: 1 on 06/13/2024 by King Qureshi MD at [facility] Hip Right: Hip [employer]-[id number] 09/03/2030 [id number] / / [id number] Liner Or3o Dual Mbility 40 52 - [id number] Implanted:Qty: 1 on 06/13/2024 by King Qureshi MD at [facility] Liner Right: Hip [employer]-[id number] 12/25/2033 [id number] / / [id number] Liner Or3o Dual Mbility Xlpe 28/40 - [id number] Implanted:Qty: 1 on 06/13/2024 by King Qureshi MD at [facility] Liner Right: Hip [employer]-[id number] 03/14/2034 [id number] / / [id number] Chg Screw Ref Spher Head 25mm - [id number] Implanted:Qty: 1 on 06/13/2024 by King Qureshi MD at [facility] Screw Right: Hip [employer]-[id number] 01/04/2034 [id number] / / [id number] Chg Screw Ref Spher Head 35mm - [id number] Implanted:Qty: 1 on 06/13/2024 by King Qureshi MD at [facility] Screw Right: Hip [employer]-[id number] 01/22/2034 [id number] / / [id number] Polarstem Cementless Lat Tiha - [id number] Implanted:Qty: 1 on 06/13/2024 by King Qureshi MD at [facility] Stem Right: Hip [employer]-[id number] 07/02/2029 [id number] / / [id number] Chg Shell R3 3 Hole Acet 52mm - [id number] Implanted:Qty: 1 on 01/25/2024 by King Qureshi MD at [facility] Left: Hip [employer]-[id number] 09/16/2033 [id number] / / [id number] Chg Screw Ref Spher Head 25mm - [id number] Implanted:Qty: 1 on 01/25/2024 by King Qureshi MD at [facility] Left: Hip [employer]-[id number] 10/27/2033 [id number] / / [id number] Liner Or3o Dual Mbility 40 52 - [id number] Implanted:Qty: 1 on 01/25/2024 by King Qureshi MD at [facility] Left: Hip [employer]-[id number] 09/21/2033 [id number] / / [id number] Chg Screw Ref Spher Head 35mm - [id number] Implanted:Qty: 1 on 01/25/2024 by King Qureshi MD at [facility] Left: Hip [employer]-[id number] 09/28/2033 [id number] / / [id number] Liner Or3o Dual Mbility Xlpe 28/40 - [id number] Implanted:Qty: 1 on 01/25/2024 by King Qureshi MD at [facility] Left: Hip [employer]-[id number] 10/19/2033 [id number] / / [id number] Polarstem Cementless Tiha 2 - [id number] Implanted:Qty: 1 on 01/25/2024 by King Qureshi MD at [facility] Left: Hip [employer]-[id number] 01/06/2030 [id number] / / [id number] Chg Head Oxinium Fem 07/30 28m - [id number] Implanted:Qty: 1 on 01/25/2024 by King Qureshi MD at [facility] Left: Hip [employer]-[id number] 09/19/2033 [id number] / / [id number] Procedures Procedure Name Priority Date/Time Associated Diagnosis [...] AUTO DIFFERENTIAL STAT 02/03/2025 12:37 AM EDT HEMOGLOBIN A1C Routine 06/06/2024 10:13 AM EDT [...] EDT 02/03/2025 12:40 AM EDT Rico Morales APRN LAB BLOOD ORDERABLES Fin al Result [facility] [address] [place] [address] * (ABNORMAL) Ethyl Alcohol Plasma (02/03/2025 12:37 AM EDT) Pathologist [facility] Ethanol Plasma 221(H) <10 mg/dL 02/03/2025 1:02 AM EDT [facility] Blood Venous blood specimen / Unknown Venipuncture / Unknown 02/03/2025 12:37 AM EDT 02/03/2025 12:40 AM EDT Narrative [facility] - 02/03/2025 1:02 AM EDT Enzymatic Assay: Performed on Dayna Placido. [facility] APRN LAB BLOOD ORDERABLES Fin al Result Performing Organization Address [facility] Co de Phone Number [facility] [address] [place] [address] * Hepatitis C Antibody - ED (02/03/2025 12:37 AM EDT) Pathologist [facility] Hepatitis C Antibody Negative Negative 02/03/2025 1:23 AM EDT [facility] Blood Venous blood specimen / Unknown Venipuncture / Unknown 02/03/2025 12:37 AM EDT 02/03/2025 12:40 AM EDT Rico Morales APRN LAB BLOOD ORDERABLES Fin al Result Performing Organization Address City/[facility] Co de Phone Number [facility] [address] [place] [address] * CBC w/diff (02/03/2025 12:37 AM EDT) Pathologist [facility] WBC Count 5.20 3.70 - 10.30 10*3/uL LAB HEMATOLOGY METHOD 02/03/2025 12:43 AM EDT [facility] RBC Count 5.34 4.60 - 6.10 10*6/uL LAB HEMATOLOGY METHOD 02/03/2025 12:43 AM EDT [facility] HGB 14.9 13.7 - 17.5 g/dL LAB HEMATOLOGY METHOD 02/03/2025 12:43 AM EDT [facility] HCT 42.5 40.0 - 51.0 % LAB HEMATOLOGY METHOD 02/03/2025 12:43 AM EDT [facility] Platelet Count 208 155 - 369 10*3/uL LAB HEMATOLOGY METHOD 02/03/2025 12:43 AM EDT [facility] MCV 80 79 - 98 fL LAB HEMATOLOGY METHOD 02/03/2025 12:43 AM EDT [facility] MCH 27.9 26.0 - 32.0 pg LAB HEMATOLOGY METHOD 02/03/2025 12:43 AM EDT [facility] MCHC 35.1 30.7 - 35.5 g/dL LAB HEMATOLOGY METHOD 02/03/2025 12:43 AM EDT [facility] RDW 14.4 11.5 - 14.5 % LAB HEMATOLOGY METHOD 02/03/2025 12:43 AM EDT [facility] MPV 9.3 8.8 - 12.5 fL LAB HEMATOLOGY METHOD 02/03/2025 12:43 AM EDT [facility] nRBC 0.0 <=0.0 per 100 WBCs LAB HEMATOLOGY METHOD 02/03/2025 12:43 AM EDT [facility] Differential Type Automated LAB HEMATOLOGY METHOD 02/03/2025 12:43 AM EDT [facility] Neutrophils % 61 % LAB HEMATOLOGY METHOD 02/03/2025 12:43 AM EDT [facility] Lymphocytes % 25 % LAB HEMATOLOGY METHOD 02/03/2025 12:43 AM EDT [facility] Monocytes % 8 % LAB HEMATOLOGY METHOD 02/03/2025 12:43 AM EDT [facility] Eosinophils % 4 % LAB HEMATOLOGY METHOD 02/03/2025 12:43 AM EDT [facility] Basophils % 1 % LAB HEMATOLOGY METHOD 02/03/2025 12:43 AM EDT [facility] Immature Granulocytes % 1 % LAB HEMATOLOGY METHOD 02/03/2025 12:43 AM EDT [facility] Neutrophils Absolute 3.25 1.60 - 6.10 10*3/uL LAB HEMATOLOGY METHOD 02/03/2025 12:43 AM EDT [facility] Lymphocytes Absolute 1.30 1.20 - 3.90 10*3/uL LAB HEMATOLOGY METHOD 02/03/2025 12:43 AM EDT [facility] Monocytes Absolute 0.39 0.30 - 0.90 10*3/uL LAB HEMATOLOGY METHOD 02/03/2025 12:43 AM EDT [facility] Eosinophils Absolute 0.20 0.00 - 0.50 10*3/uL LAB HEMATOLOGY METHOD 02/03/2025 12:43 AM EDT [facility] Basophils Absolute 0.03 0.00 - 0.10 10*3/uL LAB HEMATOLOGY METHOD 02/03/2025 12:43 AM EDT [facility] Immature Granulocytes Absolute 0.03 0.00 - 0.06 10*3/uL LAB HEMATOLOGY METHOD 02/03/2025 12:43 AM EDT [facility] Blood Venous blood specimen / Unknown Venipuncture / Unknown 02/03/2025 12:37 AM EDT 02/03/2025 12:40 AM EDT Narrative [facility] - 02/03/2025 12:43 AM EDT Therapeutic decision making should be based on absolute values, rather than percentages. Rico Morales RECEIVER LAB BLOOD ORDERABLES Fin al Result Performing Organization Address City/[facility]/ZIP Co de Phone Number [facility] [address] [place] [address] * Thyroid Stimulating Hormone, Plasma (02/03/2025 12:37 AM EDT) Thyroid Stimulating Hormone, Plasma 1.69 0.40 - 4.20 uIU/mL 02/03/2025 1:08 AM EDT [facility] Blood Venous blood specimen / Unknown Venipuncture / Unknown 02/03/2025 12:37 AM EDT 02/03/2025 12:40 AM EDT [facility] RECEIVER LAB BLOOD ORDERABLES Fin al Result [facility] [address] [place] [address] * Free T4, Plasma (02/03/2025 12:37 AM EDT) Free T4, Plasma 1.2 0.8 - 1.7 ng/dL 02/03/2025 1:08 AM EDT [facility] Blood Venous blood specimen / Unknown Venipuncture / Unknown 02/03/2025 12:37 AM EDT 02/03/2025 12:40 AM EDT Rico Morales RECEIVER LAB BLOOD ORDERABLES Fin al Result [facility] [address] [place] [address] * (ABNORMAL) CMP (02/03/2025 12:37 AM EDT) Glucose, Plasma 95 74 - 99 mg/dL 02/03/2025 1:08 AM EDT [facility] BUN, Plasma 6(L) 7 - 21 mg/dL 02/03/2025 1:08 AM EDT [facility] Creatinine, Plasma 0.92 0.70 - 1.20 mg/dL 02/03/2025 1:08 AM EDT [facility] BUN/Creatinine Ratio 7 02/03/2025 1:08 AM EDT [facility] Sodium, Plasma 142 136 - 145 mmol/L 02/03/2025 1:08 AM EDT [facility] Potassium, Plasma 4.0 3.6 - 4.9 mmol/L 02/03/2025 1:08 AM EDT [facility] Chloride, Plasma 102 97 - 107 mmol/L 02/03/2025 1:08 AM EDT [facility] CO2, Plasma 21(L) 22 - 29 mmol/L 02/03/2025 1:08 AM EDT [facility] Anion Gap 19(H) 6 - 16 mmol/L 02/03/2025 1:08 AM EDT [facility] Total Calcium, Plasma 9.4 8.9 - 10.2 mg/dL 02/03/2025 1:08 AM EDT [facility] Total Protein 7.1 6.3 - 7.9 g/dL 02/03/2025 1:08 AM EDT [facility] Albumin, Plasma 5.0 3.5 - 5.2 g/dL 02/03/2025 1:08 AM EDT [facility] AST, Plasma 34 10 - 50 U/L 02/03/2025 1:08 AM EDT [facility] ALT, Plasma 45 10 - 50 U/L 02/03/2025 1:08 AM EDT [facility] Alkaline Phosphatase, Plasma 87 40 - 115 U/L 02/03/2025 1:08 AM EDT [facility] Total Bilirubin, Plasma 0.3 0.2 - 1.1 mg/dL 02/03/2025 1:08 AM EDT [facility] eGFRcr 111.2 mL/min/1.7 3m*2 02/03/2025 1:08 AM EDT [facility] Comment:Reported eGFRcr in m L/min/1.73m2 is based the CKD-EPI 2020 equation that does not use a race coefficient. Blood Venous blood specimen / Unknown Venipuncture / Unknown 02/03/2025 12:37 AM EDT 02/03/2025 12:40 AM EDT Rico Morales APRN LAB BLOOD ORDERABLES Fin al Result Performing Organization Address [facility] Co de Phone Number [facility] [address] [place] [address] * (ABNORMAL) Hemoglobin A1c (06/06/2024 10:13 AM EDT) Hemoglobin A1c 6.6(H) <5.7 % 06/06/2024 1:54 PM EDT [facility] Blood Venous blood specimen / Unknown Venipuncture / Unknown 06/06/2024 10:13 AM EDT 06/06/2024 10:13 AM EDT Narrative [facility] - 06/06/2024 1:54 PM EDT HA1C Interpretive Data: Diagnosis of Diabetes: Diabetic > or = 6.5% Pre-diabetic 5.7 to 6.4% Non-diabetic < or = 5.6% Glycemic Targets for Type I and Type II Diabetics: Non- Adults <7.0% Adults <6.0% Children and Adolescents <7.5% Source: [place] [employer]. Standards of medical care in diabetes,2017. Diabetes Care.2017:40 (suppl 1):S1-S135. HbA1c assay performed by an ion-exchange chromatography method that is certified traceable to the DCCT. King Qureshi MD LAB BLOOD ORDERABLES Final R esult Performing Organization Address City/[facility]/ZIP Co de Phone Number [facility] [address] [place] [address] from Last 3 Months or Most Recently Relevant to Health Maintenance Additional Health Concerns Active Problems Noted Date Diagnosed Date Autogenerated Problem 11/17/2024 Autogenerated Problem 12/30/2024 Insurance [facility] Advance Directives * Full Code (Latest Code Status on File) Date Activated Date Inactivated Comments 06/13/2024 9:17 AM 06/13/2024 8:18 PM Question Answer Comments Patient has decision-making capacity? Yes * Full Code Date Activated Date Inactivated Comments 01/25/2024 8:43 AM 01/25/2024 7:29 PM Question Answer Comments Patient has decision-making capacity? Yes Care Teams Chlorine Operator Relationship Specialty Start Date End Date Moris Abdi MD [address] [place] [address] PCP - General 12/28/20
--- OUTSIDE RECORDS SUMMARY | 2025-03-20 20:36 | XMS_ITS | Clinical Summary ---
Author Organization [facility] Address [address] [place] [address] Phone [email or web address] Care Team Providers Care Customer Advocacy Manager Name Role Phone Bakari Abdi MD Primary Care Provider [phone] Allergies Active Allergy Reactions Criticality Noted Date [...] Pertussis Immunization (2 - Tdap) 10/20/2000 10/19/2000 HPV Immunization (1 - Male 3-dose series) 2004 Annual Preventive Exam 2007 Hep B Infection Screening - Triple Screen 2007 Pneumococcal: Ped (0 to 5 Yr s) and At-Risk Member (6 to 64 Yrs) (1 of 2 - PCV) 2008 Covid-19 Immunization ( - season) 2024 06/22/2021, 09/14/2020, 08/13/2020 Hemoglobin A1C [...] Results * (ABNORMAL) Hgb A1C Hemoglobin Glycosylated (70074) (10/12/2024 11:49 AM EST) Hemoglobin A1C 5.9(H) 4.8 - 5.6 % 01 Comment: Prediabetes: 5.7 - 6.4 Diabetes: >6.4 Glycemic control for adults with diabetes: <7.0 Blood (Blood, Venous) 10/12/2024 11:49 AM EST 10/12/2024 1:00 AM EST Comment:Blood, Venou Narrative [facility] - 10/13/2024 8:07 AM EST Performed at: 01 - [facility] [address] [id number] [employer] Worker: Vitor Nevarez PhD, Phone: [phone] us Cody Rodriguez MD LAB BLOOD ORDERABLES Final Resul t [facility] - [address] [place] [id number] from Last 3 Months or Most Recently Relevant to Health Maintenance Insurance [employer] NB Care Teams Customer Advocacy Manager Relationship Specialty Start Date End Date Bakari Abdi MD [address] [place] [address] PCP - General 10/12/24
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
[2025-03-20 20:50] LABS: Hematocrit 43.7 % (42.0-52.0); Hemoglobin 15.5 g/dL (14.1-18.0); Immature Granulocytes % 0.2 %; Mean Corpuscular HGB Conc 35.5 g/dL (31.8-35.4); Mean Corpuscular Hemoglobin 30.0 pg (27.0-31.2); Mean Corpuscular Volume 84.5 fl (80-94); Nucleated Red Blood Cells % 0 %; Platelet Count 168 K/mm3 (142-424); Red Blood Count 5.17 M/mm3 (4.60-6.20); Red Cell Distribution Width-SD 40.7 fL; White Blood Count 4.1 K/mm3 (4.8-10.8)
[2025-03-20] MEDS: 0.9 % SODIUM CHLORIDE 1000ML 1,000 ML 999 ML IV (20:50)
[2025-03-20] MEDS: MORPHINE 2MG/ML SYRINGE 2 MG IV (20:51)
[2025-03-20] MEDS: FAMOTIDINE 20MG/2ML VIAL 20 MG IV (20:51)
[2025-03-20] MEDS: ONDANSETRON 4MG/2ML VIAL 4 MG IV (20:51)
[2025-03-20 20:53] LABS: Albumin Level 3.8 g/dl (3.5-5.0); Chloride 100 mmol/L (98-107); Potassium 3.8 mmoL/L (3.5-5.1); Sodium 136 mmol/L (136-145)
[2025-03-20 20:56] LABS: Alanine Aminotransferase 136 U/L (12-78); Albumin/Globulin Ratio 1.3 (1.1-1.8); Alkaline Phosphatase 134 U/L (38-126); Anion Gap 15.8 mEq/L (5-15); Aspartate Amino Transferase 85 U/L (17-59); Bilirubin,Total 0.8 mg/dl (0.2-1.3); Blood Urea Nitrogen 8 mg/dl (9-20); Calcium 9.8 mg/dl (8.4-10.2); Carbon Dioxide 24 mmol/L (22.0-30.0); Creatinine Clearance Estimated 160 mL/min (50-200); Creatinine,Serum 0.90 mg/dl (0.66-1.25); Estimated Glomerular Filt Rate 95 ml/min (>60); GFR (African American) 116 ML/MIN (>60); Globulin 2.9 g/dL (1.3-3.2); Glucose 262 mg/dl (74-100); Magnesium 1.5 mg/dl (1.6-2.3); Total Protein,Serum 6.7 g/dl (6.3-8.2)
[2025-03-20] MEDS: diazePAM 10MG/2ML SYRINGE 2.5 MG IV (20:56)
[2025-03-20 20:58] VITALS: BP 122/76; PULSE 111; RESP 16; O2SAT 96
[2025-03-20 21:08] LABS: Troponin I 0.02 ng/ml (0.00-0.034)
[2025-03-20 21:13] LABS: Lipase 927 U/L (23-300)
--- NOTE | 2025-03-20 21:13 | PC.NURSE ---
CRITICAL CALLED FROM LAB, TANI AWARE
[2025-03-20 21:53] VITALS: BP 146/90; PULSE 111; RESP 18; TEMP 36.6; O2SAT 96
== END 2025-03-20 21:59 | disposition left against medical advice (07) ==
PROVIDERS: Nurse Practitioner; Emergency Provider Student in an Organized Health Care Education/Training Program; PCP Family Medicine
DX: K85.20 Alcohol induced acute pancreatitis without necrosis or infection (principal); Z53.29 Procedure and treatment not carried out because of patient's decision for other reasons; F41.9 Anxiety disorder, unspecified; E78.5 Hyperlipidemia, unspecified; I10 Essential (primary) hypertension; F17.210 Nicotine dependence, cigarettes, uncomplicated
CPT/HCPCS: 71045; 80053; 83690; 83735; 84484; 85025; 93005; 96361; 96374; 96375; 99285; J2270; J2405; J3360; J7030

== ENCOUNTER 2025-05-16 11:21 | Emergency (ER) | payer OTHER, SELFPAY ==
--- NOTE | 2025-05-16 11:26 | ECG_ITS ---
APPROVED REPORT Exam: Resting ECG HR:117 bpm ECG Measurements Heart Rate 117 AXES OR 177 P 73 QRSd 97 QRS 19 QT 317 T 71 QTc 387 Conclusion Sinus tachycardia Normal axis Normal intervals No STEMI Electronically signed by : Chetan Dean, 05/17/2025 16:46:05
[2025-05-16 11:29] VITALS: PULSE 123; RESP 17; O2SAT 97
[2025-05-16 11:30] VITALS: BP 163/100; PULSE 122; PULSE 127; RESP 16; RESP 19; TEMP 36.7; O2SAT 96; O2SAT 98; BMI 31.9
--- OUTSIDE RECORDS SUMMARY | 2025-05-16 11:40 | XMS_ITS | Clinical Summary ---
Author Organization [facility] Address [address] [place] [address] Phone [email or web address] Care Team Providers Care Heart Coordinator Name Role Phone Bakari Abdi MD Primary Care Provider [phone] Allergies Active Allergy Reactions Criticality Noted Date [...] B Infection Screening - Triple Screen 2007 Pneumococcal Immunization (1 of 2 - PCV) 2008 Hemoglobin A1C Testing 01/09/2025 , 06/06/2024, 06/05/2021 Covid-19 Immunization (4 - season) 2025 06/22/2021, 09/14/2020, 08/13/2020 Influenza Immunization (#1) 2025 11/0 03/2022, 06/02/2021 [...] Results * (ABNORMAL) Hgb A1C Hemoglobin Glycosylated (08176) (10/12/2024 11:49 AM EST) Hemoglobin A1C 5.9(H) 4.8 - 5.6 % Comment: Prediabetes: 5.7 - 6.4 Diabetes: >6.4 Glycemic control for adults with diabetes: <7.0 Blood (Blood, Venous) 10/12/2024 11:49 AM EST 10/12/2024 1:00 AM EST Comment:Blood, Venou Narrative [facility] - 10/13/2024 8:07 AM EST Performed at: - [facility] [address] [id number] Anesthesiology Fellow: Vitor Nevarez PhD, Phone: [phone] us Cody Rodriguez MD LAB BLOOD ORDERABLES Final Resul t [facility] - [address] [place] [phone] from Last 3 Months or Most Recently Relevant to Health Maintenance Insurance U[employer] NO COPAY NB Care Teams Heart Coordinator Relationship Specialty Start Date End Date Bakari Abdi MD [address] [facility] [address] [place] [address] PCP - General 10/12/24
--- OUTSIDE RECORDS SUMMARY | 2025-05-16 11:40 | XMS_ITS | Encounter Summary ---
Author Organization [facility] Address [address] [place] [address] Care Team Providers Care Screen Handler Name Role Phone Moris Abdi MD Primary Care Provider [phone] Reason for Visit * Reason Comments Med Refill Encounter Details Date Type Department Care Team ([facility] st Contact Info) Description 12/17/2023 Refill Medical Office Building [facility] [address], [address] [place] [address] Yadira Schulte PA [address] [place] [address] Avascular necrosis of bones of [...] Avascular necrosis of bones of both hips Chronic hip pain, bilateral documented in this encounter Additional Health Concerns Assessment Noted Time A fall risk assessment has been complete d for the patient 12/10/2023 8:11 AM EDT A Body Mass Index follow-up plan has been documented for the patient 12/10/2023 8:39 AM EDT documented as of this encounter Care Teams Screen Handler Relationship Specialty Start Date End Date Moris Abdi MD [address] [place] [address] PCP - General 12/28/20 documented as of this encounter
--- OUTSIDE RECORDS SUMMARY | 2025-05-16 11:40 | XMS_ITS | Clinical Summary ---
Author Organization [facility] Address [address] [place] [address] Care Team Providers Care Deputy Chief Counsel Name Role Phone Moris Abdi MD Primary Care Provider [phone] Allergies Active Allergy Reactions Criticality Noted Date [...] abuse 02/03/2025 Arthritis of right hip 06/13/2024 Acute hypokalemia 02/09/2024 Gout attack 02/09/2024 Allergic eye reaction 02/09/2024 Avascular necrosis of bone 02/09/2024 Avascular necrosis of left femoral head 02/09/20 CKD (chronic kidney disease) stage 3, GFR 30-59 ml/min 02/09/2024 Diabetes 02/09/2024 Hyperglycemia 02/09/2024 Dyspnea 02/09/2024 Finger laceration 02/09/2024 High cholesterol 02/09/2024 HLD (hyperlipidemia) 02/09/2024 Kidney function abnormal 02/09/2024 Pain aggravated by breathing 02/09/2024 Left hip impingement syndrome 02/09/2024 Nightmares associated with c hronic post-traumatic stress disorder 02/09/2024 Palpitations 02/09/2024 Posttraumatic stress disorder 02/09/2024 High blood pressure 02/09/2024 Maxillary sinusitis 02/09/2024 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 02/09/2024 Tachycardia 02/09/2024 Arthritis of left hip 01/25/2024 Avascular necrosis of bones of both hips 024 Primary hypertension 06/05/2021 Resolved Problems Problem Noted Date Diagnosed Date Resolved Date Abdominal cramping 02/09/2024 Acute right otitis media 02/09/2024 Bronchitis 02/09/2024 05/07/2025 Chest pain 02/09/2024 05/07/2025 Gastroenteritis 02/09/2024 05/07/2025 Fever 02/09/2024 02/09/2024 Otitis media 02/09/2024 05/07/2025 Post-operative pain 02/09/2024 05/07/20 Sinusitis 02/09/2024 05/07/2025 Family History Medical History Relation Name Comments [...] drink first t annie in the morning (EYE[employer]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 Author Autogenera yaniv Goal Care Plan Autogenerated Problem No King Qureshi MD Medical Devices Implanted Type Area Net Software Architect Device Identifier Shelf Expiration Date Model / Serial / Lot Chg Shell R3 3 Hole Acet 52mm - [id number] Implanted:Qty: 1 on 06/13/2024 by King Qureshi MD at [facility] Hip Right: Hip [employer]-[id number] 01/22/2034 [id number] / / [id number] Chg Head Oxinium Fem 12/14 28m - [id number] Implanted:Qty: 1 on 06/13/2024 by King Qureshi MD at [facility] Hip Right: Hip [employer]-[id number] 09/03/2030 [id number] / / [id number] Liner Or3o Dual Mbility 40 52 - [id number] Implanted:Qty: 1 on 06/13/2024 by King Qureshi MD at [facility] Liner Right: Hip [employer]-[id number] 12/25/2033 [id number] / / [id number] Liner Or3o Dual Mbility Xlpe /40 - [id number] Implanted:Qty: 1 on 06/13/2024 by King Qureshi MD at [facility] Liner Right: Hip [employer]-[id number] 03/14/2034 [id number] / / [id number] Chg Screw Ref Spher Head 25mm - [id number] Implanted:Qty: 1 on 06/13/2024 by King Qureshi MD at [facility] Screw Right: Hip [employer]-[id number] 01/04/2034 [id number] / / [id number] Chg Screw Ref Spher Head 35mm - [id number] Implanted:Qty: 1 on 06/13/2024 by King Qureshi MD at [facility] Screw Right: Hip [employer]-[id number] 01/22/2034 [id number] / / [id number] Polarstem Cementless Lat Tiha - [id number] Implanted:Qty: 1 on 06/13/2024 by King Qureshi MD at [facility] Stem Right: Hip [employer]-[id number] 07/02/2029 [id number] / / [id number] Chg Shell R3 3 Hole Acet 52mm - [id number] Implanted:Qty: 1 on 01/25/2024 by King Qureshi MD at [facility] Left: Hip [employer]-[id number] 09/16/2033 [id number] / / [id number] Chg Screw Ref Spher Head 25mm - [id number] Implanted:Qty: 1 on 01/25/2024 by King Qureshi MD at [facility] Left: Hip [employer]-[id number] 10/27/2033 [id number] / / [id number] Liner Or3o Dual Mbility 40 52 - [id number] Implanted:Qty: 1 on 01/25/2024 by King Qureshi MD at [facility] Left: Hip [employer]-[id number] 09/21/2033 [id number] / / [id number] Chg Screw Ref Spher Head 35mm - [id number] Implanted:Qty: 1 on 01/25/2024 by King Qureshi MD at [facility] Left: Hip [employer]-[id number] 09/28/2033 [id number] / / [id number] Liner Or3o Dual Mbility Xlpe 28/40 - [id number] Implanted:Qty: 1 on 01/25/2024 by King Qureshi MD at [facility] Left: Hip [employer]-[id number] 10/19/2033 [id number] / / [id number] Polarstem Cementless Tiha 2 - [id number] Implanted:Qty: 1 on 01/25/2024 by King Qureshi MD at [facility] Left: Hip [employer]-[id number] 01/06/2030 [id number] / / [id number] Chg Head Oxinium Fem 07/30 28m - [id number] Implanted:Qty: 1 on 01/25/2024 by King Qureshi MD at [facility] Left: Hip [employer]-[id number] 09/19/2033 [id number] / / [id number] Procedures Procedure Name Priority Date/Time Associated Diagnosis Comments HEPATITIS C ANTIBODY - ED W/REFLEX TO HCV QUANT PCR STAT 02/03/2025 12:37 AM EDT ED HIV 1/2 ANTIBODY/ANTIGEN SCREEN WITH REFLEX TO HIV I/II DIFFERENTIATION STAT 02/03/2025 12:37 AM EDT HEMOGLOBIN A1C Routine 06/06/2024 10:13 AM EDT Avascular necrosis of bone (CMS/HCC) Hip pain, right from Last 3 Months or Most Recently Relevant to Health Maintenance Results * ED HIV 1/2 Antibody/Antigen Screen w/Reflex to HIV 1/2 Differentiation (02/03/2025 12:37 AM EDT) HIV 1 & 2 Antibody/Antigen Screen Non Reactive Non Reactive 02/03/2025 1:28 AM EDT [facility] Comment:Screening for HIV 1 & 2 antibodies, and P24 antigen is NONREACTIVE. No confirmatory testing is required. Blood Venous blood specimen / Unknown Venipuncture / Unknown 02/03/2025 12:37 AM EDT 02/03/2025 12:40 AM EDT [facility] LAB BLOOD ORDERABLES Fin al Result Performing Organization Address City/[facility]/ZIP Co de Phone Number [facility] [address] [place] [address] * Hepatitis C Antibody - ED (02/03/2025 12:37 AM EDT) Pathologist [facility] Hepatitis C Antibody Negative Negative 02/03/2025 1:23 AM EDT [facility] Blood Venous blood specimen / Unknown Venipuncture / Unknown 02/03/2025 12:37 AM EDT 02/03/2025 12:40 AM EDT [facility] LAB BLOOD ORDERABLES Fin al Result [facility] [address] [place] [address] * (ABNORMAL) Hemoglobin A1c (06/06/2024 10:13 AM EDT) Pathologist [facility] Hemoglobin A1c 6.6(H) <5.7 % 06/06/2024 1:54 PM EDT [facility] Blood Venous blood specimen / Unknown Venipuncture / Unknown 06/06/2024 10:13 AM EDT 06/06/2024 10:13 AM EDT Narrative [facility] - 06/06/2024 1:54 PM EDT HA1C Interpretive Data: Diagnosis of Diabetes: Diabetic > or = 6.5% Pre-diabetic 5.7 to 6.4% Non-diabetic < or = 5.6% Glycemic Targets for Type I and Type II Diabetics: Non- Adults <7.0% Adults <6.0% Children and Adolescents <7.5% Source: [place] [employer]. Standards of medical care in diabetes,2017. Diabetes Care.2017:40 (suppl 1):S1-S135. HbA1c assay performed by an ion-exchange chromatography method that is certified traceable to the DCCT. us King Qureshi MD LAB BLOOD ORDERABLES Final R esult [facility] [address] [place] [address] from Last 3 Months or Most Recently Relevant to Health Maintenance Additional Health Concerns Active Problems Noted Date Diagnosed Date Autogenerated Problem 11/17/2024 Insurance [facility] Advance Directives * Full Code (Latest Code Status on File) Date Activated Date Inactivated Comments 06/13/2024 9:17 AM 06/13/2024 8:18 PM Question Answer Comments Patient has decision-making capacity? Yes * Full Code Date Activated Date Inactivated Comments 01/25/2024 8:43 AM 01/25/2024 7:29 PM Question Answer Comments Patient has decision-making capacity? Yes Care Teams Deputy Chief Counsel Relationship Specialty Start Date End Date Moris Abdi MD [address] [place] [address] [facility] - General 12/28/20
[2025-05-16 11:41] VITALS: BP 135/104; PULSE 125; PULSE 128; RESP 16; RESP 19; O2SAT 95; O2SAT 96
[2025-05-16 11:42] LABS: Hematocrit 48.9 % (42.0-52.0); Hemoglobin 17.5 g/dL (14.1-18.0); Immature Granulocytes % 0.3 %; Mean Corpuscular HGB Conc 35.8 g/dL (31.8-35.4); Mean Corpuscular Hemoglobin 30.1 pg (27.0-31.2); Mean Corpuscular Volume 84.0 fl (80-94); Nucleated Red Blood Cells % 0 %; Platelet Count 213 K/mm3 (142-424); Red Blood Count 5.82 M/mm3 (4.60-6.20); Red Cell Distribution Width-SD 35.2 fL; White Blood Count 6.5 K/mm3 (4.8-10.8)
[2025-05-16 11:43] LABS: Lipase 265 U/L (23-300)
[2025-05-16 11:45] LABS: Alanine Aminotransferase 29 U/L (12-78); Albumin Level 4.8 g/dl (3.5-5.0); Albumin/Globulin Ratio 2.2 (1.1-1.8); Alkaline Phosphatase 89 U/L (38-126); Anion Gap 20.1 mEq/L (5-15); Aspartate Amino Transferase 31 U/L (17-59); Bilirubin,Total 0.6 mg/dl (0.2-1.3); Blood Urea Nitrogen 6 mg/dl (9-20); Calcium 9.2 mg/dl (8.4-10.2); Carbon Dioxide 21 mmol/L (22.0-30.0); Chloride 104 mmol/L (98-107); Creatinine Clearance Estimated 188 mL/min (50-200); Creatinine,Serum 0.80 mg/dl (0.66-1.25); Estimated Glomerular Filt Rate 109 ml/min (>60); GFR (African American) 132 ML/MIN (>60); Globulin 2.2 g/dL (1.3-3.2); Glucose 188 mg/dl (74-100); Potassium 4.1 mmoL/L (3.5-5.1); Sodium 141 mmol/L (136-145); Total Protein,Serum 7.0 g/dl (6.3-8.2)
[2025-05-16 11:53] LABS: NT Pro Brain Natriuretic Pep. < 20.0 pg/mL (0-125)
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
[2025-05-16 11:58] LABS: Microscopic, Urine URINE MICROSCOPIC (MICROSCOPIC)
[2025-05-16 12:01] VITALS: BP 144/95; PULSE 117; RESP 15; O2SAT 95
--- NOTE | 2025-05-16 12:04 | PC.NURSE ---
Spoke with Alyse at behavioral health office regarding consult. She states that provider has already gone to lunch but she will try to get in touch with them and let them know there is a consult in the ER and call me back.
[2025-05-16 12:05] LABS: Bilirubin,Urine Negative (Negative); Color,Urine YELLOW (Yellow); Glucose,Urine (UA) Negative (Negative); Ketones,Urine Negative (Negative); Leukocyte Esterase,Urine Negative (Negative); PH,Urine 5.5 (5.0-8.5); Protein,Urine Negative (Negative); Specific Gravity, Urine <= 1.005 (1.005-1.030); Urobilinogen,Urine 0.2 EU/dl (0.2)
[2025-05-16 12:17] LABS: Acetaminophen < 10 ug/ml (10-30)
[2025-05-16 12:20] LABS: Amphetamine/Metha Screen,Urine Negative ng/ml (<1000); Benzodiazepines Screen,Urine Negative ng/ml (<200)
[2025-05-16 12:21] LABS: Barbiturates Screen,Urine Negative ng/ml (<200)
[2025-05-16 12:22] LABS: Salicylate < 1.0 mg/dL (2.0-20.0)
[2025-05-16 12:23] LABS: Methadone Screen,Urine Negative ng/ml (<300); Opiate Screen,Urine Negative ng/ml (<300)
[2025-05-16 12:24] LABS: Troponin I < 0.01 ng/ml (0.00-0.034)
[2025-05-16 12:24] LABS: Phencyclidine Screen,Urine Negative ng/ml (<25)
[2025-05-16 12:30] VITALS: BP 146/86; PULSE 112; RESP 18; O2SAT 94
--- NOTE | 2025-05-16 12:33 | PC.NURSE ---
Poornima Adkins APRN with [facility] at bedside for assessment.
[2025-05-16 13:25] VITALS: BP 119/87; PULSE 97; RESP 17; TEMP 37; O2SAT 99
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
[2025-05-16 15:13] LABS: INR 0.99 (0.9-1.1); Prothrombin Time 11.0 seconds (10.1-12.5)
== END 2025-05-16 13:26 | disposition home or self-care (01) ==
PROVIDERS: Physician Assistant; Emergency Provider Student in an Organized Health Care Education/Training Program; PCP Obstetrics & Gynecology
DX: R07.9 Chest pain, unspecified (principal); F10.180 Alcohol abuse with alcohol-induced anxiety disorder; R00.0 Tachycardia, unspecified; T43.504A Poisoning by unspecified antipsychotics and neuroleptics, undetermined, initial encounter; G47.00 Insomnia, unspecified; F43.10 Post-traumatic stress disorder, unspecified; F33.9 Major depressive disorder, recurrent, unspecified; F17.210 Nicotine dependence, cigarettes, uncomplicated; Y90.7 Blood alcohol level of 200-239 mg/100 ml
CPT/HCPCS: 80053; 80307; 80320; 80329; 81001; 83690; 83880; 84484; 85025; 85610; 93005; 99285

== ENCOUNTER 2025-05-23 21:03 | Emergency (ER) | payer OTHER, SELFPAY ==
--- OUTSIDE RECORDS SUMMARY | 2025-03-13 10:30 | XMS_ITS ---
Author Organization [facility] Address [address] [facility] [address] [place] [phone] Care Team Providers Care Typewriter Repairer Name Role Phone Jocelyne Abdi Primary Care Provider Tomasa De Leon [phone] Allergies Allergen (clinical drug ingredient) Drug/Non Drug Allergy documented on EMR Reaction Allergy Type Onset Date Status amoxicillin Amoxicillin Unknown Drug Allergy Act naseem clindamycin Clindamycin Unknown Drug Allergy Act naseem REASON FOR VISIT medsurg f/u Encounters Encounter Location Date Provider Diagnosis [facility] [address] [facility] [address] [place] [phone] 03/13/2025 Jocelyne Abdi Plan Of Treatment No Information Progress Notes * LORENE SHYANNDOB: [birth year] (35 yo M)Acc No.[id number]:03/13/2025 Progress Notes Patient: SHYANN JOHN Provider: Jocelyne Abdi M.D. :1990 A ge:34 Y S ex:Male Date:03/13/2025 Address:[id number] Subjective: * Chief Complaints: * 1 [...] 06/03-, Sinus infection, Bronchitis, Middle Ear Infection- [facility] 09/04/2018, Sinus Infection- [facility] 10/2018, Palpitations- [facility] 04/2019. * Family History: F [...] Electronic signature of Jocelyne Abdi MD on 05/23/2025 at 09:23 PM EDT Sign off status: Pending * Provider: Jocelyne Abdi M.D. Date: 0 03/13/2025 Generated for Ryan zacarias/Gilbert/Lara on: 09:23 PM EDT
--- OUTSIDE RECORDS SUMMARY | 2025-03-27 09:30 | XMS_ITS ---
Author Organization [facility] Address [address] [facility] [address] [place] [id number] Care Team Providers Care Soiled Linen Distributor Name Role Phone Jocelyne Abdi Primary Care Provider [phone] Tomasa De Leon [phone] Allergies Allergen (clinical drug ingredient) Drug/Non Drug Allergy documented on EMR Reaction Allergy Type Onset Date Status amoxicillin Amoxicillin Unknown Drug Allergy Act naseem clindamycin Clindamycin Unknown Drug Allergy Act naseem REASON FOR VISIT F/U on anxiety and retaining fluid Encounters Encounter Location Date Provider Diagnosis [place] [facility] [address] [place] [phone] 03/27/2025 Jocelyne Abdi Plan Of Treatment No Information Progress Notes * LORENE SHYANNDOB: [birth year] (35 yo M)Acc No.[id number]:03/27/2025 Progress Notes Patient: SHYANN JOHN Provider: Jocelyne Abdi M.D. :1990 A ge:35 Y S ex:Male Date:03/27/2025 Address:[address], [id number] Subjective: * Chief Complaints: * 1 . F/U on anxiety and retaining fluid. * ROS: D ERMATOLOGY: no R yury. [...] 06/03-, Sinus infection, Bronchitis, Middle Ear Infection- [facility] 09/04/2018, Sinus Infection- [facility] 10/2018, Palpitations- [facility] 04/2019. * Family History: F ather: [...] of Jocelyne Abdi MD on 05/23/2025 at 09:24 PM EDT Sign off status: Pending * Provider: Jocelyne Abdi M.D. Date: 0 03/27/2025 Generated for Ryan zacarias/Gilbert/Miguesmitting on: 09:24 PM EDT
--- OUTSIDE RECORDS SUMMARY | 2025-04-26 06:30 | XMS_ITS ---
Author Organization [place] Address [address] [facility] [address] [place] [phone] Care Team Providers Care Child Development Professor Name Role Phone Jocelyne Abdi Primary Care Provider Tomasa De Leon Unavailable [phone] Kori Bowers Unavailable [phone] Allergies Allergen (clinical drug ingredient) Drug/Non Drug Allergy documented on EMR Reaction Allergy Type Onset Date Status amoxicillin Amoxicillin Unknown Drug Allergy Act naseem clindamycin Clindamycin Unknown Drug Allergy Act naseem REASON FOR VISIT rehab f/u Encounters Encounter Location Date Provider Diagnosis [place] [address] [facility] [address] [place] [phone] 04/26/2025 Kori Bowers Plan Of Treatment No Information Progress Notes * DANAE SHYANNDOB: [birth year] (35 yo M)Acc No.[id number]:04/26/2025 Progress Notes Patient: SHYANN JOHN Provider: ROSE Lam :1990 A ge:35 Y S ex:Male Date:04/26/2025 Address:[address], [id number] Pcp:Jocelyne Abdi Subjective: * Chief Complaints: * 1 . Rehab f/u. * HPI: H PI: 35 year old male presents with c/o Here for follow up on: P t is here today for a rehab f/u. * ROS: D ERMATOLOGY: no R [...] 06/03-, Sinus infection, Bronchitis, Middle Ear Infection- [facility] 09/04/2018, Sinus Infection- [facility] 10/2018, Palpitations- [facility] 04/2019. * Family History: F ather: [...] * Electronic signature of ROSE Hare on 05/23/2025 at 09:23 PM EDT Sign off status: Pending * Provider: ROSE Lam Date: 0 04/26/2025 Generated for Ryan zacarias/Gilbert/Lara on: 1 09:23 PM EDT History and Physical Notes * HPI (History of Present Illness) Category Sub-Category Detail Notes Category Not es HPI Here for follow up on: Pt is here today f or a rehab f/u
--- OUTSIDE RECORDS SUMMARY | 2025-05-10 05:45 | XMS_ITS ---
Author Organization [facility] Address [address] [place] [id number] Care Team Providers Care Bait Man Name Role Phone Jocelyne Abdi Primary Care Provider Tomasa De Leon Unavailable [phone] Kori Bowers Unavailable [phone] Allergies Allergen (clinical drug ingredient) Drug/Non Drug Allergy documented on EMR Reaction Allergy Type Onset Date Status amoxicillin Amoxicillin Unknown Drug Allergy Act naseem clindamycin Clindamycin Unknown Drug Allergy Act naseem Results Component Value Reference Range Notes CBC Venipuncture (in house) Reviewed date:05/11/2025 02:22:25 PM Interpretation:Normal Performing Lab: Notes/Report: Normal wbc 6.7 3.5 - 10 lymph 15.9% 15 - 50 mid 4.6% 2 - 15 gran 79.5% 35 - 80 rbc 5.67 3.5 - 5.5 hgb 17.1 11.5 - 16.5 hct 50.4 35 - 55 mcv 88.8 75 - 100 mch 30.2 25 - 35 mchc 34.0 31 - 38 platlet 167 100 - 400 P-Amylase Reviewed date:05/11/2025 02:22:25 PM Interpretation:Normal Performing Lab: Notes/Report: Test performed by [facility] [address] [place] [address] , [address], [place] [address] Tino Fletcher MD, Elementary [employer] Science Teacher CLIA: [id number] Amylase 71 28-100 U/L P-Comprehensive Metabolic Pa darryl (CMP) Reviewed date:05/11/2025 02:22:25 PM Interpretation:glu 122, a/g 3.0 Performing Lab: Notes/Report: Test performed by [facility] [address] [place] [address] , [address], [place] [address] Tino Fletcher MD, Elementary [employer] Science Teacher CLIA: [id number] Sodium 142 135-145 mmol/L Potassium 4.2 3.5-5.3 mmol/L Chloride 108 97-108 mmol/L CO2 25 20-32 mmol/L Glucose 122 65-99 mg/dL BUN 10 6-20 mg/dL Creatinine 0.91 0.70-1.30 mg/dL Calcium 9.4 8.6-10.4 mg/dL eGFR by Creatinine 112 >59 mL/min/1.73m2 Protein 6.4 6.0-8.3 g/dL Albumin 4.8 3.5-5.3 g/dL Alkaline Phosphatase 72 40-129 IU/L ALT (SGPT) 28 <5-55 IU/L AST (SGOT) 19 <5-46 IU/L Bilirubin, Total 0.3 <0.2-1.2 mg/dL A/G Ratio 3.0 1.1-2.5 P-Lipase Reviewed date:05/11/2025 02:22:25 PM Interpretation:Normal Performing Lab: Notes/Report: Test performed by [facility] [address] [place] [address] , [address], [place] [address] Tino Fletcher MD, [employer] Science Teacher CLIA: [id number] Lipase 55.5 13.0-60.0 U/L REASON FOR VISIT work release to go back to work Medications Medication SIG (Take, Route, Frequency, Duration) Notes Start Date End Date Status Acetaminophen 325 MG 1 capsule as needed Orally every 6 hrs Active dilTIAZem HCl ER Beads 240 MG 1 capsule Orally Once a day Active Carvedilol 25 MG 1 tablet with food Orally Twice a day Active Breo Ellipta 100-25 MCG/ACT inhale 1 puf f by mouth once daily Inhalation Once a day; Duration: 90 days Active hydrOXYzine HCl 50 MG 2 tab Orally 3 lon es a day; Duration: 30 days 01/26/2025 Active Multivitamin - 1 tab(s) orally once a day prn Active Atorvastatin Calcium 10 MG 1 tablet Oral ly Once a day; Duration: 30 day(s) 09/10/2023 Active Lisinopril 20 MG 1 tablet Orally Once a day Active Esomeprazole Magnesium 40 MG 1 cap(s) or ally once a day, OTC Active Effexor XR 150 MG 1 capsule with food Orally Once a day in the morning Active Effexor XR 75 MG 1 capsule with food Orally Once a day at night Active busPIRone HCl 15 MG 1 tablet Orally 3 ti mes a day Active Naltrexone HCl 50 MG 1 tablet Orally Onc e a day Active Vital Signs Weight 229.6 lbs 05/10/2025 Blood pressure systolic 132 mm Hg 05/10/20 25 Blood pressure diastolic 74 mm Hg 025 Heart Rate 90 /min 05/10/2025 Height 69.50 in 05/10/2025 BMI 33.42 kg/m2 05/10/2025 Encounters Encounter Location Date Provider Diagnosis [facility] [address] [facility] [address] [place] [id number] 05/10/2025 Kori Bowers Acute pancreatitis, unspecified complication status, unspecified pancreatitis type K85.90 ; Alcohol abuse F10.10 and Anxiety disorder, unspecified F41.9 Assessments Encounter Date Diagnosis (ICD Code) Assessment Notes Treatment Notes Treatment Clinical Notes Section Notes 05/10/2025 Acute pancreatitis, unspecified complication status, unspecified pancreatitis type (ICD-10 - K85.90) 05/10/2025 Alcohol abuse (ICD-10 - F10.10) 05/10/2025 Anxiety disorder, unspecified (ICD-10 - F41.9) Will call behavioral health. Plan Of Treatment Treatment Notes Assessment Notes Anxiety disorder, unspecified Will call behavioral health. Next Appt Details Follow Up: via phone to repo rt test results, 2 weeks, Reason: Progress Notes * LORENESHYANN VASQUEZDOB: [birth year] (35 yo M)Acc No.[id number]:05/10/2025 Progress Notes Patient: SHYANN JOHN Provider: ROSE Lam :1990 A ge:35 Y S ex:Male Date:05/10/2025 Address:[address] [place] [address], [place] [id number] Pcp:Jocelyne Abdi Subjective: * Chief Complaints: * 1 . Work release to go back to work. * HPI: H PI: Denies : Patient is here today for w ork release after completing rehab. Pt states he would like to try and get on a different anxiety medication. Pt states he is doing well otherwise and has not had any alcohol but did start smoking again.. * ROS: D ERMATOLOGY: no R yury. [...] 06/03-, Sinus infection, Bronchitis, Middle Ear Infection- [facility] 09/04/2018, Sinus Infection- [facility] 10/2018, Palpitations- [facility] 04/2019. * Family History: F ather: alive 65 yrs, DM. M other: alive 68 yrs. P aternal Grand Father: , black lung. P aternal Grand Mother: , DM. M aternal Grand Father: alive. M aternal Grand Mother: alive. * Social History: C URRENT TOBACCO USE: Yes S moking Status: Patient does smoke, packs [...] ouside US: no. * Medications: T aking Naltrexone HCl 50 MG Tablet 1 tablet Orally Once a day , Taking busPIRone HCl 15 MG Tablet 1 tablet Orally 3 times a day , Taking Effexor XR 75 MG Capsule Extended Release 24 Hour 1 capsule with food Orally Once a day at night , Taking Effexor XR 150 MG Capsule Extended Release 24 Hour 1 capsule with food Orally Once a day in the morning , Taking Atorvastatin Calcium 10 MG Tablet 1 tablet Orally Once a day , Taking Multivitamin - Tablet 1 tab(s) orally once a day prn , Taking Esomeprazole Magnesium 40 MG Capsule Delayed Release 1 cap(s) orally once a day, OTC , Taking Lisinopril 20 MG Tablet 1 tablet Orally Once a day , Taking Carvedilol 25 MG Tablet 1 tablet with food Orally Twice a day , Taking dilTIAZem HCl ER Beads 240 MG Capsule Extended Release 24 Hour 1 capsule Orally Once a day , Taking hydrOXYzine HCl 50 MG Tablet 2 tab Orally 3 times a day , Taking Breo Ellipta 100-25 MCG/ACT Aerosol Powder Breath Activated inhale 1 puff by mouth once daily Inhalation Once a day , Taking Acetaminophen 325 MG Capsule 1 capsule as needed Orally every 6 hrs , Medication List reviewed and reconciled with the patient * Allergies: A moxicillin, Clindamycin. Objective: * Vitals: W t: 229.6, Temp: 98.1, BP: 132/74, HR: 90, Nurse: SF, Ht: 69.50, BMI:33.42. * Examination: G eneral Examination: General Appearance: N AD. H EENT: u nremarkable.?Oral cavity: n o lesions, mucosa moist and WNL, no erythema. N jocelyn: s upple, no lymphadenopathy. C hest: n ormal shape and expansion. H eart: R SR. L ungs: b ilateral wheezes. A bdomen: b owel sounds present, soft and nontender, no organomegaly or masses, no guarding or rigidity. N eurologic Exam: I ntact, gait normal. S kin: n ormal, no rash. P eripheral pulses: n ormal (2+) bilaterally. E xtremities: n o leg edema. Assessment: * Assessment: 1. A cute pancreatitis, unspecified complication status, unspecified pancreatitis type - K85.90 (Primary) 2 . A lcohol abuse - F10.10 3 . A nxiety disorder, unspecified - F41.9 Plan: * Treatment: Value Reference Range A mylase 71 28-100 - U/L * Kori Bowers 05/10/2025 1 0:23:13 AM EDT >room 5, Kelli Alamo 05/11/2025 02:22:12 PM EDT > See phone encounter ?LAB: P-Comprehensive Metabolic Panel (CMP) (Collection Date & Time - 05/10/2025 09:25 AM)?glu 122, a/g 3.0* Value Reference Range A /G Ratio 3.0 H 1.1-2.5 - * A lbumin 4.8 3.5-5.3 - g/dL * A lkaline Phosphatase 72 40-129 - IU/L * A LT (SGPT) 28 <5-55 - IU/L * A ST (SGOT) 19 <5-46 - IU/L * B ilirubin, Total 0.3 <0.2-1.2 - mg/dL * B UN 10 6-20 - mg/dL * C alcium 9.4 8.6-10.4 - mg/dL * C hloride 108 97-108 - mmol/L * C O2 25 20-32 - mmol/L * C reatinine 0.91 0.70-1.30 - mg/dL * G lucose 122 H 65-99 - mg/dL * P otassium 4.2 3.5-5.3 - mmol/L * S odium 142 135-145 - mmol/L * P rotein 6.4 6.0-8.3 - g/dL * e GFR by Creatinine 112 >59 - mL/min/1.73m2 * Kori Bowers 05/10/2025 1 0:23:13 AM EDT >room 5, Kelli Alamo 05/11/2025 02:22:12 PM EDT > See phone encounter ?LAB: P-Lipase (Collection Date & Time - 05/10/2025 09:25 AM)?Normal* Value Reference Range L ipase 55.5 13.0-60.0 - U/L * Kori Bowers 05/10/2025 1 0:23:13 AM EDT >room 5, Kelli Alamo 05/11/2025 02:22:12 PM EDT > See phone encounter ?LAB: CBC Venipuncture (in house) (Collection Date & Time - 05/10/2025)? Normal* Value Reference Range w bc 6.7 3.5 - 10 * l ymph 15.9% 15 - 50 * m id 4.6% 2 - 15 * g ran 79.5% 35 - 80 * r bc 5.67 3.5 - 5.5 * h gb 17.1 11.5 - 16.5 * h ct 50.4 35 - 55 * m cv 88.8 75 - 100 * m ch 30.2 25 - 35 * m chc 34.0 31 - 38 * p latlet 167 100 - 400 * June Tiwari 05/10/2025 04: 29:02 PM EDT > Kelli Merrill 05/11/2025 02:22:12 PM EDT > See phone encounter 2.?Anxiety disorder, unspecified? Notes: Will call behavioral health.?? * Procedure Codes: 8 5025 CBC WITH AUTO DIFF, 709[address] VENIPUNCT, ROUTINE*, 3075F SYST BP GE 130 - 139MM HG, 3078F DIAST BP < 80 MM HG * Follow Up: v ia phone to report test results, 2 weeks * Images: Billing Information: * Visit Code: 84296 Office Visit, Est Pt., Level 4. * Procedure Codes: 47120 CBC WITH AUTO DIFF. 68960 VENIPUNCT, ROUTINE*. 3075F SYST BP GE 130 - 139MM HG. 3078F DIAST BP < 80 MM HG. * Electronic signature of ROSE Hare on 05/23/2025 at 09:23 PM EDT Sign off status: Pending * Provider: ROSE Lam Date: 0 05/10/2025 Generated for Ryan zacarias/Gilbert/eTransmitting on: 1 09:23 PM EDT History and Physical Notes * HPI (History of Present Illness) Category Sub-Category Detail Notes Category Not es HPI Patient is here today for work r elease after completing rehab. Pt states he would like to try and get on a different anxiety medication. Pt states he is doing well otherwise and has not had any alcohol but did start smoking again. Examination Category Sub-Category Detail Notes Category Not es General Examination HEENT: unremarkable Heart: RSR Lungs: bilateral wheezes Abdomen: bowel sounds present , soft and nontender, no organomegaly or masses, no guarding or rigidity Extremities: no leg edema General Appearance: NAD Skin: normal, no rash Neurologic Exam: Intact, gait normal Neck: supple, no lymphaden opathy Oral cavity: no lesions, mucosa m oist and WNL, no erythema Peripheral pulses: normal (2+) bilatera lly Chest: normal shape and exp ansion
--- OUTSIDE RECORDS SUMMARY | 2025-05-19 06:15 | XMS_ITS ---
Author Organization [facility] Address [address] [facility] [address] [place] [id number] Care Team Providers Care Email Marketing Coordinator Name Role Phone Jocelyne Abdi Primary Care Provider Tomasa De Leon Unavailable [phone] Kori Bowers Unavailable [phone] Allergies Allergen (clinical drug ingredient) Drug/Non Drug Allergy documented on EMR Reaction Allergy Type Onset Date Status amoxicillin Amoxicillin Unknown Drug Allergy Act naseem clindamycin Clindamycin Unknown Drug Allergy Act naseem REASON FOR VISIT Follow Up/Mental Health Issues Encounters Encounter Location Date Provider Diagnosis [facility] [address] [place] [id number] 05/19/2025 Kori Bowers Plan Of Treatment No Information Progress Notes * SHYANN FINKDOB: [birth year] (35 yo M)Acc No.[id number]:05/19/2025 Progress Notes Patient: SHYANN JOHN Provider: ROSE Lam :1990 A ge:35 Y S ex:Male Date:05/19/2025 Address:[address], [id number] Pcp:Jocelyne Abdi Subjective: * Chief Complaints: * 1 . Follow Up/Mental Health Issues. * ROS: D ERMATOLOGY: no R yury. n o H karina. G ASTROENTEROLOGY: no N ausea. n o V omiting. n o D iarrhea.? U ROLOGY: no B lood in urine. n o F requent urination. ? * Medical History: H ypertension, Asthma, Anxiety. * Surgical History: b ilateral hip replacements . * Hospitalization/Major Diagno stic Procedure: [facility] 1996, Pneumonia 06/03-, Sinus infection, Bronchitis, Middle Ear Infection- [facility] 09/04/2018, Sinus Infection- [facility] 10/2018, Palpitations- [facility] 04/2019. * Family History: F [...] status: Pending * Provider: ROSE Lam Date: Generated for Ryan zacarias/Gilbert/Miguesmitting on: 09:23 PM EDT
[2025-05-23 21:07] VITALS: BP 150/97; PULSE 107; RESP 20; TEMP 36.8; O2SAT 100; BMI 33.0
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
--- OUTSIDE RECORDS SUMMARY | 2025-05-23 21:23 | XMS_ITS | Patient Health Record ---
Author Organization [facility] Address [address] [facility] [address] [id number] Care Team Providers Care Hr Payroll Coordinator Name Role Phone Jocelyne Abdi Primary Care Provider [phone] Tomasa De Leon Unavailable [phone] Won Lawson Unavailable [phone] Gato Persaud Unavailable [phone] Kori Bowers Unavailable [phone] Allergies Allergen (clinical drug ingredient) Drug/Non Drug [...] 12:08:31 PM Interpretation:Normal Performing Lab: Notes/Report: CLIA: [id number] Tino Fletcher MD, [employer] [address] [place] [address] , [address], [place] [address] Test performed by [facility] Vitamin B12 204 671-1669 pg/mL P-Comprehensive Metabolic Pa darryl (CMP) Reviewed date:09/09/2024 12:08:31 PM Interpretation:gluc 120 Performing Lab: Notes/Report: Test performed by [facility] [address] [place] [address] , [address], [place] [address] Tino Fletcher MD, [employer] Barrel [employer]er CLIA: [id number] Sodium 142 135-145 mmol/L Potassium 4.3 3.5-5.3 [...] Interpretation:Normal Performing Lab: Notes/Report: Test performed by [facility] [address] [place] [address] , [address], [place] [id number] Tino Fletcher MD, [employer] Bar[employer]er CLIA: [id number] TSH reflex to FT4 0.81 0.43-5.25 mU/L P-Vitamin D 25-Hydroxy Reviewed date:09/09/2024 12:08:31 PM Interpretation:11.1 Performing Lab: Notes/Report: Test performed by [facility] [address] [place] [address] , [address], [place] [address] Tino Fletcher MD, [employer] Bar[employer] CLIA: [id number] Vitamin D 25-Hydroxy 11.1 30.0-100.0 ng/mL Interpretation of Vitamin D 25 [place]: < 20 ng/mL - Deficiency 20 - 29 ng/mL - Insufficiency 30 - 100 ng/mL - Sufficiency > 100 ng/mL - Super-therapeutic- toxicity may occur above this level. Clinical correlation required. CBC Fingerstick (in house) Reviewed date:07/28/2024 10:16:56 [...] patient currently hospitalized? No Is patient an [facility] employee? N Is the patient employed in healthcare? No Does the patient have COVID symptoms? Yes Is this the 1st COVID test for the patient? No No ADENOQIA Not Detected NotDetected CORONAHKU1 Not Detected NotDetected [id number] Not Detected NotDetected [id number] Not Detected NotDetected LSGPBWM87 Not Detected NotDetected METAPNEUMO Not Detected NotDetected RHINOENTER Not Detected NotDetected INFLUAPCR Not Detected NotDetected FLUAH1 Not Detected NotDetected [id number] Not Detected NotDetected INFLUAH3 Not Detected NotDetected [...] nothing acute CBC Fingerstick (in house) Reviewed date:06/30/2024 02:41:20 [...] - 38 plat 196 100 - 400 H-DIFF Reviewed date:03/07/2025 11:50:23 AM Interpretation: Performing Lab: Notes/Report: MDIFF MANUAL DIFFERENTIAL MANUAL DIFF TCC 100 NEUT%M 69 42-76 % LYMPH%M 22 10-50 % MONO%M 6 2-9 % EOS%M 2 0-3 % BASO%M 1.0 0-1 PLTE Moderate Decrease RM Normal H-CMP Reviewed date:03/07/2025 11:50:23 AM Interpretation: Performing Lab: Notes/Report: NA 137 136-145 mmol/L K 3.0 3.5-5.1 mmoL/L CRITICAL RESULT Results called and read back/verified to: [K FOSTER] on 02/24/25 at 0901 By Alexey Ramirez [...] AGRATIO 2.3 1.1-1.8 ALP 63 38-126 U/L H-CBC Reviewed date:03/07/2025 11:50:23 AM Interpretation: Performing Lab: Notes/Report: WBC 2.9 4.8-10.8 K/mm3 Delta: 4.9 on 02/22/25 RBC 4.96 4.60-6.20 M/mm3 HGB 14.5 14.1-18.0 [...] 0.0 0-0.2 K/mm3 NRBC# 0 IG# 0 H-Folate Reviewed date:03/07/2025 11:50:24 AM Interpretation: Performing Lab: Notes/Report: FOL 9.15 Normal Adult: 2.76->20 ng/mL Folate Deficent: 1.04-2.79ng/mL H-VITAMIN B12 Reviewed date:03/07/2025 11:50:24 AM Interpretation: Performing Lab: Notes/Report: VITB12 585 239-931 pg/mL H-Transferrin Reviewed date:03/07/2025 11:50:24 AM Interpretation: Performing Lab: Notes/Report: TRANS 230 177-329 mg/dL Performed at: [address] [id number] Housekeeping Staff: Vitor Nevarez PhD, Phone: [phone] H-Vitamin B1 Reviewed date:03/07/2025 11:50:24 AM Interpretation: Performing Lab: Notes/Report: Test(s) 923512-Xbp. B1, Whole Blood was developed and its performance characteristics determined by [facility]. It has not been cleared or approved by the Food and Drug Administration. VITB1 110.1 66.5-200.0 nmol/L Performed at: [address] [id number] Housekeeping Staff: Carlos Esteban MD, Phone: [phone] CBC Venipuncture (in house) Reviewed date:05/11/2025 02:22:25 [...] date:05/11/2025 02:22:25 PM Interpretation:Normal Performing Lab: Notes/Report: CLIA: [id number] Tino Fletcher MD, [employer] [address] [place] [address] , [address], [place] [address] Test performed by [facility], [facility] Amylase 71 28-100 U/L H-CBC Reviewed date:03/07/2025 11:50:23 AM Interpretation: Performing [...] 0.0 0-0.2 K/mm3 NRBC# 0 IG# 0.02 H-Glycohemoglobin A1C Reviewed date:03/07/2025 11:50:24 AM Interpretation: Performing Lab: Notes/Report: HGBA1C 6.3 4.0-6.0 % < 6% Non-Diabetic Level < 7% Controlled Diabetic Level > 8% Poorly Controlled Diabetic Level H-DIFF Reviewed date:03/07/2025 11:50:23 AM Interpretation: Performing [...] ALB 4.2 3.5-5.0 g/dl Delta: 5.3 on 02/22/25 GLOB 1.8 1.3-3.2 g/dL AGRATIO 2.3 1.1-1.8 [...] Prevention of Sytemic Emolism secondary to AMI. P-Comprehensive Metabolic Pa darryl (CMP) Reviewed date:05/11/2025 02:22:25 PM Interpretation:glu 122, a/g 3.0 Performing Lab: Notes/Report: Test performed by [facility] [address] [place] [address] , [address], [place] [address] Tino Fletcher MD, [employer] Bar[employer] Re[employer]er CLIA: [id number] Sodium 142 135-145 mmol/L Potassium 4.2 3.5-5.3 [...] Interpretation:Normal Performing Lab: Notes/Report: Test performed by [facility] [address] [place] [address] , [address], [place] [address] Tino Fletcher MD, [employer] Bar[employer]er CLIA: [id number] Lipase 55.5 13.0-60.0 U/L H-PTT Reviewed date:03/07/2025 11:50:23 AM Interpretation: Performing Lab: Notes/Report: Patient on anticoagulants? N PTT 27.6 22.8-30.6 seconds Medications Medication SIG (Take, Route, Frequency, Duration) Notes Start Date End Date Status Multivitamin - 1 tab(s) orally once a day prn Active Atorvastatin Calcium 10 MG 1 tablet Oral ly Once a day; Duration: 30 day(s) 09/10/2023 Active Lisinopril 20 MG 1 tablet Orally Once a day Active Esomeprazole Magnesium 40 MG 1 cap(s) or ally once a day, OTC Active Effexor XR 75 MG 1 capsule with food Orally Once a day at night Active busPIRone HCl 15 MG 1 tablet Orally 3 ti mes a day Active Acetaminophen 325 MG 1 capsule as needed Orally every 6 hrs Active Effexor XR 150 MG 1 capsule with food Orally Once a day in the morning Active dilTIAZem HCl ER Beads 240 MG 1 capsule Orally Once a day Active Carvedilol 25 MG 1 tablet with food Orally Twice a day Active Naltrexone HCl 50 MG 1 tablet Orally Onc e a day Active Breo Ellipta 100-25 MCG/ACT inhale 1 puf f by mouth once daily Inhalation Once a day; Duration: 90 days Active hydrOXYzine HCl 50 MG 2 tab Orally 3 lon es a day; Duration: 30 days 01/26/2025 Active Immunizations Vaccine Route Administration Date Status Comme [...] W/U Status Risk Notes Problem Essential hypertension (03974711) Essential (primary) hypertension (I10) Active confirmed Problem Tachycardia (7237159) Tachycardia (R00.0) Active confirmed Problem Hypertension (90971664) HTN (hypertension) (I10) Active confirmed Problem Vitamin D deficiency (50160094) Vitamin D deficiency (E55.9) Active confirmed Problem Anxiety (76221093) Anxiety (F41.9) Active confi rmed Problem Hyperlipidaemia (82026888) Hyperlipemia (E78.5) Active confirmed Problem Obstructive sleep apnea (94405919) Obstructive sleep apnea (G47.33) Active confirmed Problem Hiatal hernia (37140579) Hiatal hernia (K44.9) Active confirmed Problem Mixed anxiety and depressive disorder (023848859) Depression with anxiety (F41.8) Active confirmed Problem Rectal bleeding (31307021) Rectal bleeding (K62.5) Active confirmed Problem Exacerbation of asthma (630355279) Asthma exacerbation (J45.901) Active confirmed Problem Alcohol abuse (49718338) Alcohol abuse (F10.10) Active confirmed Problem Mixed hyperlipidemia (258542172) Mixed hyperlipidemia (E78.2) Active confirmed Problem Dysthymia (97705133) Dysthymic disorder (F34.1) Active confirmed Problem Anxiety disorder (245005067) Anxiety disorder, unspecified (F41.9) Active confirmed Problem Post-traumatic stress disorder (54714368) Post-traumatic stress disorder, unspecified (F43.10) Active confirmed Problem Acute severe exacerbation of moderate persistent asthma (disorder) (640812030) Moderate persistent asthma with status asthmaticus (J45.42) Active confirmed Problem Second degree hemorrhoids (370102565) Second degree hemorrhoids (K64.1) Active confirmed Problem Genital warts (552724796) Genital warts (A63.0) Active confirmed Problem Uncomplicated moderate persistent asthma (463954590) Moderate persistent asthma without complication (J45.40) Active confirmed Problem Gastroesophageal reflux disease with esophagitis (766597064) Gastroesophageal reflux disease with esophagitis (K21.0) Active confirmed Problem Panic disorder (667690271) Panic attacks (F41.0) Active confirmed Problem Obese class II (350048351495306) BMI 36.0-36.9,adult (Z68.36) Active confirmed Problem Exacerbation of moderate persistent asthma (disorder) (546561446) Moderate persistent asthma with acute exacerbation (J45.41) Active confirmed Problem Anogenital warts (197422133) Condyloma acuminata (A63.0) Active confirmed Problem Avascular necrosis (88786018) Avascular necrosis (M87.00) Active confirmed Problem Alcoholism (2523824) Alcoholism (F10.20) Active confirmed Problem Polysubstance abuse (017961926) Polysubstance abuse (F19.10) Active confirmed Problem Hypersomnia (20811035) Hypersomnia (G47.10) Active confirmed Problem Tobacco user (142932283) Cigarette nicotine dependence without complication (F17.210) Active confirmed Problem Excessive daytime sleepiness - normal night sleep (205830909) Daytime sleepiness (R40.0) Active confirmed Problem Panic attack (095587094) Panic attack (F41.0) Active confirmed Problem Anxiety depression (374868253) Anxiety with depression (F41.8) Active confirmed Problem Allergic rhinitis (64393957) Chronic non-seasonal allergic rhinitis, unspecified trigger (J30.89) Active confirmed Problem Exacerbation of asthma (081562515) Exacerbation of asthma, unspecified asthma severity, unspecified whether persistent (J45.901) Active confirmed Problem Exacerbation of moderate persistent asthma (disorder) (150164058) Moderate persistent asthma with exacerbation (J45.41) Active confirmed Problem Allergic rhinitis (98989513) Non-seasonal allergic rhinitis, unspecified trigger (J30.89) Active confirmed Problem Asthma without status asthmaticus (17461206) Moderate asthma, unspecified whether complicated, unspecified whether persistent (J45.909) Active confirmed Problem Thromboangiitis obliterans (84651582) Buergers disease (I73.1) Active confirmed Problem Severe major depression, single episode, without psychotic features (07342316) Current severe episode of major depressive disorder without psychotic features, unspecified whether recurrent (F32.2) Active confirmed Problem Depressed bipolar I disorder (04215361) Bipolar affective disorder, current episode depressed, current episode severity unspecified (F31.30) Active confirmed Vital Signs Heart Rate 90 /min 05/10/2025 Blood pressure diastolic 74 mm Hg 05/10/2025 Height 69.50 in 05/10/2025 Blood pressure systolic 132 mm Hg 05/10/2025 Weight 229.6 lbs 05/10/2025 BMI 33.42 kg/m2 05/10/2025 Encounters Encounter Location Date Provider Diagnosis [place] [address] [facility] [address] [place] [id number] 06/30/2024 R Dean Lawson Acute bronchitis J20 .9 and Moderate persistent asthma without complication J45.40 [place] [address] [facility] [address] [place] [id number] 07/07/2024 Kori Crowjohnie Exacerbation of asth ma, unspecified asthma severity, unspecified whether persistent J45.901 and Bronchitis J40 [place] [address] [facility] [address] [place] [id number] 07/21/2024 R Dean Lawson Essential (primary) hypertension I10 [place] [address] [facility] [address] [place] [id number] 07/28/2024 Gato Marion Nausea and vomiting, unspecified vomiting type R11.2 [place] [address] [facility] [address] [place], [place] [id number] 09/08/2024 Kori Crowdy Essential (primary) hypertension I10 ; Obstructive sleep apnea G47.33 ; Moderate persistent asthma without complication J45.40 ; Gastroesophageal reflux disease with esophagitis K21.0 ; Impaired fasting glucose R73.01 ; Depression with anxiety F41.8 and Other fatigue R53.83 [facility] [address] [facility] [address] [place] [id number] 01/26/2025 Kori [place] Anxiety with depress ion F41.8 [facility] [address] [facility] [address] [place], [place] [id number] 02/09/2025 Kori Crowdy Alcohol abuse F10.10 ; Depression with anxiety F41.8 ; Panic attacks F41.0 and Essential (primary) hypertension I10 [facility] [place] [address] [place] [id number] 05/10/2025 Kori Hussaindy Acute pancreatitis, unspecified complication status, unspecified pancreatitis type K85.90 ; Alcohol abuse F10.10 and Anxiety disorder, unspecified F41.9 [facility] [address] [place], [place] [id number] 07/15/2024 Jocelyne Bakari Abdi [facility] [address] [place], [place] [id number] 08/26/2024 Jocelyne Villegas Jin Moderate persistent asthma without complication J45.40 [facility] [address] [place], [place] [id number] 09/09/2024 Koriav Bowers [facility] [address] [place], [place] [id number] 02/09/2025 Won Lawson [facility] [address] [place] [id number] 02/15/2025 Koriav Bowers [facility] [address] [place], [place] [id number] 02/21/2025 Jocelyne Abdi Moderate persistent asthma without complication J45.40 [facility] [address] [place], [place] [id number] 02/22/2025 Jocelyne Bakari Abdi [facility] [address] [place], [place] [id number] 05/11/2025 Koriav Bowers [facility] [address] [place], [place] [id number] 05/16/2025 Kori Crowjohnie Assessments Encounter Date Diagnosis (ICD Code) Assessment Notes Treatment Notes Treatment Clinical Notes Section Notes 08/26/2024 Moderate persistent asthma without complication (ICD-10 - J45.40) 07/28/2024 Nausea and vomiting, unspecified vomiting type (ICD-10 - R11.2) clear liquids and advance as tolerated 07/21/2024 Essential (primary) hypertension (ICD-10 - I10) Continue to monitor blood pressure at home. If he has consistently elevated readings, may need to adjust his medication dosage. 07/07/2024 Bronchitis (ICD-10 - J40) Has had 2 rounds of antibiotics with no improvement. Will get a CXR and respiratory panel. 07/07/2024 Exacerbation of asthma, unspecified asthma severity, unspecified whether persistent (ICD-10 - J45.901) Will hold his Breo and start a sample of trelegy. Will start on a prednisone taper. Will continue nebs at home. 06/30/2024 Acute bronchitis (ICD-10 - J20.9) 06/30/2024 [...] Will fax order and note to [facility]. 05/10/2025 Alcohol abuse (ICD-10 - F10.10) 05/10/2025 Acute pancreatitis, unspecified complication status, unspecified pancreatitis type (ICD-10 - K85.90) 02/21/2025 Moderate persistent asthma without complication (ICD-10 - J45.40) 02/09/2025 Depression with anxiety (ICD-10 - F41.8) 02/09/2025 Alcohol abuse (ICD-10 - F10.10) Patient is going to check into rehab facilities 02/09/2025 Panic attacks (ICD-10 - F41.0) Discussed the case with Dr. Lawson. He is going to send the patient a week's worth of oxazepam and he will f/u with Dr. Abdi next week. 05/10/2025 Anxiety disorder, unspecified (ICD-10 - F41.9) Will call behavioral health. 09/08/2024 Moderate persistent asthma without complication (ICD-10 [...] Date Coverage End Date [facility] [address] [address] [place] [address] [phone] [id number] SHYANN FINK Self - patient is the insured Medications Administered Medication Instructions Date of Administration Dosage Notes Dexamethasone 09/29/2023 1 mL Medical (General) History Medical History History ICD Code Hypertension Asthma Anxiety Surgical History Surgery Date(Month/Year) bilateral hip replacements Hospitalization History Reason Date(Month/Year) Pal[facility] Sinus Infection- [facility] 10/2018 Sinus infection, Bronchitis, Middle Ear Infection- [facility] 09/04/2018 Pneumonia 06/03- Asthma 1997
--- OUTSIDE RECORDS SUMMARY | 2025-05-23 21:24 | XMS_ITS | Encounter Summary ---
Author Organization [facility] Address [address] [place] [address] Care Team Providers Care Mandrel Press Hand Name Role Phone Moris Abdi MD Primary Care Provider [phone] Reason for Visit * Reason Comments Med Refill Encounter Details Date Type Department Care Team ([facility] st Contact Info) Description 12/17/2023 Refill Medical Office [facility] [address], [address] [place] [address] Yadira Schulte PA [address] [place] [address] Avascular necrosis of bones of [...] documented as of this encounter Care Teams Mandrel Press Hand Relationship Specialty Start Date End Date Moris Abdi MD [address] [place] [id number] PCP - General 12/28/20 documented as of this encounter
--- OUTSIDE RECORDS SUMMARY | 2025-05-23 21:24 | XMS_ITS | Clinical Summary ---
Author Organization [facility] Address [address] [place] [address] Phone [email or web address] Care Team Providers Care Automatic Silk Screen Printer Name Role Phone Bakari Abdi MD Primary Care Provider [phone] Allergies Active Allergy Reactions Criticality Noted Date [...] Results * (ABNORMAL) Hgb A1C Hemoglobin Glycosylated (88820) (10/12/2024 11:49 AM EST) Hemoglobin A1C 5.9(H) 4.8 - 5.6 % Comment: Prediabetes: 5.7 - 6.4 Diabetes: >6.4 Glycemic control for adults with diabetes: <7.0 Blood (Blood, Venous) 10/12/2024 11:49 AM EST 10/12/2024 1:00 AM EST Comment:Blood, Venou Narrative [facility] - 10/13/2024 8:07 AM EST Performed at: - [facility] [address] [id number] Race Steward: Vitor Nevarez PhD, Phone: [phone] us Cody Rodriguez MD LAB BLOOD ORDERABLES Final Resul t [facility] - [address] [place] [id number] from Last 3 Months or Most Recently Relevant to Health Maintenance Insurance [employer] NO COPAY NB Care Teams Automatic Silk Screen Printer Relationship Specialty Start Date End Date Bakari Abdi MD [address] [facility] [address] [place] [address] PCP - General 10/12/24
--- OUTSIDE RECORDS SUMMARY | 2025-05-23 21:24 | XMS_ITS | Clinical Summary ---
Author Organization [facility] Address [address] [place] [address] Care Team Providers Care Paper Reel Operator Name Role Phone Moris Abdi MD Primary Care Provider [phone] Allergies Active Allergy Reactions Criticality Noted Date [...] drink first t annie in the morning ([employer] TEACHER) to steady your nerves or to get [...] UKY-Diabetes: Hemoglobin A1C 04/11/2025 10/12/2024, 06/06/2024, 01/15/2024 [id number] Vaccine (4 - season) 2025 06/22/2021, 09/14/2020, [...] Qureshi MD Medical Devices Implanted Type Area Rubber Worker Device Identifier Shelf Expiration Date Model / Serial / Lot Chg Shell R3 3 Hole Acet 52mm - [id number] Implanted:Qty: 1 on 06/13/2024 by King Qureshi MD at [facility] Hip Right: Hip [employer]-[id number] 01/22/2034 [id number] / / [id number] Chg Head Oxinium Fem 12/14 28m - [id number] Implanted:Qty: 1 on 06/13/2024 by King Qureshi MD at [facility] Hip Right: Hip [employer]-[id number] 09/03/2030 [id number] / / [id number] Liner Or3o Dual Mbility 40 52 - [id number] Implanted:Qty: 1 on 06/13/2024 by King Qureshi MD at [facility] Liner Right: Hip [employer]-[id number] 12/25/2033 [id number] / / [id number] Liner Or3o Dual Mbility Xlpe /40 - [id number] Implanted:Qty: 1 on 06/13/2024 by King Qureshi MD at [facility] Liner Right: Hip [employer]-[id number] 03/14/2034 [id number] / / [id number] Chg Screw Ref Spher Head 25mm - [id number] Implanted:Qty: 1 on 06/13/2024 by King Qureshi MD at [facility] Screw Right: Hip [employer]-[id number] 01/04/2034 [id number] / / [id number] Chg Screw Ref Spher Head 35mm - [id number] Implanted:Qty: 1 on 06/13/2024 by King Qureshi MD at [facility] Screw Right: Hip [employer]-[id number] 01/22/2034 [id number] / / [id number] Polarstem Cementless Lat Tiha - [id number] Implanted:Qty: 1 on 06/13/2024 by King Qureshi MD at [facility] Stem Right: Hip [employer]-[id number] 07/02/2029 [id number] / / [id number] Chg Shell R3 3 Hole Acet 52mm - [id number] Implanted:Qty: 1 on 01/25/2024 by King Qureshi MD at [facility] Left: Hip [employer]-[id number] 09/16/2033 [id number] / / [id number] Chg Screw Ref Spher Head 25mm - [id number] Implanted:Qty: 1 on 01/25/2024 by King Qureshi MD at [facility] Left: Hip [employer]-[id number] 10/27/2033 [id number] / / [id number] Liner Or3o Dual Mbility 40 52 - [id number] Implanted:Qty: 1 on 01/25/2024 by King Qureshi MD at [facility] Left: Hip [employer]-[id number] 09/21/2033 [id number] / / [id number] Chg Screw Ref Spher Head 35mm - [id number] Implanted:Qty: 1 on 01/25/2024 by King Qureshi MD at [facility] Left: Hip [employer]-[id number] 09/28/2033 [id number] / / [id number] Liner Or3o Dual Mbility Xlpe 28/40 - [id number] Implanted:Qty: 1 on 01/25/2024 by King Qureshi MD at [facility] Left: Hip [employer]-[id number] 10/19/2033 [id number] / / [id number] Polarstem Cementless Tiha 2 - [id number] Implanted:Qty: 1 on 01/25/2024 by King Qureshi MD at [facility] Left: Hip [employer]-[id number] 01/06/2030 [id number] / / [id number] Chg Head Oxinium Fem 07/30 28m - [id number] Implanted:Qty: 1 on 01/25/2024 by King Qureshi MD at [facility] Left: Hip [employer]-[id number] 09/19/2033 [id number] / / [id number] Procedures Procedure Name Priority Date/Time Associated Diagnosis [...] Reactive Non Reactive 02/03/2025 1:28 AM EDT [facility] Comment:Screening for HIV 1 & 2 antibodies, and P24 antigen is NONREACTIVE. No confirmatory testing is required. Blood Venous blood specimen / Unknown Venipuncture / Unknown 02/03/2025 12:37 AM EDT 02/03/2025 12:40 AM EDT [facility] LAB BLOOD ORDERABLES Fin al Result Performing Organization Address City/[facility]/ZIP Co de Phone Number [facility] [address] [place] [address] * Hepatitis C Antibody - ED (02/03/2025 12:37 AM EDT) Pathologist [facility] Hepatitis C Antibody Negative Negative 02/03/2025 1:23 AM EDT [facility] Blood Venous blood specimen / Unknown Venipuncture / Unknown 02/03/2025 12:37 AM EDT 02/03/2025 12:40 AM EDT [facility] LAB BLOOD ORDERABLES Fin al Result [facility] [address] [place] [address] * (ABNORMAL) Hemoglobin A1c (06/06/2024 10:13 AM EDT) Pathologist [facility] Hemoglobin A1c 6.6(H) <5.7 % 06/06/2024 1:54 PM EDT [facility] Blood Venous blood specimen / Unknown Venipuncture / Unknown 06/06/2024 10:13 AM EDT 06/06/2024 10:13 AM EDT Narrative [facility] - 06/06/2024 1:54 PM EDT HA1C Interpretive Data: Diagnosis of Diabetes: Diabetic > or = 6.5% Pre-diabetic 5.7 to 6.4% Non-diabetic < or = 5.6% Glycemic Targets for Type I and Type II Diabetics: Non- Adults <7.0% Adults <6.0% Children and Adolescents <7.5% Source: [place] [employer]. Standards of medical care in diabetes,2017. Diabetes Care.2017:40 (suppl 1):S1-S135. HbA1c assay performed by an ion-exchange chromatography method that is certified traceable to the DCCT. us King Qureshi MD LAB BLOOD ORDERABLES Final R esult [facility] [address] [place] [address] from Last 3 Months or Most Recently Relevant to Health Maintenance Additional Health Concerns Active Problems Noted Date Diagnosed Date Autogenerated Problem 11/17/2024 Insurance [facility] Advance Directives * Full Code (Latest Code Status on File) Date Activated Date Inactivated Comments 06/13/2024 9:17 AM 06/13/2024 8:18 PM Question Answer Comments Patient has decision-making capacity? Yes * Full Code Date Activated Date Inactivated Comments 01/25/2024 8:43 AM 01/25/2024 7:29 PM Question Answer Comments Patient has decision-making capacity? Yes Care Teams Paper Reel Operator Relationship Specialty Start Date End Date Moris Abdi MD [address] [place] [address] [facility] - General 12/28/20
--- NOTE | 2025-05-23 21:28 | PC.NURSE ---
Pt was dropped off by [employer] with no communication to any nurse. 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 Pt states he just wants to go home and go to sleep. Pt has answered all questions appropriately and does not want medical or psych intervention at this time. This RN called [employer] to question them about this pt and they state pt said he was suicidal and wanted help. [employer] is coming to talk with pt at this time and RN will reassess afterwards.
--- NOTE | 2025-05-23 22:19 | PC.NURSE ---
2200- [employer] officers returned to [facility] ER to reevaluate the patient. They stated the patient was much more calm now and more level-headed . they were in agreeance with ER nursing staff that the patient was safe to go home. patient left with officers at 2215 and returned home without being seen
[2025-05-23 22:21] VITALS: BP 00/00; PULSE 0; RESP 0; TEMP -17.7; TEMP 0
== END 2025-05-23 22:23 | disposition left against medical advice (07) ==
PROVIDERS: Emergency Provider Student in an Organized Health Care Education/Training Program; PCP Family Medicine
DX: Z53.21 Procedure and treatment not carried out due to patient leaving prior to being seen by health care provider (principal)
CPT/HCPCS: 99211; 99282

== ENCOUNTER 2025-07-31 10:49 | Observation (INO) | payer OTHER, SELFPAY ==
[2025-07-31] VITALS (9 sets, daily range): BP systolic 147–215; BP diastolic 94–131; PULSE 85–97; RESP 12–22; TEMP 36.9–37.2; O2SAT 93–99; BMI 32.5; BMI 30.8
--- NOTE | 2025-07-31 10:52 | ECG_ITS ---
APPROVED REPORT Exam: Resting ECG HR:96 bpm ECG Measurements Heart Rate 96 AXES ID 152 P 70 QRSd 94 QRS 34 QT 343 T 41 QTc 397 Conclusion SINUS RHYTHM NORMAL ECG UNCONFIRMED REPORT Normal sinus rhythm. No STEMI. Electronically signed by : ELA KUMAR, 07/31/2025 15:54:25
--- NOTE | 2025-07-31 10:57 | XR_ITS ---
PROCEDURE INFORMATION: Exam: XR Chest Exam date and time: 07/31/2025 11:51 AM Age: 35 years old Clinical indication: Pain; Angina pectoris; Additional info: Upper abdominal/chest pain TECHNIQUE: Imaging protocol: Radiologic exam of the chest. Views: 1 view. Total images: 1 COMPARISON: CR XR CHEST PORTABLE 03/20/2025 9:25 PM FINDINGS: Lungs: No consolidation. Pleural spaces: No pleural effusion. No pneumothorax. Heart/Mediastinum: No cardiomegaly. Bones/joints: Unremarkable. IMPRESSION: No acute cardiopulmonary abnormalities.
--- NOTE | 2025-07-31 10:57 | CT_ITS ---
PROCEDURE INFORMATION: Exam: CT Abdomen And Pelvis With Contrast Exam date and time: 07/31/2025 11:45 AM Age: 35 years old Clinical indication: Abdominal pain; Generalized; Additional info: ETOH abuse, epigastric pain, pancreatitis? TECHNIQUE: Imaging protocol: Computed tomography of the abdomen and pelvis with contrast. Radiation optimization: All CT scans at this facility use at least one of these dose optimization techniques: automated exposure control; mA and/or kV adjustment per patient size (includes targeted exams where dose is matched to clinical indication); or iterative reconstruction. Contrast material: ISOVUE; Contrast volume: 75 ml; Contrast route: IV; COMPARISON: CR XR HIP LT 2-3V W/PELVIS 09/02/2023 11:57 AM FINDINGS: Lungs: Included lung bases are clear. Liver: Borderline enlarged liver, measures approximately 18 cm measured over the right hepatic lobe on coronal images. Decreased attenuation of the liver compatible with hepatic steatosis. No mass. Gallbladder and biliary ducts: Gallbladder is normal. No calcified stones. No ductal dilatation. Pancreas: Pancreas is normal. No ductal dilatation. Spleen: Spleen is mildly enlarged. Spleen measures 14.8 cm in length measured on coronal images. Adrenal glands: Adrenal glands are normal. Kidneys and ureters: Subcentimeter cortical hypodensity in the right kidney too small to characterize, likely a cyst, no follow-up imaging indicated. Kidneys are otherwise unremarkable. No hydronephrosis or hydroureter. No stones visualized with note the distal ureters are not well visualized secondary to hip hardware beam hardening artifact. Stomach and bowel: No evidence of bowel obstruction or acute bowel abnormality. Few colonic diverticula with no evidence of acute diverticulitis. Stomach is nondistended which exaggerates gastric mural thickening, can limit evaluation for gastric pathology. Appendix: No evidence of appendicitis. Intraperitoneal space: No free air. No significant fluid collection. Vasculature: No acute abnormality. No abdominal aortic aneurysm. Lymph nodes: No enlarged lymph nodes. Urinary bladder: Limited evaluation, partially obscured by hip hardware beam hardening artifacts. Reproductive: Unremarkable as visualized, partially obscured. Bones/joints: No acute osseous abnormality or suspicious osseous lesion. Bilateral hip arthroplasty with associated beam hardening artifacts across the lower pelvis, limiting evaluation of the adjacent structures. Mild degenerative change of the included spine, more advanced at L5-S1 which demonstrates disc space narrowing, vacuum disc phenomenon, endplate osteophytes with spinal canal and sjjw-qexkadq-kljg-right neural foraminal narrowing. Soft tissues: Small vxdxa-uylpybr-wzsi-left fat containing inguinal hernias. IMPRESSION: 1. Borderline enlarged liver. Decreased attenuation of the liver compatible with hepatic steatosis. 2. Mild splenomegaly. 3. Other chronic and incidental findings as detailed above. COMMENTS: Consistent with the [place] [employer]'s Incidental Findings Committee white paper (J Am Kwame Radiol 2018): Any incidental renal lesion less than 1 cm or classified as too small to characterize, or any incidental cystic renal lesion characterized as simple-appearing, is likely benign. No follow-up imaging is recommended for these lesions per consensus recommendations based on imaging criteria.
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
[2025-07-31] MEDS: KETOROLAC 15MG/ML VIAL 15 MG IV (11:17)
[2025-07-31] MEDS: MVI, ADULT NO.1 WITH VIT K 10 ML, THIAMINE HCL 100 MG, MAGNESIUM SULFATE 2 GM in LACTAT... 150 ML IV (11:17)
[2025-07-31] MEDS: ONDANSETRON 4MG/2ML VIAL 4 MG IV (11:18)
[2025-07-31] MEDS: diazePAM 10MG/2ML SYRINGE 10 MG IV (11:18)
[2025-07-31 11:20] LABS: Hematocrit 49.4 % (42.0-52.0); Hemoglobin 17.6 g/dL (14.1-18.0); Immature Granulocytes % 0.2 %; Mean Corpuscular HGB Conc 35.6 g/dL (31.8-35.4); Mean Corpuscular Hemoglobin 28.7 pg (27.0-31.2); Mean Corpuscular Volume 80.6 fl (80-94); Nucleated Red Blood Cells % 0 %; Platelet Count 188 K/mm3 (142-424); Red Blood Count 6.13 M/mm3 (4.60-6.20); Red Cell Distribution Width-SD 35.7 fL; White Blood Count 5.7 K/mm3 (4.8-10.8)
[2025-07-31 11:29] LABS: Chloride 101 mmol/L (98-107); Potassium 3.7 mmoL/L (3.5-5.1); Sodium 134 mmol/L (136-145)
[2025-07-31 11:31] LABS: Activated Partial Thrombo Time 28.8 seconds (22.8-30.6); INR 1.03 (0.9-1.1); Lipase 300 U/L (23-300); Prothrombin Time 11.4 seconds (10.1-12.5)
[2025-07-31 11:32] LABS: Alanine Aminotransferase 36 U/L (12-78); Alkaline Phosphatase 82 U/L (38-126); Anion Gap 13.7 mEq/L (5-15); Aspartate Amino Transferase 44 U/L (17-59); Bilirubin,Total 1.0 mg/dl (0.2-1.3); Blood Urea Nitrogen 7 mg/dl (9-20); Calcium 9.1 mg/dl (8.4-10.2); Carbon Dioxide 23 mmol/L (22.0-30.0); Creatinine Clearance Estimated 144 mL/min (50-200); Creatinine,Serum 1.00 mg/dl (0.66-1.25); Estimated Glomerular Filt Rate 85 ml/min (>60); GFR (African American) 102 ML/MIN (>60); Glucose 171 mg/dl (74-100); Magnesium 1.7 mg/dl (1.6-2.3); Phosphorous 2.4 mg/dl (2.5-4.5); Total Protein,Serum 7.5 g/dl (6.3-8.2)
[2025-07-31 11:44] LABS: Troponin I < 0.01 ng/ml (0.00-0.034)
[2025-07-31 11:45] LABS: Albumin Level 5.1 g/dl (3.5-5.0); Albumin/Globulin Ratio 2.1 (1.1-1.8); Globulin 2.4 g/dL (1.3-3.2)
[2025-07-31] MEDS: SODIUM CHLORIDE 0.9% 10ML SYR (RAD ONLY) 10 ML IV (11:45)
[2025-07-31] MEDS: IOPAMIDOL-370 (76%);100ML BOTTLE 75 ML IV (11:45)
[2025-07-31 13:07] LABS: Microscopic, Urine URINE MICROSCOPIC (MICROSCOPIC)
[2025-07-31 13:16] LABS: Color,Urine YELLOW (Yellow); Glucose,Urine (UA) Negative (Negative); Ketones,Urine 1+ (Negative); Leukocyte Esterase,Urine Negative (Negative); PH,Urine 6.5 (5.0-8.5); Protein,Urine Negative (Negative); Specific Gravity, Urine 1.010 (1.005-1.030); Urobilinogen,Urine 0.2 EU/dl (0.2)
[2025-07-31 13:21] LABS: Bilirubin,Urine 1+ (Negative)
[2025-07-31 13:36] LABS: Amphetamine/Metha Screen,Urine Negative ng/ml (<1000)
[2025-07-31 13:37] LABS: Barbiturates Screen,Urine Negative ng/ml (<200)
[2025-07-31 13:38] LABS: Benzodiazepines Screen,Urine Positive ng/ml (<200)
[2025-07-31 13:40] LABS: Methadone Screen,Urine Negative ng/ml (<300); Opiate Screen,Urine Negative ng/ml (<300)
[2025-07-31 13:41] LABS: Phencyclidine Screen,Urine Negative ng/ml (<25)
[2025-07-31 13:42] LABS: Bacteria,Urine 1+ /lpf; Squamous Epithelial Cell,Urine Occasional #/hpf (0-5); WBC,Urine Occasional #/hpf (0-3)
[2025-07-31] MEDS: diazePAM 5MG TABLET 5 MG PO ×3 (14:14→23:35)
--- NOTE | 2025-07-31 14:14 | PC.NURSE ---
DR KUMAR SPEAKING WITH DR ALVARES FOR ADMISSION
--- NOTE | 2025-07-31 14:17 | PC.NURSE ---
[facility] PAINTER NOTIFIED OF ADMISSION
[2025-07-31 14:50] LABS: Troponin I < 0.01 ng/ml (0.00-0.034)
--- NOTE | 2025-07-31 15:05 | PC.NURSE ---
report called to [facility]
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
[2025-07-31] MEDS: MULTIVITAMIN TABLET 1 EACH PO (16:42)
[2025-07-31 17:52] LABS: Troponin I < 0.01 ng/ml (0.00-0.034)
--- NOTE | 2025-07-31 19:06 | HMH.PHAINT1 ---
Pharmacy Intervention Comments: HOME MEDICATION LIST VERIFIED USING LIST FROM OUTPATIENT PHARMACY AND RECENT OFFICE VISIT
[2025-07-31] MEDS: PANTOPRAZOLE 40MG TABLET 40 MG PO (20:19)
[2025-07-31] MEDS: CARVEDILOL 25MG TABLET 25 MG PO (20:19)
[2025-08-01] VITALS: BP 149/79; PULSE 76; PULSE 80; RESP 18; TEMP 36.6; O2SAT 95
[2025-08-01 04:00] VITALS: BP 162/112; PULSE 70; PULSE 90; RESP 20; TEMP 36.5; O2SAT 96; BMI 31.6
[2025-08-01] MEDS: diazePAM 5MG TABLET 5 MG PO ×2 (05:21→11:11)
[2025-08-01 08:00] VITALS: BP 155/106; PULSE 86; RESP 24; TEMP 36.6; O2SAT 93
[2025-08-01] MEDS: dilTIAZem ER 120MG CAPSULE 120 MG PO (08:05)
[2025-08-01] MEDS: PANTOPRAZOLE 40MG TABLET 40 MG PO (08:05)
[2025-08-01] MEDS: LISINOPRIL 20MG TABLET 20 MG PO (08:05)
[2025-08-01 08:06] VITALS: PULSE 80
[2025-08-01] MEDS: CARVEDILOL 25MG TABLET 25 MG PO (08:06)
--- NOTE | 2025-08-01 08:15 | EXP.PN ---
Subjective *Date: 08/01/25 *Time: 08:15 Interval history: Patient states he is 100% better but reports his blood pressure remains elevated. He denies hallucinations and tremors. He has been able to eat. He has been out of bed without difficulties. Patient is voiding QS. He did not sleep well but states he usually takes Seroquel at night at home. Nursing reports sweating only. Urine culture is pending. Exam Data for Last 24 hours Vital signs and Labs for Last 24 Hours: Temp Pulse Resp BP Pulse Ox O2 Del Method 97.7 F 90 20 162/112 H 96 Room Air 08/01/25 04:00 08/01/25 04:00 08/01/25 04:00 08/01/25 04:00 08/01/25 04:00 08/01/25 07:43 Laboratory Results - last 24 hr 07/31/25 11:00: WBC 5.7, RBC 6.13, Hgb 17.6, Hct 49.4, MCV 80.6, MCH 28.7, MCHC 35.6 H, RDW 12.4, Plt Count 188, MPV 10.5 H, Neut % (Auto) 77.0, Lymph % (Auto) 11.8, [place] % (Auto) 8.5, Eos % (Auto) 1.8, Baso % (Auto) 0.7, Neut # (Auto) 4.4, Lymph # (Auto) 0.7, [place] # (Auto) 0.5, Eos # (Auto) 0.1, Baso # (Auto) 0.0, PT 11.4, INR 1.03, APTT 28.8, Sodium 134 L, Potassium 3.7, Chloride 101, Carbon Dioxide 23, Anion Gap 13.7, BUN 7 L, Creatinine 1.00, Estimated Creat Clear 144, Estimated GFR 85, Est GFR ( Amer) 102, Glucose 171 H, Lactate 1.7, Calcium 9.1, Phosphorus 2.4 L, Magnesium 1.7, Total Bilirubin 1.0, AST 44, ALT 36, Alkaline Phosphatase 82, Troponin I < 0.01, Total Protein 7.5, Albumin 5.1 H, Globulin 2.4, Albumin/Globulin Ratio 2.1 H, Lipase 300, Plasma/Serum Alcohol < 10 07/31/25 13:02: Urine Opiates Screen Negative, Urine Methadone Screen Negative, Ur Barbituates Screen Negative, Ur Phencyclidine Scrn Negative, Ur Amphetamines Screen Negative, U Benzodiazepines Scrn Positive H, Urine Cocaine Screen Negative, U Marijuana (THC) Screen Positive H 07/31/25 13:05: Urine Color Yellow, Urine Appearance Clear, Urine pH 6.5, Ur Specific [place] 1.010, Urine Protein Negative, Urine Glucose (UA) Negative, Urine Ketones 1+, Urine Blood Negative, Urine Nitrate Positive A, Urine Bilirubin 1+ A, Urine Urobilinogen 0.2, Ur Leukocyte Esterase Negative, Urine RBC None, Urine WBC Occasional, Ur Squamous Epith Cells Occasional, Urine Bacteria 1+ 07/31/25 14:20: Troponin I < 0.01 07/31/25 17:10: Troponin I < 0.01 I & O for Last 24 hours: Intake & Output 07/29/25 07/30/25 07/31/25 08/01/25 11:59 11:59 11:59 11:59 Intake Total 1305 / 1305 Output Total 0 / 0 Balance 1305 / 1305 Weight 220 lb 220 lb 12.8 oz Constitutional Constitutional: no acute distress Comments: Face is flushed *Routine Respiratory Exam Respiratory: Present wheezes (Expiratory wheezing throughout.) *Routine Cardiovascular Exam Cardiovascular: Present RRR *Routine Abdominal Exam Abdominal: Present soft and normoactive bowel sounds; Absent tenderness or distended *Routine Extremities Exam Extremities: Absent edema or calf tenderness *Routine Neurological Exam Neurological: Present alert and oriented X3 Assessment and Plan *Assessment and plan (1) Alcohol withdrawal: Status: Acute Category: Medical Code(s): F10.939 - Alcohol use, unspecified with withdrawal, unspecified (2) Chest pain: Status: Acute Category: Medical Code(s): R07.9 - Chest pain, unspecified (3) Major depressive disorder, recurrent, moderate: Status: Acute Category: Medical Code(s): F33.1 - Major depressive disorder, recurrent, moderate (4) Alcoholic gastritis: Status: Acute Category: Medical Code(s): K29.20 - Alcoholic gastritis without bleeding (5) Anxiety: Status: Acute Category: Medical Code(s): F41.9 - Anxiety disorder, unspecified (6) Dysuria: Status: Acute Category: Medical Code(s): R30.0 - Dysuria (7) Polysubstance abuse: Status: Acute Category: Medical Code(s): F19.10 - Other psychoactive substance abuse, uncomplicated (8) HTN (hypertension): Status: Chronic Qualifiers: Hypertension type: unspecified Qualified Code(s): I10 - Essential (primary) hypertension Category: Medical Code(s): I10 - Essential (primary) hypertension Plan Will continue with monitoring. He just received his a.m. dose of lisinopril and diltiazem. Will continue to monitor blood pressure. His plan is to continue to go to AA daily at discharge. He was to start Antabuse but work never did send this med
--- NOTE | 2025-08-01 08:17 | HMH.PTEV ---
Physical Therapy Evaluation Rehab PT IP Evaluation Start: 07/31/25 15:46 Freq: ONCE Status: Active Protocol: Document 08/01/25 08:16 TAMEKA (Rec: 08/01/25 08:17 TAMEKA [id number]) Subjective/History History History Per H&P: Ruthie Fink is a 35y male with a past medical history of alcohol abuse, hypertension, CKD, avascular necrosis of the hip status post bilateral hip replacement, who presents to the emergency department for complaints of epigastric pain/chest pain as well as alcohol withdrawal. Patient states that he is trying to quit alcohol and quit cold turkey proximately 2 days ago. He states that last night, he thought he was having some withdrawal symptoms but denies any auditory visual hallucinations or history of alcohol withdrawal seizures, so he drank 12 Esquivel lights. Starting yesterday morning, he states that he started developing epigastric abdominal pain and has not been able to keep any food or drink down due to vomiting. He he has had pancreatitis before and is unsure if this is what is going on at this time. He denies any history of heart attacks but states that he has been tachycardic in the past. He does smoke tobacco. On arrival, patient is hypertensive, borderline tachycardic, maintaining appropriate oxygen saturation on room air. Afebrile. Physical exam, as stated above , revealed an anxious and diaphoretic male in no respiratory distress. He has resting tremors to the bilateral upper extremities. Abdomen is tender in the epigastric region with mild guarding. No rigidity or peritonitis. Cardiopulmonary exam reveals tachycardia but otherwise no murmur or rub. On reassessment in ER, patient stated that the initial dose of diazepam helped, however he is began to feel restless, tachycardic again. An additional 5 mg of p.o . diazepam was administered.. ER physician discussed admission with patient given his elevated CIWA scores and withdrawal symptoms. He agreed with this plan. One gm of IV Rocephin was administered for what could be a mild urinary tract infection with nitrate positive UA. UDS is also positive for marijuana and benzodiazepines. Patient does state that he occasionally will smoke marijuana. Patient seen and examined by Dr. Ruben Abdi. Diazepam is scheduled. Note Pantoprazole ordered. BP meds ordered. Subjective Subjective Pt IND with all mobility and lives with his dad in a 2- story home. Pt still drives. [facility] How much help from another person do you currently need... Turning from your None back to your side while in a flat bed without using bedrails? Moving from lying on None back to sitting on the side of a flat bed without using bedrails? Moving to and from a None bed to a chair ( including a wheelchair)? Standing up from a None chair using your arms? (e.g., wheelchair, bedside chair) Walking in hospital None room? Climbing 3-5 steps None with a railing? Mobility Score 24 Mobility Level [facility] Mobility 8 Walk 250 feet or more Mobility Calculator Rehab PT IP Eval Objective Appearance Patient Behavior Appropriate,Cooperative Patient Orientation Person Difficulty following none instructions Speech Pattern Clear Ambulation Patient Able to Yes Ambulate Ambulation Observation IP General Gait No Deviations/Normal Pattern Observation Ambulation Distance 30 (feet) Ambulation Assistive None Device Ambulation Ability Independent Balance Ability to Arise Able, w/o using arms Sitting Balance Steady, safe Standing Balance Narrow stance w/o support Dynamic Sitting Normal Balance Ability Dynamic Standing Normal Balance Ability Transfers Bed Transfer Ability Independent Sit to Stand Bed Independent Transfer Ability Rehab PT IP prob,goals,plan Problems Date of Evaluation: 08/01/25 Rehab Potential Rehab Potential Innapropriate for Skilled Therapy Discharge Plan PT Discharge Plan Pt is at his baseline mobility and is not appropriate for skilled PT at this time. Eval Complexity Eval Charge Codes 32692 - Low Complexity PHYSICIAN CERTIFICATION: I certify the specified therapy services for Ruthie Fink are required, authorized, and reviewed every 30 days.
--- NOTE | 2025-08-01 09:14 | SW/DCPLANNER ---
I spoke w/ patient this AM regarding resources at time of discharge. Patient voiced that he had a one week relapse, has supportive family and sponsors and attends weekly AA meetings. Patient stated that he has been to inpatient rehab in the past and is not interested at time of discharge. Patient voiced no needs at this time. I did provide patient w/ [facility] Resource List for discharge. Peer Support has been consulted. Per Dr Abdi patient will discharge home today.
--- NOTE | 2025-08-01 09:40 | HMH.PHAAMS2 ---
- Antimicrobial Stewardship Review culture & sensitivity review Stewardship interventions: culture & sensitivity review (CURRENTLY RECEIVING ROCEPHIN, WBC WNL, AFEBRILE, URINE CX PENDING.)
[2025-08-01 10:27] LABS: Hepatitis C Ab Qual. W/ RFX NEGATIVE (Negative)
--- NOTE | 2025-08-01 11:31 | CARE MANAGER ---
Oxazepam was denied by insurance. Contacted Dr. Abdi and let him know of the alternatives recommended. He states he will put in a new prescription as soon as possible. Notified nurse and pharmacy. Patient is going to go on and take antibiotic and come back to get new prescription Dr. Abdi calls in.
--- NOTE | 2025-08-01 16:42 | PEERSUPPORT ---
Peer Support Note Patient Information Patient Information: DOS: 08/01/2025 ? Ps Consult: Room 219 Bedside ? Open Share: Pt honest and forth coming of his ongoing battles with alcohol since his last admission at hospital. He has been to treatment three times in [place]. He is able to identify triggers leading up to his recent return to alcohol following three weeks of sobriety after completing a 30 day treatment in [place]. ? Pt is acknowledging his depression and anxiety, that contributes to his isolation then leads to decision to drink. -Difficulty expressing emotions, able to link them to thoughts and experiences that reinforce his drinking habits. ? Ps provided active listening, validating feelings. Ps also shared personal experiences relevant to situation focusing on responsibility and acceptance to the past, with hope of living one day at a time through prioritizing sobriety for overall wellbeing. ? Current stressors: -Fearful of health concerns with alcohol intake- Stated he felt his body rejecting the alcohol and knows he cannot continue on this path. -Missing his children who he loves very much, hopeful to see them at [place] time. ? Potential barriers: -Isolation -Lack of connection to local recovery community -Limited use of tools for relapse prevention -History of relapse/exposure to alcohol Support system: -Father -AA virtual meetings with Dleilah Youssef peers ? Supportive Intervention: -Inpatient Treatment- Pt refused inpatient treatment at this time. -Outpatient Treatment- Pt to schedule appointment with [facility]. Ps and pt discussed co-occurring diagnosis and available treatment for both within [facility] program. -Coping Skills and Trigger Identification -Goal setting for motivation- -Contact information to use in moments of crisis/hardships. ? Plan of action: Refrain from alcohol use Take medication as prescribed Stay in contact with social supports Weekly follow up phone calls with [facility] peer support starting on 08/02/2025. ?
--- NOTE | 2025-08-03 10:37 | SW/DCPLANNER ---
Spoke with patient on the phone. Patient stated that he is doing pretty well. Patient stated that he is aware of his upcoming appointments. Patient stated that he was able to get his new medicine picked up from [facility]. Patient stated that he has no concerns or questions at this time. Vinay Tapia
--- NOTE | 2025-08-13 00:26 | EXP.DC.SUM ---
General Admission date:: 07/31/25 Discharge date: 08/01/25 HPI HPI HPI: Medical Decision Narrative: Ruthie Fink is a 35y male with a past medical history of alcohol abuse, hypertension, CKD, avascular necrosis of the hip status post bilateral hip replacement, who presents to the emergency department for complaints of epigastric pain/chest pain as well as alcohol withdrawal. Patient states that he is trying to quit alcohol and quit cold turkey proximately 2 days ago. He states that last night, he thought he was having some withdrawal symptoms but denies any auditory visual hallucinations or history of alcohol withdrawal seizures, so he drank 12 [place] lights. Starting yesterday morning, he states that he started developing epigastric abdominal pain and has not been able to keep any food or drink down due to vomiting. He he has had pancreatitis before and is unsure if this is what is going on at this time. He denies any history of heart attacks but states that he has been tachycardic in the past. He does smoke tobacco. On arrival, patient is hypertensive, borderline tachycardic, maintaining appropriate oxygen saturation on room air. Afebrile. Physical exam, as stated above, revealed an anxious and diaphoretic male in no respiratory distress. He has resting tremors to the bilateral upper extremities. Abdomen is tender in the epigastric region with mild guarding. No rigidity or peritonitis. Cardiopulmonary exam reveals tachycardia but otherwise no murmur or rub. On reassessment in ER, patient stated that the initial dose of diazepam helped, however he is began to feel restless, tachycardic again. An additional 5 mg of p.o. diazepam was administered.. ER physician discussed admission with patient given his elevated CIWA scores and withdrawal symptoms. He agreed with this plan. One gm of IV Rocephin was administered for what could be a mild urinary tract infection with nitrate positive UA. UDS is also positive for marijuana and benzodiazepines. Patient does state that he occasionally will smoke marijuana. Patient seen and examined by Dr. Ruben Abdi. Diazepam is scheduled. Note Pantoprazole ordered. BP meds ordered. Hospital Course Hospital Course Hospital Course: Patient was started on diazepam and pantoprazole. By 08/01/2025, he felt much better. He denied any hallucinations or tremors. He was stable to be discharged and planned daily AA meetings. He received a dose of Rocephin for UTI and was discharged on Cipro. He will follow-up in the office of [facility]. Exam Data for Last 24 hours Vital signs and Labs for Last 24 Hours: Temp Pulse Resp BP Pulse Ox O2 Del Method 97.8 F 80 24 155/106 H 93 L Room Air 08/01/25 08:00 08/01/25 08:06 08/01/25 08:00 08/01/25 08:00 08/01/25 08:00 08/01/25 08:51 Narrative: Constitutional Constitutional: no acute distress and cooperative *Routine HEENT Exam Head: Present normocephalic Eye: Present EOMI and PERRL ENT: Present mucous membranes moist *Routine Neck Exam Neck: Present supple and full ROM Routine Chest/Breast/Axilla Exam Chest wall: Absent tenderness Breast: Absent tenderness *Routine Respiratory Exam Respiratory: Present decreased breath sounds and CTA bilaterally; Absent rales or respiratory distress *Routine Cardiovascular Exam Cardiovascular: Present RRR; Absent murmur *Routine Abdominal Exam Abdominal: Present soft and tenderness (mild epigastric tenderness) *Routine Rectal Exam Rectal:: deferred *Routine Genitalia Exam Genitalia:: deferred *Routine Extremities Exam Extremities: Present edema (minimal); Absent tenderness Routine Back/Spine/Pelvis Exam Back/Spine: Present full ROM *Routine Skin Exam Skin: Present intact *Routine Neurological Exam Neurological: Present alert, oriented X3, CN II-XII intact and moving all extremities; Absent altered mental status Routine Psychiatric Exam Psychiatric: Present normal affect, normal thought process and depressed; Absent suicidal ideation, visual hallucinations or tactile hallucinations DS: Diagnosis Discharge Diagnosis (1) Alcohol withdrawal: Status: Resolved Code(s): F10.939 - Alcohol use, unspecified with withdrawal, unspecified (2) Chest pain: Status: Resolved Code(s): R07.9 - Chest pain, unspecified (3) Major depressive disorder, recurrent, moderate: Status: Inactive Code(s): F33.1 - Major depressive disorder, recurrent, moderate (4) Alcoholic gastritis: Status: Acute Code(s): K29.20 - Alcoholic gastritis without bleeding (5) Anxiety: Status: Acute Code(s): F41.9 - Anxiety disorder, unspecified (6) Dysuria: Status: Acute Code(s): R30.0 - Dysuria (7) Polysubstance abuse: Status: Inactive Code(s): F19.10 - Other psychoactive substance abuse, uncomplicated (8) HTN (hypertension): Status: Chronic Code(s): I10 - Essential (primary) hypertension Qualifiers: Hypertension type: unspecified Qualified Code(s): I10 - Essential (primary) hypertension Meds Home Medications and Allergies Home Medications ?Medication ?Instructions ?Recorded ?Confirmed ?Type albuterol sulfate 90 mcg/actuation 2 puff inhalation Q6H PRN 12/14/22 07/31/25 History aerosol inhaler Shortness Of Breath carvedilol 25 mg tablet 25 mg PO BID #10 tabs 03/20/25 07/31/25 Rx diltiazem HCl 120 mg 240 mg PO DAILY 03/20/25 07/31/25 History capsule,extended release 24 hr, controlled (DILT-XR) lisinopril 20 mg tablet 20 mg PO DAILY #10 tabs 03/20/25 07/31/25 Rx folic acid 1 mg tablet 1 mg PO DAILY 07/31/25 07/31/25 History magnesium oxide 400 mg (241.3 mg 400 mg PO DAILY 07/31/25 07/31/25 History magnesium) tablet omeprazole 40 mg capsule,delayed 40 mg PO DAILY 07/31/25 07/31/25 History release quetiapine 200 mg tablet (Seroquel) 200 mg PO HS 07/31/25 07/31/25 History quetiapine 25 mg tablet (Seroquel) 25 mg PO DAILY PRN anxiety 07/31/25 07/31/25 History sertraline 100 mg tablet 100 mg PO DAILY 07/31/25 07/31/25 History thiamine HCl (vitamin B1) 100 mg 100 mg PO DAILY 07/31/25 07/31/25 History tablet ciprofloxacin HCl 500 mg tablet 500 mg PO BID #14 tabs 08/01/25 Rx (Cipro) oxazepam 15 mg capsule 15 mg PO TID PRN anxiety #30 caps 08/01/25 Rx New Prescriptions to Start Prescriptions: ciprofloxacin HCl [Cipro] Augustus Abdi oxazepam Augustus Abdi Allergies Allergy/AdvReac Type Severity Reaction Status Date / Time amoxicillin Allergy Intermediate I-RASH Verified 06/06/25 08:30 clindamycin Allergy Unknown Anaphylaxis Verified 06/06/25 08:30 pollen extracts Allergy Hives Verified 06/06/25 08:30 Discharge Plan Disposition Patient Disposition: Home, Self-Care Follow up Plan Follow up with: Augustus Abdi MD [Primary Care Provider, Medical] - 08/07/25 2:30 pm Prescriptions/Medication Reconciliation: New oxazepam 15 mg capsule 15 mg PO TID PRN (Reason: anxiety) Qty: 30 0RF ciprofloxacin HCl [Cipro] 500 mg tablet 500 mg PO BID Qty: 14 0RF Continued albuterol sulfate 90 mcg/actuation HFA aerosol inhaler 2 puff inhalation Q6H PRN (Reason: Shortness Of Breath) Rx Instructions: INHALE 2 PUFFS BY MOUTH 4 TIMES DAILY NEEDED FOR WHEEZING diltiazem HCl [DILT-XR] 120 mg capsule,ext.rel 24h degradable 240 mg PO DAILY lisinopril 20 mg tablet 20 mg PO DAILY Qty: 10 0RF carvedilol 25 mg tablet 25 mg PO BID Qty: 10 0RF Rx Instructions: must administer with a meal/food quetiapine [Seroquel] 25 mg Tablet 25 mg PO DAILY PRN (Reason: anxiety ) quetiapine [Seroquel] 200 mg Tablet 200 mg PO HS sertraline 100 mg tablet 100 mg PO DAILY thiamine HCl (vitamin B1) 100 mg tablet 100 mg PO DAILY omeprazole 40 mg capsule,delayed release(DR/EC) 40 mg PO DAILY magnesium oxide 400 mg (241.3 mg magnesium) tablet 400 mg PO DAILY folic acid 1 mg tablet 1 mg PO DAILY Problem Reconciliation Problems Reviewed?: Yes Patient Discharge Instructions ACTIVITY: Continue current activity DIET: advance to your usual diet Print Language: Macedonian Providers Primary Care Provider: Augustus Abdi Admit Provider: Augustus Abdi Attending Provider: Augustus Abdi
== END 2025-08-01 11:44 | disposition home or self-care (01) ==
LOC: ER 14:21 → 2ND 08-01 00:25
PROVIDERS: Admitting Provider Family Medicine; Emergency Provider Student in an Organized Health Care Education/Training Program; PCP Family Medicine; Visit Provider Family Medicine
DX: K29.20 Alcoholic gastritis without bleeding (principal); R07.9 Chest pain, unspecified; N39.0 Urinary tract infection, site not specified; F41.9 Anxiety disorder, unspecified; K21.9 Gastro-esophageal reflux disease without esophagitis; I12.9 Hypertensive chronic kidney disease with stage 1 through stage 4 chronic kidney disease, or unspecified chronic kidney disease; N18.30 Chronic kidney disease, stage 3 unspecified; F19.10 Other psychoactive substance abuse, uncomplicated; Z88.0 Allergy status to penicillin; Z88.1 Allergy status to other antibiotic agents; Z91.048 Other nonmedicinal substance allergy status; F10.939 Alcohol use, unspecified with withdrawal, unspecified; Z79.899 Other long term (current) drug therapy; K76.0 Fatty (change of) liver, not elsewhere classified; F17.290 Nicotine dependence, other tobacco product, uncomplicated; J45.909 Unspecified asthma, uncomplicated; F33.9 Major depressive disorder, recurrent, unspecified
CPT/HCPCS: 36415; 71045; 74177; 80053; 80307; 80320; 81001; 83605; 83690; 83735; 84100; 84484; 85025; 85610; 85730; 86803; 87086; 93005; 96365; 96366; 96367; 96375; 97161; 97165; 99285; G0378; J0696; J1885; J2405; J3360; J3411; J3475; J7120; Q9967